=== PATIENT | female | born 1935 | race Caucasian/White ===

== ENCOUNTER 2016-09-08 14:38 | Outpatient (RCR) | payer MEDICARE ==
--- OUTSIDE RECORDS SUMMARY | 2016-08-19 13:49 | XMS REPORT | Continuity of Care Document ---
Author Author [facility] Organization [facility] Address Unknown Phone Unavailable Care Team Providers Care Exhibition Carver Name Role Phone Brittnee Marie PCP [phone] Source Comments Some departments are not documenting in the electronic medical record. If you do not see the information that you expected, contact Release of Information in the Health Information Management department at [phone] for further assistance in locating additional records.[facility] Active Allergies and Adverse Reactions Allergen Noted Date Severity Reactions Comments Pcn 06/23/2011 UNKNOWN Sulfa (Sulfonamide 06/23/2011 UNKNOWN Antibiotics) Current Medications Prescription Sig. Disp. Refills Start End Date Status Date ATORVASTATIN CALCIUM Take 20 mg by mouth. Active (LIPITOR PO) FUROSEMIDE (LASIX PO) Take 80 mg by mouth. Active ERGOCALCIFEROL (VITAMIN Take 2,000 mg by mouth Active D2) (VITAMIN D PO) daily. CALCIUM CARBONATE Take 500 mg by mouth Active (CALCIUM 500 PO) daily. MULTIVITAMIN PO Take by mouth. Active potassium chloride SR Take 10 mEq by mouth Active (K-DUR) 10 mEq tablet twice daily. diazepam (VALIUM) 5 mg Take 0.5 Tabs by mouth 30 Tab 07/10/20 Active tablet every 6 hours as needed. 11 diltiazem(#) (CARDIZEM) Take 9 mL by mouth every 07/10/20 Active 10 mg/mL 6 hours. 11 lisinopril(#) (PRINIVIL; 20 mL by Per NG tube 07/10/20 Active ZESTRIL) 2 mg/mL route daily. 11 metoprolol(#) (LOPRESSOR) 2.5 mL by PEG Tube route 07/10/20 Active 10 mg/mL twice daily. 11 oxyCODONE/acetaminophen 1-2 Tabs every 4 hours as 30 Tab 07/10/20 Active (PERCOCET; ENDOCET; needed for Pain. Max 12 11 ROXICET) 5/325 mg tablet tabs/day senna/docusate 10 mL by Per NG tube 07/10/20 Active (SENOKOT-S) 8.8/50 mg /10 route twice daily. 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 CAD (coronary artery disease) 06/24/2011 Scoliosis 06/24/2011 Spinal stenosis 06/24/2011 PVD (peripheral vascular disease) ([facility]) 06/24/2011 Social History Tobacco Use Types Packs/Day Years Used Date Former Smoker Cigarettes 1 15 Quit: 06/23/1995 Tobacco Cessation: Counseling Given: No Comments: Alcohol Use Drinks/Week oz/Week Comments No Last Filed Vital Signs Vital Sign Reading Time Taken Blood Pressure 137/78 07/11/2011 12:02 PM MANAGER SPECIALTY Pulse 83 07/11/2011 12:02 PM MANAGER [facility] Temperature 36.8 C (98.2 F) 07/11/2011 12:02 PM MANAGER SPECIALTY Respiratory Rate - - Height 1.702 m (5' 7.01") 07/11/2011 1:00 PM MANAGER [facility]TY Weight 75.297 kg (166 lb) 07/11/2011 6:31 AM MANAGER SPECIALTY Body Mass Index 25.99 07/11/2011 6:31 AM MANAGER SPECIALTY Oxygen Saturation 95% 07/11/2011 12:02 PM MANAGER SPECIALTY Plan of Care Health Maintenance Due Date Last Done Comments Physical (Comprehensive) 1942 Exam Pertussis Vaccine 1944 Tetanus Vaccine 1950 Shingles Vaccine 1993 Osteoporosis Screening 1998 Prevnar/Pneumovax (#1) 1998 Influenza Vaccine 03/24/2016 Results from Last 3 Months Not on file
[~2016-09-08 14:38] MED LIST: ACET-2307 PO; ACET650T15 PO; ALPR.25T PO; AMLO10TA82; AMLO10TA82 PO; ASP325T PO; ASP81TEC PO; ATR20T PO; ATRV10T PO; BNZ40T PO; CALC-758 PO; CALC-78 PO; CALC1TAB PO; CHOL2000 PO; CITA10TA PO; CLD600T PO; CLOP75TA PO; DILT240C PO; DILT240C53 PO; DOCU-238 PO; ESTR0.9T PO; FERR-57 PO; FISH1CAP15 PO; FURO20TA4 PO; FURO40TA4; FURO40TA4 PO; FURO80TA PO; FURO80TA3 PO; KCL10CCR; KCL10CCR PO; LISI-597 PO; LISI20TA PO; LOPE2CAP PO; LORA10TA7 PO; MENT71OI TP; METO-333 PO; METO100T5 PO; METO2.5T7 PO; METO50TA2 PO; MTL2.5T PO; MTP50T PO; MULT-608 PO; NAPR-243 PO; NAPR220T76 PO; NEBI20TA2 PO; NFNEB10T PO; NST15O TOP; OMG1KC PO; OXYB5TAB9 PO; PANT40TA PO; POTA10CA43 PO; POTA20TA15 PO; PREN-115 PO; SENN1TAB76 PO; TELM80TA3 PO; VITAMINE C PO; VITAMINE E PO; WARF4TAB PO; WRF2T PO
== END 2016-10-19 09:25 | disposition home or self-care (01) ==
PROVIDERS: ATTEND Family Medicine
DX: R42 Dizziness and giddiness (principal); R53.1 Weakness; R26.9 Unspecified abnormalities of gait and mobility; Z86.73 Personal history of transient ischemic attack (TIA), and cerebral infarction without residual deficits

== ENCOUNTER 2017-05-11 10:33 | Outpatient (CLI) | payer MEDICARE ==
[~2017-05-11] VITALS: Ht 172.7 cm; Wt 67.6 kg
[2017-05-11 09:11] LABS: ALBUMIN 4.5 GM/DL (3.2-4.5); CALCIUM 9.9 MG/DL (8.5-10.1); CREATININE SERUM 1.06 MG/DL (0.60-1.30); POTASSIUM 3.5 MMOL/L (3.6-5.0); TOTAL PROTEIN 7.7 GM/DL (6.4-8.2)
[~2017-05-11 10:33] MED LIST changes: -ACET-2267 PO; -ASPI-999 PO; -ATOR10TA66 PO; -CATHETER FLUSH 10 ML SYR IV PRN; -CLON0.1T PO; -IOHEXOL 350 MG/ML 100 ML (OMNIPAQUE 350) VIAL IV ONE; -LISI40TA PO; -METO-274 PO; -MULT-35 PO; -NS 100 ML (IVPB) BAG IV ONE
[2017-05-11] MEDS ORDERED: POTA10CA43 PO ×2 (10:52)
[2017-05-11] MEDS ORDERED: FURO40TA4 PO (10:52)
[2017-05-11] MEDS ORDERED: LISI40TA PO (10:52)
[2017-05-11] MEDS ORDERED: ACET-2267 PO (10:52)
[2017-05-11] MEDS ORDERED: METO-274 PO (10:52)
[2017-05-11] MEDS ORDERED: LORA10TA7 PO (10:52)
[2017-05-11] MEDS ORDERED: ATOR10TA66 PO (10:52)
[2017-05-11] MEDS ORDERED: FISH1CAP15 PO (10:52)
[2017-05-11] MEDS ORDERED: CLON0.1T PO (10:52)
[2017-05-11] MEDS ORDERED: MULT-35 PO (10:52)
[2017-05-11] MEDS ORDERED: OXYB5TAB9 PO (10:52)
[2017-05-11] MEDS ORDERED: ASPI-999 PO (10:52)
[2017-05-11 11:02] VITALS: BP 128/77
== END 2017-05-11 14:15 | disposition home or self-care (01) ==
LOC: PREOP 10:33
PROVIDERS: ATTEND Orthopaedic Surgery
DX: Z01.811 Encounter for preprocedural respiratory examination (principal); S83.281A Other tear of lateral meniscus, current injury, right knee, initial encounter; X58.XXXA Exposure to other specified factors, initial encounter; Y99.8 Other external cause status
CPT/HCPCS: 36415; 80053; 80061; 87081

== ENCOUNTER → 2017-05-11 | Outpatient (CLI) | payer MEDICARE ==
--- NOTE | 2017-05-09 13:23 | HISTORY AND PHYSICAL ---
DATE OF SERVICE: LAST-FOUR SOCIAL SECURITY: 3070. REASON FOR ADMISSION: This will be for outpatient surgery on 05/17/2017 for right knee arthroscopy. HISTORY OF PRESENT ILLNESS: The patient is an 81-year-old active female with complaints of progressive worsening right knee pain. She reports this has been present for several months. She denies any specific injuries. She reports catching and locking. She reports that she has undergone injections with temporary relief of her symptoms. She reports that she has had several falls because of the knee. Due to functional impairment, the patient has elected to proceed with surgical intervention. This can be last excision . REVIEW OF SYSTEMS: No chest pain. No shortness of breath. No dysuria. PAST MEDICAL HISTORY: Hypertension, atrial fibrillation and hyperlipidemia. PAST SURGICAL HISTORY: Abdominal hysterectomy. FAMILY HISTORY: Noncontributory. PRIMARY CARE PROVIDER: Dr. Richter. MEDICATIONS: Clonidine, cetirizine, Cardizem, metoprolol, lisinopril, Lasix, aspirin, Lipitor, oxybutynin, potassium, Gary-3 acids, NSAIDs, sulfa, penicillin, cyclobenzaprine and tramadol. SOCIAL HISTORY: The patient denies alcohol or tobacco use. RADIOGRAPHS: Reveal mild patellofemoral joint space narrowing. PHYSICAL EXAMINATION: GENERAL: The patient is well developed, well nourished and in no acute distress. HEENT: Normocephalic, atraumatic. Pupils are equal, round and reactive to light. Oropharynx is clear. NECK: Supple. No lymphadenopathy. LUNGS: Clear to auscultation bilaterally. HEART: Regular rate and rhythm. ABDOMEN: Soft, nontender and nondistended. EXTREMITIES: The right knee demonstrates marked tenderness along the lateral joint line and pain laterally with Linnea's. She has a slight effusion. Range of motion is 0/0/125. There is no varus or valgus laxity. Negative anterior and posterior drawer. Negative straight leg raise. She ambulates with antalgic gait. 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 PLAN: Right knee arthroscopy with partial lateral meniscectomy and chondroplasty. The risks, benefits, options, ramifications, and recovery were discussed at length with the patient. She understands and wishes to proceed. Job ID: [id number] DocumentID: [id number] Dictated Date: 05/09/2017 11:31:13 Computer System Technician Date: 05/09/2017 13:23:06 Dictated By: TEVIN AGUIRRE MD
[~2017-05-11] MED LIST changes: +ACET-2267 PO; +ASPI-999 PO; +ATOR10TA66 PO; +CATHETER FLUSH 10 ML SYR IV PRN; +CLON0.1T PO; +IOHEXOL 350 MG/ML 100 ML (OMNIPAQUE 350) VIAL IV ONE; +LISI40TA PO; +METO-274 PO; +MULT-35 PO; +NS 100 ML (IVPB) BAG IV ONE
--- NOTE | 2017-05-11 13:36 | Diagnostic Imaging Report ---
CT angiogram of the neck performed with intravenous contrast. INDICATION: CAROTID ARTERY STENOSIS I65.23. MIP coronal and sagittal reconstructions are performed. 8 mL of Omnipaque 350 is administered intravenously. FINDINGS: The aortic arch is patent. There is atherosclerotic calcification at the origin of the left subclavian artery without significant stenosis. The brachiocephalic and the right subclavian artery are patent. The right common carotid artery is patent. The right internal carotid artery has a tortuous course and in the mid to upper aspect of the neck it has a retropharyngeal course at the level of the oropharynx. The external carotid artery is patent. The left internal carotid artery demonstrates proximal plaque with 80-90% stenosis. The external carotid and the left common carotid arteries are patent. The vertebral arteries demonstrate mild disease with generally patent lumen. The soft tissues demonstrate no mass or significantly enlarged lymph nodes. There is symmetric appearance of the parotid glands and the submandibular glands. Advanced degenerative changes in the cervical spine are seen. There is mild emphysema noted in the upper lungs. IMPRESSION: There is 80-90% stenosis seen within the proximal aspect of the left ICA from predominantly soft plaque. Dictated by: Dictated on workstation # [id number]
== END ==
LOC: RAD 08:03
PROVIDERS: ATTEND Internal Medicine Cardiovascular Disease
DX: I65.22 Occlusion and stenosis of left carotid artery (principal); I10 Essential (primary) hypertension; E78.2 Mixed hyperlipidemia; I25.10 Atherosclerotic heart disease of native coronary artery without angina pectoris
CPT/HCPCS: 70498

== ENCOUNTER → 2017-05-17 | Outpatient (CLI) | payer MEDICARE ==
[~2017-05-17] MED LIST changes: +ACET-2267 PO; +ASPI-999 PO; +ATOR10TA66 PO; +CLON0.1T PO; +LISI40TA PO; +METO-274 PO; +MULT-35 PO
[2017-05-17 09:04] LABS: MEAN PLATELET VOLUME 9.9 FL (7.4-10.4); RED BLOOD COUNT 3.89 10^6/uL (4.35-5.85); RED CELL DISTRIBUTION WIDTH 12.8 % (10.0-14.5); WHITE BLOOD COUNT 5.9 10^3/uL (4.3-11.0)
[2017-05-17 09:10] LABS: BILIRUBIN,URINE NEGATIVE (NEGATIVE); KETONES,URINE NEGATIVE (NEGATIVE); LEUKOCYTE ESTERASE ,URINE NEGATIVE (NEGATIVE); NITRITE,URINE NEGATIVE (NEGATIVE); PH,URINE 6 (5-9); PROTEIN,URINE NEGATIVE (NEGATIVE); UROBILINOGEN,URINE NORMAL (NORMAL)
[2017-05-17 09:17] LABS: SQUAMOUS EPITHELIAL CELL,UR RARE /HPF
[2017-05-17 09:25] LABS: ALBUMIN 4.3 GM/DL (3.2-4.5); BILIRUBIN,TOTAL 0.7 MG/DL (0.1-1.0); CALCIUM 9.2 MG/DL (8.5-10.1); CREATININE SERUM 1.16 MG/DL (0.60-1.30); POTASSIUM 3.6 MMOL/L (3.6-5.0); TOTAL PROTEIN 7.3 GM/DL (6.4-8.2)
--- NOTE | 2017-05-17 09:47 | Diagnostic Imaging Report ---
INDICATION: Preop for carotid surgery. TECHNIQUE: PA and lateral views of the chest were obtained at 0931 hours. COMPARISON: 03/07/2016. FINDINGS: The heart is borderline in size. The aorta is tortuous. There are calcified nodes in the AP window, compatible with old granulomatous disease. There is no acute infiltrate, pneumothorax, or pleural fluid. IMPRESSION: No acute process in the chest. Old granulomatous changes. Borderline heart size with a tortuous aorta. Dictated by: Dictated on workstation # [id number]
== END ==
LOC: CARD 08:41
PROVIDERS: ATTEND Thoracic Surgery (Cardiothoracic Vascular Surgery)
DX: Z01.810 Encounter for preprocedural cardiovascular examination (principal); Z01.811 Encounter for preprocedural respiratory examination; Z01.812 Encounter for preprocedural laboratory examination; I65.23 Occlusion and stenosis of bilateral carotid arteries
CPT/HCPCS: 36415; 71020; 80053; 81000; 85027; 93005

== ENCOUNTER → 2017-06-08 | Outpatient (CLI) | payer MEDICARE ==
[~2017-06-08] MED LIST changes: -METO-274 PO; +METO-395 PO
== END ==
LOC: CARD 13:57
PROVIDERS: ATTEND Internal Medicine Cardiovascular Disease
DX: I25.10 Atherosclerotic heart disease of native coronary artery without angina pectoris (principal); I10 Essential (primary) hypertension; E78.5 Hyperlipidemia, unspecified; I65.23 Occlusion and stenosis of bilateral carotid arteries
CPT/HCPCS: 93306

== ENCOUNTER 2017-06-28 09:58 | Outpatient (CLI) | payer MEDICARE ==
[~2017-06-28] VITALS: Ht 172.7 cm; Wt 66.4 kg
[~2017-06-28 09:58] MED LIST changes: +METO50TA15 PO; -METO50TA2 PO
[2017-06-28 10:14] VITALS: BP 139/86
[2017-06-28 10:51] LABS: BASOPHILS # (AUTO) 0.1 10^3/uL (0.0-0.1); BASOPHILS % (AUTO) 1 % (0-10); EOSINOPHILS # (AUTO) 0.1 10^3/uL (0.0-0.3); EOSINOPHILS % (AUTO) 2 % (0-10); LYMPHOCYTES # (AUTO) 1.3 X 10^3 (1.0-4.0); LYMPHOCYTES % (AUTO) 21 % (12-44); MEAN CORPUSCULAR HEMOGLOBIN 32 PG (25-34); MEAN CORPUSCULAR HGB CONC 32 G/DL (32-36); MEAN CORPUSCULAR VOLUME 100 FL (80-99); MEAN PLATELET VOLUME 10.3 FL (7.4-10.4); MONOCYTES # (AUTO) 0.6 X 10^3 (0.0-1.0); MONOCYTES % (AUTO) 9 % (0-12); NEUTROPHILS % (AUTO) 67 % (42-75); PLATELET COUNT 204 10^3/uL (130-400); RED BLOOD COUNT 3.76 10^6/uL (4.35-5.85); RED CELL DISTRIBUTION WIDTH 12.7 % (10.0-14.5)
[2017-06-28 11:10] LABS: CALCIUM 9.3 MG/DL (8.5-10.1); CREATININE SERUM 1.06 MG/DL (0.60-1.30); POTASSIUM 4.1 MMOL/L (3.6-5.0)
== END 2017-06-28 13:13 | disposition home or self-care (01) ==
LOC: PREOP 09:58
PROVIDERS: ATTEND Orthopaedic Surgery
DX: Z01.812 Encounter for preprocedural laboratory examination (principal); Z11.2 Encounter for screening for other bacterial diseases; M23.200 Derangement of unspecified lateral meniscus due to old tear or injury, right knee
CPT/HCPCS: 36415; 80048; 85025; 87081

== ENCOUNTER 2017-07-05 06:00 | Day surgery (SDC) | payer MEDICARE ==
--- NOTE | 2017-06-27 09:37 | HISTORY AND PHYSICAL ---
DATE OF SERVICE: 07/05/2017 For right knee arthroscopy. HISTORY OF PRESENT ILLNESS: The patient is an 81-year-old female with complaints of progressive worsening right knee pain. She reports pain on the lateral aspect of the right knee. She has undergone injections with only temporary relief of her symptoms. She reports pain with twisting and pivoting. She has had several falls due to the knee. Radiographs reveal mild patellofemoral joint space narrowing with no other degenerative changes noted. Due to functional impairment and failure to improve with conservative measures, the patient elected to proceed with surgical intervention. REVIEW OF SYSTEMS: No chest pain, no shortness of breath. No dysuria. PAST MEDICAL HISTORY: Atrial fibrillation, hypertension, hyperlipidemia. PAST SURGICAL HISTORY: Hysterectomy. FAMILY HISTORY: Noncontributory. PRIMARY CARE PROVIDER: Dr. Richter. MEDICATIONS: 1. Clonidine. 2. Cetirizine. 3. Cardizem. 4. Metoprolol. 5. Lisinopril. 6. Lasix. 7. Aspirin. 8. Lipitor. 9. Oxybutynin. 10. Potassium 11. [place] 3. ALLERGIES: To NSAIDS, SULFA, PENICILLIN, CYCLOBENZAPRINE and TRAMADOL. SOCIAL HISTORY: The patient denies alcohol and tobacco use. PHYSICAL EXAMINATION: GENERAL: The patient is well developed, well-nourished in no acute distress. HEENT: Normocephalic, atraumatic. Pupils are equal, round react to light. Oropharynx is clear. NECK: Supple, no lymphadenopathy. LUNGS: Clear to auscultation bilaterally. HEART: Regular rate and rhythm. ABDOMEN: Soft, nontender, nondistended. EXTREMITIES: The right knee demonstrates marked tenderness over lateral joint line. She has pain laterally with Linnea's. She has a slight effusion. Range of motion 0/0/125. There is no varus valgus laxity. Negative anterior, posterior drawer. Negative straight leg raise. ASSESSMENT: Right knee lateral meniscal tear with associated chondromalacia. PLAN: Right knee arthroscopy with partial meniscectomy and chondroplasty. The risks, benefits, options, ramifications and recovery were discussed at length with the patient, she understands and wishes to proceed. Job ID: [id number] DocumentID: [id number] Dictated Date: 06/27/2017 08:14:58 Building Coordinator Date: 06/27/2017 09:36:51 Dictated By: TEVIN AGUIRRE MD
[~2017-07-05] VITALS: Ht 172.7 cm; Wt 66.4 kg
--- OUTSIDE RECORDS SUMMARY | 2017-07-05 06:21 | XMS REPORT | Clinical Summary ---
Author Author [facility] Organization [facility] Address Unknown Phone Unavailable Care Team Providers Care Senior Technical Analyst Name Role Phone PCP Unavailable Source Comments Some departments are not documenting in the electronic medical record. If you do not see the information that you expected, contact Release of Information in the Health Information Management department at [phone] for further assistance in locating additional records.[facility] Allergies Active Allergy Reactions Severity Noted Date Comments Penicillins UNKNOWN 06/23/2011 Sulfa (Sulfonamide UNKNOWN 06/23/2011 Antibiotics) Current Medications Prescription Sig. Disp. Refills [...] Spinal stenosis 06/24/2011 PVD (peripheral vascular disease) ([facility]) 06/24/2011 Social History Tobacco Use Types Packs/Day Years Used Date Former Smoker Cigarettes 1 15 Quit: 06/23/1995 Tobacco Cessation: Counseling Given: No Alcohol Use Drinks/Week oz/Week Comments No Sex Assigned at Date Recorded Not on file Last Filed Vital Signs Vital Sign Reading Time Taken Blood Pressure 137/78 07/11/2011 12:02 PM STAFFING MGR Pulse 83 07/11/2011 12:02 PM STAFFING MGR Temperature 36.8 C (98.2 F) 07/11/2011 12:02 PM STAFFING MGR Respiratory Rate - - Oxygen Saturation 95% 07/11/2011 12:02 PM STAFFING MGR Inhaled Oxygen - - Concentration Weight 75.3 kg (166 lb) 07/11/2011 6:31 AM STAFFING MGR Height 170.2 cm (5' 7.01") 07/11/2011 1:00 PM STAFFING MGR Body Mass Index 25.99 07/11/2011 6:31 AM STAFFING MGR Plan of Treatment Health Maintenance Due Date Last Done Comments PHYSICAL (COMPREHENSIVE) 1942 EXAM PERTUSSIS VACCINE 1944 TETANUS VACCINE 1950 SHINGLES VACCINE 1993 OSTEOPOROSIS SCREENING 1998 PREVNAR/PNEUMOVAX (#1) 1998 INFLUENZA VACCINE 02/21/2017 Results Not on filefrom Last 3 Months
[2017-07-05] MEDS ORDERED: CLINDAMYCIN 600 MG/NS 50 ML IVPB IV ONE ×2 (07:00)
[2017-07-05] MEDS ORDERED: LABETALOL HCL 20 MG/4 ML VIAL ONE (07:02)
[2017-07-05] MEDS ORDERED: morphine PF (DURAMORPH) 10 MG/10 ML AMP ONE (07:04)
[2017-07-05] MEDS ORDERED: BUPIVACAINE 0.25% 30 ML (SENSORCAINE) VIAL ONE (07:04)
--- NOTE | 2017-07-05 07:22 | Progress Note-Pre Operative ---
Pre-Operative Progress Note H&P Reviewed The H&P was reviewed, patient examined and no changes noted. Date Seen by Provider: Jul 05, 2017 Time Seen by Provider: 07:18 Date H&P Reviewed: Jul 05, 2017 Time H&P Reviewed: 07:11 Pre-Operative Diagnosis: right knee lateral meniscus tear and chondromalacia TEVIN AGUIRRE MD Jul 05, 2017 07:22
--- NOTE | 2017-07-05 07:23 | Progress Note-Post Operative ---
Post-Operative Progess Note Surgeon (s)/Internet Designer (s) Surgeon TEVIN AGUIRRE MD Internet Designer: none Pre-Operative Diagnosis right knee lateral meniscus tear and chondromalacia Post-Operative Diagnosis right knee lateral meniscus tear and chondromalacia of the medial femoral condyle and patella Procedure & Operative Findings Date of Procedure 07/05/17 Procedure Performed/Findings right knee arthroscopic partial lateral meniscectomy and chondroplasty Anesthesia Type GETA Estimated Blood Loss Estimated blood loss (mL): minimal Specimens/Packing Specimens Removed none Packing: none TEVIN AGUIRRE MD Jul 05, 2017 07:23
[2017-07-05] MEDS ORDERED: HYDR-757 PO (07:25)
[2017-07-05] MEDS ORDERED: HYDROcodone/APAP 5 MG/325 MG (LORTAB) TAB PO PRN (07:30)
[2017-07-05] MEDS ORDERED: MIDAZOLAM 2 MG/2 ML (VERSED) VIAL ONE (07:32)
[2017-07-05] MEDS ORDERED: SEVOFLURANE (ULTANE) 15 ML INHAL SOLN ONE ×3 (07:33→08:17)
[2017-07-05] MEDS ORDERED: proPOfol 200 MG/20 ML (DIPRIVAN) VIAL IV ONE (07:33)
[2017-07-05] MEDS ORDERED: fentaNYL INJECTION 100 MCG/2 ML AMP ONE (07:33)
[2017-07-05] MEDS ORDERED: ONDANSETRON 4 MG/2 ML (SDV) Z0FRAN ONE (07:34)
[2017-07-05] MEDS ORDERED: DEXAMETHASONE 10 MG/ML (DECADRON) 1 ML VIAL ONE (07:34)
[2017-07-05] MEDS ORDERED: LACTATED RINGERS 1,000 ML IV PRN (07:41)
[2017-07-05] MEDS ORDERED: CLINDAMYCIN INJECTION 600 MG in NS (IVPB) 50 ML IV ONE (07:45)
[2017-07-05 07:52] VITALS: BP 193/94
[2017-07-05] MEDS ORDERED: morphine INJ 10 MG/ML 1ML (SYR OR VIAL) IVP PRN (08:30)
--- NOTE | 2017-07-05 09:09 | OPERATIVE REPORT ---
DATE OF SERVICE: 07/05/2017 PREOPERATIVE DIAGNOSES: 1. Right knee lateral meniscal tear. 2. Right knee chondromalacia of the patella. POSTOPERATIVE DIAGNOSES: 1. Right knee lateral meniscal tear. 2. Right knee chondromalacia of the patella. 3. Right knee chondromalacia of the medial femoral condyle. PROCEDURES: 1. Right knee arthroscopic partial lateral meniscectomy. 2. Right knee arthroscopic chondroplasty of the medial femoral condyle. 3. Right knee arthroscopic chondroplasty of the patella. SURGEON: Tevin Aguirre MD ANESTHESIA: General endotracheal by Dr. Bertin Jon. TOURNIQUET TIME: Not applicable. ESTIMATED BLOOD LOSS: Minimal. DRAINS: None. COMPLICATIONS: None. POSTOPERATIVE PLAN: Routine arthroscopy protocol. The patient was transported to the recovery room awake and in stable condition. STATEMENT OF MEDICAL NECESSITY: The patient is an 82-year-old female with complaints of right knee pain laterally with catching and locking. She reported falls due to the knee. The patient was counseled that she did have some arthrosis and that the arthroscopy would not alleviate her arthritic type symptoms that could help with her mechanical symptoms. Due to functional impairment and failure to improve with conservative measures, the patient elected to proceed with surgical intervention. Examination under anesthesia revealed range of motion of 0/3/130 with a negative Jason, negative anterior and posterior drawer. No varus valgus laxity, negative pivot shift. ARTHROSCOPIC FINDINGS: The patella demonstrated grade II chondral flaps centrally in a 15 x 10 area. The trochlea demonstrated no gross chondral abnormalities. Medial and lateral gutters were clear. The medial compartment demonstrated diffuse grade II chondral loss over the tibial plateau with no meniscal pathology noted. There were grade III chondral flaps of the central portion of the femoral condyle in an 8 x 8 area. The ACL and PCL were intact. The lateral compartment demonstrated grade IV chondral loss in adjacent areas over the femoral condyle and tibial plateau in 15 x 15 areas. In addition, there was a horizontal cleavage tear of the posterior horn and body of the meniscus involving approximately 1/3 of the posterior horn and body. PROCEDURE: After risks and benefits of the procedure were discussed and questions were answered, an informed consent was signed and placed on chart. The operative site was confirmed in the preoperative holding area and initialed by the surgeon. The patient transferred to the operating room and after adequate levels of general endotracheal anesthetic was obtained, a timeout was called confirming the operative site. Examination under anesthesia was performed. The above findings noted. The right lower extremity was then prepped and draped in the usual sterile fashion. The right knee was injected with 60 mL of fluid. A standard inferolateral portal was placed for the arthroscope under direct visualization and inferior medial portal was created. The menisci and cruciates were carefully probed with the above findings noted. The unstable chondral flaps on the patella were debrided with the shaver back to a stable edge. The scope was then redirected into the medial compartment then several chondral flaps of the medial femoral condyle were debrided shaved back to a stable edge. Scope was then redirected into the lateral compartment where the posterior horn and body of the lateral meniscus were debrided with the biter and shaver removing approximately 1/3rd of the posterior horn and body. This was carefully probed with no further tearing or instability noted. The knee was copiously irrigated. Portal sites closed with 4-0 nylon in simple interrupted fashion. Knee was injected with Duramorph. Portal sites were draped and infiltrated with plain Marcaine. A soft dressing was applied. The patient was transferred to the recovery room awake and in stable condition. Job ID: [id number] DocumentID: [id number] Dictated Date: 07/05/2017 08:36:40 Hiv Counselor Date: 07/05/2017 09:09:09 Dictated By: TEVIN AGUIRRE MD
[2017-07-05 09:30] VITALS: BP 166/86
[2017-07-05 10:00] VITALS: BP 174/114
[2017-07-05 10:30] VITALS: BP 146/82
--- NOTE | 2017-07-05 11:33 | Physical Therapy Ortho Eval ---
PT Orthopedic Evaluation Type of Surgery Knee Scope (right) meniscus tear and chondromalacia Prior Level of Function Current Living Status: Alone Locomotion (Upon Admit): Straight Cane (prn) Established Durable Medical Eq: Shower Chair Subjective Subjective Pt agreeable. Has a walker her used. No complaints. Report her daughter will stay with her tonight and more if needed. Entry Into Home: Stairs With Railing (3) Steps Accessories: Railing Present Motor Control Motor Control: Motor Control WNL ROM ROM: WFL Strength Strength: WFL Transfer Transfers (B, C, W/C) (FIM): 5 (6 after treatment) Gait Gait Assistive Device: FWW Right Lower Extremity: Right Weight Bearing Status RLE: Weight Bearing/Tolerated Left Lower Extremity: Left Weight Bearing Status LLE: Full Weight Bearing Instruced on safe use of FWW; instructed in stair sequencing, use of handrail. Gait (FIM): 5 (6 post treatment) Distance (FIM): 3=150 ft Summary/Comments Safe gait with reciprocal gait pattern. Correct transfer technique and use of FWW. Treatment Rendered Treatment: Therapeutic Exercises, Gait Train, Step Train Exercise Instruction: Quad Sets, Straight Leg Raise, Heel Slides demonstrated correct performance of exercises; provided pictures of HEP Assessment/Goals Goal Time Frame: 1 Visit Plan Treatment Plan: Discharge, Education Treatment Duration: 1 visit PT/Family Agrees to Plan: Yes Time Time In: 1030 Time Out: 1100 Total Billed Treatment Time: 30 Billed Treatment Time visit EVM HX: lives alone, EXAM: assist with transfers and gait initially, Strength is functional but decreased on the right, use of AD for gait Presentation evolving due to surgery this date. Yes PT/OT Therapy GCodes Therapy Functional Limitation: Physical Therapy Test(s)/Tool used to determine: Level of Assistance Scale Functional Limitation-Current Charge Code: MOBCUR Modifier: CJ Functional Limitation-Goal Charge Code: MOBGOAL Modifier: CI Functional Limitation-D/C Charge Codes: MOBDC Modifier: CI SIL BETANCOURT PT Jul 05, 2017 11:33
[2017-07-05 12:00] VITALS: BP 146/82
== END 2017-07-05 12:00 | disposition home or self-care (01) ==
LOC: SDC 06:00
PROVIDERS: ATTEND Orthopaedic Surgery
DX: M23.8X1 Other internal derangements of right knee (principal); M22.41 Chondromalacia patellae, right knee; I48.91 Unspecified atrial fibrillation; I10 Essential (primary) hypertension; E78.5 Hyperlipidemia, unspecified; F32.9 Major depressive disorder, single episode, unspecified; Z86.718 Personal history of other venous thrombosis and embolism; Z79.899 Other long term (current) drug therapy; Z79.82 Long term (current) use of aspirin; Z88.2 Allergy status to sulfonamides; Z88.0 Allergy status to penicillin; Z88.5 Allergy status to narcotic agent; Z88.8 Allergy status to other drugs, medicaments and biological substances

== ENCOUNTER → 2017-08-16 | Outpatient (CLI) | payer MEDICARE ==
[~2017-08-16] MED LIST changes: +HYDR-757 PO
--- NOTE | 2017-08-16 10:04 | Diagnostic Imaging Report ---
INDICATION: Hypertension. Grayscale, color-flow and duplex Doppler evaluation bilateral kidneys was performed. FINDINGS: Right kidney measures 9.4 x 4.3 x 4.7 cm and the left kidney measures 9.0 x 4.5 x 4.5 cm. The cortical thickness and echogenicity is normal. No calculi or hydronephrosis is seen. Renal artery velocities are normal. The proximal left renal artery was obscured by bowel gas. Renal artery to aorta ratios are normal. No high-grade stenosis is seen. IMPRESSION: Unremarkable renal ultrasound with renal Doppler. Dictated by: Dictated on workstation # [id number]
== END ==
LOC: RAD 08:19
PROVIDERS: ATTEND Internal Medicine Cardiovascular Disease
DX: I25.10 Atherosclerotic heart disease of native coronary artery without angina pectoris (principal); I65.23 Occlusion and stenosis of bilateral carotid arteries; I82.409 Acute embolism and thrombosis of unspecified deep veins of unspecified lower extremity; I10 Essential (primary) hypertension; E78.2 Mixed hyperlipidemia
CPT/HCPCS: 93975

== ENCOUNTER 2018-05-10 12:48 | Outpatient (CLI) | payer MEDICARE ==
[~2018-05-10] VITALS: Ht 172.7 cm; Wt 62.1 kg
[~2018-05-10 12:48] MED LIST changes: +HYDR-4226 PO; -HYDR-757 PO
[2018-05-10 13:00] VITALS: BP 180/83
[2018-05-10] MEDS ORDERED: METO100T12 PO (13:14)
[2018-05-10] MEDS ORDERED: CLON0.2T PO (13:14)
[2018-05-10] MEDS ORDERED: ACET-2650 PO (13:14)
[2018-05-10 14:01] LABS: BASOPHILS % (AUTO) 1 % (0-10); EOSINOPHILS # (AUTO) 0.1 10^3/uL (0.0-0.3); EOSINOPHILS % (AUTO) 2 % (0-10); HEMATOCRIT 39 % (35-52); HEMOGLOBIN 12.6 G/DL (11.5-16.0); LYMPHOCYTES # (AUTO) 1.2 X 10^3 (1.0-4.0); LYMPHOCYTES % (AUTO) 20 % (12-44); MEAN CORPUSCULAR HEMOGLOBIN 32 PG (25-34); MEAN CORPUSCULAR HGB CONC 32 G/DL (32-36); MEAN CORPUSCULAR VOLUME 99 FL (80-99); MEAN PLATELET VOLUME 10.1 FL (7.4-10.4); MONOCYTES # (AUTO) 0.4 X 10^3 (0.0-1.0); MONOCYTES % (AUTO) 7 % (0-12); NEUTROPHILS # (AUTO) 4.3 X 10^3 (1.8-7.8); NEUTROPHILS % (AUTO) 71 % (42-75); PLATELET COUNT 211 10^3/uL (130-400); RED BLOOD COUNT 3.95 10^6/uL (4.35-5.85); RED CELL DISTRIBUTION WIDTH 13.7 % (10.0-14.5)
[2018-05-10 14:17] LABS: PROTHROMBIN TIME PATIENT 13.5 SEC (12.2-14.7)
[2018-05-10 14:22] LABS: BILIRUBIN,URINE NEGATIVE (NEGATIVE); CLARITY,URINE CLEAR; COLOR,URINE YELLOW; GLUCOSE, URINE (UA) NEGATIVE (NEGATIVE); KETONES,URINE NEGATIVE (NEGATIVE); LEUKOCYTE ESTERASE ,URINE NEGATIVE (NEGATIVE); NITRITE,URINE NEGATIVE (NEGATIVE); PH,URINE 5 (5-9); PROTEIN,URINE NEGATIVE (NEGATIVE); UROBILINOGEN,URINE NORMAL (NORMAL)
[2018-05-10 14:24] LABS: ALBUMIN 4.4 GM/DL (3.2-4.5); BILIRUBIN,TOTAL 0.8 MG/DL (0.1-1.0); CALCIUM 9.7 MG/DL (8.5-10.1); CREATININE SERUM 1.06 MG/DL (0.60-1.30); POTASSIUM 3.7 MMOL/L (3.6-5.0); TOTAL PROTEIN 7.5 GM/DL (6.4-8.2)
[2018-05-10 14:54] LABS: BACTERIA,URINE NEGATIVE /HPF; RBC,URINE 0-2 /HPF; SQUAMOUS EPITHELIAL CELL,UR 0-2 /HPF; WBC,URINE 0-2 /HPF
[2018-05-10 14:59] LABS: ERYTHROCYTE SEDIMENTATION RATE 12 MM/HR (0-30)
--- NOTE | 2018-05-10 17:16 | Diagnostic Imaging Report ---
EXAMINATION: CHEST (PA AND LATERAL) CLINICAL INDICATION: 82-year-old female, preoperative exam. COMPARISON: May 17, 2017. FINDINGS: Stable overall appearance of the cardiomediastinal silhouette. There is no identified pneumothorax. There is no pleural effusion. There is no focal airspace consolidation. There are calcified AP window lymph nodes most likely relating to sequela of prior granulomatous disease. IMPRESSION: No identified acute cardiopulmonary abnormality. Dictated by: Dictated on workstation # [id number]
== END 2018-05-10 14:10 | disposition home or self-care (01) ==
LOC: PREOP 12:48
PROVIDERS: ATTEND Orthopaedic Surgery
DX: Z01.810 Encounter for preprocedural cardiovascular examination (principal); Z01.811 Encounter for preprocedural respiratory examination; Z01.812 Encounter for preprocedural laboratory examination; Z11.2 Encounter for screening for other bacterial diseases; M17.11 Unilateral primary osteoarthritis, right knee; R53.83 Other fatigue
CPT/HCPCS: 36415; 71046; 80053; 81000; 85025; 85610; 85652; 86850; 86900; 86901; 87081; 93005

== ENCOUNTER 2018-05-23 07:16 | Inpatient (IN) | payer MEDICARE ==
--- NOTE | 2018-05-14 12:07 | HISTORY AND PHYSICAL ---
DATE OF SERVICE: DATE OF SURGERY AND DATE OF ADMISSION: 05/23/2018. This will be for inpatient admission on 05/23/2018 for right total knee arthroplasty. HISTORY OF PRESENT ILLNESS: The patient is an 82-year-old female with progressively worsening right knee pain. She has undergone treatment with injections, arthroscopy and anti-inflammatories without relief. The pain has progressed to the point where she has to ambulate with a cane. She reports functional impairment. Due to failure to improve with conservative measures, the patient has elected to proceed with total knee arthroplasty. Radiographs revealed severe lateral compartment arthrosis with moderate medial and patellofemoral arthrosis. REVIEW OF SYSTEMS: No chest pain. No shortness of breath. No dysuria. PRIMARY CARE PROVIDER: Dr. Richter. REAL ESTATE OPERATIONS MANAGER: Brittnee Marie MD. MEDICATIONS: 1. Cetirizine. 2. Cardizem. 3. Metoprolol. 4. Lisinopril. 5. Lasix. 6. Aspirin. 7. Lipitor. 8. Oxybutynin. 9. Fish oil. 10. Catapres. 11. Calcium. 12. Diltiazem. 13. Potassium. ALLERGIES: NSAIDS, SULFA, PENICILLIN, CYCLOBENZAPRINE AND TRAMADOL. SOCIAL HISTORY: The patient is a former smoker and she denies alcohol use. PHYSICAL EXAMINATION: GENERAL: The patient is well developed, well nourished, in no acute distress. HEENT: Normocephalic, atraumatic. Pupils are equal, round, reactive to light. Oropharynx is clear. NECK: Supple, no lymphadenopathy. LUNGS: Clear to auscultation bilaterally. HEART: Regular rate and rhythm. ABDOMEN: Soft, nontender, nondistended. EXTREMITIES: The right knee demonstrates a mild valgus alignment. There is no varus or valgus laxity. Negative anterior and posterior drawer. Range of motion is 0/5/120. Patella tracks well. There are no skin lesions. Slight effusions noted. Sensation is intact distally. IMPRESSION: Severe right knee osteoarthritis. PLAN: Right total knee arthroplasty. The risks, benefits, options, ramifications and recovery were discussed at length with the patient. She understands and wishes to proceed. In addition, the patient will require inpatient admission for comorbidities as well as pain management, weakness and gait abnormalities. Job ID: [id number] DocumentID: [id number] Dictated Date: 05/14/2018 11:31:55 Title Inspector Date: 05/14/2018 12:07:06 Dictated By: TEVIN AGUIRRE MD
[~2018-05-23] VITALS: Ht 172.7 cm; Wt 62.1 kg
[~2018-05-23 07:16] MED LIST changes: +ACET-2650 PO; +CLON0.2T PO; +METO100T12 PO
--- OUTSIDE RECORDS SUMMARY | 2018-05-23 07:28 | XMS REPORT | Clinical Summary ---
Author Author [facility] Organization [facility] Address Unknown Phone Unavailable Care Team Providers Care Computer Systems Security Administrator Name Role Phone Josiah Collado MD Unavailable Brittnee Marie MD PCP Source Comments Some departments are not documenting in the electronic medical record. If you do not see the information that you expected, contact Release of Information in the Health Information Management department at [phone] for further assistance in locating additional records.[facility] Allergies Active Allergy Reactions Severity Noted Date [...] Spinal stenosis 06/24/2011 PVD (peripheral vascular disease) (HCC) 06/24/2011 Social History Tobacco Use Types Packs/Day Years Used Date Former Smoker Cigarettes 1 15 Quit: 06/23/1995 Tobacco Cessation: Counseling Given: No Alcohol Use Drinks/Week oz/Week Comments No Sex Assigned at Date Recorded Not on file Last Filed Vital Signs Vital Sign Reading Time Taken Blood Pressure 137/78 07/11/2011 12:02 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 Pulse 83 07/11/2011 12:02 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 Temperature 36.8 C (98.2 F) 07/11/2011 12:02 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 Respiratory Rate - - Oxygen Saturation 95% 07/11/2011 12:02 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 Inhaled Oxygen - - Concentration Weight 75.3 kg (166 lb) 07/11/2011 6:31 AM WATER 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 Height 170.2 cm (5' 7.01") 07/11/2011 1:00 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 Body Mass Index 25.99 07/11/2011 6:31 AM WATER 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 Plan of Treatment Health Maintenance Due Date Last Done Comments PHYSICAL (COMPREHENSIVE) 1940 EXAM PERTUSSIS VACCINE 1944 TETANUS VACCINE 1950 SHINGLES RECOMBINANT 1983 VACCINE (1 of 2) OSTEOPOROSIS SCREENING 1998 PNEUMONIA (PCV13/PPSV23) 1998 VACCINES (1 of 2 - PCV13) INFLUENZA VACCINE 02/21/2018 Results Not on filefrom Last 3 Months
--- OUTSIDE RECORDS SUMMARY | 2018-05-23 07:30 | XMS REPORT | Continuity of Care Document ---
Author Author [facility] Organization [facility] Address Unknown Phone Unavailable Allergies Active Description Code Type Severity Reaction Onset Reported/Identified Relationship to Patient Clinical Status Yes penicillin G [id number] Drug Allergy Unknown N/A 11/20/2008 Yes Sulfa (Sulfonamide Antibiotics) [id number] Drug Allergy Unknown N/A 2008 Yes Sulfa (Sulfonamide Antibiotics) [id number] Drug Allergy Moderate RASH 06/28 Yes Penicillins [id number] Drug Allergy Mild ITCHING 06/28/2017 Medications There is no data. Problems Date Dx Coded Attending Type Code Diagnosis Diagnosed By SARAH CARPENTER MD Ot R26.9 UNSPECIFIED ABNORMALITIES OF GAIT AND MO SARAH CARPENTER MD Ot R42 DIZZINESS AND GIDDINESS SARAH CARPENTER MD Ot R53.1 WEAKNESS SARAH CARPENTER MD Ot Z86.73 PRSNL HX OF TIA (TIA), AND CEREB INFRC W 02/16/2010 Ot 272.4 02/16/2010 Ot 401.9 02/16/2010 Ot 427.31 02/16/2010 Ot 433.10 02/16/2010 Ot 440.20 02/16/2010 Ot 440.4 02/16/2010 Ot V12.51 06/23/2010 Ot 272.4 06/23/2010 Ot 397.0 06/23/2010 Ot 401.9 06/23/2010 Ot 424.0 06/23/2010 Ot 427.31 06/23/2010 Ot 433.10 06/23/2010 Ot 443.9 06/23/2010 Ot 745.5 06/23/2010 Ot V07.4 06/23/2010 Ot V58.66 06/23/2010 Ot V58.69 06/23/2011 Ot 272.4 HYPERLIPIDEMIA NEC/NOS 06/23/2011 Ot 276.51 DEHYDRATION 06/23/2011 Ot 401.9 HYPERTENSION NOS 06/23/2011 Ot 427.31 ATRIAL FIBRILLATION 06/23/2011 Ot 431 INTRACEREBRAL HEMORRHAGE 06/23/2011 Ot 536.2 PERSISTENT VOMITING 06/23/2011 Ot 584.9 ACUTE RENAL FAILURE, UNSPECIFIED 06/23/2011 Ot 787.91 DIARRHEA 06/23/2011 Ot V58.61 ANTICOAGULANTS,LT,CURRENT USE 07/27/2011 Ot 111.9 DERMATOMYCOSIS NOS 07/27/2011 Ot 272.4 HYPERLIPIDEMIA NEC/NOS 07/27/2011 Ot 276.0 HYPEROSMOLALITY 07/27/2011 Ot 280.9 IRON DEFIC ANEMIA NOS 07/27/2011 Ot 285.9 ANEMIA NOS 07/27/2011 Ot 403.90 HYPTNSV CHR KID DIS, UNSPEC, W CHR KD ST 07/27/2011 Ot 414.01 CORONARY ATHEROSCLEROSIS OF [place] CORON 07/27/2011 Ot 427.31 ATRIAL FIBRILLATION 07/27/2011 Ot 433.10 CAROTID ARTERY OCCLUSION W O CEREBRAL IN 07/27/2011 Ot 438.82 OTH LATE EFF -CEREB DIS, DYSPHAGIA 07/27/2011 Ot 438.84 ATAXIA 07/27/2011 Ot 443.9 PERIPH VASCULAR DIS NOS 07/27/2011 Ot 530.11 REFLUX ESOPHAGITIS 07/27/2011 Ot 585.9 CHRONIC KIDNEY DISEASE, UNSPECIFIED 07/27/2011 Ot 599.0 URIN TRACT INFECTION NOS 07/27/2011 Ot 724.00 SPINAL STENOSIS NOS 07/27/2011 Ot 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 07/27/2011 Ot 787.91 DIARRHEA 07/27/2011 Ot 788.20 RETENTION OF URINE NOS 07/27/2011 Ot 792.1 ABN FIND- STOOL CONTENTS 07/27/2011 Ot V44.1 GASTROSTOMY STATUS 07/27/2011 Ot V57.1 PHYSICAL THERAPY NEC 07/27/2011 Ot V57.21 ENCOUNTER FOR OCCUPATIONAL THERAPY 07/27/2011 Ot V57.3 CARE INVOLVING SPEECH-LANGUAGE THERAPY 06/07/2012 Ot 272.4 HYPERLIPIDEMIA NEC/NOS 06/07/2012 Ot 401.9 HYPERTENSION NOS 06/07/2012 Ot 414.01 CORONARY ATHEROSCLEROSIS OF [place] CORON 06/07/2012 Ot 427.31 ATRIAL FIBRILLATION 06/07/2012 Ot 440.20 ATHEROSCLEROSIS [place] ARTERIES EXTREMIT 06/07/2012 Ot 786.59 CHEST PAIN NEC 06/07/2012 Ot 794.30 ABN CARDIOVASC STUDY NOS 06/07/2012 Ot V12.54 PERSONAL HX OF TIA, CEREBRAL INFARCTION 06/07/2012 Ot V58.61 ANTICOAGULANTS,LT,CURRENT USE 06/07/2012 Ot V58.66 LONG-TERM ( CURRENT) USE OF ASPIRIN 06/07/2012 Ot V58.69 OTH MED,LT, CURRENT USE 06/27/2014 Ot 401.9 06/27/2014 Ot 427.31 06/27/2014 Ot 786.09 06/27/2014 Ot V76.12 06/27/2014 Ot 401.9 06/27/2014 Ot 427.31 06/27/2014 Ot 427.31 06/27/2014 Ot V72.63 06/27/2014 Ot V72.81 06/27/2014 Ot V76.12 06/27/2014 Ot 715.95 06/27/2014 Ot 722.52 06/27/2014 Ot 724.02 06/27/2014 Ot 737.30 06/27/2014 Ot 397.0 06/27/2014 Ot 401.9 06/27/2014 Ot 416.8 06/27/2014 Ot 424.0 06/27/2014 Ot 427.31 06/27/2014 Ot 745.5 06/27/2014 Ot 401.9 06/27/2014 Ot 414.8 06/27/2014 Ot 427.31 06/27/2014 Ot 793.82 06/27/2014 Ot V76.12 06/27/2014 ADAM LAUGHLIN MD Ot 272.4 06/27/2014 ADAM LAUGHLIN MD Ot 397.0 06/27/2014 ADAM LAUGHLIN MD Ot 401.9 06/27/2014 ADAM LAUGHLIN MD Ot 414.00 06/27/2014 ADAM LAUGHLIN MD Ot 424.0 06/27/2014 ADAM LAUGHLIN MD Ot 427.31 06/27/2014 ADAM LAUGHLIN MD Ot 745.5 06/27/2014 CROW LUNDBERG Ot 300.00 06/27/2014 CROW LUNDBERG Ot 401.9 06/27/2014 CROW LUNDBERG Ot 414.00 06/27/2014 CROW LUNDBERG Ot 427.31 06/27/2014 CROW LUNDBERG Ot 745.5 07/29/2014 PAULINE MERCADO, SARAH Griffith Ot 719.06 07/29/2014 SARAH CARPENTER MD Ot 719.46 02/22/2016 Ot 715.95 OSTEOARTHROS NOS-PELVIS 02/22/2016 Ot 722.52 LUMB/ LUMBOSAC DISC DEGEN 02/22/2016 Ot 724.02 SPINAL STENOSIS, LUMBAR REG, W/OUT NEURO 02/22/2016 Ot 737.30 IDIOPATHIC SCOLIOSIS 02/22/2016 Ot 397.0 TRICUSPID VALVE DISEASE 02/22/2016 Ot 401.9 HYPERTENSION NOS 02/22/2016 Ot 416.8 CHR PULMON HEART DIS NEC 02/22/2016 Ot 424.0 MITRAL VALVE DISORDER 02/22/2016 Ot 427.31 ATRIAL FIBRILLATION 02/22/2016 Ot 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 02/22/2016 Ot 401.9 HYPERTENSION NOS 02/22/2016 Ot 414.8 CHR ISCHEMIC HRT DIS NEC 02/22/2016 Ot 427.31 ATRIAL FIBRILLATION 02/22/2016 Ot 793.82 INCONCLUSIVE MAMMOGRAM 02/22/2016 Ot V76.12 OTH SCREEN MAMMO-MALIGN NEOPLASM OF [place] 02/22/2016 TRUMAN MERCADO, ADAM Talbot Ot 272.4 HYPERLIPIDEMIA NEC/NOS 02/22/2016 ADAM LAUGHLIN MD Ot 397.0 TRICUSPID VALVE DISEASE 02/22/2016 ADAM LAUGHLIN MD Ot 401.9 HYPERTENSION NOS 02/22/2016 ADAM LAUGHLIN MD Ot 414.00 CORON ATHEROSCLER NOS TYPE VESSEL, NATIV 02/22/2016 ADAM LAUGHLIN MD Ot 424.0 MITRAL VALVE DISORDER 02/22/2016 ADAM LAUGHLIN MD Ot 427.31 ATRIAL FIBRILLATION 02/22/2016 ADAM LAUGHLIN MD Ot 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 02/22/2016 CROW LUNDBERG Ot 300.00 ANXIETY STATE NOS 02/22/2016 CROW LUNDBERG Ot 401.9 HYPERTENSION NOS 02/22/2016 CROW LUNDBERG Ot 414.00 CORON ATHEROSCLER NOS TYPE VESSEL, NATIV 02/22/2016 CROW LUNDBERG Ot 427.31 ATRIAL FIBRILLATION 02/22/2016 KAMILLA RUSSELL, CROW K Ot 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 02/22/2016 PAULINE MERCADO, SARAH Griffith Ot 719.06 JOINT EFFUSION-L/LEG 02/22/2016 PAULINE MERCADO, SARAH L Ot 719.46 JOINT PAIN-L/LEG 02/22/2016 CROW LUNDBERG Ot I73.9 PERIPHERAL VASCULAR DISEASE, UNSPECIFIED 02/23/2016 KAMILLA RUSSELL CROW K Ot E78.2 MIXED HYPERLIPIDEMIA 02/23/2016 KAMILLA RUSSELL, CROW Mary Ot I25.10 ATHSCL HEART DISEASE OF [place] CORONARY 02/23/2016 KAMILLA RUSSELL CROW K Ot I48.1 PERSISTENT ATRIAL FIBRILLATION 02/23/2016 KAMILLA RUSSELL CROW K Ot 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 02/23/2016 KAMILLA RUSSELL CROW K Ot I73.9 PERIPHERAL VASCULAR DISEASE, UNSPECIFIED 02/24/2016 KAMILLA RUSSELL CROW K Ot I48.1 PERSISTENT ATRIAL FIBRILLATION 02/24/2016 KAMILLA RUSSELL, CROW K Ot I48.1 PERSISTENT ATRIAL FIBRILLATION 02/24/2016 KAMILLA RUSSELL CROW K Ot I48.1 PERSISTENT ATRIAL FIBRILLATION 02/24/2016 KAMILLA RUSSELL, CROW K Ot 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 02/25/2016 KAMILLA RUSSELL CROW K Ot E78.2 MIXED HYPERLIPIDEMIA 02/25/2016 KAMILLA RUSSELL CROW K Ot I25.10 ATHSCL HEART DISEASE OF [place] CORONARY 02/25/2016 KAMILLA RUSSELL CROW K Ot I48.1 PERSISTENT ATRIAL FIBRILLATION 02/25/2016 KAMILLA RUSSELL CROW K Ot 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 02/25/2016 KAMILLA RUSSELL CROW K Ot I73.9 PERIPHERAL VASCULAR DISEASE, UNSPECIFIED 02/25/2016 KAMILLA RUSSELL, CROW K Ot E78.2 MIXED HYPERLIPIDEMIA 02/25/2016 KAMILLA RUSSELL CROW K Ot I25.10 ATHSCL HEART DISEASE OF [place] CORONARY 02/25/2016 CROW LUNDBERG Ot I48.1 PERSISTENT ATRIAL FIBRILLATION 02/25/2016 KAMILLA RUSSELL CROW K Ot 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 02/25/2016 KAMILLA RUSSELL CROW K Ot I73.9 PERIPHERAL VASCULAR DISEASE, UNSPECIFIED 02/25/2016 KAMILLA RUSSELL CROW K Ot 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 02/25/2016 CROW LUNDBERG Ot 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 03/07/2016 ADAM LAUGHLIN MD Ot E78.5 HYPERLIPIDEMIA, UNSPECIFIED 03/07/2016 ADAM LAUGHLIN MD, Ot I10 ESSENTIAL (PRIMARY) HYPERTENSION 03/07/2016 ADAM LAUGHLIN MD Ot I25.10 ATHSCL HEART DISEASE OF [place] CORONARY 03/07/2016 ADAM LAUGHLIN MD Ot I25.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 [place] 03/07/2016 ADAM LAUGHLIN MD Ot I48.91 UNSPECIFIED ATRIAL FIBRILLATION 03/07/2016 ADAM LAUGHLIN MD Ot I70.0 ATHEROSCLEROSIS OF [place] 03/07/2016 ADAM LAUGHLIN MD Ot I70.203 UNSP ATHSCL [place] ARTERIES OF [facility] 03/07/2016 ADAM LAUGHLIN MD Ot R94.39 ABNORMAL RESULT OF OTHER CARDIOVASCULAR 03/07/2016 ADAM LAUGHLIN MD Ot Z79.899 OTHER SNF (CURRENT) DRUG THERAPY 03/07/2016 ADAM LAUGHLIN MD Ot Z86.73 PRSNL HX OF TIA (TIA), AND CEREB INFRC W 03/07/2016 ADAM LAUGHLIN MD Ot Z95.5 PRESENCE OF CORONARY ANGIOPLASTY IMPLANT 03/15/2016 ADAM LAUGHLIN MD Ot E78.5 HYPERLIPIDEMIA, UNSPECIFIED 03/15/2016 ADAM LAUGHLIN MD Ot I10 ESSENTIAL (PRIMARY) HYPERTENSION 03/15/2016 ADAM LAUGHLIN MD Ot I25.10 ATHSCL HEART DISEASE OF [place] CORONARY 03/15/2016 ADAM LAUGHLIN MD Ot I25.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 [place] 03/15/2016 ADAM LAUGHLIN MD Ot I48.91 UNSPECIFIED ATRIAL FIBRILLATION 03/15/2016 ADAM LAUGHLIN MD Ot I70.0 ATHEROSCLEROSIS OF [place] 03/15/2016 ADAM LAUGHLIN MD Ot I70.203 UNSP ATHSCL [place] ARTERIES OF EXTREMITI 03/15/2016 ADAM LAUGHLIN MD Ot R94.39 ABNORMAL RESULT OF OTHER CARDIOVASCULAR 03/15/2016 ADAM LAUGHLIN MD Ot Z79.899 OTHER ELECTRONICS TECHNICIAN APPRENTICE (CURRENT) DRUG THERAPY 03/15/2016 ADAM LAUGHLIN MD, Ot Z86.73 PRSNL HX OF TIA (TIA), AND CEREB INFRC W 03/15/2016 ADAM LAUGHLIN MD, Ot Z95.5 PRESENCE OF CORONARY ANGIOPLASTY IMPLANT 03/15/2016 CROW LUNDBERG Ot E78.2 MIXED HYPERLIPIDEMIA 03/15/2016 CROW LUNDBERG Ot I25.10 ATHSCL HEART DISEASE OF [place] CORONARY 03/15/2016 CROW LUNDBERG Ot I48.1 PERSISTENT ATRIAL FIBRILLATION 03/15/2016 CROW LUNDBERG Ot 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 03/15/2016 CROW LUNDBERG Ot I73.9 PERIPHERAL VASCULAR DISEASE, UNSPECIFIED 03/15/2016 CROW LUNDBERG Ot 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 03/18/2016 CROW LUNDBERG Ot E78.2 MIXED HYPERLIPIDEMIA 03/18/2016 CROW LUNDBERG Ot I25.10 ATHSCL HEART DISEASE OF [place] CORONARY 03/18/2016 CROW LUNDBERG Ot I48.1 PERSISTENT ATRIAL FIBRILLATION 03/18/2016 CROW LUNDBERG Ot 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 03/18/2016 CROW LUNDBERG Ot I73.9 PERIPHERAL VASCULAR DISEASE, UNSPECIFIED 03/24/2016 CROW LUNDBERG Ot E78.2 MIXED HYPERLIPIDEMIA 03/24/2016 CROW LUNDBERG Ot I25.10 ATHSCL HEART DISEASE OF [place] CORONARY 03/24/2016 CROW LUNDBERG Ot I48.1 PERSISTENT ATRIAL FIBRILLATION 03/24/2016 KAMILLA RUSSELL CROW Mary Ot 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 03/24/2016 KAMILLA RUSSELL CROW Hernandez Ot I73.9 PERIPHERAL VASCULAR DISEASE, UNSPECIFIED 03/24/2016 KAMILLA RUSSELL CROW Mary Ot E78.2 MIXED HYPERLIPIDEMIA 03/24/2016 KAMILLA RUSSELL CROW Hernandez Ot I25.10 ATHSCL HEART DISEASE OF [place] CORONARY 03/24/2016 KAMILLA RUSSELL CROW Mary Ot I48.1 PERSISTENT ATRIAL FIBRILLATION 03/24/2016 KAMILLA RUSSELL CROW Hernandez Ot 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 03/24/2016 ZAMUDIORADHA RUSSELL CROW Hernandez Ot I73.9 PERIPHERAL VASCULAR DISEASE, UNSPECIFIED 03/24/2016 KAMILLA RUSSELL CROW Hernandez Ot 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 08/09/2016 Ot 715.95 OSTEOARTHROS NOS-PELVIS 08/09/2016 Ot 722.52 LUMB/ LUMBOSAC DISC DEGEN 08/09/2016 Ot 724.02 SPINAL STENOSIS, LUMBAR REG, W/OUT NEURO 08/09/2016 Ot 737.30 IDIOPATHIC SCOLIOSIS 08/09/2016 Ot 397.0 TRICUSPID VALVE DISEASE 08/09/2016 Ot 401.9 HYPERTENSION NOS 08/09/2016 Ot 416.8 CHR PULMON HEART DIS NEC 08/09/2016 Ot 424.0 MITRAL VALVE DISORDER 08/09/2016 Ot 427.31 ATRIAL FIBRILLATION 08/09/2016 Ot 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 08/09/2016 Ot 401.9 HYPERTENSION NOS 08/09/2016 Ot 414.8 CHR ISCHEMIC HRT DIS NEC 08/09/2016 Ot 427.31 ATRIAL FIBRILLATION 08/09/2016 Ot 793.82 INCONCLUSIVE MAMMOGRAM 08/09/2016 Ot V76.12 OT SCREEN MAMMO-MALIGN NEOPLASM OF [place] 08/09/2016 ADAM LAUGHLIN MD Ot 272.4 HYPERLIPIDEMIA NEC/NOS 08/09/2016 ADAM LAUGHLIN MD Ot 397.0 TRICUSPID VALVE DISEASE 08/09/2016 ADAM LAUGHLIN MD Ot 401.9 HYPERTENSION NOS 08/09/2016 ADAM LAUGHLIN MD Ot 414.00 CORON ATHEROSCLER NOS TYPE VESSEL, NATIV 08/09/2016 ADAM LAUGHLIN MD Ot 424.0 MITRAL VALVE DISORDER 08/09/2016 TRUMAN MERCADO, ADAM Talbot Ot 427.31 ATRIAL FIBRILLATION 08/09/2016 TRUMAN MERCADO, ADAM Talbot Ot 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 08/09/2016 KAMILLA RUSSELL CROW K Ot 300.00 ANXIETY STATE NOS 08/09/2016 KAMILLA RUSSELL CROW K Ot 401.9 HYPERTENSION NOS 08/09/2016 KAMILLA RUSSELL CROW K Ot 414.00 CORON ATHEROSCLER NOS TYPE VESSEL, NATIV 08/09/2016 KAMILLA RUSSELL CROW K Ot 427.31 ATRIAL FIBRILLATION 08/09/2016 KAMILLA RUSSELL CROW K Ot 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 08/09/2016 PAULINE MERCADO, SARAH Griffith Ot 719.06 JOINT EFFUSION-L/LEG 08/09/2016 PAULINE MERCADO, SARAH Griffith Ot 719.46 JOINT PAIN-L/LEG 08/09/2016 KAMILLA RUSSELL CROW K Ot E78.2 MIXED HYPERLIPIDEMIA 08/09/2016 KAMILLA RUSSELL CROW Mary Ot I25.10 ATHSCL HEART DISEASE OF [place] CORONARY 08/09/2016 KAMILLA RUSSELL CROW K Ot I48.1 PERSISTENT ATRIAL FIBRILLATION 08/09/2016 KAMILLA RUSSELL CROW K Ot 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 08/09/2016 KAMILLA RUSSELL CROW K Ot I73.9 PERIPHERAL VASCULAR DISEASE, UNSPECIFIED 08/09/2016 KAMILLA RUSSELL CROW K Ot E78.2 MIXED HYPERLIPIDEMIA 08/09/2016 KAMILLA RUSSELL CROW K Ot I25.10 ATHSCL HEART DISEASE OF [place] CORONARY 08/09/2016 KAMILLA RUSSELL CROW K Ot I48.1 PERSISTENT ATRIAL FIBRILLATION 08/09/2016 KAMILLA RUSSELL CROW K Ot 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 08/09/2016 KAMILLA RUSSELL CROW K Ot I73.9 PERIPHERAL VASCULAR DISEASE, UNSPECIFIED 08/09/2016 KAMILLA RUSSELL CROW K Ot 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 09/13/2016 CARPENTERSARAH SULLIVAN MD Ot R26.9 UNSPECIFIED ABNORMALITIES OF GAIT AND MO 09/13/2016 SARAH CARPENTER MD Ot R42 DIZZINESS AND GIDDINESS 09/13/2016 SARAH CARPENTER MD Ot R53.1 WEAKNESS 09/13/2016 SARAH CARPENTER MD Ot Z86.73 PRSNL HX OF TIA (TIA), AND CEREB INFRC W 09/15/2016 SARAH CARPENTER MD Ot R26.9 UNSPECIFIED ABNORMALITIES OF GAIT AND MO 09/15/2016 SARAH CARPENTER MD Ot R42 DIZZINESS AND GIDDINESS 09/15/2016 SARAH CARPENTER MD Ot R53.1 WEAKNESS 09/15/2016 SARAH CARPENTER MD Ot Z86.73 PRSNL HX OF TIA (TIA), AND CEREB INFRC W 10/19/2016 SARAH CARPENTER MD Ot R26.9 UNSPECIFIED ABNORMALITIES OF GAIT AND MO 10/19/2016 SARAH CARPENTER MD Ot R42 DIZZINESS AND GIDDINESS 10/19/2016 SARAH CARPENTER MD Ot R53.1 WEAKNESS 10/19/2016 SARAH CARPENTER MD Ot Z86.73 PRSNL HX OF TIA (TIA), AND CEREB INFRC W 05/11/2017 TEVIN AGUIRRE MD, Ot I25.10 ATHSCL HEART DISEASE OF [place] CORONARY 05/11/2017 TEVIN AGUIRRE MD, Ot I25.10 ATHSCL HEART DISEASE OF [place] CORONARY 05/11/2017 TEVIN AGUIRRE MD Ot S83.281A OTH TEAR OF LAT MENSC, CURRENT INJURY, R 05/11/2017 TEVIN AGUIRRE MD Ot X58.XXXA EXPOSURE TO OTHER SPECIFIED FACTORS, INI 05/11/2017 TEVIN AGUIRRE MD Ot Y99.8 OTHER EXTERNAL CAUSE STATUS 05/11/2017 TEVIN AGUIRRE MD, Ot Z01.811 ENCOUNTER FOR PREPROCEDURAL RESPIRATORY 05/12/2017 ADAM LAUGHLIN MD Ot E78.2 MIXED HYPERLIPIDEMIA 05/12/2017 ADAM LAUGHLIN MD Ot I10 ESSENTIAL (PRIMARY) HYPERTENSION 05/12/2017 ADAM LAUGHLIN MD, Ot I25.10 ATHSCL HEART DISEASE OF [place] CORONARY 05/12/2017 ADAM LAUGHLIN MD Ot 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 05/17/2017 TEVIN AGUIRRE MD, Ot S83.281A OTH TEAR OF LAT MENSC, CURRENT INJURY, R 05/17/2017 TEVIN AGUIRRE MD, Ot X58.XXXA EXPOSURE TO OTHER SPECIFIED FACTORS, INI 05/17/2017 TEVIN AGUIRRE MD Ot Y99.8 OTHER EXTERNAL CAUSE STATUS 05/17/2017 TEVIN AGUIRRE MD Ot Z01.811 ENCOUNTER FOR PREPROCEDURAL RESPIRATORY 05/18/2017 FLORA EVERETT MD, Ot 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 05/18/2017 FLORA EVERETT MD Ot Z01.810 ENCOUNTER FOR PREPROCEDURAL CARDIOVASCUL 05/18/2017 FLORA EVERETT MD Ot Z01.811 ENCOUNTER FOR PREPROCEDURAL RESPIRATORY 05/18/2017 FLORA EVERETT MD Ot Z01.812 ENCOUNTER FOR PREPROCEDURAL LABORATORY E 06/05/2017 ADAM LAUGHLIN MD Ot E78.2 MIXED HYPERLIPIDEMIA 06/05/2017 ADAM LAUGHLIN MD Ot I10 ESSENTIAL (PRIMARY) HYPERTENSION 06/05/2017 ADAM LAUGHLIN MD Ot I25.10 ATHSCL HEART DISEASE OF [place] CORONARY 06/05/2017 ADAM LAUGHLIN MD Ot 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 06/07/2017 FLORA EVERETT MD Ot 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 06/07/2017 FLORA EVERETT MD Ot Z01.810 ENCOUNTER FOR PREPROCEDURAL CARDIOVASCUL 06/07/2017 FLORA EVERETT MD Ot Z01.811 ENCOUNTER FOR PREPROCEDURAL RESPIRATORY 06/07/2017 FLORA EVERETT MD Ot Z01.812 ENCOUNTER FOR PREPROCEDURAL LABORATORY E 06/14/2017 ADAM LAUGHLIN MD Ot E78.2 MIXED HYPERLIPIDEMIA 06/14/2017 ADAM LAUGHLIN MD Ot I10 ESSENTIAL (PRIMARY) HYPERTENSION 06/14/2017 ADAM LAUGHLIN MD Ot I25.10 ATHSCL HEART DISEASE OF [place] CORONARY 06/14/2017 ADAM LAUGHLIN MD Ot 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 06/19/2017 FLORA EVERETT MD, Ot 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 06/19/2017 FLORA EVERETT MD Ot Z01.810 ENCOUNTER FOR PREPROCEDURAL CARDIOVASCUL 06/19/2017 FLORA EVERETT MD Ot Z01.811 ENCOUNTER FOR PREPROCEDURAL RESPIRATORY 06/19/2017 FLORA EVERETT MD, Ot Z01.812 ENCOUNTER FOR PREPROCEDURAL LABORATORY E 06/28/2017 TEVIN AGUIRRE MD Ot M23.200 DERANG OF UNSP LAT MENSC DUE TO OLD TEAR 06/28/2017 TEVIN AGUIRRE MD Ot Z01.812 ENCOUNTER FOR PREPROCEDURAL LABORATORY E 06/28/2017 TEVIN AGUIRRE MD, Ot Z11.2 ENCOUNTER FOR SCREENING FOR OTHER BACTER 06/30/2017 TEVIN AGUIRRE MD, Ot M23.200 DERANG OF UNSP LAT MENSC DUE TO OLD TEAR 06/30/2017 TEVIN AGUIRRE MD Ot Z01.812 ENCOUNTER FOR PREPROCEDURAL LABORATORY E 06/30/2017 TEVIN AGUIRER MD, Ot Z11.2 ENCOUNTER FOR SCREENING FOR OTHER BACTER 07/03/2017 ADAM LAUGHLIN MD Ot E78.5 HYPERLIPIDEMIA, UNSPECIFIED 07/03/2017 ADAM LAUGHLIN MD Ot I10 ESSENTIAL (PRIMARY) HYPERTENSION 07/03/2017 ADAM LAUGHLIN MD Ot I25.10 ATHSCL HEART DISEASE OF [place] CORONARY 07/03/2017 ADAM LAUGHLIN MD Ot 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 07/05/2017 TEVIN AGUIRRE MD Ot E78.5 HYPERLIPIDEMIA, UNSPECIFIED 07/05/2017 TEVIN AGUIRRE MD Ot F32.9 MAJOR DEPRESSIVE DISORDER, SINGLE EPISOD 07/05/2017 TEVIN AGURIRE MD Ot I10 ESSENTIAL (PRIMARY) HYPERTENSION 07/05/2017 TEVIN AGUIRRE MD, Ot I48.91 UNSPECIFIED ATRIAL FIBRILLATION 07/05/2017 TEVIN AGUIRRE MD, Ot M22.41 CHONDROMALACIA PATELLAE, RIGHT KNEE 07/05/2017 TEVIN AGUIRRE MD Ot M23.8X1 OTHER INTERNAL DERANGEMENTS OF RIGHT KNE 07/05/2017 TEVIN AGUIRRE MD Ot Z79.82 SNF (CURRENT) USE OF ASPIRIN 07/05/2017 TEVIN AGUIRRE MD, Ot Z79.899 OTHER ELECTRONICS TECHNICIAN APPRENTICE (CURRENT) DRUG THERAPY 07/05/2017 TEVIN AGUIRRE MD, Ot Z86.718 PERSONAL HISTORY OF OTHER VENOUS THROMBO 07/05/2017 TEVIN AGUIRRE MD, Ot Z88.0 ALLERGY STATUS TO PENICILLIN 07/05/2017 TEVIN AGUIRRE MD, Ot Z88.2 ALLERGY STATUS TO SULFONAMIDES STATUS 07/05/2017 TEVIN AGUIRRE MD, Ot Z88.5 ALLERGY STATUS TO NARCOTIC AGENT STATUS 07/05/2017 TEVIN AGUIRRE MD, Ot Z88.8 ALLERGY STATUS TO OTH DRUG/MEDS/BIOL SUB 07/07/2017 ADAM LAUGHLIN MD, Ot E78.5 HYPERLIPIDEMIA, UNSPECIFIED 07/07/2017 ADAM LAUGHLIN MD Ot I10 ESSENTIAL (PRIMARY) HYPERTENSION 07/07/2017 ADAM LAUGHLIN MD Ot I25.10 ATHSCL HEART DISEASE OF [place] CORONARY 07/07/2017 ADAM LAUGHLIN MD Ot 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 07/31/2017 TEVIN AGUIRRE MD, Ot E78.5 HYPERLIPIDEMIA, UNSPECIFIED 07/31/2017 TEVIN AGUIRRE MD, Ot F32.9 MAJOR DEPRESSIVE DISORDER, SINGLE EPISOD 07/31/2017 TEVIN AGUIRRE MD, Ot I10 ESSENTIAL (PRIMARY) HYPERTENSION 07/31/2017 TEVIN AGUIRRE MD, Ot I48.91 UNSPECIFIED ATRIAL FIBRILLATION 07/31/2017 TEVIN AGUIRRE MD, Ot M22.41 CHONDROMALACIA PATELLAE, RIGHT KNEE 07/31/2017 TEVIN AGUIRRE MD, Ot M23.8X1 OTHER INTERNAL DERANGEMENTS OF RIGHT KNE 07/31/2017 TEVIN AGUIRRE MD, Ot 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 07/31/2017 TEVIN AGUIRRE MD, Ot Z79.899 OTHER SNF (CURRENT) DRUG THERAPY 07/31/2017 TEVIN AGUIRRE MD, Ot Z86.718 PERSONAL HISTORY OF OTHER VENOUS THROMBO 07/31/2017 TEVIN AGUIRRE MD, Ot Z88.0 ALLERGY STATUS TO PENICILLIN 07/31/2017 TEVIN AGUIRRE MD, Ot Z88.2 ALLERGY STATUS TO SULFONAMIDES STATUS 07/31/2017 TEVIN AGUIRRE MD, Ot Z88.5 ALLERGY STATUS TO NARCOTIC AGENT STATUS 07/31/2017 TEVIN AGUIRRE MD Ot Z88.8 ALLERGY STATUS TO OTH DRUG/MEDS/BIOL SUB 08/10/2017 ADAM LAUGHLIN MD, Ot I10 ESSENTIAL (PRIMARY) HYPERTENSION 08/16/2017 ADAM LAUGHLIN MD, Ot I10 ESSENTIAL (PRIMARY) HYPERTENSION 08/16/2017 ADAM LAUGHLIN MD, Ot I10 ESSENTIAL (PRIMARY) HYPERTENSION 08/17/2017 ADAM LAUGHLIN MD Ot E78.2 MIXED HYPERLIPIDEMIA 08/17/2017 ADAM LAUGHLIN MD, Ot I10 ESSENTIAL (PRIMARY) HYPERTENSION 08/17/2017 ADAM LAUGHLIN MD Ot I25.10 ATHSCL HEART DISEASE OF [place] CORONARY 08/17/2017 ADAM LAUGHLIN MD Ot 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 08/17/2017 ADAM LAUGHLIN MD Ot I82.409 ACUTE EMBOLISM AND THOMBOS UNSP DEEP VN 09/06/2017 ADAM LAUGHLIN MD Ot E78.2 MIXED HYPERLIPIDEMIA 09/06/2017 ADAM LAUGHLIN MD Ot I10 ESSENTIAL (PRIMARY) HYPERTENSION 09/06/2017 ADAM LAUGHLIN MD Ot I25.10 ATHSCL HEART DISEASE OF [place] CORONARY 09/06/2017 ADAM LAUGHLIN MD Ot 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 09/06/2017 ADAM LAUGHLIN MD Ot I82.409 ACUTE EMBOLISM AND THOMBOS UNSP DEEP VN 09/13/2017 ADAM LAUGHLIN MD Ot E78.2 MIXED HYPERLIPIDEMIA 09/13/2017 ADAM LAUGHLIN MD Ot I10 ESSENTIAL (PRIMARY) HYPERTENSION 09/13/2017 ADAM LAUGHLIN MD Ot I25.10 ATHSCL HEART DISEASE OF [place] CORONARY 09/13/2017 ADAM LAUGHLIN MD Ot 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 09/13/2017 ADAM LAUGHLIN MD Ot I82.409 ACUTE EMBOLISM AND THOMBOS UNSP DEEP VN 05/10/2018 ADAM LAUGHLIN MD Ot 272.4 HYPERLIPIDEMIA NEC/NOS 05/10/2018 ADAM LAUGHLIN MD Ot 397.0 TRICUSPID VALVE DISEASE 05/10/2018 ADAM LAUGHLIN MD Ot 401.9 HYPERTENSION NOS 05/10/2018 TRUMAN MERCADO, ADAM Talbot Ot 414.00 CORON ATHEROSCLER NOS TYPE VESSEL, NATIV 05/10/2018 TRUMAN MERCADO, ADAM Talbot Ot 424.0 MITRAL VALVE DISORDER 05/10/2018 TRUMAN MERCADO, ADAM Talbot Ot 427.31 ATRIAL FIBRILLATION 05/10/2018 TRUMAN MERCADO, ADAM Talbot Ot 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 05/10/2018 KAMILLA RUSSELL CROW K Ot 300.00 ANXIETY STATE NOS 05/10/2018 KAMILLA RUSSELL CROW K Ot 401.9 HYPERTENSION NOS 05/10/2018 KAMILLA RUSSELL CROW K Ot 414.00 CORON ATHEROSCLER NOS TYPE VESSEL, NATIV 05/10/2018 KAMILLA RUSSELL CROW K Ot 427.31 ATRIAL FIBRILLATION 05/10/2018 KAMILLA RUSSELL CROW K Ot 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 05/10/2018 PAULINE MERCADO, SARAH L Ot 719.06 JOINT EFFUSION-L/LEG 05/10/2018 PAULINE MERCADO, SARAH L Ot 719.46 JOINT PAIN-L/LEG 05/10/2018 KAMILLA RUSSELL CROW K Ot E78.2 MIXED HYPERLIPIDEMIA 05/10/2018 KAMILLA RUSSELL CROW K Ot I25.10 ATHSCL HEART DISEASE OF [place] CORONARY 05/10/2018 KAMILLA RUSSELL CROW K Ot I48.1 PERSISTENT ATRIAL FIBRILLATION 05/10/2018 KAMILLA RUSSELL CROW K Ot 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 05/10/2018 KAMILLA RUSSELL CROW K Ot I73.9 PERIPHERAL VASCULAR DISEASE, UNSPECIFIED 05/10/2018 KAMILLA RUSSELL CROW K Ot E78.2 MIXED HYPERLIPIDEMIA 05/10/2018 KAMILLA RUSSELL CROW K Ot I25.10 ATHSCL HEART DISEASE OF [place] CORONARY 05/10/2018 CROW LUNDBERG K Ot I48.1 PERSISTENT ATRIAL FIBRILLATION 05/10/2018 CROW LUNDBERG K Ot 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 05/10/2018 KAMILLA RUSSELL CROW K Ot I73.9 PERIPHERAL VASCULAR DISEASE, UNSPECIFIED 05/10/2018 CROW LUNDBERG Ot 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 05/10/2018 ADAM LAUGHLIN MD Ot E78.2 MIXED HYPERLIPIDEMIA 05/10/2018 ADAM LAUGHLIN MD Ot I10 ESSENTIAL (PRIMARY) HYPERTENSION 05/10/2018 ADAM LAUGHLIN MD Ot I25.10 ATHSCL HEART DISEASE OF [place] CORONARY 05/10/2018 ADAM LAUGHLIN MD Ot 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 05/10/2018 ADAM LAUGHLIN MD Ot E78.5 HYPERLIPIDEMIA, UNSPECIFIED 05/10/2018 ADAM LAUGHLIN MD, Ot I10 ESSENTIAL (PRIMARY) HYPERTENSION 05/10/2018 ADAM LAUGHLIN MD Ot I25.10 ATHSCL HEART DISEASE OF [place] CORONARY 05/10/2018 ADAM LAUGHLIN MD Ot 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 05/10/2018 FLORA EVERETT MD Ot 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 05/10/2018 FLORA EVERETT MD Ot Z01.810 ENCOUNTER FOR PREPROCEDURAL CARDIOVASCUL 05/10/2018 FLORA EVERETT MD Ot Z01.811 ENCOUNTER FOR PREPROCEDURAL RESPIRATORY 05/10/2018 FLORA EVERETT MD Ot Z01.812 ENCOUNTER FOR PREPROCEDURAL LABORATORY E 05/10/2018 ADAM LAUGHLIN MD Ot E78.2 MIXED HYPERLIPIDEMIA 05/10/2018 ADAM LAUGHLIN MD Ot I10 ESSENTIAL (PRIMARY) HYPERTENSION 05/10/2018 ADAM LAUGHLIN MD Ot I25.10 ATHSCL HEART DISEASE OF [place] CORONARY 05/10/2018 ADAM LAUGHLIN MD Ot 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 05/10/2018 ADAM LAUGHLIN MD Ot I82.409 ACUTE EMBOLISM AND THOMBOS UNSP DEEP VN 05/14/2018 TEVIN AGUIRRE MD Ot M17.11 UNILATERAL PRIMARY OSTEOARTHRITIS, RIGHT 05/14/2018 TEVIN AGUIRRE MD Ot R53.83 OTHER FATIGUE 05/14/2018 TEVIN AGUIRRE MD Ot Z01.810 ENCOUNTER FOR PREPROCEDURAL CARDIOVASCUL 05/14/2018 TEVIN AGUIRRE MD Ot Z01.811 ENCOUNTER FOR PREPROCEDURAL RESPIRATORY 05/14/2018 TEVIN AGUIRRE MD, Ot Z01.812 ENCOUNTER FOR PREPROCEDURAL LABORATORY E 05/14/2018 TEVIN AGUIRRE MD, Ot Z11.2 ENCOUNTER FOR SCREENING FOR OTHER BACTER Procedures Code Description Performed By Performed On 45.16 ESOPHAGOGASTRODUODENOSCOPY [ EGD] W/CLOSE 07/21/2011 45.23 COLONOSCOPY 07/22/2011 Results Test Result Range Automated blood complete blood count (hemogram) panel - 03/07/16 07:05 Blood leukocytes automated count (number/volume) 7.7 10*3/uL 4.3-11.0 Blood erythrocytes automated count (number/volume) 4.28 10*6/uL 4.35-5.85 Venous blood hemoglobin measurement (mass/volume) 13.5 g/dL 11.5-16.0 Blood hematocrit (volume fraction) 42 % 35-52 Automated erythrocyte mean corpuscular volume 97 [foz_us] 80-99 Automated erythrocyte mean corpuscular hemoglobin (mass per erythrocyte) 32 pg 25-34 Automated erythrocyte mean corpuscular hemoglobin concentration measurement ( mass/volume) 33 g/dL 32-36 Automated erythrocyte distribution width ratio 13.2 % 10.0-14.5 Automated blood platelet count (count/volume) 257 10*3/uL 130-400 Automated blood platelet mean volume measurement 10.2 [foz_us] 7.4-10.4 Complete urinalysis with reflex to culture - 03/07/16 07:05 Urine color determination YELLOW NRG Urine clarity determination CLEAR NRG Urine pH measurement by test strip 6 5-9 Specific gravity of urine by test strip 1.025 1.016- 1.022 Urine protein assay by test strip, semi-quantitative 2+ NEGATIVE Urine glucose detection by automated test strip NEGATIVE NEGATIVE Erythrocytes detection in urine sediment by light microscopy 2+ NEGATIVE Urine ketones detection by automated test strip NEGATIVE NEGATIVE Urine nitrite detection by test strip NEGATIVE NEGATIVE Urine total bilirubin detection by test strip NEGATIVE NEGATIVE Urine urobilinogen measurement by automated test strip (mass/volume) NORMAL NORMAL Urine leukocyte esterase detection by dipstick 3+ NEGATIVE Automated urine sediment erythrocyte count by microscopy (number/high power field) [HPF] NRG Automated urine sediment leukocyte count by microscopy (number/high power field ) [HPF] NRG Bacteria detection in urine sediment by light microscopy TRACE NRG Squamous epithelial cells detection in urine sediment by light microscopy 0-2 NRG Crystals detection in urine sediment by light microscopy NONE NRG Casts detection in urine sediment by light microscopy NONE NRG Mucus detection in urine sediment by light microscopy NEGATIVE NRG Complete urinalysis with reflex to culture YES NRG PT panel in platelet poor plasma by coagulation assay - 03/07/16 07:05 Prothrombin time (PT) in platelet poor plasma by coagulation assay 11.8 s 12.2-14.7 INR in platelet poor plasma or blood by coagulation assay 0.9 0.8-1.4 Activated partial thromboplastin time (aPTT) in platelet poor plasma bycoagulation assay - 03/07/16 07:05 Activated partial thromboplastin time (aPTT) in platelet poor plasma bycoagulation assay 24 s 24-35 Comprehensive metabolic panel - 03/07/16 07:05 Serum or plasma sodium measurement (moles/volume) 143 mmol/L 135-145 Serum or plasma potassium measurement (moles/volume) 3.6 mmol/L 3.6-5.0 Serum or plasma chloride measurement (moles/volume) 107 mmol/L 98-107 Carbon dioxide 23 mmol/L 21-32 Serum or plasma anion gap determination (moles/volume) 13 mmol/L 5-14 Serum or plasma urea nitrogen measurement (mass/volume) 18 mg/dL 7-18 Serum or plasma creatinine measurement (mass/volume) 1.22 mg/dL 0.60-1.30 Serum or plasma urea nitrogen/creatinine mass ratio 15 NRG Serum or plasma creatinine measurement with calculation of estimated glomerular filtration rate 42 NRG Serum or plasma glucose measurement (mass/volume) 100 mg/dL 70-105 Serum or plasma calcium measurement (mass/volume) 9.9 mg/dL 8.5-10.1 Serum or plasma total bilirubin measurement (mass/volume) 0.5 mg/dL 0.1-1.0 Serum or plasma alkaline phosphatase measurement (enzymatic activity/volume) 61 U/L 40-136 Serum or plasma aspartate aminotransferase measurement (enzymatic activity/ volume) 23 U/L 5-34 Serum or plasma alanine aminotransferase measurement (enzymatic activity/volume ) 17 U/L 0-55 Serum or plasma protein measurement (mass/volume) 7.2 g/dL 6.4-8.2 Serum or plasma albumin measurement (mass/volume) 4.7 g/dL 3.2-4.5 Lipid 1996 panel - 03/07/16 07:05 Serum or plasma triglyceride measurement (mass/volume) 89 mg/dL <150 Serum or plasma cholesterol measurement (mass/volume) 183 mg/dL < 200 Serum or plasma cholesterol in HDL measurement (mass/volume) 72 mg/ dL 40-60 Cholesterol in LDL [mass/volume] in serum or plasma by direct assay 86 mg/dL 1-129 Serum or plasma cholesterol in VLDL measurement (mass/volume) 18 mg/ dL 5-40 Bacterial urine culture - 03/07/16 07:05 URINE CULTURE RESULTS <10,000/ML NRG Methicillin resistant Staphylococcus aureus (MRSA) screening culture - 07:05 Methicillin resistant Staphylococcus aureus (MRSA) screening culture NEG NRG Other Culture - 12/23/16 10:30 PRELIM CULTURE RESULTS Abundant coag neg [id number] further [id number] gram neg [id number] testing pending MEDIA PLATED Setup at 15:23 on 12/23/2016 [facility] - 12/23/16 10:30 Ampicillin/Sulbactam <=8/4 Ampicillin <=8 Amoxicillin/K Clavulanate <=8/4 Ceftriaxone <=8 Ciprofloxacin <=1 Nitrofurantoin <=32 Gentamicin <=4 Levofloxacin <=2 Trimethoprim/ Sulfamethoxazole <=2/38 Tetracycline <=4 Amikacin <=16 Aztreonam <=8 Ceftazidime <=1 Ceftazidime/K Clavulanate <=0.25 Cephalothin <=8 Cefotaxime <=2 Cefotaxime/K Clavulanate <=0.5 Cefoxitin <=8 Cefazolin <=8 Cefepime <=8 Cefuroxime <=4 Ertapenem <=1 Imipenem <=4 Meropenem <=4 Piperacillin/Tazobactam <=16 Piperacillin <=16 Tigecycline <=2 Tobramycin <=4 FINAL CULTURE RESULTS Escherichia coli (Isolate 2) [facility] - 12/23/16 10:30 FINAL CULTURE RESULTS Pseudomonas aeruginosa (Isolate 1) Ampicillin/Sulbactam >16/8 Ampicillin >16 Amoxicillin/K Clavulanate >16/8 Ceftriaxone 32 Ciprofloxacin <=1 Nitrofurantoin >64 Gentamicin <=4 Levofloxacin <=2 Trimethoprim/ Sulfamethoxazole >2/38 Tetracycline 8 Amikacin <=16 Aztreonam <=8 Ceftazidime 4 Ceftazidime/K Clavulanate >2 Cephalothin >16 Cefotaxime 8 Cefotaxime/K Clavulanate >4 Cefoxitin >16 Cefazolin >16 Cefepime <=8 Cefuroxime >16 Ertapenem <=1 Imipenem <=4 Meropenem <=4 Piperacillin/Tazobactam <=16 Piperacillin <=16 Tigecycline N/R Tobramycin <=4 Lipid Panel - 12/26/16 10:45 C/HDL 2.4 3.7-6.7 Cholesterol 154 mg/dL 100-240 HDL 63 mg/dL 30-85 LDL-Calculated 75 mg/dL 0-100 Trig 81 mg/dL 35-160 VLDL 16 mg/dL 0-42 Methicillin resistant Staphylococcus aureus (MRSA) screening culture - 11:20 Methicillin resistant Staphylococcus aureus (MRSA) screening culture NEG NRG Automated blood complete blood count (hemogram) panel - 05/17/17 09:00 Blood leukocytes automated count (number/volume) 5.9 10*3/uL 4.3-11.0 Blood erythrocytes automated count (number/volume) 3.89 10*6/uL 4.35-5.85 Venous blood hemoglobin measurement (mass/volume) 12.7 g/dL 11.5-16.0 Blood hematocrit (volume fraction) 39 % 35-52 Automated erythrocyte mean corpuscular volume 100 [foz_us] 80-99 Automated erythrocyte mean corpuscular hemoglobin (mass per erythrocyte) 33 pg 25-34 Automated erythrocyte mean corpuscular hemoglobin concentration measurement ( mass/volume) 33 g/dL 32-36 Automated erythrocyte distribution width ratio 12.8 % 10.0-14.5 Automated blood platelet count (count/volume) 205 10*3/uL 130-400 Automated blood platelet mean volume measurement 9.9 [foz_us] 7.4-10.4 Comprehensive metabolic panel - 05/17/17 09:00 Serum or plasma sodium measurement (moles/volume) 143 mmol/L 135-145 Serum or plasma potassium measurement (moles/volume) 3.6 mmol/L 3.6-5.0 Serum or plasma chloride measurement (moles/volume) 104 mmol/L 98-107 Carbon dioxide 29 mmol/L 21-32 Serum or plasma anion gap determination (moles/volume) 10 mmol/L 5-14 Serum or plasma urea nitrogen measurement (mass/volume) 20 mg/dL 7-18 Serum or plasma creatinine measurement (mass/volume) 1.16 mg/dL 0.60-1.30 Serum or plasma urea nitrogen/creatinine mass ratio 17 NRG Serum or plasma creatinine measurement with calculation of estimated glomerular filtration rate 45 NRG Serum or plasma glucose measurement (mass/volume) 92 mg/dL 70-105 Serum or plasma calcium measurement (mass/volume) 9.2 mg/dL 8.5-10.1 Serum or plasma total bilirubin measurement (mass/volume) 0.7 mg/dL 0.1-1.0 Serum or plasma alkaline phosphatase measurement (enzymatic activity/volume) 53 U/L 40-136 Serum or plasma aspartate aminotransferase measurement (enzymatic activity/ volume) 22 U/L 5-34 Serum or plasma alanine aminotransferase measurement (enzymatic activity/volume ) 17 U/L 0-55 Serum or plasma protein measurement (mass/volume) 7.3 g/dL 6.4-8.2 Serum or plasma albumin measurement (mass/volume) 4.3 g/dL 3.2-4.5 Complete urinalysis with reflex to culture - 05/17/17 09:07 Urine color determination YELLOW NRG Urine clarity determination CLEAR NRG Urine pH measurement by test strip 6 5-9 Specific gravity of urine by test strip 1.010 1.016- 1.022 Urine protein assay by test strip, semi-quantitative NEGATIVE NEGATIVE Urine glucose detection by automated test strip NEGATIVE NEGATIVE Erythrocytes detection in urine sediment by light microscopy NEGATIVE NEGATIVE Urine ketones detection by automated test strip NEGATIVE NEGATIVE Urine nitrite detection by test strip NEGATIVE NEGATIVE Urine total bilirubin detection by test strip NEGATIVE NEGATIVE Urine urobilinogen measurement by automated test strip (mass/volume) NORMAL NORMAL Urine leukocyte esterase detection by dipstick NEGATIVE NEGATIVE Automated urine sediment erythrocyte count by microscopy (number/high power field) NONE NRG Automated urine sediment leukocyte count by microscopy (number/high power field ) NONE NRG Bacteria detection in urine sediment by light microscopy NEGATIVE NRG Squamous epithelial cells detection in urine sediment by light microscopy RARE NRG Crystals detection in urine sediment by light microscopy NONE NRG Casts detection in urine sediment by light microscopy NONE NRG Mucus detection in urine sediment by light microscopy NEGATIVE NRG Complete urinalysis with reflex to culture NO NRG Complete blood count (CBC) with automated white blood cell (WBC) differential - 06/28/17 10:25 Blood leukocytes automated count (number/volume) 6.0 10*3/uL 4.3-11.0 Blood erythrocytes automated count (number/volume) 3.76 10*6/uL 4.35-5.85 Venous blood hemoglobin measurement (mass/volume) 12.2 g/dL 11.5-16.0 Blood hematocrit (volume fraction) 38 % 35-52 Automated erythrocyte mean corpuscular volume 100 [foz_us] 80-99 Automated erythrocyte mean corpuscular hemoglobin (mass per erythrocyte) 32 pg 25-34 Automated erythrocyte mean corpuscular hemoglobin concentration measurement ( mass/volume) 32 g/dL 32-36 Automated erythrocyte distribution width ratio 12.7 % 10.0-14.5 Automated blood platelet count (count/volume) 204 10*3/uL 130-400 Automated blood platelet mean volume measurement 10.3 [foz_us] 7.4-10.4 Automated blood neutrophils/100 leukocytes 67 % 42-75 Automated blood lymphocytes/100 leukocytes 21 % 12-44 Blood monocytes/100 leukocytes 9 % 0-12 Automated blood eosinophils/100 leukocytes 2 % 0-10 Automated blood basophils/100 leukocytes 1 % 0-10 Blood neutrophils automated count (number/volume) 4.0 10*3 1.8-7.8 Blood lymphocytes automated count (number/volume) 1.3 10*3 1.0-4.0 Blood monocytes automated count (number/volume) 0.6 10*3 0.0-1.0 Automated eosinophil count 0.1 10*3/uL 0.0-0.3 Automated blood basophil count (count/volume) 0.1 10*3/uL 0.0-0.1 Whole blood basic metabolic panel - 06/28/17 10:25 Serum or plasma sodium measurement (moles/volume) 140 mmol/L 135-145 Serum or plasma potassium measurement (moles/volume) 4.1 mmol/L 3.6-5.0 Serum or plasma chloride measurement (moles/volume) 103 mmol/L 98-107 Carbon dioxide 29 mmol/L 21-32 Serum or plasma anion gap determination (moles/volume) 8 mmol/L 5-14 Serum or plasma urea nitrogen measurement (mass/volume) 22 mg/dL 7-18 Serum or plasma creatinine measurement (mass/volume) 1.06 mg/dL 0.60-1.30 Serum or plasma urea nitrogen/creatinine mass ratio 21 NRG Serum or plasma creatinine measurement with calculation of estimated glomerular filtration rate 50 NRG Serum or plasma glucose measurement (mass/volume) 93 mg/dL 70-105 Serum or plasma calcium measurement (mass/volume) 9.3 mg/dL 8.5-10.1 Methicillin resistant Staphylococcus aureus (MRSA) screening culture - 10:25 Methicillin resistant Staphylococcus aureus (MRSA) screening culture NEG NRG Complete blood count (CBC) with automated white blood cell (WBC) differential - 05/10/18 13:40 Blood leukocytes automated count (number/volume) 6.0 10*3/uL 4.3-11.0 Blood erythrocytes automated count (number/volume) 3.95 10*6/uL 4.35-5.85 Venous blood hemoglobin measurement (mass/volume) 12.6 g/dL 11.5-16.0 Blood hematocrit (volume fraction) 39 % 35-52 Automated erythrocyte mean corpuscular volume 99 [foz_us] 80-99 Automated erythrocyte mean corpuscular hemoglobin (mass per erythrocyte) 32 pg 25-34 Automated erythrocyte mean corpuscular hemoglobin concentration measurement ( mass/volume) 32 g/dL 32-36 Automated erythrocyte distribution width ratio 13.7 % 10.0-14.5 Automated blood platelet count (count/volume) 211 10*3/uL 130-400 Automated blood platelet mean volume measurement 10.1 [foz_us] 7.4-10.4 Automated blood neutrophils/100 leukocytes 71 % 42-75 Automated blood lymphocytes/100 leukocytes 20 % 12-44 Blood monocytes/100 leukocytes 7 % 0-12 Automated blood eosinophils/100 leukocytes 2 % 0-10 Automated blood basophils/100 leukocytes 1 % 0-10 Blood neutrophils automated count (number/volume) 4.3 10*3 1.8-7.8 Blood lymphocytes automated count (number/volume) 1.2 10*3 1.0-4.0 Blood monocytes automated count (number/volume) 0.4 10*3 0.0-1.0 Automated eosinophil count 0.1 10*3/uL 0.0-0.3 Automated blood basophil count (count/volume) 0.0 10*3/uL 0.0-0.1 Comprehensive metabolic panel - 05/10/18 13:40 Serum or plasma sodium measurement (moles/volume) 142 mmol/L 135-145 Serum or plasma potassium measurement (moles/volume) 3.7 mmol/L 3.6-5.0 Serum or plasma chloride measurement (moles/volume) 105 mmol/L 98-107 Carbon dioxide 27 mmol/L 21-32 Serum or plasma anion gap determination (moles/volume) 10 mmol/L 5-14 Serum or plasma urea nitrogen measurement (mass/volume) 17 mg/dL 7-18 Serum or plasma creatinine measurement (mass/volume) 1.06 mg/dL 0.60-1.30 Serum or plasma urea nitrogen/creatinine mass ratio 16 NRG Serum or plasma creatinine measurement with calculation of estimated glomerular filtration rate 49 NRG Serum or plasma glucose measurement (mass/volume) 123 mg/dL 70-105 Serum or plasma calcium measurement (mass/volume) 9.7 mg/dL 8.5-10.1 Serum or plasma total bilirubin measurement (mass/volume) 0.8 mg/dL 0.1-1.0 Serum or plasma alkaline phosphatase measurement (enzymatic activity/volume) 57 U/L 40-136 Serum or plasma aspartate aminotransferase measurement (enzymatic activity/ volume) 19 U/L 5-34 Serum or plasma alanine aminotransferase measurement (enzymatic activity/volume ) 17 U/L 0-55 Serum or plasma protein measurement (mass/volume) 7.5 g/dL 6.4-8.2 Serum or plasma albumin measurement (mass/volume) 4.4 g/dL 3.2-4.5 CALCIUM CORRECTED 9.4 mg/dL 8.5-10.1 PT panel in platelet poor plasma by coagulation assay - 05/10/18 13:40 Prothrombin time (PT) in platelet poor plasma by coagulation assay 13.5 s 12.2-14.7 INR in platelet poor plasma or blood by coagulation assay 1.0 0.8-1.4 Erythrocyte sedimentation rate by westergren method - 05/10/18 13:40 Erythrocyte sedimentation rate by westergren method 12 mm 0-30 Blood type T Indirect antibody screen panel - 05/10/18 13:40 ABO+Rh group AP NRG Blood group antibody screen NEGATIVE NRG Methicillin resistant Staphylococcus aureus (MRSA) screening culture - 13:40 Methicillin resistant Staphylococcus aureus (MRSA) screening culture NEG NRG Complete urinalysis with reflex to culture - 05/10/18 13:45 Urine color determination YELLOW NRG Urine clarity determination CLEAR NRG Urine pH measurement by test strip 5 5-9 Specific gravity of urine by test strip 1.010 1.016- 1.022 Urine protein assay by test strip, semi-quantitative NEGATIVE NEGATIVE Urine glucose detection by automated test strip NEGATIVE NEGATIVE Erythrocytes detection in urine sediment by light microscopy 1+ NEGATIVE Urine ketones detection by automated test strip NEGATIVE NEGATIVE Urine nitrite detection by test strip NEGATIVE NEGATIVE Urine total bilirubin detection by test strip NEGATIVE NEGATIVE Urine urobilinogen measurement by automated test strip (mass/volume) NORMAL NORMAL Urine leukocyte esterase detection by dipstick NEGATIVE NEGATIVE Automated urine sediment erythrocyte count by microscopy (number/high power field) [HPF] NRG Automated urine sediment leukocyte count by microscopy (number/high power field ) [HPF] NRG Bacteria detection in urine sediment by light microscopy NEGATIVE NRG Squamous epithelial cells detection in urine sediment by light microscopy 0-2 NRG Crystals detection in urine sediment by light microscopy NONE NRG Casts detection in urine sediment by light microscopy PRESENT NRG Mucus detection in urine sediment by light microscopy NEGATIVE NRG Complete urinalysis with reflex to culture NO NRG Hyaline casts detection in urine sediment by light microscopy 5-10 NRG Encounters ACCT No. Visit Date/Time Discharge Status Pt. Type Provider Facility Loc./Unit Complaint [id number] 05/10/2018 12:48:00 05/10/2018 14:10:00 DIS Outpatient TEVIN AGUIRRE MD [facility] PREOP RIGHT KNEE OSTEOARTHRITIS [id number] 08/16/2017 08:19:00 08/16/2017 23:59:59 CLS Outpatient ADAM LAUGHLIN MD [facility] RAD I25.10 CAD [id number] 07/05/2017 06:00:00 07/05/2017 12:00:00 [facility] LAT[facility] MENISC[facility] [id number] 06/28/2017 09:58:00 06/28/2017 13:13:00 DIS Outpatient TEVIN AGUIRRE MD [facility] PREOP RIGHT KNEE TORN LATERAL MENISCUS [id number] 06/08/2017 13:57:00 06/08/2017 23:59:59 CLS Outpatient ADAM LAUGHLIN MD [facility] CARD CAROTID ARTERY STENOSIS I65.23 [id number] 05/17/2017 11:00:00 05/17/2017 23:59:59 CLS Preadmit TEVIN AGUIRRE MD [facility] SDC RIGHT KNEE TORN LATERAL MENISCUS [id number] 05/17/2017 08:41:00 05/17/2017 23:59:59 CLS Outpatient FLORA EVERETT MD [facility] CARD Z01.810 [id number] 05/11/2017 08:03:00 05/11/2017 23:59:59 CLS Outpatient ADAM LAUGHLIN MD [facility] RAD CAROTID ARTERY STENOSIS I65.23 [id number] 05/11/2017 10:33:00 05/11/2017 14:15:00 DIS Outpatient TEVIN AGUIRRE MD [facility] PREOP RIGHT KNEE TORN LATERAL MENISCUS [id number] 09/08/2016 14:38:00 10/19/2016 09:25:00 DIS Outpatient SARAH CARPENTER MD [facility] REHAB GAIT DISTURBANCE; CHRONIC VERTIGO [id number] 03/07/2016 06:40:00 03/07/2016 13:50:00 DIS Outpatient ADAM LAUGHLIN MD [facility] CATH ABNORMAL STRESS TEST,CAD ,HTN,HLP [id number] 02/24/2016 11:38:00 02/24/2016 23:59:59 CLS Outpatient CROW LUNDBERG [facility] CARD AF,CAD, CAROTID ARTERY STENOSIS,HLP,PVD [id number] 02/23/2016 11:58:00 02/23/2016 23:59:59 CLS Outpatient CROW LUNDBERG [facility] RAD CAROTID ARTERY STENOSIS [id number] 02/22/2016 12:59:00 02/22/2016 23:59:59 CLS Outpatient CROW LUNDBERG [facility] CARD AF,CAD, CAROTID ARTERY STENOSIS,HLP,PVD [id number] 06/27/2014 11:52:00 06/27/2014 23:59:59 CLS Outpatient PAULINE MERCADO, SARAH Griffith [facility] RAD BI KNEE PAIN AND SWELLING [id number] 11/27/2013 07:48:00 11/27/2013 23:59:59 CLS Outpatient CROW LUNDBERG [facility] CARD AFIB, ANXIETY [id number] 11/22/2013 12:38:00 11/22/2013 23:59:59 CLS Outpatient TRUMAN MERCADO, ADAM Talbot [facility] CARD AFIB,ANXIETY,CAD [id number] 05/23/2018 09:45:00 PEN Preadmit CARLA MERCADO, TEVIN Liu RIGHT KNEE OSTEOARTHRITIS [id number] 06/27/2014 11:52:00 Document Registration [id number] 06/27/2014 11:51:00 Document Registration [id number] 07/26/2012 14:32:00 Document Registration [id number] 06/06/2012 08:40:00 Document Registration [id number] 06/05/2012 11:20:00 Document Registration [id number] 05/30/2012 10:58:00 Document Registration [id number] 07/11/2011 17:15:00 Document Registration [id number] 06/20/2011 18:55:00 Document Registration [id number] 05/30/2011 10:24:00 Document Registration [id number] 05/23/2011 10:37:00 Document Registration [id number] 07/26/2010 09:31:00 Document Registration [id number] 06/23/2010 05:37:00 Document Registration [id number] 06/22/2010 07:56:00 Document Registration [id number] 06/03/2010 09:40:00 Document Registration [id number] 02/15/2010 08:57:00 Document Registration [id number] 07/23/2009 10:51:00 Document Registration [id number] 01/27/2009 10:56:00 Document Registration [id number] 12/26/2016 10:51:00 12/26/2016 23:59:00 DIS Outpatient SARAH CARPENTER [id number] 12/23/2016 13:24:00 12/23/2016 23:59:00 DIS Outpatient SARAH CARPENTER
[2018-05-23 07:40] VITALS: BP 197/102
[2018-05-23] MEDS ORDERED: MIDAZOLAM 2 MG/2 ML (VERSED) VIAL INJ ONE (07:43)
[2018-05-23] MEDS ORDERED: LIDOCAINE PF 2% 5 ML (XYLOCAINE) VIAL INJ ONE (07:43)
[2018-05-23] MEDS ORDERED: ROPIVACAINE 5MG/ML 30ML VIAL INJ ONE (07:43)
[2018-05-23] MEDS ORDERED: ACETAMINOPHEN 325 MG TABLET PO PRN (07:45)
[2018-05-23] MEDS: LACTATED RINGERS 1,000 ML IV PRN ×2 (07:45→09:50)
[2018-05-23] MEDS ORDERED: INTRA-ARTICULAR IU ONE ×5 (07:45)
[2018-05-23] MEDS ORDERED: CEFUROXIME 1.5 GM (ZINACEF) VIAL ONE (07:48)
[2018-05-23] MEDS ORDERED: NS (IVPB) 50 ML ONE (07:48)
[2018-05-23] MEDS ORDERED: LACTATED RINGERS 1,000 ML IV SCH (08:00)
[2018-05-23] MEDS ORDERED: CEFUROXIME 1.5 GM/NS 50 ML IVPB IV ONE ×2 (08:00)
[2018-05-23] MEDS ORDERED: LACTATED RINGERS 1,000 ML IV ONE ×2 (08:11→09:20)
[2018-05-23] MEDS ORDERED: proPOfol 200 MG/20 ML (DIPRIVAN) VIAL IV ONE (08:28)
[2018-05-23] MEDS ORDERED: fentaNYL INJECTION 100 MCG/2 ML AMP INJ ONE (08:29)
[2018-05-23] MEDS ORDERED: OXYC1TAB87 PO (09:19)
[2018-05-23] MEDS ORDERED: ROCURONIUM 10 MG/ML 5 ML SYRINGE IV ONE (09:20)
[2018-05-23] MEDS ORDERED: SEVOFLURANE (ULTANE) 15 ML INHAL SOLN INH ONE ×4 (09:20→10:54)
[2018-05-23] MEDS ORDERED: diphenhydrAMINE 50 MG/ML INJ (BENADRYL) IVP PRN (09:30)
[2018-05-23] MEDS ORDERED: morphine PCA 100 MG/100 ML BAG IV PRN (09:30)
[2018-05-23] MEDS ORDERED: ONDANSETRON 4 MG/2 ML (SDV) Z0FRAN IVP PRN ×2 (09:30→11:15)
[2018-05-23] MEDS ORDERED: LABETALOL HCL 20 MG/4 ML VIAL IV ONE (10:14)
[2018-05-23] MEDS ORDERED: TRANEXAMIC ACID 100 MG/ML 10 ML INJECTION IV ONE (10:14)
[2018-05-23] MEDS ORDERED: ONDANSETRON 4 MG/2 ML (SDV) Z0FRAN IV ONE (10:33)
[2018-05-23] MEDS ORDERED: DEXAMETHASONE 10 MG/ML (DECADRON) 1 ML VIAL IV ONE (10:33)
[2018-05-23] MEDS ORDERED: morphine INJ 10 MG/ML 1ML (SYR OR VIAL) IVP ONE (11:15)
[2018-05-23] MEDS ORDERED: MEPERIDINE (DEMEROL) INJ 50 MG/ML IVP ONE (11:15)
[2018-05-23] MEDS ORDERED: morphine INJ 10 MG/ML 1ML (SYR OR VIAL) IV ONE (11:16)
[2018-05-23] MEDS ORDERED: MEPERIDINE (DEMEROL) INJ 50 MG/ML IV ONE (11:25)
[2018-05-23] MEDS: NS IV 1000 ML 1,000 ML IV SCH ×2 (13:34→22:00)
--- NOTE | 2018-05-23 13:36 | Consultation-Hospitalist ---
HPI History of Present Illness: HPI/Chief Complaint CC: Status post uncomplicated right total knee replacement by Dr Lucas POD # 0 HPI: This is an 82-year-old white female clinic patient of Dr. Carter and Dr. Marie cardiology who has a past medical history of hemorrhagic stroke unable to tolerate anticoagulation for stroke prophylaxis from atrial fibrillation who presents to room 429 after an uncomplicated right total knee replacement. She reported that the pain was tolerable after given pain medication. Her daughter is at the bedside. I reviewed all of her home medication and I consulted Dr. Marie in case atrial fibrillation with rapid ventricular response occurs in a postop status. Source: patient Exam Limitations: no limitations Date Seen 05/23/18 Attending Physician Tad Lucas MD PCP Phillip Carter MD Referring Physician Date of Admission May 23, 2018 at 07:16 Home Medications & Allergies Home Medications Reviewed patient Home Medication Reconciliation performed by pharmacy medication reconciliations dialysis equipment technician and/or nursing. Patients Allergies have been reviewed. Allergies Allergies Coded Allergies Sulfa (Sulfonamide Antibiotics) (Verified Allergy, Intermediate, RASH, 06/28/17 ) Penicillins (Verified Allergy, Mild, ITCHING, 06/28/17) Past [id number]-[id number] Hx Past Med/Social Hx: Reviewed Nursing Past Med/Soc Hx, Reviewed and Corrections made Patient Social History Marrital Status: single Employed/Student: retired Alcohol Use: Denies Use Recreational Drug Use: No Smoking Status: Former Smoker Former Smoker, Quit: Mar 07, 1979 Type Used: Cigarettes Physical Abuse Screen: No Sexual Abuse: No Recent Foreign Travel: No Contact w/other who traveled: No Recent Hopitalizations: No Recent Infectious Disease Expo: No Immunizations Up To Date Tetanus Booster (TDap): Unknown Date of Pneumonia Vaccine: May 06, 2012 Seasonal Allergies Seasonal Allergies: Yes Past Medical History Surgeries: Hysterectomy, Vascular Surgery Cardiac: Atrial Fibrillation, Deep Vein Thrombosis, High Cholesterol, Hypertension, Peripheral Vascular Neurological: Stroke Reproductive: No Sexually Transmitted Disease: No HIV/AIDS: No Hysterectomy Gastrointestinal: Chronic Constipation Musculoskeletal: Arthritis Loss of Vision: Bilateral Hearing Impairment: Denies Cancer: Skin Psychosocial: Depression History of Blood Disorders: No Adverse Reaction to Blood Damon: No (N/A) Family History Alzheimer's disease 19 MOTHER Cardiovascular disease G8 SISTER FH: breast cancer 19 MOTHER Respiratory disorder 19 FATHER (tb) Review of Systems Constitutional: see HPI EENTM: no symptoms reported Respiratory: no symptoms reported Cardiovascular: no symptoms reported Gastrointestinal: no symptoms reported Genitourinary: no symptoms reported Musculoskeletal: joint pain (right knee) Skin: no symptoms reported Psychiatric/Neurological: No Symptoms Reported Physical Exam Physical Exam Vital Signs Vital Signs - First Documented 05/23/18 07:40 Temp 98.1 Pulse 83 Resp 18 B/P (MAP) 197/102 (133) Pulse Ox 96 O2 Delivery Room Air Capillary Refill : Height, Weight, BMI Height: 5'8.00" Weight: 137lbs. 0.0oz. 62.396430ld; 20.8 BMI Method:Stated General Appearance: No Apparent Distress, WD/WN, Chronically ill Eyes: Bilateral Eye Normal Inspection, Bilateral Eye PERRL HEENT: PERRL/EOMI, TMs Normal, Normal ENT Inspection, Pharynx Normal Neck: Full Range of Motion, Normal Inspection, Non Tender, Supple, Carotid Bruit Respiratory: Chest Non Tender, Lungs Clear, Normal Breath Sounds, No Accessory Muscle Use, No Respiratory Distress Cardiovascular: No Edema, No Gallop, No JVD, No Murmur, Normal Peripheral Pulses, Irregularly Irregular Gastrointestinal: Normal Bowel Sounds, No Organomegaly, No Pulsatile Mass, Non Tender, Soft Back: Normal Inspection, No CVA Tenderness, No Vertebral Tenderness Extremity: Normal Capillary Refill, Normal Inspection, Normal Range of Motion ( except right leg), Non Tender, No Calf Tenderness, No Pedal Edema Neurologic/Psychiatric: Alert, Oriented x3, No Motor/Sensory Deficits, Normal Mood/Affect Skin: Normal Color, Warm/Dry Lymphatic: No Adenopathy Results Results/Procedures Labs Laboratory Tests 05/24/18 05:50 Patient resulted labs reviewed. Assessment/Plan Assessment and Plan Assess & Plan/Chief Complaint Assessment: Status post uncomplicated right total knee replacement POD # 0 Chronic atrial fibrillation History of hemorrhagic stroke intolerant to anticoagulation for stroke prophylaxis from atrial fibrillation Hypertension Plan: Restart all home meds like consult Dr. Marie in case atrial fibrillation becomes with rapid ventricular response Diagnosis/Problems Diagnosis/Problems (1) Osteoarthritis of right knee Status: Chronic Qualifiers: Osteoarthritis type: primary Qualified Codes: M17.11 - Unilateral primary osteoarthritis, right knee (2) Atrial fibrillation Status: Chronic (3) Hypertension Status: Chronic Qualifiers: Hypertension type: essential hypertension Qualified Codes: I10 - Essential (primary) hypertension (4) Hyperlipemia Status: Chronic Qualifiers: Hyperlipidemia type: mixed hyperlipidemia Qualified Codes: E78.2 - Mixed hyperlipidemia (5) Acute blood loss anemia Status: Acute MARY LORA DO May 23, 2018 13:36
[2018-05-23] MEDS ORDERED: LISI40TA PO (13:49)
[2018-05-23] MEDS ORDERED: POTA10TA10 PO ×2 (13:49)
[2018-05-23] MEDS ORDERED: ASPI-983 PO (13:49)
--- NOTE | 2018-05-23 13:52 | Consultation-Cardiology ---
HPI-Cardiology Cardiology Consultation Date of Consultation 05/23/18 Date of Admission Time Seen by Provider: 13:47 Indication: HTN, Afib HPI Patient is a very pleasant 82 y/o female well known to our services with history of HTN, permanent atrial fibrillation, history of hemorrhagic CVA with intolerance to OAC. Underwent right TKA with Dr. Shayy valdes today. Currently complaining of some right knee pain. Denies and chest pain, dyspnea, dizziness or lightheadedness. Blood pressure is elevated. No other complaints at this time. Home Medications & Allergies Allergies: Coded Allergies: Sulfa (Sulfonamide Antibiotics) (Verified Allergy, Intermediate, RASH, 06/28/17) Penicillins (Verified Allergy, Mild, ITCHING, 06/28/17) Home Medication List Reviewed: Yes IYB-[id number]-Themzl Hx Patient Social History Employed/Student: retired Alcohol Use: Denies Use Recreational Drug Use: No Smoking Status: Former Smoker Type Used: Cigarettes Recent Foreign Travel: No Recent Infectious Disease Expo: No Recent Hopitalizations: No Physical Abuse Screen: No Sexual Abuse: No Immunizations Up To Date Tetanus Booster (TDap): Unknown Date of Pneumonia Vaccine: May 06, 2012 Past Medical History CAD, HTN, afib Family Medical History Significant Family History: No Pertinent Family Hx Family History: Alzheimer's disease 19 MOTHER Cardiovascular disease G8 SISTER FH: breast cancer 19 MOTHER Respiratory disorder 19 FATHER (tb) Review of Systems Constitutional: No dizziness, No fever, No malaise, No weakness EENTM: No hearing loss, No ear pain, No blurred vision, No double vision, No vision loss, No epistaxis, No nose pain, No throat pain Respiratory: No cough, No dyspnea on exertion, No hemoptysis Cardiovascular: No chest pain, No edema, No Hx of Intervention, No palpitations Gastrointestinal: No abdominal pain, No constipation Genitourinary: No dysuria, No frequency Musculoskeletal: No back pain, No neck pain Skin: No lesions, No rash Psychiatric/Neurological: Denies Anxiety, Denies Depressed ECG Impression ECG Initial ECG Rhythm: A Fib/Flutter Initial ECG Impression: Atrial Fibrillation Physical Exam Vital Signs Vital Signs - First Documented 05/23/18 07:40 Temp 98.1 Pulse 83 Resp 18 B/P (MAP) 197/102 (133) Pulse Ox 96 O2 Delivery Room Air Capillary Refill : Height, Weight, BMI Height: 5'8.00" Weight: 137lbs. 0.0oz. 62.187759hx; 20.8 BMI Method:Stated General Appearance: No Apparent Distress, WD/WN HEENT: PERRL/EOMI, TMs Normal, Normal ENT Inspection, Pharynx Normal Neck: Non Tender, Supple Respiratory: Chest Non Tender, Lungs Clear Cardiovascular: No JVD, No Murmur, Normal Peripheral Pulses Gastrointestinal: Non Tender, Soft Rectal: Deferred Back: No CVA Tenderness Extremity: Non Tender, No Calf Tenderness, No Pedal Edema Neurologic/Psychiatric: Alert, Oriented x3, log buncher II-XII Norm as Tested Skin: Normal Color, Warm/Dry Lymphatic: No Adenopathy A/P-Cardiology Admission Diagnosis CAD Atrial fibrillation HTN HLP Assessment/Plan s/p right total knee replacement with Dr. Lucas, done earlier today. Recovering well. Complaining of mild to moderate knee pain at this time. Coronary artery disease-cardiac catheterization done March 07, 2016 revealed heavily calcified coronary system with mild to moderate disease involving the mid LAD and mid diagonal artery, up to 50 percent stenosis. Circumflex artery had 50 percent stenosis at the midportion. First obtuse marginal branch had 50 percent stenosis. RCA is large dominant artery of 40 percent stenosis proximal and midportion. 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 I will continue monitoring. No changes are recommended Abnormal 2-D echocardiogram on June 08, 2017 showing ejection fraction 40- 45 percent, dilated left atrium, patent foramen ovale, moderate to severe MR, PA pressure 40-45 mmHg. Continue on current medications and continue to monitor. Permanent Atrial fibrillation-intolerance to oral anticoagulation secondary to history of hemorrhagic stroke. Patient maintained on diltiazem. Rate controlled, continue to monitor. Hypertension, on multiple blood pressure medications as outpatient. Renal arterial duplex done July 2017 revealed no evidence of renal artery stenosis. Blood pressure is poorly controlled at this time. I will restart home blood pressure medications and continue to monitor BP/HR. Hyperlipidemia, controlled. Continue to monitor as outpatient. PAD with history of total occlusion of the right SFA. Patient underwent peripheral angiogram done March 07, 2016 demonstrating diffuse atherosclerotic disease in the abdominal aorta. The right lower extremity showed mild to moderate disease, nonobstructive disease. Left lower extremity showed 70 percent stenosis at the mid SFA, calcified artery, with good flow down to the trifurcation. She continues to deny claudication pain, rest pain, ulceration, or gangrene at this time. ANABELLE was done in April 2017 and it was mildly abnormal. Planning to reevaluate ANABELLE at next 6 month follow-up Carotid stenosis, status post left carotid endarterectomy done in April 2017. Monitored by Dr. Phillips History of CVA, intracranial bleed Allergy to IV contrast Thank you for allowing us to participate in the management of Ms. Hensley. This is Bibiana Elizondo PA-C , as a scribe for Dr. Marie. I have seen and evaluated the patient with Bibiana, examined and interviewed the patient and discussed the note with Bibiana, agree with current scribe, this is an 82 years old lady with history of CAD, Resistant HTN, had a TKA, on exam her Heart is irregular, lungs are clear to auscultations, I restarted her BP meds and will continue to monitor BIBIANA KOHLI May 23, 2018 13:52 ADAM MARIE MD May 23, 2018 18:11
[2018-05-23] MEDS: SENNA W/DOCUSATE (SENOKOT S) TABLET PO SCH ×2 (13:53→22:00)
--- NOTE | 2018-05-23 14:25 | Physical Therapy Evaluation ---
PT Evaluation-General Medical Diagnosis Admission Date May 23, 2018 at 07:16 Medical Diagnosis: right TKA Onset Date: May 23, 2018 Therapy Diagnosis Therapy Diagnosis: impaired mobility, strength, endurance, ROM Height/Weight Height (Feet): 5 Height (Inches): 8.00 Weight (Pounds): 137 Weight (Ounces): 0.0 Precautions Precautions/Isolations: Fall Prevention, Standard Precautions Weight Bear Status Right Lower Extremity: Right Weight Bearing/Tolerated Referral Physician: Tad Lucas MD Reason for Referral: Evaluation/Treatment Medical History Additional Medical History Past Medical History Surgeries: Hysterectomy, Vascular Surgery Cardiac: Atrial Fibrillation, Deep Vein Thrombosis, High Cholesterol, Hypertension, Peripheral Vascular Neurological: Stroke Reproductive: No Sexually Transmitted Disease: No HIV/AIDS: No Hysterectomy Gastrointestinal: Chronic Constipation Musculoskeletal: Arthritis Loss of Vision: Bilateral Hearing Impairment: Denies Cancer: Skin Psychosocial: Depression Reviewed History: Yes Social History Home: Single Level Current Living Status: Alone Entry Into Home: Stairs With Railing PT Steps Into Home: 4 Prior/Core FIM Prior Level of Function Functional [place] Measure 0=Not Assessed/NA 4=Minimal Assistance 1=Total Assistance 5=Supervision or Setup 2=Maximal Assistance 6=Modified [place] 3=Moderate Assistance 7=Complete IndependenceIRFPAI Quality Coding Scale 6 Independent with activity with or without an assistive device 5 Patient requires set up or clean up by helper. Patient completes activity by themselves 4 Supervision or touching assist (CGA). [place] provide cues , steadying assist 3 The helper provides less than half the effort to complete the activity 2 The helper provides more than half the effort to complete the activity 1 Dependent. The helper does all the effort to complete an activity 7 Patient refused to complete or attempt activity 9 The patient did not perform the activity before the current illness or injury 88 Not attempted due to Medical conditions or safety concerns Bed Mobility: 7 Transfers (B,C,W/C) (FIM): 7 Gait: 6 Patient states she was ambulating with a single point cane previously PT Evaluation-Current Subjective Patient in bed pre tx, agrees to PT, has pain of 1-2/10 in right knee. Pt/Family Goals to be independent at home Objective Patient Orientation: Person, Place, Situation Attachments: Oxygen, Polar Pack, IV ROM/Strength ROM Lower Extremities right knee extension +7 degrees, flexion 80 degrees Strength Lower Extremities NT Neuromuscular (Tone, Coordination, Reflexes) NT Sensory Vision: Wears Glasses Hearing: Functional Sensation Right Lower Extremit: Impaired Sensation Left Lower Extremity: Intact Sensation Lower Extremities Patient has some numbness on the medial aspect of her right knee below the joint line Transfers Functional [place] Measure 0=Not Assessed/NA 4=Minimal Assistance 1=Total Assistance 5=Supervision or Setup 2=Maximal Assistance 6=Modified [place] 3=Moderate Assistance 7=Complete [place] Transfers (B, C, W/C) (FIM): 2 Scootin Rollin Supine to/from Sit: 2 Sit to/from Stand: 4 Patient was able to sit at the edge of the bed with min assist but needed max assist when laying down due to fatigue. Gait Gait (FIM): 1 Distance: 1' Gait Level of Assist: 4 Gait Assistive Device: FWW Comments/Gait Description Patient took a few steps forward (just inches at a time) and had trouble bringing her right leg back and basically had to sit on the edge of the bed, too close to the edge and had to scoot back. Balance Sitting Static: Fair Sitting Dynamic: Fair Standing Static: Fair Standing Dynamic: Fair Treatment Supine exercises for TKA x10 (AP, QS, HS, SAQ, SLR), CPM donned and set to -2/ 60 degrees and fit to patient's leg, polar care on. Patient did not have a nurse call, nurse aide said that she would get her one. Patient has phone, tray , pain button, family member in the room. Assessment/Needs Patient has impaired mobility, strength, endurance, ROM post right TKA. Rehab Potential: Fair PT Short Term Goals Short Term Goals Time Frame: May 30, 2018 Transfers (B,C,W/C) (FIM): 5 Gait (FIM): 2 Gait Distance Comment: 50' Gait Level of Assist: 4 Gait Assistive Device: FWW PT Plan Problem List Problem List: Activity Tolerance, Functional Strength, Safety, Balance, Gait, Transfer, Bed Mobility, ROM Treatment/Plan Treatment Plan: Continue Plan of Care Treatment Plan: Bed Mobility, Education, Functional Activity Jaren, Functional Strength, Gait, Safety, Therapeutic Exercise, Transfers Treatment Duration: May 30, 2018 Frequency: 11 times per week Estimated Hrs Per Day: .25 hour per day (15-30') Patient and/or Family Agrees t: Yes Safety Risks/Education Patient Education: Gait Training, Transfer Techniques, Reviewed Use of Ice, Correct Positioning, Safety Issues Teaching Recipient: Patient Teaching Methods: Demonstration, Discussion Response to Teaching: Reinforcement Needed Discharge Recommendations Plan Patient will perform bed mobility and transfer training, balance and endurance training, functional strengthening, stair training, gait training, and education , to improve functional mobility and independence at home. Therapy D/C Recommendations: Acute Rehab, Home w/ Family Support Time/GCodes Time In: 1345 Time Out: 1410 Total Billed Treatment Time: 25 Total Billed Treatment 1 visit CORTEZ 15' GT 10' NICCI MALONE PT May 23, 2018 14:25
[2018-05-23] MEDS: cloNIDine 0.2 MG (CATAPRES) TAB PO SCH ×2 (14:53→21:59)
--- NOTE | 2018-05-23 15:41 | OPERATIVE REPORT ---
DATE OF SERVICE: 05/23/2018 PREOPERATIVE DIAGNOSIS: Right knee primary osteoarthritis. POSTOPERATIVE DIAGNOSIS: Right knee primary osteoarthritis. PROCEDURE: Right total knee arthroplasty. SURGEON: Tad Aguirre MD. WOOD CRAFTSMAN: LINDA Snyder, who assisted throughout the procedure and closed the incision. ANESTHESIA: General endotracheal plus a femoral nerve block by Ant Navarrete CRNA. TOURNIQUET TIME: Approximately 63 minutes at 300 mmHg. ESTIMATED BLOOD LOSS: Minimal. DRAINS: None. COMPLICATIONS: None. POSTOPERATIVE PLAN: Routine protocol. MATERIALS: MicroPort cemented size 3 femur, cemented size 3 tibia with 10 mm insert and a cemented size 29 patella. The patient was transported to recovery room awake and in stable condition. STATEMENT OF MEDICAL NECESSITY: The patient is an 82-year-old female with longstanding progressive right knee pain. She has undergone treatment with injections, anti-inflammatories and arthroscopy without relief. She reported continued functional impairment. Radiographs revealed severe lateral and patellofemoral osteoarthritis and due to functional impairment and failure to improve with conservative measures, the patient has elected to proceed with surgical intervention. DESCRIPTION OF PROCEDURE: After risks and benefits of the procedure were discussed and questions were answered, an informed consent was signed and placed on the chart. The operative site was confirmed in the preoperative holding area initialed by the surgeon. The patient was then transported to the operating room and after adequate levels of regional and general endotracheal anesthetic were obtained, a timeout was called confirming the operative site. The right lower extremity was prepped and draped in the usual sterile fashion with the leg elevated and the knee flexed. Tourniquet was inflated to 300 mmHg. Standard anterior approach was utilized. Hemostasis was obtained with cautery. A medial parapatellar arthrotomy was performed leaving 1 cm cuff on the patella for later reattachment. A portion of the fat pad was resected. A subperiosteal release was performed on the proximal medial tibia. The ACL was resected. Intramedullary guide was passed into the femur. The distal cutting block was placed and distal cut was made. The femur sized to a size 3. Three cutting block was placed parallel to the epicondylar axis and cuts were made from posterior to anterior. A subperiosteal release was then carefully performed on the posterior distal femur, being careful to stay on the bony surface. Intramedullary guide was then passed into the tibia. The drop kellee transected the intramedullary axis the cutting block and the cut was made. The 3 trial baseplate was placed and again the drop kellee transected the intramedullary axis. This was then prepared with a drill and keel punch. The patella was then prepared using the free hand technique by resecting 10 mm off the undersurface. The peg guide was placed and the peg holes were drilled. The trials were inserted. Full extension was easily obtained; 120 degrees of flexion was easily obtained with gravity. The PCL was released as there was some anterior elevation of the tibial component. This resolved and the joint tracked very well. The patella tracked well. There was no anterior/posterior or medial/lateral laxity in flexion or extension. The trials were removed. The joint was irrigated with pulse lavage. The periarticular block was placed in the posterior capsule, medial and lateral retinaculum and extensor mechanism as well as subcutaneous tissue. The joint was further irrigated with pulse lavage. Bone ends were irrigated and dried. The tibial baseplate was cemented into position. Excessive cement was removed. The superior surface was irrigated and dried and the polyethylene insert was placed. The distal femur was irrigated and dried and excessive cement was removed. The knee was brought out into full extension and held until the cement had cured. The undersurface of the patella was irrigated and dried and the patellar button was cemented into position. Excess cement was removed. Once the cement had dried, the knee was taken through a range of motion. Full extension was easily obtained; greater than 120 degrees of flexion with gravity was easily obtained. The patella tracked well. There was no anterior/posterior or medial/lateral laxity in flexion or extension. The joint was further irrigated with pulse lavage. The arthrotomy was closed with #2 Tevdek in adoldt-de-wdafg interrupted fashion. The patella tracked well with no undue tension at the repair site through a range of motion. The subcutaneous tissues were irrigated using a total of 6 liters throughout the procedure. A 0 Vicryl was used for deep subcutaneous tissue, 2-0 Vicryl for the superficial subcutaneous tissue, socorro were used on the skin. A soft dressing was applied. The tourniquet was deflated and the patient was transported to the recovery room awake and in stable condition. Job ID: [id number] DocumentID: [id number] Dictated Date: 05/23/2018 11:01:04 Rf Microwave Engineer Date: 05/23/2018 15:41:17 Dictated By: TAD AGUIRRE MD
[2018-05-23] MEDS ORDERED: FLU QUADRIvalent (5+ YOA) 2018-2019 (AFLURIA) 0.5 ML IM ONE (15:45)
[2018-05-23] MEDS ORDERED: CEFUROXIME INJECTION 750 MG in NS (IVPB) 50 ML IV SCH (15:45)
--- NOTE | 2018-05-23 15:57 | Diagnostic Imaging Report ---
INDICATION: Right knee surgery. TIME OF EXAM: 2:40 PM FINDINGS: Two views of right knee demonstrate postop changes of total knee arthroplasty. Prosthetic elements are in good position. No fracture or loosening is seen. Overlying skin socorro are noted. IMPRESSION: Satisfactory postop appearance to the right knee. Dictated by: Dictated on workstation # [id number]
[2018-05-23 16:00] VITALS: BP 196/92
[2018-05-23] MEDS: CEFUROXIME INJECTION 750 MG in NS (IVPB) 50 ML IV SCH (16:44)
[2018-05-23] MEDS ORDERED: lisINopril 40 MG (PRINIVIL) TABLET ONE (18:04)
[2018-05-23] MEDS: oxyCODONE/APAP 5/325MG (PERCOCET 5) TABLET PO PRN ×2 (18:07→23:42)
[2018-05-23] MEDS ORDERED: lisINopril 40 MG (PRINIVIL) TABLET PO NR (18:15)
[2018-05-23 19:15] VITALS: BP 176/89
[2018-05-23] MEDS: ATORVASTATIN 10 MG (LIPITOR) TABLET PO SCH (21:59)
[2018-05-23] MEDS: meTOprolol TARTRATE 50 MG (LOPRESSOR) TAB PO SCH (22:00)
[2018-05-24 00:07] VITALS: BP 119/58
[2018-05-24] MEDS: CEFUROXIME INJECTION 750 MG in NS (IVPB) 50 ML IV SCH (00:28)
[2018-05-24] MEDS: NS IV 1000 ML 1,000 ML IV SCH ×3 (00:28→23:30)
[2018-05-24 04:00] VITALS: BP 124/72
[2018-05-24 06:05] LABS: BASOPHILS % (AUTO) 0 % (0-10); EOSINOPHILS % (AUTO) 0 % (0-10); HEMATOCRIT 29 % (35-52); HEMOGLOBIN 9.4 G/DL (11.5-16.0); LYMPHOCYTES # (AUTO) 0.6 X 10^3 (1.0-4.0); LYMPHOCYTES % (AUTO) 5 % (12-44); MEAN CORPUSCULAR HEMOGLOBIN 32 PG (25-34); MEAN CORPUSCULAR HGB CONC 32 G/DL (32-36); MEAN CORPUSCULAR VOLUME 100 FL (80-99); MEAN PLATELET VOLUME 10.1 FL (7.4-10.4); MONOCYTES # (AUTO) 0.8 X 10^3 (0.0-1.0); MONOCYTES % (AUTO) 6 % (0-12); NEUTROPHILS # (AUTO) 11.2 X 10^3 (1.8-7.8); NEUTROPHILS % (AUTO) 89 % (42-75); PLATELET COUNT 195 10^3/uL (130-400); RED BLOOD COUNT 2.93 10^6/uL (4.35-5.85); WHITE BLOOD COUNT 12.6 10^3/uL (4.3-11.0)
[2018-05-24] MEDS: oxyCODONE/APAP 5/325MG (PERCOCET 5) TABLET PO PRN ×4 (06:19→23:30)
[2018-05-24] MEDS: MULTIVIT W/MINERALS TAB (THERAGRAN M) PO SCH (06:19)
[2018-05-24 06:25] LABS: ALBUMIN 3.6 GM/DL (3.2-4.5); BILIRUBIN,TOTAL 0.7 MG/DL (0.1-1.0); CREATININE SERUM 0.98 MG/DL (0.60-1.30); POTASSIUM 4.1 MMOL/L (3.6-5.0); TOTAL PROTEIN 5.8 GM/DL (6.4-8.2)
--- NOTE | 2018-05-24 07:51 | Cardiology Progress Note ---
Subjective Date Seen by Provider: May 24, 2018 Time Seen by Provider: 07:48 Subjective/Events-last exam Patient is in bed, complaining of right knee pain. Denied any chest pain Review of Systems General: No Chills, No Night Sweats, No Fatigue, No Malaise, No Appetite, No Other HEENT: No Head Aches, No Visual Changes, No Eye Pain, No Ear Pain, No Dysphasia , No Sinus Congestion, No Post Nasal Drip, No Sore Throat, No Other Pulmonary: No Dyspnea, No Cough, No Pleuritic Chest Pain, No Other Cardiovascular: No: Chest Pain, Palpitations, Orthopnea, Paroxysmal Noc. Dyspnea, Edema, Lt Headedness, Other Objective-Cardiology Exam Last Set of Vital Signs Vital Signs 05/24/18 04:00 Temp 98.5 Pulse 84 Resp 17 B/P (MAP) 124/72 (89) Pulse Ox 94 O2 Delivery Room Air Capillary Refill : I&O Intake and Output 05/24/18 00:00 Intake Total 2140 ml Output Total 1200 ml Balance 940 ml Intake Oral 890 ml IV Total 1250 ml Output Urine Total 1200 ml # Voids 2 Daily Weight Change No No General: Alert, Oriented X3, Cooperative HEENT: Atraumatic, PERRLA Neck: Supple, No JVD, No Thyromegaly Lungs: Clear to Auscultation, Normal Air Movement Heart: Normal S1, Normal S2, No Murmurs, Other (Irregular) Abdomen: Normal Bowel Sounds, Soft, No Tenderness, No Hepatosplenomegaly, No Masses Extremities: No Clubbing, No Cyanosis, No Edema, Normal Pulses, No Tenderness/ Swelling Skin: No Rashes, No Breakdown, No Significant Lesion Neuro: Normal Speech, Normal Tone, Sensation Intact Psych/Mental Status: Mental Status NL, Mood NL Results Lab Laboratory Tests 05/24/18 05:50 A/P-Cardiology Admission Diagnosis CAD Atrial fibrillation HTN HLP Assessment/Plan S/p right total knee replacement with Dr. Lucas, Recovering well. Complaining of mild to moderate knee pain at this time. Hypertension, restarted home medication, blood pressure is better controlled. Continue to monitor. Chronic permanent atrial fibrillation, unable to tolerate oral anticoagulation due to history of hemorrhagic stroke, rate is controlled on current medication, continue to monitor. Coronary artery disease-cardiac catheterization done March 07, 2016 revealed heavily calcified coronary system with mild to moderate disease involving the mid LAD and mid diagonal artery, up to 50 percent stenosis. Circumflex artery had 50 percent stenosis at the midportion. First obtuse marginal branch had 50 percent stenosis. RCA is large dominant artery of 40 percent stenosis proximal and midportion. 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 I will continue monitoring. No changes are recommended Congestive heart failure, chronic compensated left ventricular systolic dysfunction, ejection fraction 40-45 percent, PFO, moderate to severe MR, PA pressure 40-45 mmHg. Currently compensated. Continue on current medications and monitor Hyperlipidemia, controlled. Continue to monitor as outpatient. PAD with history of total occlusion of the right SFA. Patient underwent peripheral angiogram done March 07, 2016 demonstrating diffuse atherosclerotic disease in the abdominal aorta. The right lower extremity showed mild to moderate disease, nonobstructive disease. Left lower extremity showed 70 percent stenosis at the mid SFA, calcified artery, with good flow down to the trifurcation. She continues to deny claudication pain, rest pain, ulceration, or gangrene at this time. ANABELLE was done in April 2017 and it was mildly abnormal. Planning to reevaluate ANABELLE at next 6 month follow-up Carotid stenosis, status post left carotid endarterectomy done in April 2017. Monitored by Dr. Phillips History of CVA, intracranial bleed Allergy to IV contrast Clinical Quality Measures DVT/VTE Risk/Contraindication: Risk Factor Score Per Nursin RFS Level Per Nursing on Admit: 4+=Very High ADAM LAUGHLIN MD May 24, 2018 07:51
--- NOTE | 2018-05-24 07:59 | Progress Note-Standard ---
Standard Progress Note Progress Notes/Assess & Plan Date Seen by a Provider: May 24, 2018 Time Seen by a Provider: 07:57 Progress/Assessment & Plan no complaints. denies paresthesias Vital Signs Date Time Temp Pulse Resp B/P (MAP) Pulse Ox O2 Delivery O2 Flow Rate FiO2 05/24/18 04:00 98.5 84 17 124/72 (89) 94 Room Air 05/24/18 00:07 98.4 88 16 119/58 (78) 99 Room Air 05/23/18 20:20 95 Room Air 05/23/18 19:15 98.0 109 16 176/89 (118) 95 Room Air 05/23/18 16:00 96.7 115 24 196/92 (126) 94 Room Air 05/23/18 15:06 96 Room Air I & O 05/24/18 07:00 Intake Total 3590 ml Output Total 1700 ml Balance 1890 ml Laboratory Tests Test 05/24/18 05:50 Range/Units White Blood Count 12.6 H 4.3-11.0 10^3/uL Red Blood Count 2.93 L 4.35-5.85 10^6/uL Hemoglobin 9.4 L 11.5-16.0 G/DL Hematocrit 29 L 35-52 % Mean Corpuscular Volume 100 H 80-99 FL Mean Corpuscular Hemoglobin 32 25-34 PG Mean Corpuscular Hemoglobin Concent 32 32-36 G/DL Red Cell Distribution Width 13.0 10.0-14.5 % Platelet Count 195 130-400 10^3/uL Mean Platelet Volume 10.1 7.4-10.4 FL Neutrophils (%) (Auto) 89 H 42-75 % Lymphocytes (%) (Auto) 5 L 12-44 % Monocytes (%) (Auto) 6 0-12 % Eosinophils (%) (Auto) 0 0-10 % Basophils (%) (Auto) 0 0-10 % Neutrophils # (Auto) 11.2 H 1.8-7.8 X 10^3 Lymphocytes # (Auto) 0.6 L 1.0-4.0 X 10^3 Monocytes # (Auto) 0.8 0.0-1.0 X 10^3 Eosinophils # (Auto) 0.0 0.0-0.3 10^3/uL Basophils # (Auto) 0.0 0.0-0.1 10^3/uL Sodium Level 138 135-145 MMOL/L Potassium Level 4.1 3.6-5.0 MMOL/L Chloride Level 105 98-107 MMOL/L Carbon Dioxide Level 24 21-32 MMOL/L Anion Gap 9 5-14 MMOL/L Blood Urea Nitrogen 16 7-18 MG/DL Creatinine 0.98 0.60-1.30 MG/DL Estimat Glomerular Filtration Rate 54 BUN/Creatinine Ratio 16 Glucose Level 151 H 70-105 MG/DL Calcium Level 9.0 8.5-10.1 MG/DL Corrected Calcium 9.3 8.5-10.1 MG/DL Total Bilirubin 0.7 0.1-1.0 MG/DL Aspartate Amino Transf (AST/SGOT) 19 5-34 U/L Alanine Aminotransferase (ALT/SGPT) 18 0-55 U/L Alkaline Phosphatase 45 40-136 U/L Total Protein 5.8 L 6.4-8.2 GM/DL Albumin 3.6 3.2-4.5 GM/DL RLE--intact DF and PF of toes with sym pulses.sensation intact throughout radiographs--HW well positioned without fx s/p RTKA mobilize requests IRF--await TEVIN Awad MD May 24, 2018 07:59
[2018-05-24 08:00] VITALS: BP 177/81
[2018-05-24] MEDS ORDERED: diphenhydrAMINE 25 MG TAB (BENADRYL) PO PRN (08:30)
[2018-05-24] MEDS: ENOXAPARIN 30 MG/0.3 ML (LOVENOX) SYR SC SCH ×2 (09:06→20:45)
[2018-05-24] MEDS: SENNA W/DOCUSATE (SENOKOT S) TABLET PO SCH ×2 (09:06→20:46)
[2018-05-24] MEDS: meTOprolol TARTRATE 50 MG (LOPRESSOR) TAB PO SCH ×2 (09:07→20:45)
[2018-05-24] MEDS: ASPIRIN E.C. 81 MG (ECOTRIN) TAB PO SCH (09:07)
[2018-05-24] MEDS: lisINopril 40 MG (PRINIVIL) TABLET PO SCH (09:07)
[2018-05-24] MEDS: DILTIAZEM 240 MG (CARDIZEM CD) CAP PO SCH (09:07)
[2018-05-24] MEDS: cloNIDine 0.2 MG (CATAPRES) TAB PO SCH ×3 (09:07→20:45)
--- NOTE | 2018-05-24 10:15 | Physical Therapy Daily Note ---
PT Daily Note-Current Subjective Patient was awake in bed finishing breakfast when PT arrived. Pt agreed to PT for morning. Pain Numeric Pain Scale: 4 Location: Right Location Body Site: Knee Mental Status Patient Orientation: Confused Attachments: Polar Pack, IV Transfers Functional [place] Measure 0=Not Assessed/NA 4=Minimal Assistance 1=Total Assistance 5=Supervision or Setup 2=Maximal Assistance 6=Modified [place] 3=Moderate Assistance 7=Complete IndependenceIRFPAI Quality Coding Scale 6 Independent with activity with or without an assistive device 5 Patient requires set up or clean up by helper. Patient completes activity by themselves 4 Supervision or touching assist (CGA). [place] provide cues , steadying assist 3 The helper provides less than half the effort to complete the activity 2 The helper provides more than half the effort to complete the activity 1 Dependent. The helper does all the effort to complete an activity 7 Patient refused to complete or attempt activity 9 The patient did not perform the activity before the current illness or injury 88 Not attempted due to Medical conditions or safety concerns Transfers (B, C, W/C) (FIM): 3 Scootin Rollin Supine to/from Sit: 4 Sit to/from Stand: 3 Weight Bearing Right Lower Extremity: Right Weight Bearing/Tolerated Left Lower Extremity: Left Weight Bearing/Tolerated Gait Training Gait (FIM): 1 Distance (FIM): 1=up to 49 ft Distance: 20' Gait Level of Assist: 4 Gait Persons Needed: 1 Gait Assistive Device: FWW Exercises Supine Ex: Quad Set, Heel Slides, Short Arc Quads, Straight leg raise Supine Reps: 10 Assessment Current Status: Fair Progress Pt was able to ambulate 20ft but required CGA with FWW. Patient was cued to take bigger steps and to stand up straight when walking. Patient was able to perform exercises but needed cueing to stay focused on task at hand. PT Short Term Goals Short Term Goals Time Frame: May 30, 2018 Transfers (B,C,W/C) (FIM): 5 Gait (FIM): 2 Gait Distance Comment: 50' Gait Level of Assist: 4 Gait Assistive Device: FWW PT Plan Problem List Problem List: Activity Tolerance, Functional Strength, Balance, Gait, Transfer , Bed Mobility Treatment/Plan Treatment Plan: Continue Plan of Care Treatment Plan: Bed Mobility, Education, Functional Activity Jaren, Functional Strength, Gait, Safety, Therapeutic Exercise, Transfers Treatment Duration: May 30, 2018 Frequency: 11 times per week Estimated Hrs Per Day: .25 hour per day (15-30') Patient and/or Family Agrees t: Yes Time/GCodes Time In: 921 Time Out: 945 Total Billed Treatment Time: 24 Total Billed Treatment 1 visit EX 14' GT 10' PIPER MIMS PT May 24, 2018 10:15
--- NOTE | 2018-05-24 11:36 | Progress Note-Hospitalist ---
Subjective HPI/CC On Admission Date Seen by Provider: May 24, 2018 Time Seen by Provider: 10:00 CC: Status post uncomplicated right total knee replacement by Dr Lucas POD # 0 HPI: This is an 82-year-old white female clinic patient of Dr. Carter and Dr. Marie cardiology who has a past medical history of hemorrhagic stroke unable to tolerate anticoagulation for stroke prophylaxis from atrial fibrillation who presents to room 429 after an uncomplicated right total knee replacement. She reported that the pain was tolerable after given pain medication. Her daughter is at the bedside. I reviewed all of her home medication and I consulted Dr. Marie in case atrial fibrillation with rapid ventricular response occurs in a postop status. Subjective/Events-last exam Patient feels much better Pain is under control Reviewed labs No vital sign abnormality noted Using incentive spirometer Review of Systems Musculoskeletal: leg pain Objective Exam Vital Signs Vital Signs Date Time Temp Pulse Resp B/P (MAP) Pulse Ox O2 Delivery O2 Flow Rate FiO2 05/24/18 08:00 96.0 92 20 177/81 (113) 88 Room Air Capillary Refill : General Appearance: No Apparent Distress, WD/WN, Chronically ill Respiratory: Chest Non Tender, Lungs Clear, Normal Breath Sounds, No Accessory Muscle Use, No Respiratory Distress Cardiovascular: No Edema, No Gallop, No JVD, No Murmur, Normal Peripheral Pulses, Irregularly Irregular Extremity: Normal Capillary Refill, Normal Inspection, Normal Range of Motion ( Except right leg), Non Tender, No Calf Tenderness, No Pedal Edema Neurologic/Psychiatric: Alert, Oriented x3, No Motor/Sensory Deficits, Normal Mood/Affect Results/Procedures Lab Laboratory Tests 05/24/18 05:50 Patient resulted labs reviewed. Assessment/Plan Assessment and Plan Assess & Plan/Chief Complaint Assessment: Status post uncomplicated right total knee replacement POD # 1 Chronic atrial fibrillation History of hemorrhagic stroke intolerant to anticoagulation for stroke prophylaxis from atrial fibrillation Hypertension Plan: Restart all home meds like consult Dr. Marie in case atrial fibrillation becomes with rapid ventricular response Diagnosis/Problems Diagnosis/Problems (1) Osteoarthritis of right knee Status: Chronic Qualifiers: Osteoarthritis type: primary Qualified Codes: M17.11 - Unilateral primary osteoarthritis, right knee (2) Atrial fibrillation Status: Chronic (3) Hypertension Status: Chronic Qualifiers: Hypertension type: essential hypertension Qualified Codes: I10 - Essential (primary) hypertension (4) Hyperlipemia Status: Chronic Qualifiers: Hyperlipidemia type: mixed hyperlipidemia Qualified Codes: E78.2 - Mixed hyperlipidemia (5) Acute blood loss anemia Status: Acute Clinical Quality Measures DVT/VTE Risk/Contraindication: Risk Factor Score Per Nursin RFS Level Per Nursing on Admit: 4+=Very High MARY LORA DO May 24, 2018 11:36
[2018-05-24 12:00] VITALS: BP 172/72
[2018-05-24] MEDS: OXYBUTYNIN (DITROPAN) 5 MG TAB PO SCH ×2 (12:36→20:46)
--- NOTE | 2018-05-24 14:14 | Occupational Therapy Eval ---
OT Evaluation-General/PLF Medical Diagnosis Admission Date May 23, 2018 at 07:16 Medical Diagnosis: right TKA Onset Date: May 23, 2018 Therapy Diagnosis Therapy Diagnosis: Decreased ADL skills Height/Weight Height (Feet): 5 Height (Inches): 8.00 Weight (Pounds): 137 Weight (Ounces): 0.0 Precautions Precautions/Isolations: Standard Precautions Safety Interventions: None Weight Bear Status Weight Bearing Restriction: Weight Bearing/Tolerated Referral Physician: Tad Lucsa MD Referral Reason: Activity Tolerance, Self Care, Evaluation/Treatment, Strengthening/ROM Medical History Pertinent Medical History: HTN Additional Medical History Hemorrhagic stroke, A-fib Current History Pt. had elective knee replacement. Reviewed History: Yes Social History Home: Single Level Current Living Status: Alone Entry Into Home: Stairs With Railing Steps Into Home: 4 ADL-Prior Level of Function Functional [place] Measure 0=Not Assessed/NA 4=Minimal Assistance 1=Total Assistance 5=Supervision or Setup 2=Maximal Assistance 6=Modified [place] 3=Moderate Assistance 7=Complete [place] ADL PLOF Comments Pt. states that she was independent with all ADL tasks previous to this hospitalization. However, does not step into tub at home because she states it is too high. States that she was taking spongebathes at home. Reports that she is able to don shoes and socks with no difficulty at home. Pt. is independent with cooking and cleaning. Does not drive anymore but her daughter takes her to where she needs to go. Daughter lives next door. Pt. has a walker but does not use. Uses a cane at home. Self Care Self Care: (Code the patient's need for assistance with bathing, dressing, using the toilet, or eating prior to the current illness, exacerbation, or injury.) Functional Cognition Functional Cognition: (Code the patient's need for assistance with planning regular tasks, such as shopping or remembering to take medicaiton prior to the current illness, exacerbation, or injury.) DME/Equipment: Tub/Shower DME/Equipment Comments Pt. has a walker that she does not use. Pt. also has a cane that she does use. Pt. sleeps in a recliner. Drive Self: No OT Current Status Subjective Pt. reports 5/10 pain in right knee. Pt. has pain pump. Appearance Pt. in bed. Pt. has just returned to bed from being up with physical therapy. Mental Status/Objective Patient Orientation: Person, Place Current Upper Extremity ROM WFL ADL-Treatment Functional [place] Measure 0=Not Assessed/NA 4=Minimal Assistance 1=Total Assistance 5=Supervision or Setup 2=Maximal Assistance 6=Modified [place] 3=Moderate Assistance 7=Complete IndependenceIRFPAI Quality Coding Scale 6 Independent with activity with or without an assistive device 5 Patient requires set up or clean up by helper. Patient completes activity by themselves 4 Supervision or touching assist (CGA). [place] provide cues , steadying assist 3 The helper provides less than half the effort to complete the activity 2 The helper provides more than half the effort to complete the activity 1 Dependent. The helper does all the effort to complete an activity 7 Patient refused to complete or attempt activity 9 The patient did not perform the activity before the current illness or injury 88 Not attempted due to Medical conditions or safety concerns Lower Body Dressing (FIM): 2 Pt. has just returned to bed. Pt. has been up with physical therapy. Pt. transfers with Mod A with PT per PT note. Pt. states that she does not feel like sitting back on side of bed, but does attempt to doff socks from bed level. Pt. unable to do so. Discussed in length pt's home set up and previous level of independence. Pt. states that she would like to be more independent before discharging home. All needs are met in bed. Pt. is educated on possible use of adaptive equipment and OT goals. Verbalizes understanding. Education OT Patient Education: Correct positioning, Energy conservation, Modified ADL techniques, Progress toward Goal/Update tx plan, Purpose of tx/functional activities, Reviewed precautions, Rehab process, Use of adapted equipment Teaching Recipient: Patient Teaching Methods: Demonstration, Discussion Response to Teaching: Verbalize Understanding OT Short Term Goals Short Term Goals Time Frame: May 31, 2018 Eating(FIM): 5 Grooming(FIM): 5 Bathing(FIM): 4 Upper Body Dressing(FIM): 5 Lower Body Dressing(FIM): 4 Toileting(FIM): 4 Transfers (B,C,W/C) (FIM): 5 Toilet/Commode Transfer(FIM): 4 Shower Transfer(FIM): 4 1=Demonstrate adherence to instructed precautions during ADL tasks. 2=Patient will verbalize/demonstrate understanding of assistive devices/ modifications for ADL. 3=Patient will improve strength/tolerance for activity to enable patient to perform ADL's. OT Nursing Home Goals Bundle Tier And Labeler Goals Time Frame: Jun 07, 2018 Eating (FIM): 6 Grooming(FIM): 6 Bathing(FIM): 5 Upper Body Dressing(FIM): 6 Lower Body Dressing(FIM): 5 Toileting(FIM): 6 Transfers (B,C,W/C) (FIM): 6 Toilet/Commode Transfer(FIM): 6 Shower Transfer(FIM): 5 Additional Goals: 1-Demonstrate ADL Tasks, 2-Verbalize Understanding, 3- ImproveStrength/Jaren 1=Demonstrate adherence to instructed precautions during ADL tasks. 2=Patient will verbalize/demonstrate understanding of assistive devices/ modifications for ADL. 3=Patient will improve strength/tolerance for activity to enable patient to perform ADL's. OT Education/Plan Problem List/Assessment Assessment: Decreased Activ Tolerance, Decreased UE Strength, Dependent Transfers, Impaired I ADL's, Impaired Self-Care Skills Discharge Recommendations Plan/Recommendations: Continue POC Equpiment Recommendations-D/C: Extended Bath Bench, Hip Kit Treatment Plan/Plan of Care Treatment,Training & Education: Yes Patient would benefit from OT for education, treatment and training to promote independence in ADL's, mobility, safety and/or upper extremity function for ADL' s. Plan of Care: ADL Retraining, Functional Mobility, UE Funct Exercise/Act Treatment Duration: Jun 07, 2018 Frequency: 5 times per week Estimated Hrs Per Day: .5 hour per day Agreement: Yes Rehab Potential: Fair Time/GCodes Start Time: 13:30 Stop Time: 13:45 Total Time Billed (hr/min): 15 Billed Treatment Time 1, MINA GRIFFITHS OT May 24, 2018 14:14
--- NOTE | 2018-05-24 14:21 | Physical Therapy Daily Note ---
PT Daily Note-Current Subjective Pt awake in chair when PT arrived. Pt agreed to get up walk for PT but stated she had more pain this afternoon. Pain Numeric Pain Scale: 8 Location: Right Location Body Site: Knee Mental Status Patient Orientation: Confused Attachments: IV Transfers Functional [place] Measure 0=Not Assessed/NA 4=Minimal Assistance 1=Total Assistance 5=Supervision or Setup 2=Maximal Assistance 6=Modified [place] 3=Moderate Assistance 7=Complete IndependenceIRFPAI Quality Coding Scale 6 Independent with activity with or without an assistive device 5 Patient requires set up or clean up by helper. Patient completes activity by themselves 4 Supervision or touching assist (CGA). [place] provide cues , steadying assist 3 The helper provides less than half the effort to complete the activity 2 The helper provides more than half the effort to complete the activity 1 Dependent. The helper does all the effort to complete an activity 7 Patient refused to complete or attempt activity 9 The patient did not perform the activity before the current illness or injury 88 Not attempted due to Medical conditions or safety concerns Transfers (B, C, W/C) (FIM): 4 Scootin Rollin Supine to/from Sit: 4 Sit to/from Stand: 4 Weight Bearing Right Lower Extremity: Right Weight Bearing/Tolerated Left Lower Extremity: Left Weight Bearing/Tolerated Gait Training Gait (FIM): 2 Distance (FIM): 8=886-44 ft Distance: 100' Gait Level of Assist: 4 Gait Persons Needed: 1 Gait Assistive Device: FWW Exercises Seated Therapy Exercises: Ankle pumps, Long arc quads, Hip flexion, Hamstring Curls Seated Reps: 10 Assessment [place] was able to perform LE exercises prior to getting up for a walk. Pt was able to ambulate for 100' with a FWW requiring CGA. She stated that she had pain when standing but felt fine once she was up on her feet. PT Short Term Goals Short Term Goals Time Frame: May 30, 2018 Transfers (B,C,W/C) (FIM): 5 Gait (FIM): 2 Gait Distance Comment: 50' Gait Level of Assist: 4 Gait Assistive Device: FWW PT Plan Problem List Problem List: Activity Tolerance, Functional Strength, Safety, Balance, Gait, Transfer, Bed Mobility Treatment/Plan Treatment Plan: Continue Plan of Care Treatment Plan: Bed Mobility, Education, Functional Activity Jaren, Functional Strength, Gait, Safety, Therapeutic Exercise, Transfers Treatment Duration: May 30, 2018 Frequency: 11 times per week Estimated Hrs Per Day: .25 hour per day (15-30') Patient and/or Family Agrees t: Yes Time/GCodes Time In: 1310 Time Out: 1329 Total Billed Treatment Time: 19 Total Billed Treatment 1 visit FA - 19' PIPER MIMS PT May 24, 2018 14:21
[2018-05-24 15:50] VITALS: BP 127/60
[2018-05-24 20:45] VITALS: BP 192/85
[2018-05-24] MEDS: ATORVASTATIN 10 MG (LIPITOR) TABLET PO SCH (20:45)
[2018-05-24] MEDS: TYLENOL PO SCH (20:46)
[2018-05-24] MEDS ORDERED: NON-FORMULARY MEDICATION 1 EA EA (Acetaminophen (Tylenol Arthritis) 650 MG) PO SCH (21:00)
[2018-05-25 00:17] VITALS: BP 130/63
[2018-05-25] MEDS: oxyCODONE/APAP 5/325MG (PERCOCET 5) TABLET PO PRN ×2 (04:10→08:33)
[2018-05-25 04:15] VITALS: BP 134/63
[2018-05-25 06:48] LABS: BASOPHILS % (AUTO) 0 % (0-10); EOSINOPHILS % (AUTO) 0 % (0-10); HEMATOCRIT 28 % (35-52); HEMOGLOBIN 8.8 G/DL (11.5-16.0); LYMPHOCYTES # (AUTO) 1.1 X 10^3 (1.0-4.0); LYMPHOCYTES % (AUTO) 10 % (12-44); MEAN CORPUSCULAR HEMOGLOBIN 32 PG (25-34); MEAN CORPUSCULAR HGB CONC 31 G/DL (32-36); MEAN CORPUSCULAR VOLUME 102 FL (80-99); MEAN PLATELET VOLUME 10.4 FL (7.4-10.4); MONOCYTES % (AUTO) 10 % (0-12); NEUTROPHILS # (AUTO) 8.5 X 10^3 (1.8-7.8); NEUTROPHILS % (AUTO) 80 % (42-75); PLATELET COUNT 163 10^3/uL (130-400); RED BLOOD COUNT 2.77 10^6/uL (4.35-5.85); RED CELL DISTRIBUTION WIDTH 13.4 % (10.0-14.5); WHITE BLOOD COUNT 10.7 10^3/uL (4.3-11.0)
[2018-05-25] MEDS: MULTIVIT W/MINERALS TAB (THERAGRAN M) PO SCH (06:51)
[2018-05-25] MEDS ORDERED: KCL 10 MEQ TAB (MICRO K) PO SCH (07:00)
[2018-05-25 07:09] LABS: ALBUMIN 3.5 GM/DL (3.2-4.5); BILIRUBIN,TOTAL 0.5 MG/DL (0.1-1.0); CALCIUM 8.8 MG/DL (8.5-10.1); CREATININE SERUM 0.97 MG/DL (0.60-1.30); POTASSIUM 3.8 MMOL/L (3.6-5.0); TOTAL PROTEIN 5.6 GM/DL (6.4-8.2)
--- NOTE | 2018-05-25 07:10 | Progress Note-Standard ---
Standard Progress Note Progress Notes/Assess & Plan Date Seen by a Provider: May 25, 2018 Time Seen by a Provider: 07:09 Progress/Assessment & Plan no complaints. denies paresthesias Vital Signs Date Time Temp Pulse Resp B/P (MAP) Pulse Ox O2 Delivery O2 Flow Rate FiO2 05/24/18 04:00 98.5 84 17 124/72 (89) 94 Room Air 05/24/18 00:07 98.4 88 16 119/58 (78) 99 Room Air 05/23/18 20:20 95 Room Air 05/23/18 19:15 98.0 109 16 176/89 (118) 95 Room Air 05/23/18 16:00 96.7 115 24 196/92 (126) 94 Room Air 05/23/18 15:06 96 Room Air I & O 05/24/18 07:00 Intake Total 3590 ml Output Total 1700 ml Balance 1890 ml Laboratory Tests Test 05/24/18 05:50 Range/Units White Blood Count 12.6 H 4.3-11.0 10^3/uL Red Blood Count 2.93 L 4.35-5.85 10^6/uL Hemoglobin 9.4 L 11.5-16.0 G/DL Hematocrit 29 L 35-52 % Mean Corpuscular Volume 100 H 80-99 FL Mean Corpuscular Hemoglobin 32 25-34 PG Mean Corpuscular Hemoglobin Concent 32 32-36 G/DL Red Cell Distribution Width 13.0 10.0-14.5 % Platelet Count 195 130-400 10^3/uL Mean Platelet Volume 10.1 7.4-10.4 FL Neutrophils (%) (Auto) 89 H 42-75 % Lymphocytes (%) (Auto) 5 L 12-44 % Monocytes (%) (Auto) 6 0-12 % Eosinophils (%) (Auto) 0 0-10 % Basophils (%) (Auto) 0 0-10 % Neutrophils # (Auto) 11.2 H 1.8-7.8 X 10^3 Lymphocytes # (Auto) 0.6 L 1.0-4.0 X 10^3 Monocytes # (Auto) 0.8 0.0-1.0 X 10^3 Eosinophils # (Auto) 0.0 0.0-0.3 10^3/uL Basophils # (Auto) 0.0 0.0-0.1 10^3/uL Sodium Level 138 135-145 MMOL/L Potassium Level 4.1 3.6-5.0 MMOL/L Chloride Level 105 98-107 MMOL/L Carbon Dioxide Level 24 21-32 MMOL/L Anion Gap 9 5-14 MMOL/L Blood Urea Nitrogen 16 7-18 MG/DL Creatinine 0.98 0.60-1.30 MG/DL Estimat Glomerular Filtration Rate 54 BUN/Creatinine Ratio 16 Glucose Level 151 H 70-105 MG/DL Calcium Level 9.0 8.5-10.1 MG/DL Corrected Calcium 9.3 8.5-10.1 MG/DL Total Bilirubin 0.7 0.1-1.0 MG/DL Aspartate Amino Transf (AST/SGOT) 19 5-34 U/L Alanine Aminotransferase (ALT/SGPT) 18 0-55 U/L Alkaline Phosphatase 45 40-136 U/L Total Protein 5.8 L 6.4-8.2 GM/DL Albumin 3.6 3.2-4.5 GM/DL RLE--intact DF and PF of toes with sym pulses.sensation intact throughout radiographs--HW well positioned without fx s/p RTKA mobilize requests IRF--await eval Final Diagnosis no complaints Vital Signs Date Time Temp Pulse Resp B/P (MAP) Pulse Ox O2 Delivery O2 Flow Rate FiO2 05/25/18 05:24 18 05/25/18 04:15 99.0 75 18 134/63 (86) 94 Room Air 05/25/18 00:17 97.8 68 17 130/63 (85) 94 Room Air 05/24/18 20:45 98.9 98 18 192/85 (120) 94 Room Air 05/24/18 20:35 95 Room Air 05/24/18 15:50 97.6 73 14 127/60 (82) 93 Room Air 05/24/18 12:00 98.5 81 16 172/72 (105) 96 Room Air 05/24/18 08:00 96.0 92 20 177/81 (113) 88 Room Air 05/24/18 08:00 92 Room Air I & O 05/25/18 07:00 Intake Total 3315 ml Output Total 300 ml Balance 3015 ml Laboratory Tests Test 05/25/18 06:17 Range/Units White Blood Count 10.7 4.3-11.0 10^3/uL Red Blood Count 2.77 L 4.35-5.85 10^6/uL Hemoglobin 8.8 L 11.5-16.0 G/DL Hematocrit 28 L 35-52 % Mean Corpuscular Volume 102 H 80-99 FL Mean Corpuscular Hemoglobin 32 25-34 PG Mean Corpuscular Hemoglobin Concent 31 L 32-36 G/DL Red Cell Distribution Width 13.4 10.0-14.5 % Platelet Count 163 130-400 10^3/uL Mean Platelet Volume 10.4 7.4-10.4 FL Neutrophils (%) (Auto) 80 H 42-75 % Lymphocytes (%) (Auto) 10 L 12-44 % Monocytes (%) (Auto) 10 0-12 % Eosinophils (%) (Auto) 0 0-10 % Basophils (%) (Auto) 0 0-10 % Neutrophils # (Auto) 8.5 H 1.8-7.8 X 10^3 Lymphocytes # (Auto) 1.1 1.0-4.0 X 10^3 Monocytes # (Auto) 1.0 0.0-1.0 X 10^3 Eosinophils # (Auto) 0.0 0.0-0.3 10^3/uL Basophils # (Auto) 0.0 0.0-0.1 10^3/uL RLE--incision clean and dry with surrounding echymosis no calf tenderness. Dain Beth's s/p KLAUDIAA DC to [facility] TEVIN AGUIRRE MD May 25, 2018 07:10
[2018-05-25] MEDS ORDERED: morphine INJ 4 MG/ML 1 ML (VIAL/SYRINGE) IVP PRN (07:15)
[2018-05-25 08:00] VITALS: BP 199/78
--- NOTE | 2018-05-25 08:06 | Cardiology Progress Note ---
Subjective Date Seen by Provider: May 25, 2018 Time Seen by Provider: 07:55 Subjective/Events-last exam Patient is in bed, feeling better, no new complaint, had elevated blood pressure earlier, better now Review of Systems General: No Chills, No Night Sweats, No Fatigue, No Malaise, No Appetite, No Other HEENT: No Head Aches, No Visual Changes, No Eye Pain, No Ear Pain, No Dysphasia , No Sinus Congestion, No Post Nasal Drip, No Sore Throat, No Other Pulmonary: Dyspnea; No Cough, No Pleuritic Chest Pain, No Other Cardiovascular: Chest Pain; No: Palpitations, Orthopnea, Paroxysmal Noc. Dyspnea, Edema, Lt Headedness, Other Objective-Cardiology Exam Last Set of Vital Signs Vital Signs 05/25/18 05/25/18 04:15 05:24 Temp 99.0 Pulse 75 Resp 18 B/P (MAP) 134/63 (86) Pulse Ox 94 O2 Delivery Room Air Capillary Refill : Less Than 3 Seconds I&O Intake and Output 05/24/18 23:59 Intake Total 4640 ml Output Total 800 ml Balance 3840 ml Intake Oral 1590 ml IV Total 3050 ml Output Urine Total 800 ml # Voids 3 # Bowel Movements 2 General: Alert, Oriented X3, Cooperative HEENT: Atraumatic, PERRLA Neck: Supple, No JVD, No Thyromegaly Lungs: Clear to Auscultation, Normal Air Movement Heart: Normal S1, Normal S2, No Murmurs, Other (Irregular) Abdomen: Normal Bowel Sounds, Soft, No Tenderness, No Hepatosplenomegaly, No Masses Extremities: No Clubbing, No Cyanosis, No Edema, Normal Pulses, No Tenderness/ Swelling Skin: No Rashes, No Breakdown, No Significant Lesion Neuro: Normal Speech, Normal Tone, Sensation Intact Psych/Mental Status: Mental Status NL, Mood NL Results Lab Laboratory Tests 05/25/18 06:17 A/P-Cardiology Admission Diagnosis CAD Atrial fibrillation HTN HLP Assessment/Plan S/p right total knee replacement with Dr. Lucas, Recovering well. managed by primary team Hypertension, back on her home meds, better today, continue to monitor Chronic permanent atrial fibrillation, unable to tolerate oral anticoagulation due to history of hemorrhagic stroke, rate is controlled on current medication, continue to monitor. Coronary artery disease-cardiac catheterization done March 07, 2016 revealed heavily calcified coronary system with mild to moderate disease involving the mid LAD and mid diagonal artery, up to 50 percent stenosis. Circumflex artery had 50 percent stenosis at the midportion. First obtuse marginal branch had 50 percent stenosis. RCA is large dominant artery of 40 percent stenosis proximal and midportion. 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 I will continue monitoring. No changes are recommended Congestive heart failure, chronic compensated left ventricular systolic dysfunction, ejection fraction 40-45 percent, PFO, moderate to severe MR, PA pressure 40-45 mmHg. Currently compensated. Continue on current medications and monitor Hyperlipidemia, controlled. Continue to monitor as outpatient. PAD with history of total occlusion of the right SFA. Patient underwent peripheral angiogram done March 07, 2016 demonstrating diffuse atherosclerotic disease in the abdominal aorta. The right lower extremity showed mild to moderate disease, nonobstructive disease. Left lower extremity showed 70 percent stenosis at the mid SFA, calcified artery, with good flow down to the trifurcation. She continues to deny claudication pain, rest pain, ulceration, or gangrene at this time. ANABELLE was done in April 2017 and it was mildly abnormal. Carotid stenosis, status post left carotid endarterectomy done in April 2017. Monitored by Dr. Phillips History of CVA, intracranial bleed Allergy to IV contrast Clinical Quality Measures DVT/VTE Risk/Contraindication: Risk Factor Score Per Nursin RFS Level Per Nursing on Admit: 4+=Very High ADAM LAUGHLIN MD May 25, 2018 08:06
[2018-05-25] MEDS: OXYBUTYNIN (DITROPAN) 5 MG TAB PO SCH (08:33)
[2018-05-25] MEDS: DILTIAZEM 240 MG (CARDIZEM CD) CAP PO SCH (08:33)
[2018-05-25] MEDS: meTOprolol TARTRATE 50 MG (LOPRESSOR) TAB PO SCH (08:33)
[2018-05-25] MEDS: ENOXAPARIN 30 MG/0.3 ML (LOVENOX) SYR SC SCH (08:33)
[2018-05-25] MEDS: lisINopril 40 MG (PRINIVIL) TABLET PO SCH (08:33)
[2018-05-25] MEDS: cloNIDine 0.2 MG (CATAPRES) TAB PO SCH (08:34)
[2018-05-25] MEDS: ASPIRIN E.C. 81 MG (ECOTRIN) TAB PO SCH (08:34)
[2018-05-25] MEDS: TYLENOL PO SCH (08:34)
[2018-05-25] MEDS: SENNA W/DOCUSATE (SENOKOT S) TABLET PO SCH (08:36)
[2018-05-25] MEDS ORDERED: FUROSEMIDE 40 MG (LASIX) TAB PO SCH (09:00)
--- NOTE | 2018-05-25 10:42 | Discharge Summary-Hospitalist ---
Diagnosis/Chief Complaint Date of Admission May 23, 2018 at 07:16 Date of Discharge Discharge Date: May 25, 2018 Discharge Diagnosis (1) Osteoarthritis of right knee Status: Chronic (2) Atrial fibrillation Status: Chronic (3) Hypertension Status: Chronic (4) Hyperlipemia Status: Chronic (5) Acute blood loss anemia Status: Acute Discharge Summary Discharge Physical Exam Allergies: Coded Allergies: Sulfa (Sulfonamide Antibiotics) (Verified Allergy, Intermediate, RASH, 06/28/17) Penicillins (Verified Allergy, Mild, ITCHING, 06/28/17) Vitals & I&Os Vital Signs Date Time Temp Pulse Resp B/P (MAP) Pulse Ox O2 Delivery O2 Flow Rate FiO2 05/25/18 10:57 78 18 199/78 95 Room Air 05/25/18 08:00 98.6 General Appearance: No Apparent Distress, WD/WN Respiratory: Chest Non Tender, Lungs Clear, Normal Breath Sounds, No Accessory Muscle Use, No Respiratory Distress Cardiovascular: No Edema, No Gallop, No JVD, No Murmur, Normal Peripheral Pulses, Irregularly Irregular Neurologic/Psychiatric: Alert, Oriented x3, No Motor/Sensory Deficits, Normal Mood/Affect Hospital Course Hospital course: patient was admitted after knee replacement by Dr Lucas. Labs remained stable and Dr Marie consulted for AF. Pt remained stable and had no issues during hospital stay and was transferred to IRF in good condition. Labs (last 24 hrs) Patient resulted labs reviewed. Pending Labs Discussion & Recommendations Discharge Planning: <30 minutes discharge planning Discharge Home Medications: Active Scripts Active Percocet 5-325 mg Tablet (Oxycodone HCl/Acetaminophen) 1 Each Tablet 1 Each PO Q4H PRN MDD 6 Reported Lisinopril 40 Mg Tablet 40 Mg PO DAILY Potassium Chloride 10 Meq Tablet.er 20 Meq PO MOTUWETHFR TAKES 2 (10MEQ) TABLETS Potassium Chloride 10 Meq Tablet.er 30 Meq PO SUSA TAKES 3 (10MEQ) TABLETS Aspirin EC (Aspirin) 81 Mg Tablet.dr 81 Mg PO HS Tylenol Arthritis (Acetaminophen) 650 Mg Tablet.er 650 Mg PO BID Metoprolol Tartrate 100 Mg Tablet 100 Mg PO BID Clonidine HCl 0.2 Mg Tablet 0.2 Mg PO 0800,1545,2100 Daily Multiple Vitamin (Multivitamin) 1 Each Tablet 1 Tab PO DAILY Atorvastatin Calcium 10 Mg Tablet 10 Mg PO HS Fish Oil 1,200 mg Fish Oil (Fish Oil/Dha/Epa) 1 Each Capsule 1,200 Mg PO DAILY Furosemide 40 Mg Tablet 40 Mg PO DAILY Oxybutynin Chloride 5 Mg Tablet 5 Mg PO BID Cartia Xt (Diltiazem HCl) 240 Mg Cap.er.24h 240 Mg PO DAILY Caltrate 600 + D Tablet (Calcium Carbonate/Vitamin D3) 1 Each Tablet 1 Tab PO DAILY Instructions to patient/family Please see electronic discharge instructions given to patient. Clinical Quality Measures DVT/VTE Risk/Contraindication: Risk Factor Score Per Nursin RFS Level Per Nursing on Admit: 4+=Very High Problem Qualifiers (1) Osteoarthritis of right knee: Osteoarthritis type: primary Qualified Codes: M17.11 - Unilateral primary osteoarthritis, right knee (2) Hypertension: Hypertension type: essential hypertension Qualified Codes: I10 - Essential ( primary) hypertension (3) Hyperlipemia: Hyperlipidemia type: mixed hyperlipidemia Qualified Codes: E78.2 - Mixed hyperlipidemia MARY LORA DO May 25, 2018 10:42
[2018-05-25 10:57] VITALS: BP 199/78
--- NOTE | 2018-05-25 11:22 | Physical Therapy Evaluation ---
PT Evaluation-General Medical Diagnosis Admission Date May 23, 2018 at 07:16 Medical Diagnosis: right TKA Onset Date: May 23, 2018 Therapy Diagnosis Therapy Diagnosis: Debility/ General Weakness Height/Weight Height (Feet): 5 Height (Inches): 8.00 Weight (Pounds): 137 Weight (Ounces): 0.0 Precautions Precautions/Isolations: Fall Prevention, Standard Precautions, Pressure Ulcer Weight Bear Status Right Lower Extremity: Right Weight Bearing/Tolerated Left Lower Extremity: Left Weight Bearing/Tolerated Referral Physician: Tad Lucas MD Reason for Referral: Evaluation/Treatment Medical History Pertinent Medical History: HTN Current History Patient admitted to rehab for R TKA Reviewed History: Yes Social History Home: Single Level Current Living Status: Alone Entry Into Home: Stairs With Railing PT Steps Into Home: 4 Prior/Core FIM Prior Level of Function Functional [place] Measure 0=Not Assessed/NA 4=Minimal Assistance 1=Total Assistance 5=Supervision or Setup 2=Maximal Assistance 6=Modified [place] 3=Moderate Assistance 7=Complete IndependenceIRFPAI Quality Coding Scale 6 Independent with activity with or without an assistive device 5 Patient requires set up or clean up by helper. Patient completes activity by themselves 4 Supervision or touching assist (CGA). [place] provide cues , steadying assist 3 The helper provides less than half the effort to complete the activity 2 The helper provides more than half the effort to complete the activity 1 Dependent. The helper does all the effort to complete an activity 7 Patient refused to complete or attempt activity 9 The patient did not perform the activity before the current illness or injury 88 Not attempted due to Medical conditions or safety concerns Bed Mobility: 6 Transfers (B,C,W/C) (FIM): 6 Gait: 6 Stairs: 6 PT Evaluation-Current Subjective Pt was awake in chair when PT arrived. Pt agreed to move down to rehab floor and be evaluated by PT. Pain Numeric Pain Scale: 5-Moderate Pain Location: Right Location Body Site: Knee Objective Patient Orientation: Confused Problem Solving: Fair Attachments: Polar Pack ROM/Strength ROM Upper Extremities WNL ROM Lower Extremities WNL Strength Upper Extremities WNL Strenght Lower Extremities Patient 3+/5 for L LE, R LE will be tested further once healing is allowed for TKA. Integumentary/Posture Bowel Incontinence: No Bladder Incontinence: No Neuromuscular (Tone, Coordination, Reflexes) NT Sensory Vision: Wears Glasses Hearing: Functional Sensation Right Upper Extremit: Intact Sensation Left Upper Extremity: Intact Sensation Right Lower Extremit: Intact Sensation Left Lower Extremity: Intact Transfers Functional [place] Measure 0=Not Assessed/NA 4=Minimal Assistance 1=Total Assistance 5=Supervision or Setup 2=Maximal Assistance 6=Modified [place] 3=Moderate Assistance 7=Complete IndependenceIRFPAI Quality Coding Scale 6 Independent with activity with or without an assistive device 5 Patient requires set up or clean up by helper. Patient completes activity by themselves 4 Supervision or touching assist (CGA). [place] provide cues , steadying assist 3 The helper provides less than half the effort to complete the activity 2 The helper provides more than half the effort to complete the activity 1 Dependent. The helper does all the effort to complete an activity 7 Patient refused to complete or attempt activity 9 The patient did not perform the activity before the current illness or injury 88 Not attempted due to Medical conditions or safety concerns Transfers (B, C, W/C) (FIM): 4 Scootin Rollin Roll Left to Right (QC): 5 Supine to/from Sit: 5 Sit to/from Stand: 4 Sit to Lying (QC): 4 Lying to Sitting/Side of Bed(Q: 5 Sit to Stand (QC): 4 Car Transfer (QC): 5 Gait Does the Patient Walk?: Yes Mode of Locomotion: Walk Anticipated Mode of Locomotion: Walk Gait (FIM): 4 Distance (FIM): 3=150 ft Walk 10 feet (QC): 4 Walk 50 ft with 2 Turns(QC): 4 Walk 150 ft (QC): 4 Walking 10ft/uneven surface-QC: 4 Distance: >200 Gait Level of Assist: 4 Gait Persons Needed: 1 Gait Assistive Device: FWW Balance Sitting Static: Normal Sitting Dynamic: Normal Standing Static: Good Standing Dynamic: Good Assessment/Needs Patient was able to ambulate from room on 4th floor to her new room on the 2nd floor with a FWW and requiring CGA. Patient was able to ambulate over an uneven surface and was able to follow cues when stepping over box step. She then performed a car transfer but still needed CGA throughout maneuver. Patient mentioned pain multiple times throughout evaluation but cooperated throughout entire treatment. Rehab Potential: Fair Post Rehab Potential-Barriers: Self-limiting PT Short Term Goals Short Term Goals Time Frame: May 30, 2018 Transfers (B,C,W/C) (FIM): 5 Gait (FIM): 2 Gait Distance Comment: 50' Gait Level of Assist: 4 Gait Assistive Device: FWW PT Senior Ui Designer Goals Senior Ui Designer Goals PT Senior Ui Designer Goals Time Frame: Jun 01, 2018 Transfers (B,C,W/C) (FIM): 6 Sit to Lying (QC): 6 Lying-Sitting on Side/Bed(QC): 6 Sit to Stand (QC): 6 Rollin Roll Left to Right (QC): 6 Chair/Uaj-sr-Ynbem Xfer(QC): 6 Car Transfer (QC): 6 Does the Patient Walk: Yes Gait (FIM): 6 Gait distance (FIM): 3=150 ft Distance: >300 Walk 10 feet (QC): 6 Walk 10ft-Uneven Surface(QC): 6 Walk 50ft with 2 Turns (QC): 6 Walk 150 ft (QC): 6 Gait Level of Assist: 6 Gait Assistive Device: FWW PT Plan Problem List Problem List: Activity Tolerance, Functional Strength, Balance, Transfer, Bed Mobility, ROM Treatment/Plan Treatment Plan: Continue Plan of Care Treatment Plan: Bed Mobility, Education, Functional Activity Jaren, Functional Strength, Gait, Safety, Therapeutic Exercise, Transfers Treatment Duration: Jun 01, 2018 Frequency: 11 times per week Estimated Hrs Per Day: .25 hour per day (15-30') Patient and/or Family Agrees t: Yes Safety Risks/Education Patient Education: Gait Training, Transfer Techniques, Correct Positioning, Safety Issues Teaching Methods: Demonstration Response to Teaching: Reinforcement Needed Time/GCodes Time In: 1045 Time Out: 1115 Total Billed Treatment Time: 30 Total Billed Treatment 1 visit EVModC x 2 - 30 mins PIPER MIMS PT May 25, 2018 11:21
--- NOTE | 2018-05-26 00:33 | DISCHARGE SUMMARY ---
DATE OF SERVICE: DIAGNOSES: 1. Right knee primary osteoarthritis. 2. Hypercholesterolemia. 3. Hypertension. 4. Coronary artery disease. PROCEDURE: Right total knee arthroplasty. SUMMARY: The patient is an 82-year-old female who underwent a right total knee arthroplasty. The day of admission postoperatively, she did very well. At time of discharge, her wound was clean and dry. She was tolerating diet well and tolerating pain with oral pain medication. She was advancing well with physical therapy. CONDITION ON DISCHARGE: Good. DISCHARGE DIET: Regular. DISPOSITION: Transferred to the inpatient rehabilitation unit for continued physical and occupational therapy. Job ID: [id number] DocumentID: [id number] Dictated Date: 05/25/2018 07:07:57 Optimization Analyst Date: 05/26/2018 00:32:42 Dictated By: TEVIN AGUIRRE MD
[2018-05-26] MEDS ORDERED: KCL 10 MEQ TAB (MICRO K) PO SCH (07:00)
== END 2018-05-25 10:45 | DRG 470 ==
LOC: 4TH 07:16 → SURG 07:17 → 4TH 11:53
PROVIDERS: ADMIT Orthopaedic Surgery; ATTEND Orthopaedic Surgery
PROC: 0SRC0J9 Replacement of Right Knee Joint with Synthetic Substitute, Cemented, Open Approach (ICD-10-PCS; principal; 2018-05-23 09:29)
DX: M17.11 Unilateral primary osteoarthritis, right knee (principal); D62 Acute posthemorrhagic anemia; Q21.1 Atrial septal defect; I48.2 Chronic atrial fibrillation; I11.0 Hypertensive heart disease with heart failure; I50.22 Chronic systolic (congestive) heart failure; F32.9 Major depressive disorder, single episode, unspecified; I25.10 Atherosclerotic heart disease of native coronary artery without angina pectoris; Z23 Encounter for immunization; I34.0 Nonrheumatic mitral (valve) insufficiency; I70.0 Atherosclerosis of aorta; I70.292 Other atherosclerosis of native arteries of extremities, left leg; E78.2 Mixed hyperlipidemia; K59.09 Other constipation; Z87.891 Personal history of nicotine dependence; Z86.73 Personal history of transient ischemic attack (TIA), and cerebral infarction without residual deficits; Z91.041 Radiographic dye allergy status; Z86.718 Personal history of other venous thrombosis and embolism
CPT/HCPCS: 36415; 73560; 80053; 85025; 86850; 86900; 86901; 90471; 90686; 94664

== ENCOUNTER → 2018-08-03 | Outpatient (CLI) | payer MEDICARE ==
[~2018-08-03] MED LIST changes: +ASPI-983 PO; +CEPH-507 PO; +LOSA100T8 PO; +OXYC1TAB87 PO; +POTA10TA10 PO
== END ==
LOC: CARD 13:59
PROVIDERS: ATTEND Internal Medicine Cardiovascular Disease
DX: I25.10 Atherosclerotic heart disease of native coronary artery without angina pectoris (principal); I65.29 Occlusion and stenosis of unspecified carotid artery; R06.00 Dyspnea, unspecified; I10 Essential (primary) hypertension; E78.5 Hyperlipidemia, unspecified; I48.91 Unspecified atrial fibrillation; I08.1 Rheumatic disorders of both mitral and tricuspid valves

== ENCOUNTER 2018-08-21 03:40 | Observation (INO) | payer MEDICARE ==
[2018-08-21] VITALS (11 sets, daily range): BP systolic 127–178; BP diastolic 68–107
[~2018-08-21] VITALS: Ht 172.7 cm; Wt 61.2 kg
[~2018-08-21 03:40] MED LIST changes: +LOSA100T57 PO; -LOSA100T8 PO
--- OUTSIDE RECORDS SUMMARY | 2018-08-21 03:45 | XMS REPORT | Clinical Summary ---
Author Author [facility] Organization [facility] Address Unknown Phone Unavailable Care Team Providers Care Bricklayer Helper Name Role Phone Josiah Collado MD Unavailable Brittnee Marie MD PCP Source Comments Some departments are not documenting in the electronic medical record. If you do not see the information that you expected, contact Release of Information in the Health Information Management department at [phone] for further assistance in locating additional records.[facility] Allergies Comments Active Allergy Reactions Severity Noted Date Penicillins UNKNOWN 06/23/2011 Sulfa (Sulfonamide UNKNOWN 06/23/2011 Antibiotics) Medications End Date Status Medication Sig Dispensed Refills Start Date Active ATORVASTATIN CALCIUM Take 20 mg by 0 (LIPITOR PO) mouth. Active FUROSEMIDE (LASIX PO) Take 80 mg by 0 mouth. Active ERGOCALCIFEROL (VITAMIN Take 2,000 mg 0 D2) (VITAMIN D PO) by mouth daily. Active CALCIUM CARBONATE Take 500 mg 0 (CALCIUM 500 PO) by mouth daily. Active MULTIVITAMIN PO Take by 0 mouth. Active potassium chloride SR Take 10 mEq 0 (K-DUR) 10 mEq tablet by mouth twice daily. Active diazepam (VALIUM) 5 mg Take 0.5 Tabs 30 Tab 0 tablet by mouth 1 every 6 hours as needed. Active diltiazem(#) (CARDIZEM) Take 9 mL by 0 10 mg/mL mouth every 6 1 hours. Active lisinopril(#) (PRINIVIL; 20 mL by Per 0 ZESTRIL) 2 mg/mL NG tube route 1 daily. Active metoprolol(#) (LOPRESSOR) 2.5 mL by PEG 0 10 mg/mL Tube route 1 twice daily. Active oxyCODONE/acetaminophen 1-2 Tabs 30 Tab 0 (PERCOCET; ENDOCET; every 4 hours 1 ROXICET) 5/325 mg tablet as needed for Pain. Max 12 tabs/day Active senna/docusate 10 mL by Per 0 (SENOKOT-S) 8.8/50 mg /10 NG tube route 1 mL solution twice daily. 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 Last Filed Vital Signs Time Taken Vital Sign Reading 07/11/2011 12:02 PM PLASTIC EYE TECHNICIAN Blood Pressure 137/78 07/11/2011 12:02 PM PLASTIC EYE TECHNICIAN Pulse 83 07/11/2011 12:02 PM PLASTIC EYE TECHNICIAN Temperature 36.8 C (98.2 F) - Respiratory Rate - 07/11/2011 12:02 PM PLASTIC EYE TECHNICIAN Oxygen Saturation 95% - Inhaled Oxygen - Concentration 07/11/2011 6:31 AM PLASTIC EYE TECHNICIAN Weight 75.3 kg (166 lb) 07/11/2011 1:00 PM PLASTIC EYE TECHNICIAN Height 170.2 cm (5' 7.01") 07/11/2011 6:31 AM PLASTIC EYE TECHNICIAN Body Mass Index 25.99 Plan of Treatment Health Maintenance Due Date Last Done Comments PHYSICAL (COMPREHENSIVE) 1940 EXAM DTAP/TDAP VACCINES (1 - 1951 Tdap) SHINGLES RECOMBINANT 1983 VACCINE (1 of 2) OSTEOPOROSIS 1998 SCREENING/MONITORING PNEUMONIA (PCV13/PPSV23) 1998 VACCINES (1 of 2 - PCV13) INFLUENZA VACCINE 02/21/2018 Results Not on filefrom Last 3 Months Advance Directives For more information, please contact: [facility] [address] [place] [address] Date Inactivated Comments Code Status Date Activated 07/11/2011 4:41 PM Full Code 06/23/2011 4:32 PM Provider has discussed Code Status No, more discussion w/Patient or Family? needed
--- OUTSIDE RECORDS SUMMARY | 2018-08-21 03:48 | XMS REPORT | Continuity of Care Document ---
Author Author [facility] Organization [facility] Address Unknown Phone Unavailable Allergies Active Description Code Type Severity Reaction Onset Reported/Identified Relationship to Patient Clinical Status Yes penicillin G [id number] Drug Allergy Unknown N/A 11/20/2008 Yes Sulfa (Sulfonamide Antibiotics) [id number] Drug Allergy Unknown N/A 2008 Yes Sulfa (Sulfonamide Antibiotics) [id number] Drug Allergy Moderate RASH 06/28 Yes Penicillins [id number] Drug Allergy Mild ITCHING 06/28/2017 Medications There [...] ST 07/27/2011 Ot 414.01 CORONARY ATHEROSCLEROSIS OF [place] CORON 07/27/2011 Ot 427.31 ATRIAL FIBRILLATION 07/27/2011 [...] NOS 06/07/2012 Ot 414.01 CORONARY ATHEROSCLEROSIS OF [place] CORON 06/07/2012 Ot 427.31 ATRIAL FIBRILLATION 06/07/2012 Ot 440.20 ATHEROSCLEROSIS [place] ARTERIES EXTREMIT 06/07/2012 Ot 786.59 CHEST PAIN [...] 06/27/2014 ADAM LAUGHLIN MD Ot 414.00 06/27/2014 TRUMAN MERCADO, ADAM Talbot Ot 424.0 06/27/2014 ADAM LAUGHLIN MD Ot [...] Ot 793.82 INCONCLUSIVE MAMMOGRAM 02/22/2016 Ot V76.12 OT SCREEN MAMMO-MALIGN NEOPLASM OF [place] 02/22/2016 ADAM LAUGHLIN MD Ot 272.4 HYPERLIPIDEMIA NEC/NOS 02/22/2016 ADAM LAUGHLIN [...] CROW LUNDBERG Ot 427.31 ATRIAL FIBRILLATION 02/22/2016 RODNEYLACEY RUSSELL, CROW K Ot 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 02/22/2016 PAULINE MERCADO, SARAH Griffith Ot 719.06 JOINT EFFUSION-L/LEG 02/22/2016 PAULINE MERCADO, SARAH Griffith Ot 719.46 JOINT PAIN-L/LEG 02/22/2016 ZAMUDIO-LACEY RUSSELL, CROW K Ot I73.9 PERIPHERAL VASCULAR DISEASE, UNSPECIFIED 02/23/2016 ZAMUDIO-LACEY RUSSELL, CROW K Ot E78.2 MIXED HYPERLIPIDEMIA 02/23/2016 ZAMUDIO-LACEY RUSSELL, CROW K Ot I25.10 ATHSCL HEART DISEASE OF [place] CORONARY 02/23/2016 KAMILLA RUSSELL CROW K Ot I48.1 PERSISTENT ATRIAL FIBRILLATION 02/23/2016 KAMILLA RUSSELL, CROW K Ot 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 02/23/2016 KAMILLA RUSSELL CROW K Ot I73.9 PERIPHERAL VASCULAR DISEASE, UNSPECIFIED 02/24/2016 ZAMUDIO-LACEY RUSSELL, CROW K Ot I48.1 PERSISTENT ATRIAL FIBRILLATION 02/24/2016 ZAMUDIO-LACEY RUSSELL, CROW K Ot I48.1 PERSISTENT ATRIAL FIBRILLATION 02/24/2016 ZAMUDIORADHA RUSSELL, CROW K Ot I48.1 PERSISTENT ATRIAL FIBRILLATION 02/24/2016 KAMILLA RUSSELL, CROW K Ot 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 02/25/2016 ZAMUDIORADHA RUSSELL, CROW K Ot E78.2 MIXED HYPERLIPIDEMIA 02/25/2016 KAMILLA RUSSELL, CROW K Ot I25.10 ATHSCL HEART DISEASE OF [place] CORONARY 02/25/2016 ZAMUDIO-LACEY RUSSELL, CROW K Ot I48.1 PERSISTENT ATRIAL FIBRILLATION 02/25/2016 ZAMUDIO-LACEY RUSSELL, CROW K Ot 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 02/25/2016 LIZZPriyaLACEY RUSSELL, CROW K Ot I73.9 PERIPHERAL VASCULAR DISEASE, UNSPECIFIED 02/25/2016 KAMILLA RUSSELL, CROW K Ot E78.2 MIXED HYPERLIPIDEMIA 02/25/2016 KAMILLA RUSSELL, CROW K Ot I25.10 ATHSCL HEART DISEASE OF [place] CORONARY 02/25/2016 CROW LUNDBERG Ot I48.1 PERSISTENT [...] MD Ot I25.10 ATHSCL HEART DISEASE OF [place] CORONARY 03/07/2016 ADAM LAUGHLIN MD Ot I25.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 [place] 03/07/2016 ADAM LAUGHLIN MD Ot I48.91 UNSPECIFIED ATRIAL FIBRILLATION 03/07/2016 ADAM LAUGHLIN MD Ot I70.0 ATHEROSCLEROSIS OF [place] 03/07/2016 ADAM LAUGHLIN MD Ot I70.203 UNSP ATHSCL [place] ARTERIES OF [facility] 03/07/2016 ADAM LAUGHLIN MD Ot R94.39 ABNORMAL RESULT OF OTHER CARDIOVASCULAR 03/07/2016 ADAM LAUGHLIN MD Ot Z79.899 OTHER LEVELER (CURRENT) DRUG THERAPY 03/07/2016 ADAM LAUGHLIN MD Ot Z86.73 PRSNL HX OF TIA (TIA), AND CEREB INFRC W 03/07/2016 ADAM LAUGHLIN MD Ot Z95.5 PRESENCE OF CORONARY ANGIOPLASTY IMPLANT 03/15/2016 ADAM LAUGHLIN MD Ot E78.5 HYPERLIPIDEMIA, UNSPECIFIED 03/15/2016 ADAM LAUGHLIN MD Ot I10 ESSENTIAL (PRIMARY) HYPERTENSION 03/15/2016 ADAM LAUGHLIN MD Ot I25.10 ATHSCL HEART DISEASE OF [place] CORONARY 03/15/2016 ADAM LAUGHLIN MD Ot I25.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 [place]IF[place] 03/15/2016 ADAM LAUGHLIN MD Ot I48.91 UNSPECIFIED ATRIAL FIBRILLATION 03/15/2016 ADAM LAUGHLIN MD Ot I70.0 ATHEROSCLEROSIS OF [place] 03/15/2016 ADAM LAUGHLIN MD Ot I70.203 UNSP ATHSCL [place] ARTERIES OF EXTREMITI 03/15/2016 ADAM LAUGHLIN MD Ot R94.39 ABNORMAL RESULT OF OTHER CARDIOVASCULAR 03/15/2016 ADAM LAUGHLIN MD Ot Z79.899 OTHER LEVELER (CURRENT) DRUG THERAPY 03/15/2016 ADAM LAUGHLIN MD, Ot Z86.73 PRSNL HX OF TIA (TIA), AND CEREB INFRC W 03/15/2016 ADAM LAUGHLIN MD, Ot Z95.5 PRESENCE OF CORONARY ANGIOPLASTY IMPLANT 03/15/2016 CROW LUNDBERG Ot E78.2 MIXED HYPERLIPIDEMIA 03/15/2016 CROW LUNDBERG Ot I25.10 ATHSCL HEART DISEASE OF [place] CORONARY 03/15/2016 CROW LUNDBERG Ot I48.1 PERSISTENT ATRIAL FIBRILLATION 03/15/2016 CROW LUNDBERG Ot 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 03/15/2016 CROW LUNDBERG Ot I73.9 PERIPHERAL VASCULAR DISEASE, UNSPECIFIED 03/15/2016 CROW LUNDBERG Ot 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 03/18/2016 CROW LUNDBERG Ot E78.2 MIXED HYPERLIPIDEMIA 03/18/2016 CROW LUNDBERG Ot I25.10 ATHSCL HEART DISEASE OF [place] CORONARY 03/18/2016 CROW LUNDBERG Ot I48.1 PERSISTENT ATRIAL FIBRILLATION 03/18/2016 CROW LUNDBERG Ot 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 03/18/2016 CROW LUNDBERG Ot I73.9 PERIPHERAL VASCULAR DISEASE, UNSPECIFIED 03/24/2016 CROW LUNDBERG Ot E78.2 MIXED HYPERLIPIDEMIA 03/24/2016 CROW LUNDBERG Ot I25.10 ATHSCL HEART DISEASE OF [place] CORONARY 03/24/2016 CROW LUNDBERG Ot I48.1 PERSISTENT ATRIAL FIBRILLATION 03/24/2016 KAMILLA RUSSELL CROW Mary Ot 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 03/24/2016 KAMILLA RUSSELL CROW Mary Ot I73.9 PERIPHERAL VASCULAR DISEASE, UNSPECIFIED 03/24/2016 KAMILLA RUSSELL CROW Mary Ot E78.2 MIXED HYPERLIPIDEMIA 03/24/2016 KAMILLA RUSSELL CROW Hernandez Ot I25.10 ATHSCL HEART DISEASE OF [place] CORONARY 03/24/2016 KAMILLA RUSSELL CROW Mary Ot [...] Ot 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 08/09/2016 ZAMUDIORADHA RUSSELL CROW Hernandez Ot 300.00 ANXIETY STATE NOS 08/09/2016 ZAMUDIO-LACEY RUSSELL CROW Hernandez Ot 401.9 HYPERTENSION NOS 08/09/2016 KAMILLA RUSSELL CROW Mary Ot 414.00 CORON ATHEROSCLER NOS TYPE VESSEL, NATIV 08/09/2016 KAMILLA RUSSELL CROW K Ot 427.31 ATRIAL FIBRILLATION 08/09/2016 ZAMUDIOPriyaLACEY RUSSELL CROW K Ot 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 08/09/2016 PAULINE MERCADO, SARAH Griffith Ot 719.06 JOINT EFFUSION-L/LEG 08/09/2016 PAULINE MERCADO, SARAH Griffith Ot 719.46 JOINT PAIN-L/LEG 08/09/2016 KAMILLA RUSSELL CROW Hernandez Ot E78.2 MIXED HYPERLIPIDEMIA 08/09/2016 KAIMLLA RUSSELL CROW Hernandez Ot I25.10 ATHSCL HEART DISEASE OF [place] CORONARY 08/09/2016 KAMILLA RUSSELL CROW Hernandez Ot I48.1 PERSISTENT ATRIAL FIBRILLATION 08/09/2016 KAMILLA RUSSELL CROW K Ot 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 08/09/2016 KAMILLA RUSSELL CROW Hernandez Ot I73.9 PERIPHERAL VASCULAR DISEASE, UNSPECIFIED 08/09/2016 KAMILLA RUSSELL CROW Hernandez Ot E78.2 MIXED HYPERLIPIDEMIA 08/09/2016 KAMILLA RUSSELL CROW Hernandez Ot I25.10 ATHSCL HEART DISEASE OF [place] CORONARY 08/09/2016 KAMILLA RUSSELL CROW Hernandez Ot I48.1 PERSISTENT ATRIAL FIBRILLATION 08/09/2016 KAMILLA RUSSELL CROW K Ot 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 08/09/2016 KAMILLA RUSSELL CROW K Ot I73.9 PERIPHERAL VASCULAR DISEASE, UNSPECIFIED 08/09/2016 KAMILLA RUSSELL CROW Mary Ot 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 09/13/2016 SARAH CARPENTER MD Ot R26.9 UNSPECIFIED ABNORMALITIES [...] MD, Ot I25.10 ATHSCL HEART DISEASE OF [place] CORONARY 05/11/2017 TEVIN AGUIRRE MD, Ot I25.10 ATHSCL HEART DISEASE OF [place] CORONARY 05/11/2017 TEVIN AGUIRRE MD Ot S83.281A OTH TEAR OF LAT MENSC, CURRENT INJURY, R 05/11/2017 TEVIN AGUIRRE MD, Ot X58.XXXA EXPOSURE TO OTHER SPECIFIED FACTORS, INI 05/11/2017 TEVIN AGUIRRE MD Ot Y99.8 OTHER EXTERNAL CAUSE STATUS 05/11/2017 TEVIN AGUIRRE MD, Ot Z01.811 ENCOUNTER FOR PREPROCEDURAL RESPIRATORY 05/12/2017 ADAM LAUGHLIN MD Ot E78.2 MIXED HYPERLIPIDEMIA 05/12/2017 ADAM LAUGHLIN MD Ot I10 ESSENTIAL (PRIMARY) HYPERTENSION 05/12/2017 ADAM LAUGHLIN MD, Ot I25.10 ATHSCL HEART DISEASE OF [place] CORONARY 05/12/2017 ADAM LAUGHLIN MD Ot I65.22 [...] PREPROCEDURAL RESPIRATORY 05/18/2017 FLORA EVERETT MD, Ot Z01.812 ENCOUNTER FOR PREPROCEDURAL LABORATORY E 06/05/2017 ADAM LAUGHLIN MD Ot E78.2 MIXED HYPERLIPIDEMIA 06/05/2017 ADAM LAUGHLIN MD Ot I10 ESSENTIAL (PRIMARY) HYPERTENSION 06/05/2017 ADAM LAUGHLIN MD Ot I25.10 ATHSCL HEART DISEASE OF [place] CORONARY 06/05/2017 ADAM LAUGHLIN MD Ot 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 06/07/2017 FLORA EVERETT MD, Ot 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 06/07/2017 FLORA EVERETT MD Ot Z01.810 ENCOUNTER FOR PREPROCEDURAL CARDIOVASCUL 06/07/2017 FLORA EVERETT MD Ot Z01.811 ENCOUNTER FOR PREPROCEDURAL RESPIRATORY 06/07/2017 FLORA EVERETT MD, Ot Z01.812 ENCOUNTER FOR PREPROCEDURAL LABORATORY E 06/14/2017 ADAM LAUGHLIN MD Ot E78.2 MIXED HYPERLIPIDEMIA 06/14/2017 ADAM LAUGHLIN MD Ot I10 ESSENTIAL (PRIMARY) HYPERTENSION 06/14/2017 ADAM LAUGHLIN MD Ot I25.10 ATHSCL HEART DISEASE OF [place] CORONARY 06/14/2017 ADAM LAUGHLIN MD Ot I65.22 [...] ENCOUNTER FOR PREPROCEDURAL LABORATORY E 06/30/2017 TEVIN AGUIRRE MD Ot Z11.2 ENCOUNTER FOR SCREENING FOR OTHER BACTER 07/03/2017 ADAM LAUGHLIN MD Ot E78.5 HYPERLIPIDEMIA, UNSPECIFIED 07/03/2017 ADAM LAUGHLIN MD Ot I10 ESSENTIAL (PRIMARY) HYPERTENSION 07/03/2017 ADAM LAUGHLIN MD Ot I25.10 ATHSCL HEART DISEASE OF [place] CORONARY 07/03/2017 ADAM LAUGHLIN MD Ot 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 07/05/2017 TEVIN AGUIRRE MD Ot E78.5 HYPERLIPIDEMIA, UNSPECIFIED 07/05/2017 TEVIN AGUIRRE MD Ot F32.9 MAJOR DEPRESSIVE DISORDER, SINGLE EPISOD 07/05/2017 TEVIN AGUIRRE MD Ot I10 ESSENTIAL (PRIMARY) HYPERTENSION 07/05/2017 TEVIN AGUIRRE MD, Ot I48.91 UNSPECIFIED ATRIAL FIBRILLATION 07/05/2017 TEVIN AGUIRRE MD Ot M22.41 CHONDROMALACIA PATELLAE, RIGHT KNEE 07/05/2017 TEVIN AGUIRRE MD Ot M23.8X1 OTHER INTERNAL DERANGEMENTS OF RIGHT KNE 07/05/2017 TEVIN AGUIRRE MD Ot Z79.82 SNF (CURRENT) USE OF ASPIRIN 07/05/2017 TEVIN AGUIRRE MD, Ot Z79.899 OTHER LEVELER (CURRENT) DRUG THERAPY 07/05/2017 TEVIN AGUIRRE MD, [...] MD Ot I25.10 ATHSCL HEART DISEASE OF [place] CORONARY 07/07/2017 ADAM LAUGHLIN MD, Ot 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 07/31/2017 TEVIN AGUIRRE MD, Ot E78.5 HYPERLIPIDEMIA, UNSPECIFIED 07/31/2017 TEIVN AGUIRRE MD, Ot F32.9 MAJOR DEPRESSIVE DISORDER, SINGLE EPISOD 07/31/2017 TEVIN AGUIRRE MD, Ot I10 ESSENTIAL (PRIMARY) HYPERTENSION 07/31/2017 TEVIN AGUIRRE MD, Ot I48.91 UNSPECIFIED ATRIAL FIBRILLATION 07/31/2017 TEVIN AGUIRRE MD, Ot M22.41 CHONDROMALACIA PATELLAE, RIGHT KNEE 07/31/2017 TEVIN AGUIRRE MD, Ot M23.8X1 OTHER INTERNAL DERANGEMENTS OF RIGHT KNE 07/31/2017 TEVIN AGUIRRE MD, Ot Z79.82 SNF (CURRENT) USE OF ASPIRIN 07/31/2017 TEVIN AGUIRRE MD, Ot Z79.899 OTHER LEVELER (CURRENT) DRUG THERAPY 07/31/2017 TEVIN AGUIRRE MD, [...] MD Ot I25.10 ATHSCL HEART DISEASE OF [place] CORONARY 08/17/2017 ADAM LAUGHLIN MD Ot 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 08/17/2017 ADAM LAUGHLIN MD Ot I82.409 ACUTE EMBOLISM AND THOMBOS UNSP DEEP VN 09/06/2017 ADAM LAUGHLIN MD Ot E78.2 MIXED HYPERLIPIDEMIA 09/06/2017 ADAM LAUGHLIN MD Ot I10 ESSENTIAL (PRIMARY) HYPERTENSION 09/06/2017 ADAM LAUGHLIN MD Ot I25.10 ATHSCL HEART DISEASE OF [place] CORONARY 09/06/2017 ADAM LAUGHLIN MD Ot 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 09/06/2017 ADAM LAUGHLIN MD Ot I82.409 ACUTE EMBOLISM AND THOMBOS UNSP DEEP VN 09/13/2017 ADAM LAUGHLIN MD Ot E78.2 MIXED HYPERLIPIDEMIA 09/13/2017 ADAM LAUGHLIN MD Ot I10 ESSENTIAL (PRIMARY) HYPERTENSION 09/13/2017 ADAM LAUGHLIN MD Ot I25.10 ATHSCL HEART DISEASE OF [place] CORONARY 09/13/2017 ADAM LAUGHLIN MD Ot I65.23 [...] K Ot I25.10 ATHSCL HEART DISEASE OF [place] CORONARY 05/10/2018 KAMILLA RUSSELL CROW K Ot I48.1 PERSISTENT ATRIAL FIBRILLATION 05/10/2018 KAMILLA RUSSELL CROW K Ot 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 05/10/2018 KAMILLA RUSSELL CROW K Ot I73.9 PERIPHERAL VASCULAR DISEASE, UNSPECIFIED 05/10/2018 KAMILLA RUSSELL CROW K Ot E78.2 MIXED HYPERLIPIDEMIA 05/10/2018 KAMILLA RUSSELL CROW K Ot I25.10 ATHSCL HEART DISEASE OF [place] CORONARY 05/10/2018 KAMILLA RUSSELL CROW K Ot [...] MD Ot I25.10 ATHSCL HEART DISEASE OF [place] CORONARY 05/10/2018 ADAM LAUGHLIN MD Ot 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 05/10/2018 ADAM LAUGHLIN MD Ot E78.5 HYPERLIPIDEMIA, UNSPECIFIED 05/10/2018 ADAM LAUGHLIN MD, Ot I10 ESSENTIAL (PRIMARY) HYPERTENSION 05/10/2018 ADAM LAUGHLIN MD Ot I25.10 ATHSCL HEART DISEASE OF [place] CORONARY 05/10/2018 ADAM LAUGHLIN MD Ot I65.23 [...] MD Ot I25.10 ATHSCL HEART DISEASE OF [place] CORONARY 05/10/2018 ADAM LAUGHLIN MD Ot 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 05/10/2018 ADAM LAUGHLIN MD Ot I82.409 ACUTE EMBOLISM AND THOMBOS UNSP DEEP VN 05/10/2018 TEVIN AGUIRRE MD Ot M17.11 UNILATERAL PRIMARY OSTEOARTHRITIS, RIGHT 05/10/2018 TEVIN AGUIRRE MD Ot R53.83 OTHER FATIGUE 05/10/2018 TEVIN AGUIRRE MD Ot Z01.810 ENCOUNTER FOR PREPROCEDURAL CARDIOVASCUL 05/10/2018 TEVIN AGUIRRE MD Ot Z01.811 ENCOUNTER FOR PREPROCEDURAL RESPIRATORY 05/10/2018 TEVIN AGUIRRE MD Ot Z01.812 ENCOUNTER FOR PREPROCEDURAL LABORATORY E 05/10/2018 TEVIN AGUIRRE MD Ot Z11.2 ENCOUNTER FOR SCREENING FOR OTHER BACTER 05/14/2018 TEVIN AGUIRRE MD Ot M17.11 UNILATERAL PRIMARY OSTEOARTHRITIS, RIGHT 05/14/2018 TEVIN AGUIRRE MD Ot R53.83 OTHER FATIGUE 05/14/2018 TEVIN AGUIRRE MD Ot Z01.810 ENCOUNTER FOR PREPROCEDURAL CARDIOVASCUL 05/14/2018 TEVIN AGUIRRE MD Ot Z01.811 ENCOUNTER FOR PREPROCEDURAL RESPIRATORY 05/14/2018 TEVIN AGUIRRE MD Ot Z01.812 ENCOUNTER FOR PREPROCEDURAL LABORATORY E 05/14/2018 TEVIN AGUIRRE MD Ot Z11.2 ENCOUNTER FOR SCREENING FOR OTHER BACTER 05/25/2018 TEVIN AGUIRRE MD Ot D62 ACUTE POSTHEMORRHAGIC ANEMIA 05/25/2018 TEVIN AGUIRRE MD Ot E78.2 MIXED HYPERLIPIDEMIA 05/25/2018 TEVIN AGUIRRE MD Ot F32.9 MAJOR DEPRESSIVE DISORDER, SINGLE EPISOD 05/25/2018 TEVIN AGUIRRE MD Ot I10 ESSENTIAL (PRIMARY) HYPERTENSION 05/25/2018 TEVIN AGUIRRE MD Ot I11.0 HYPERTENSIVE HEART DISEASE WITH HEART FA 05/25/2018 TEVIN AGUIRRE MD Ot I25.10 ATHSCL HEART DISEASE OF [place] CORONARY 05/25/2018 TEVIN AGUIRRE MD Ot I34.0 NONRHEUMATIC MITRAL (VALVE) INSUFFICIENC 05/25/2018 TEVIN AGUIRRE MD Ot I48.2 CHRONIC ATRIAL FIBRILLATION 05/25/2018 TEVIN AGUIRRE MD Ot I50.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891 PERSONAL HISTORY OF NICOTINE DEPENDENCE 05/25/2018 TEVIN AGUIRRE MD, Ot Z91.041 RADIOGRAPHIC DYE ALLERGY STATUS 06/07/2018 ADI FRIAS MD, Ot D62 ACUTE POSTHEMORRHAGIC ANEMIA 06/07/2018 ADI FRIAS MD, Ot D64.9 ANEMIA, UNSPECIFIED 06/07/2018 ADI FRIAS MD, Ot E78.5 HYPERLIPIDEMIA, UNSPECIFIED 06/07/2018 ADI FRIAS MD, Ot E87.6 HYPOKALEMIA 06/07/2018 ADI FRIAS MD, Ot I11.0 HYPERTENSIVE HEART DISEASE WITH HEART FA 06/07/2018 ADI FRIAS MD, Ot I25.10 ATHSCL HEART DISEASE OF [place] CORONARY 06/07/2018 ADI FRIAS MD, Ot I34.0 NONRHEUMATIC MITRAL (VALVE) INSUFFICIENC 06/07/2018 ADI FRIAS MD, Ot I48.2 CHRONIC ATRIAL FIBRILLATION 06/07/2018 ADI FRIAS MD Ot I50.22 CHRONIC SYSTOLIC (CONGESTIVE) HEART FAIL 06/07/2018 ADI FRIAS MD, Ot I69.219 UNSP SYMP AND SIGNS W COGN FNCTNS FOL OT 06/07/2018 ADI FRIAS MD, Ot I70.0 ATHEROSCLEROSIS OF [place] 06/07/2018 ADI FRIAS MD Ot I70.203 UNSP ATHSCL [place] ARTERIES OF EXTREMITI 06/07/2018 ADI FRIAS MD Ot M79.661 PAIN IN RIGHT LOWER LEG 06/07/2018 ADI FRIAS MD, Ot S93.401A SPRAIN OF UNSPECIFIED LIGAMENT OF RIGHT 06/07/2018 ADI FRIAS MD, Ot X58.XXXA EXPOSURE TO OTHER SPECIFIED FACTORS, INI 06/07/2018 ADI FRIAS MD, Ot Z47.1 AFTERCARE FOLLOWING JOINT REPLACEMENT ORELLANA 06/07/2018 ADI FRIAS MD Ot Z86.73 PRSNL HX OF TIA (TIA), AND CEREB INFRC W 06/07/2018 ADI FRIAS MD, Ot Z96.651 PRESENCE OF RIGHT ARTIFICIAL KNEE JOINT 08/07/2018 ADAM LAUGHLIN MD Ot E78.5 HYPERLIPIDEMIA, UNSPECIFIED 08/07/2018 ADAM LAUGHLIN MD 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 08/07/2018 ADAM LAUGHLIN MD Ot I10 ESSENTIAL (PRIMARY) HYPERTENSION 08/07/2018 ADAM LAUGHLIN MD Ot I25.10 ATHSCL HEART DISEASE OF [place] CORONARY 08/07/2018 ADAM LAUGHLIN MD Ot I48.91 UNSPECIFIED ATRIAL FIBRILLATION 08/07/2018 ADAM LAUGHLIN MD Ot I65.29 OCCLUSION AND STENOSIS OF UNSPECIFIED CA 08/07/2018 ADAM LAUGHLIN MD Ot R06.00 DYSPNEA, UNSPECIFIED 08/21/2018 ADAM LAUGHLIN MD Ot 272.4 HYPERLIPIDEMIA NEC/NOS 08/21/2018 ADAM LAUGHLIN MD Ot 397.0 TRICUSPID VALVE DISEASE 08/21/2018 ADAM LAUGHLIN MD Ot 401.9 HYPERTENSION NOS 08/21/2018 ADAM LAUGHLIN MD Ot 414.00 CORON ATHEROSCLER NOS TYPE VESSEL, NATIV 08/21/2018 ADAM LAUGHLIN MD Ot 424.0 MITRAL VALVE DISORDER 08/21/2018 ADAM LAUGHLIN MD Ot 427.31 ATRIAL FIBRILLATION 08/21/2018 ADAM LAUGHLIN MD Ot 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 08/21/2018 CROW LUNDBERG Ot 300.00 ANXIETY STATE NOS 08/21/2018 CROW LUNDBERG Ot 401.9 HYPERTENSION NOS 08/21/2018 CROW LUNDBERG Ot 414.00 CORON ATHEROSCLER NOS TYPE VESSEL, NATIV 08/21/2018 CROW LUNDBERG Ot 427.31 ATRIAL FIBRILLATION 08/21/2018 CROW LUNDBERG Ot 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 08/21/2018 SARAH CARPENTER MD Ot 719.06 JOINT EFFUSION-L/LEG 08/21/2018 CARPENTER MD, SARAH L Ot 719.46 JOINT PAIN-L/LEG 08/21/2018 KAMILLA RUSSELL, CROW Hernandez Ot E78.2 MIXED HYPERLIPIDEMIA 08/21/2018 KAMILLA RUSSELL, CROW K Ot I25.10 ATHSCL HEART DISEASE OF [place] CORONARY 08/21/2018 KAMILLA RUSSELL CROW Hernandez Ot I48.1 PERSISTENT ATRIAL FIBRILLATION 08/21/2018 KAMILLA DREW CROW K Ot 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 08/21/2018 KAMILLA DREW, CROW Mary Ot I73.9 PERIPHERAL VASCULAR DISEASE, UNSPECIFIED 08/21/2018 KAMILLA DREW, CROW Mary Ot E78.2 MIXED HYPERLIPIDEMIA 08/21/2018 KAMILLA DREW, CROW Mary Ot I25.10 ATHSCL HEART DISEASE OF [place] CORONARY 08/21/2018 KAMILLA DREW CROW Hernandez Ot I48.1 PERSISTENT ATRIAL FIBRILLATION 08/21/2018 KAMILLA DREW CROW Hernandez Ot 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 08/21/2018 KAMILLA DREW, CROW Mary Ot I73.9 PERIPHERAL VASCULAR DISEASE, UNSPECIFIED 08/21/2018 KAMILLA DREW, CROW K Ot I65.23 OCCLUSION AND STENOSIS OF BILATERAL [place] 08/21/2018 ADAM LAUGHLIN MD Ot E78.2 MIXED HYPERLIPIDEMIA 08/21/2018 ADAM LAUGHLIN MD Ot I10 ESSENTIAL (PRIMARY) HYPERTENSION 08/21/2018 ADAM LAUGHLIN MD Ot I25.10 ATHSCL HEART DISEASE OF [place] CORONARY 08/21/2018 ADAM LAUGHLIN MD Ot 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 08/21/2018 ADAM LAUGHLIN MD Ot E78.5 HYPERLIPIDEMIA, UNSPECIFIED 08/21/2018 ADAM LAUGHLIN MD Ot I10 ESSENTIAL (PRIMARY) HYPERTENSION 08/21/2018 ADAM LAUGHLIN MD Ot I25.10 ATHSCL HEART DISEASE OF [place] CORONARY 08/21/2018 ADAM ALUGHLIN MD Ot 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 08/21/2018 FLORA EVERETT MD Ot 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 08/21/2018 FLORA EVERETT MD Ot Z01.810 ENCOUNTER FOR PREPROCEDURAL CARDIOVASCUL 08/21/2018 FLORA EVERETT MD Ot Z01.811 ENCOUNTER FOR PREPROCEDURAL RESPIRATORY 08/21/2018 FLORA EVERETT MD Ot Z01.812 ENCOUNTER FOR PREPROCEDURAL LABORATORY E 08/21/2018 ADAM LAUGHLIN MD, Ot E78.2 MIXED HYPERLIPIDEMIA 08/21/2018 ADAM LAUGHLIN MD Ot I10 ESSENTIAL (PRIMARY) HYPERTENSION 08/21/2018 ADAM LAUGHLIN MD, Ot I25.10 ATHSCL HEART DISEASE OF [place] CORONARY 08/21/2018 ADAM LAUGHLIN MD Ot 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 08/21/2018 ADAM LAUGHLIN MD Ot I82.409 ACUTE EMBOLISM AND THOMBOS UNSP DEEP VN 08/21/2018 ADAM LAUGHLIN MD, Ot E78.5 HYPERLIPIDEMIA, UNSPECIFIED 08/21/2018 ADAM LAUGHLIN MD 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 08/21/2018 ADAM LAUGHLIN MD Ot I10 ESSENTIAL (PRIMARY) HYPERTENSION 08/21/2018 ADAM LAUGHLIN MD, Ot I25.10 ATHSCL HEART DISEASE OF [place] CORONARY 08/21/2018 ADAM LAUGHLIN MD Ot I48.91 UNSPECIFIED ATRIAL FIBRILLATION 08/21/2018 ADAM LAUGHLIN MD, Ot I65.29 OCCLUSION AND STENOSIS OF UNSPECIFIED CA 08/21/2018 ADAM LAUGHLIN MD Ot R06.00 DYSPNEA, UNSPECIFIED Procedures Code Description Performed By Performed On 45.16 ESOPHAGOGASTRODUODENOSCOPY [ EGD] W/CLOSE 07/21/2011 45.23 COLONOSCOPY 07/22/2011 [id number] REPLACE OF R KNEE JT WITH SYNTH SUB, TAHIR 05/23/2018 Results Test Result Range Automated blood complete [...] 10:30 PRELIM CULTURE RESULTS Abundant coag neg [id number] further [id number] gram neg [id number] testing pending MEDIA PLATED Setup at 15:23 on 12/23/2016 [facility] - 12/23/16 10:30 Ampicillin/Sulbactam <=8/4 Ampicillin <=8 [...] FINAL CULTURE RESULTS Escherichia coli (Isolate 2) [facility] - 12/23/16 10:30 FINAL CULTURE RESULTS Pseudomonas [...] urine sediment by light microscopy 5-10 NRG Blood type T Indirect antibody screen panel - 05/23/18 07:35 ABO+Rh group AP NRG Transfusion band number [id number] NRG Blood group antibody screen NEGATIVE NRG Blood type T Indirect antibody screen panel - 05/23/18 07:35 ABO+Rh group AP NRG Transfusion band number [id number] NRG Blood group antibody screen NEGATIVE NRG Complete blood count (CBC) with automated white blood cell (WBC) differential - 05/24/18 05:50 Blood leukocytes automated count (number/volume) 12.6 10*3/uL 4.3-11.0 Blood erythrocytes automated count (number/volume) 2.93 10*6/uL 4.35-5.85 Venous blood hemoglobin measurement (mass/volume) 9.4 g/dL 11.5-16.0 Blood hematocrit (volume fraction) 29 % 35-52 Automated erythrocyte mean corpuscular volume 100 [foz_us] 80-99 Automated erythrocyte mean corpuscular hemoglobin (mass per erythrocyte) 32 pg 25-34 Automated erythrocyte mean corpuscular hemoglobin concentration measurement ( mass/volume) 32 g/dL 32-36 Automated erythrocyte distribution width ratio 13.0 % 10.0-14.5 Automated blood platelet count (count/volume) 195 10*3/uL 130-400 Automated blood platelet mean volume measurement 10.1 [foz_us] 7.4-10.4 Automated blood neutrophils/100 leukocytes 89 % 42-75 Automated blood lymphocytes/100 leukocytes 5 % 12-44 Blood monocytes/100 leukocytes 6 % 0-12 Automated blood eosinophils/100 leukocytes 0 % 0-10 Automated blood basophils/100 leukocytes 0 % 0-10 Blood neutrophils automated count (number/volume) 11.2 10*3 1.8-7.8 Blood lymphocytes automated count (number/volume) 0.6 10*3 1.0-4.0 Blood monocytes automated count (number/volume) 0.8 10*3 0.0-1.0 Automated eosinophil count 0.0 10*3/uL 0.0-0.3 Automated blood basophil count (count/volume) 0.0 10*3/uL 0.0-0.1 Comprehensive metabolic panel - 05/24/18 05:50 Serum or plasma sodium measurement (moles/volume) 138 mmol/L 135-145 Serum or plasma potassium measurement (moles/volume) 4.1 mmol/L 3.6-5.0 Serum or plasma chloride measurement (moles/volume) 105 mmol/L 98-107 Carbon dioxide 24 mmol/L 21-32 Serum or plasma anion gap determination (moles/volume) 9 mmol/L 5-14 Serum or plasma urea nitrogen measurement (mass/volume) 16 mg/dL 7-18 Serum or plasma creatinine measurement (mass/volume) 0.98 mg/dL 0.60-1.30 Serum or plasma urea nitrogen/creatinine mass ratio 16 NRG Serum or plasma creatinine measurement with calculation of estimated glomerular filtration rate 54 NRG Serum or plasma glucose measurement (mass/volume) 151 mg/dL 70-105 Serum or plasma calcium measurement (mass/volume) 9.0 mg/dL 8.5-10.1 Serum or plasma total bilirubin measurement (mass/volume) 0.7 mg/dL 0.1-1.0 Serum or plasma alkaline phosphatase measurement (enzymatic activity/volume) 45 U/L 40-136 Serum or plasma aspartate aminotransferase measurement (enzymatic activity/ volume) 19 U/L 5-34 Serum or plasma alanine aminotransferase measurement (enzymatic activity/volume ) 18 U/L 0-55 Serum or plasma protein measurement (mass/volume) 5.8 g/dL 6.4-8.2 Serum or plasma albumin measurement (mass/volume) 3.6 g/dL 3.2-4.5 CALCIUM CORRECTED 9.3 mg/dL 8.5-10.1 Complete blood count (CBC) with automated white blood cell (WBC) differential - 05/25/18 06:17 Blood leukocytes automated count (number/volume) 10.7 10*3/uL 4.3-11.0 Blood erythrocytes automated count (number/volume) 2.77 10*6/uL 4.35-5.85 Venous blood hemoglobin measurement (mass/volume) 8.8 g/dL 11.5-16.0 Blood hematocrit (volume fraction) 28 % 35-52 Automated erythrocyte mean corpuscular volume 102 [foz_us] 80-99 Automated erythrocyte mean corpuscular hemoglobin (mass per erythrocyte) 32 pg 25-34 Automated erythrocyte mean corpuscular hemoglobin concentration measurement ( mass/volume) 31 g/dL 32-36 Automated erythrocyte distribution width ratio 13.4 % 10.0-14.5 Automated blood platelet count (count/volume) 163 10*3/uL 130-400 Automated blood platelet mean volume measurement 10.4 [foz_us] 7.4-10.4 Automated blood neutrophils/100 leukocytes 80 % 42-75 Automated blood lymphocytes/100 leukocytes 10 % 12-44 Blood monocytes/100 leukocytes 10 % 0-12 Automated blood eosinophils/100 leukocytes 0 % 0-10 Automated blood basophils/100 leukocytes 0 % 0-10 Blood neutrophils automated count (number/volume) 8.5 10*3 1.8-7.8 Blood lymphocytes automated count (number/volume) 1.1 10*3 1.0-4.0 Blood monocytes automated count (number/volume) 1.0 10*3 0.0-1.0 Automated eosinophil count 0.0 10*3/uL 0.0-0.3 Automated blood basophil count (count/volume) 0.0 10*3/uL 0.0-0.1 Comprehensive metabolic panel - 05/25/18 06:17 Serum or plasma sodium measurement (moles/volume) 142 mmol/L 135-145 Serum or plasma potassium measurement (moles/volume) 3.8 mmol/L 3.6-5.0 Serum or plasma chloride measurement (moles/volume) 110 mmol/L 98-107 Carbon dioxide 21 mmol/L 21-32 Serum or plasma anion gap determination (moles/volume) 11 mmol/L 5-14 Serum or plasma urea nitrogen measurement (mass/volume) 16 mg/dL 7-18 Serum or plasma creatinine measurement (mass/volume) 0.97 mg/dL 0.60-1.30 Serum or plasma urea nitrogen/creatinine mass ratio 16 NRG Serum or plasma creatinine measurement with calculation of estimated glomerular filtration rate 55 NRG Serum or plasma glucose measurement (mass/volume) 98 mg/dL 70-105 Serum or plasma calcium measurement (mass/volume) 8.8 mg/dL 8.5-10.1 Serum or plasma total bilirubin measurement (mass/volume) 0.5 mg/dL 0.1-1.0 Serum or plasma alkaline phosphatase measurement (enzymatic activity/volume) 47 U/L 40-136 Serum or plasma aspartate aminotransferase measurement (enzymatic activity/ volume) 23 U/L 5-34 Serum or plasma alanine aminotransferase measurement (enzymatic activity/volume ) 18 U/L 0-55 Serum or plasma protein measurement (mass/volume) 5.6 g/dL 6.4-8.2 Serum or plasma albumin measurement (mass/volume) 3.5 g/dL 3.2-4.5 CALCIUM CORRECTED 9.2 mg/dL 8.5-10.1 Automated blood complete blood count (hemogram) panel - 05/30/18 05:00 Blood leukocytes automated count (number/volume) 7.6 10*3/uL 4.3-11.0 Blood erythrocytes automated count (number/volume) 2.74 10*6/uL 4.35-5.85 Venous blood hemoglobin measurement (mass/volume) 8.8 g/dL 11.5-16.0 Blood hematocrit (volume fraction) 27 % 35-52 Automated erythrocyte mean corpuscular volume 99 [foz_us] 80-99 Automated erythrocyte mean corpuscular hemoglobin (mass per erythrocyte) 32 pg 25-34 Automated erythrocyte mean corpuscular hemoglobin concentration measurement ( mass/volume) 33 g/dL 32-36 Automated erythrocyte distribution width ratio 13.7 % 10.0-14.5 Automated blood platelet count (count/volume) 279 10*3/uL 130-400 Automated blood platelet mean volume measurement 9.3 [foz_us] 7.4-10.4 Comprehensive metabolic panel - 05/30/18 05:00 Serum or plasma sodium measurement (moles/volume) 142 mmol/L 135-145 Serum or plasma potassium measurement (moles/volume) 3.1 mmol/L 3.6-5.0 Serum or plasma chloride measurement (moles/volume) 106 mmol/L 98-107 Carbon dioxide 25 mmol/L 21-32 Serum or plasma anion gap determination (moles/volume) 11 mmol/L 5-14 Serum or plasma urea nitrogen measurement (mass/volume) 13 mg/dL 7-18 Serum or plasma creatinine measurement (mass/volume) 0.84 mg/dL 0.60-1.30 Serum or plasma urea nitrogen/creatinine mass ratio 15 NRG Serum or plasma creatinine measurement with calculation of estimated glomerular filtration rate > NRG Serum or plasma glucose measurement (mass/volume) 101 mg/dL 70-105 Serum or plasma calcium measurement (mass/volume) 9.1 mg/dL 8.5-10.1 Serum or plasma total bilirubin measurement (mass/volume) 1.0 mg/dL 0.1-1.0 Serum or plasma alkaline phosphatase measurement (enzymatic activity/volume) 72 U/L 40-136 Serum or plasma aspartate aminotransferase measurement (enzymatic activity/ volume) 35 U/L 5-34 Serum or plasma alanine aminotransferase measurement (enzymatic activity/volume ) 31 U/L 0-55 Serum or plasma protein measurement (mass/volume) 6.2 g/dL 6.4-8.2 Serum or plasma albumin measurement (mass/volume) 3.5 g/dL 3.2-4.5 CALCIUM CORRECTED 9.5 mg/dL 8.5-10.1 Whole blood basic metabolic panel - 05/31/18 08:10 Serum or plasma sodium measurement (moles/volume) 141 mmol/L 135-145 Serum or plasma potassium measurement (moles/volume) 3.4 mmol/L 3.6-5.0 Serum or plasma chloride measurement (moles/volume) 106 mmol/L 98-107 Carbon dioxide 23 mmol/L 21-32 Serum or plasma anion gap determination (moles/volume) 12 mmol/L 5-14 Serum or plasma urea nitrogen measurement (mass/volume) 12 mg/dL 7-18 Serum or plasma creatinine measurement (mass/volume) 0.91 mg/dL 0.60-1.30 Serum or plasma urea nitrogen/creatinine mass ratio 13 NRG Serum or plasma creatinine measurement with calculation of estimated glomerular filtration rate 59 NRG Serum or plasma glucose measurement (mass/volume) 186 mg/dL 70-105 Serum or plasma calcium measurement (mass/volume) 8.8 mg/dL 8.5-10.1 Automated blood complete blood count (hemogram) panel - 06/04/18 04:35 Blood leukocytes automated count (number/volume) 7.7 10*3/uL 4.3-11.0 Blood erythrocytes automated count (number/volume) 2.75 10*6/uL 4.35-5.85 Venous blood hemoglobin measurement (mass/volume) 8.6 g/dL 11.5-16.0 Blood hematocrit (volume fraction) 28 % 35-52 Automated erythrocyte mean corpuscular volume 101 [foz_us] 80-99 Automated erythrocyte mean corpuscular hemoglobin (mass per erythrocyte) 31 pg 25-34 Automated erythrocyte mean corpuscular hemoglobin concentration measurement ( mass/volume) 31 g/dL 32-36 Automated erythrocyte distribution width ratio 14.5 % 10.0-14.5 Automated blood platelet count (count/volume) 423 10*3/uL 130-400 Automated blood platelet mean volume measurement 9.1 [foz_us] 7.4-10.4 Whole blood basic metabolic panel - 06/04/18 04:35 Serum or plasma sodium measurement (moles/volume) 140 mmol/L 135-145 Serum or plasma potassium measurement (moles/volume) 3.8 mmol/L 3.6-5.0 Serum or plasma chloride measurement (moles/volume) 104 mmol/L 98-107 Carbon dioxide 24 mmol/L 21-32 Serum or plasma anion gap determination (moles/volume) 12 mmol/L 5-14 Serum or plasma urea nitrogen measurement (mass/volume) 9 mg/dL 7-18 Serum or plasma creatinine measurement (mass/volume) 0.88 mg/dL 0.60-1.30 Serum or plasma urea nitrogen/creatinine mass ratio 10 NRG Serum or plasma creatinine measurement with calculation of estimated glomerular filtration rate > NRG Serum or plasma glucose measurement (mass/volume) 92 mg/dL 70-105 Serum or plasma calcium measurement (mass/volume) 9.0 mg/dL 8.5-10.1 Serum or plasma lithium measurement (moles/volume) - 06/04/18 04:35 BNP level 312.6 pg/mL <100.0 Serum or plasma uric acid measurement (mass/volume) - 06/05/18 04:45 Serum or plasma uric acid measurement (mass/volume) 5.5 mg/dL 2.6-7.2 Encounters ACCT No. Visit Date/Time Discharge Status Pt. Type Provider Facility Loc./Unit Complaint [id number] 08/03/2018 13:59:00 08/03/2018 23:59:59 CLS Outpatient TRUMAN MERCADO, ADAM [facility] CARD CAD,CAROTID,ARTERY STENOSIS,DYSPNEA [id number] 05/25/2018 10:45:00 06/07/2018 13:00:00 DIS Inpatient ADI FRIAS MD [facility] IRF RIGHT TKR [id number] 05/23/2018 07:16:00 05/25/2018 10:45:00 DIS Inpatient TEVIN AGUIRRE MD [facility] 4TH RIGHT KNEE OSTEOARTHRITIS [id number] 05/10/2018 12:48:00 05/10/2018 14:10:00 DIS Outpatient TEVIN AGUIRRE MD [facility] PREOP RIGHT KNEE OSTEOARTHRITIS [id number] 08/16/2017 08:19:00 08/16/2017 23:59:59 CLS Outpatient ADAM LAUGHLIN MD [facility] RAD I25.10 CAD [id number] 07/05/2017 06:00:00 07/05/2017 12:00:00 DIS Outpatient TEVIN AGUIRRE MD [facility] RIGHT KNEE TORN LATERAL MENISCUS [id number] 06/28/2017 09:58:00 06/28/2017 13:13:00 DIS Outpatient TEVIN AGUIRRE MD [facility] PREOP RIGHT KNEE TORN LATERAL MENISCUS [id number] 06/08/2017 13:57:00 06/08/2017 23:59:59 CLS Outpatient ADAM LAUGHLIN MD [facility] CARD CAROTID ARTERY STENOSIS I65.23 [id number] 05/17/2017 08:41:00 05/17/2017 23:59:59 CLS Outpatient FLORA EVERETT MD [facility] CARD Z01.810 [id number] 05/17/2017 11:00:00 05/17/2017 11:00:00 CAN Preadmit TEVIN AGUIRRE MD [facility] RIGHT KNEE TORN LATERAL MENISCUS [id number] 05/11/2017 08:03:00 05/11/2017 23:59:59 CLS Outpatient ADAM LAUGHLIN MD [facility] RAD CAROTID ARTERY STENOSIS I65.23 [id number] 05/11/2017 10:33:00 05/11/2017 14:15:00 DIS Outpatient TEVIN AGUIRRE MD [facility] PREOP RIGHT KNEE TORN LATERAL MENISCUS [id number] 09/08/2016 14:38:00 10/19/2016 09:25:00 DIS Outpatient SARAH CARPENTER MD [facility] REHAB GAIT DISTURBANCE; CHRONIC VERTIGO [id number] 03/07/2016 06:40:00 03/07/2016 13:50:00 DIS Outpatient ADAM LAUGHLIN MD [facility] CATH ABNORMAL STRESS TEST,CAD ,HTN,HLP [id number] 02/24/2016 11:38:00 02/24/2016 23:59:59 CLS Outpatient CROW LUNDBERG [facility] CARD AF,CAD, CAROTID ARTERY STENOSIS,HLP,PVD [id number] 02/23/2016 11:58:00 02/23/2016 23:59:59 CLS Outpatient CROW LUNDBERG [facility] RAD CAROTID ARTERY STENOSIS [id number] 02/22/2016 12:59:00 02/22/2016 23:59:59 CLS Outpatient CROW LUNDBERG [facility] CARD AF,CAD, CAROTID ARTERY STENOSIS,HLP,PVD [id number] 06/27/2014 11:52:00 06/27/2014 23:59:59 CLS Outpatient SARAH CARPENTER MD [facility] RAD BI KNEE PAIN AND SWELLING [id number] 11/27/2013 07:48:00 11/27/2013 23:59:59 CLS Outpatient CROW LUNDBERG [facility] CARD AFIB, ANXIETY [id number] 11/22/2013 12:38:00 11/22/2013 23:59:59 CLS Outpatient ADAM LAUGHLIN MD [facility] CARD AFIB,ANXIETY,CAD [id number] 08/21/2018 03:41:00 ACT Emergency KEN BOWMAN DO [facility] ER CP [id number] 06/27/2014 11:52:00 Document Registration [id number] 06/27/2014 11:51:00 Document Registration [id number] 07/26/2012 14:32:00 Document Registration [id number] 06/06/2012 08:40:00 Document Registration [id number] 06/05/2012 11:20:00 Document Registration [id number] 05/30/2012 10:58:00 Document Registration [id number] 07/11/2011 17:15:00 Document Registration [id number] 06/20/2011 18:55:00 Document Registration [id number] 05/30/2011 10:24:00 Document Registration [id number] 05/23/2011 10:37:00 Document Registration [id number] 07/26/2010 09:31:00 Document Registration [id number] 06/23/2010 05:37:00 Document Registration [id number] 06/22/2010 07:56:00 Document Registration [id number] 06/03/2010 09:40:00 Document Registration [id number] 02/15/2010 08:57:00 Document Registration [id number] 07/23/2009 10:51:00 Document Registration [id number] 01/27/2009 10:56:00 Document Registration [id number] 12/26/2016 10:51:00 12/26/2016 23:59:00 DIS Outpatient SARAH CARPENTER [id number] 12/23/2016 13:24:00 12/23/2016 23:59:00 DIS Outpatient SARAH CARPENTER
[2018-08-21] MEDS ORDERED: fentaNYL INJECTION 100 MCG/2 ML AMP IVP STA ×2 (04:01→05:09)
--- NOTE | 2018-08-21 04:07 | ED Chest Pain ---
General Chief Complaint: Chest Pain Stated Complaint: CP Source: patient (LIMITED HISTORIAN ABOUT PMH AND DOES NOT KNOW ANY OF HER MEDICATIONS OR WHAT SHE TAKES THEM FOR, ON ARRIVAL ), old records (ALL PMH IS FROM OLD RECORD) History of Present Illness Date Seen by Provider: Aug 21, 2018 Time Seen by Provider: 03:43 Initial Comments PT ARRIVES VIA EMS FROM HOME--PT LIVES ALONG C/O CHEST PAIN SINCE 2199 TONIGHT STATES PAIN COMES AND GOES NOTHING WORSENS OR IMPROVES PAIN,BUT HAS NOT TAKEN ANYTHING FOR PAIN --HAS OXYCODONE AT HOME, BUT DOES NOT TAKE IT BECAUSE IT MAKES HER HALLUCINATE NO SHORTNESS OF BREATH NO SWEATS NO SWELLING IN LEGS/ FEET NO NAUSEA/VOMITING NO PALPITATIONS NO DIZZINESS NO INJURY OR UNUSUAL ACTIVITY, NO LIFTING, ETC. NO COUGH, FEVER OR RECENT ILLNESS EMS GAVE 324 MG ASPIRIN AND NTG X 2 WITHOUT RELIEF PT CLAIMS SHE HAS NEVER HAD ANY PROBLEMS WITH HER HEART, BUT PT HAS CHRONIC ATRIAL FIBRILLATION, HAS EXTENSIVE ASVD INCLUDING CORONARY ARTERY DISEASE, PERIPHERAL VASCULAR DISEASE AND CAROTID DISEASE. HAS HAD LEFT CAROTID ENDARTERECTOMY. HAS HAD CARDIAC CATH BUT NO INTERVENTIONS PCP: DR. GREER Allergies and Home Medications Allergies Coded Allergies: Sulfa (Sulfonamide Antibiotics) (Verified Allergy, Intermediate, RASH, 06/28/17) Penicillins (Verified Allergy, Mild, ITCHING, 06/28/17) Home Medications Acetaminophen 650 Mg Tablet.er, 650 MG PO BID, (Reported) Aspirin 81 Mg Tablet.dr, 81 MG PO HS, (Reported) Atorvastatin Calcium 10 Mg Tablet, 10 MG PO HS, (Reported) Calcium Carbonate/Vitamin D3 1 Each Tablet, 1 TAB PO DAILY, (Reported) Cephalexin 500 Mg Capsule, 500 MG PO TID Prescribed by: ADI FRIAS on 06/07/18 0739 Clonidine HCl 0.2 Mg Tablet, 0.2 MG PO 0800,1545,2100, (Reported) Diltiazem HCl 240 Mg Cap.er.24h, 240 MG PO DAILY, (Reported) Fish Oil/Dha/Epa 1 Each Capsule, 1,200 MG PO DAILY, (Reported) Furosemide 40 Mg Tablet, 40 MG PO DAILY, (Reported) Losartan Potassium 100 Mg Tablet, 100 MG PO DAILY Prescribed by: ADI FRIAS on 06/06/18 1503 Metoprolol Tartrate 100 Mg Tablet, 100 MG PO BID, (Reported) Multivitamin 1 Each Tablet, 1 TAB PO DAILY, (Reported) Oxybutynin Chloride 5 Mg Tablet, 5 MG PO BID, (Reported) Oxycodone HCl/Acetaminophen 1 Each Tablet, 1 TAB PO Q4HR PRN for PAIN-MODERATE Prescribed by: ADI FRIAS on 06/06/18 1503 Potassium Chloride 10 Meq Tablet.er, 30 MEQ PO SuSa, (Reported) TAKES 3 (10MEQ) TABLETS Potassium Chloride 10 Meq Tablet.er, 20 MEQ PO MoTuWeThFr, (Reported) TAKES 2 (10MEQ) TABLETS Patient Home Medication List Home Medication List Reviewed: Yes Review of Systems Review of Systems Constitutional: no symptoms reported Respiratory: No Symptoms Reported Cardiovascular: See HPI, Chest Pain; Denies Edema, Denies Lightheadedness, Denies Palpitations, Denies Syncope Gastrointestinal: No Symptoms Reported; Denies Abdominal Pain, Denies Nausea, Denies Vomiting Genitourinary: No Symptoms Reported Musculoskeletal: no symptoms reported (PT HAD RIGHT TOTAL KNEE REPLACEMENT 2017 AND HAD INPATIENT REHAB UNTIL 05/2018, AND HAS BEEN HOME ALONE SINCE DISMISSED. ) Skin: no symptoms reported Psychiatric/Neurological: No Symptoms Reported; Denies Numbness, Denies Paresthesia Endocrine: No Symptoms Reported Hematologic/Lymphatic: No Symptoms Reported Past Dauksrc-Onmmds-Gcfdvz Hx Patient Social History Alcohol Use: Denies Use Recreational Drug Use: No Smoking Status: Former Smoker Type Used: Cigarettes Former Smoker, Quit: Mar 07, 1979 Recent Foreign Travel: No Contact w/Someone Who Travel: No Recent Hopitalizations: No Immunizations Up To Date Tetanus Booster (TDap): Unknown Date of Pneumonia Vaccine: May 06, 2012 Date of Influenza Vaccine: May 23, 2018 Seasonal Allergies Seasonal Allergies: Yes Past Medical History Surgeries: Yes (BRAIN BLEED / EVACUATION OF HEMATOMA 2010; CARDIAC CATHS--NO CARDIAC INTERVENTION; RIGHT LEG VASCULAR SURGERY--CRYOPLASTY RIGHT SFA: LEFT CAROTID ENDARTERECTOMY; BREAST BIOPSY; KNEE SCOPES; RIGHT TOTAL KNEE REPLACEMENT 04/2018) Breast, Cardiac, Hysterectomy, Joint Replacement, Neurological, Orthopedic, Vascular Surgery Respiratory: Yes Asthma Cardiac: Yes (DIFFUSE CORONARY DISEASE--NO INTERVENTION; LEFT CAROTID ENDARTERECTOMY; RIGHT LEG--SFA CRYOPLASTY; MITRAL REGURGITATION; CHF; LBBB) Atrial Fibrillation, Chronic Edema/Swelling, Coronary Artery Disease, Deep Vein Thrombosis, High Cholesterol, Hypertension, Peripheral Vascular, Valvular Heart Disease Neurological: Yes (HEMORRHAGIC CVA 2011 WITH EVACUATION OF HEMATOMA; CONGNITIVE IMPAIRMENT) Stroke Reproductive Disorders: No 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, Menopausal Sexually Transmitted Disease: No HIV/AIDS: No Genitourinary: No Gastrointestinal: Yes Chronic Constipation Musculoskeletal: Yes (RIGHT TOTAL KNEE REPLACEMENT) Arthritis Endocrine: No HEENT: Yes (cataracts removed, dentures) Loss of Vision: Bilateral Hearing Impairment: Denies Cancer: Yes Skin Psychosocial: Yes Anxiety, Depression Integumentary: No Blood Disorders: No Adverse Reaction/Blood Tranf: No (N/A) Family Medical History Alzheimer's disease 19 MOTHER Cardiovascular disease G8 SISTER FH: breast cancer 19 MOTHER Respiratory disorder 19 FATHER (tb) Physical Exam Vital Signs Vital Signs - First Documented Capillary Refill : Height, Weight, BMI Height: 5'8.00" Weight: 137lbs. 0.0oz. 62.107789pu; 20.8 BMI Method:Stated General Appearance: WD/WN, Anxious, Other (MOANING, WAILING RANDOMLY AND WITH ANY MOVEMENTS OR TOUCHING OF CHEST BY STAFF, YET PT FIRMLY PUSHES ON HER CHEST AT REPORTED AREA OF PAIN WITHOUT EVIDENCE OF DISCOMFORT; THIS WAILING/MOANING STOPS WHEN PT IS DISTRACTED AND THE WILL TALK IN A NORMAL VOICE AND IS SMILING. CONSTANT MOVEMENTS) Respiratory: Normal Breath Sounds, No Accessory Muscle Use, No Respiratory Distress, Other (LEFT BREAST TENDERNESS, ALSO SOME RIGHT BREAST TENDERNESS. NO SWELLING/BRUISING/SKIN DISCOLORATION OR RASH ) Cardiovascular: No Edema, No JVD, Normal Peripheral Pulses, Systolic Murmur (1/ 6), Irregularly Irregular Gastrointestinal: Normal Bowel Sounds, No Organomegaly, No Pulsatile Mass, Non Tender, Soft Extremity: Normal Capillary Refill, Normal Range of Motion, Non Tender, No Calf Tenderness, No Pedal Edema, Other (WELL HEALED SURGICAL WOUND TO RIGHT KNEE. NO SIGNS OF INFECTION. 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 II- XII Norm as Tested Skin: Normal Color, Warm/Dry; No Rash Progress/Results/Core Measures Results/Orders Lab Results Laboratory Tests Test 08/21/18 03:47 Range/Units White Blood Count 11.4 H 4.3-11.0 10^3/uL Red Blood Count 4.18 L 4.35-5.85 10^6/uL Hemoglobin 12.5 11.5-16.0 G/DL Hematocrit 40 35-52 % Mean Corpuscular Volume 95 80-99 FL Mean Corpuscular Hemoglobin 30 25-34 PG Mean Corpuscular Hemoglobin Concent 32 32-36 G/DL Red Cell Distribution Width 14.9 H 10.0-14.5 % Platelet Count 246 130-400 10^3/uL Mean Platelet Volume 10.3 7.4-10.4 FL Neutrophils (%) (Auto) 67 42-75 % Lymphocytes (%) (Auto) 21 12-44 % Monocytes (%) (Auto) 10 0-12 % Eosinophils (%) (Auto) 2 0-10 % Basophils (%) (Auto) 1 0-10 % Neutrophils # (Auto) 7.7 1.8-7.8 X 10^3 Lymphocytes # (Auto) 2.4 1.0-4.0 X 10^3 Monocytes # (Auto) 1.1 H 0.0-1.0 X 10^3 Eosinophils # (Auto) 0.2 0.0-0.3 10^3/uL Basophils # (Auto) 0.1 0.0-0.1 10^3/uL Prothrombin Time 13.2 12.2-14.7 SEC INR Comment 1.0 0.8-1.4 Activated Partial Thromboplast Time 28 24-35 SEC Sodium Level 143 135-145 MMOL/L Potassium Level 3.8 3.6-5.0 MMOL/L Chloride Level 105 98-107 MMOL/L Carbon Dioxide Level 23 21-32 MMOL/L Anion Gap 15 H 5-14 MMOL/L Blood Urea Nitrogen 19 H 7-18 MG/DL Creatinine 1.04 0.60-1.30 MG/DL Estimat Glomerular Filtration Rate 50 BUN/Creatinine Ratio 18 Glucose Level 116 H 70-105 MG/DL Calcium Level 10.1 8.5-10.1 MG/DL Corrected Calcium 9.8 8.5-10.1 MG/DL Magnesium Level 2.2 1.8-2.4 MG/DL Total Bilirubin 0.8 0.1-1.0 MG/DL Aspartate Amino Transf (AST/SGOT) 25 5-34 U/L Alanine Aminotransferase (ALT/SGPT) 16 0-55 U/L Alkaline Phosphatase 79 40-136 U/L Total Creatine Kinase 46 29-168 U/L Creatine Kinase MB 0.7 <6.6 NG/ML Myoglobin 40.9 10.0-92.0 NG/ML Troponin I < 0.028 <0.028 NG/ML B-Type Natriuretic Peptide 289.0 H <100.0 PG/ML Total Protein 7.7 6.4-8.2 GM/DL Albumin 4.4 3.2-4.5 GM/DL Amylase Level 69 25-125 U/L Lipase 31 8-78 U/L My Orders Orders - KEN BOWMAN DO Cbc With Automated Diff (08/21/18 03:44) Magnesium (08/21/18 03:44) Chest 1 View, Ap/Pa Only (08/21/18 03:44) Ekg Tracing (08/21/18 03:44) Cardiac Profile 1 (08/21/18 03:44) Comprehensive Metabolic Panel (08/21/18 03:44) Myoglobin Serum (08/21/18 03:44) Protime With Inr (08/21/18 03:44) Partial Thromboplastin Time (08/21/18 03:44) O2 (08/21/18 03:44) Monitor-Rhythm Ecg Trace Only (08/21/18 03:44) Lipid Panel (08/22/18 06:00) Saline Lock/Iv-Start (08/21/18 03:44) Creatine Kinase (08/21/18 03:44) Creatine Kinase Mb (08/21/18 03:44) Lipase (08/21/18 03:44) Amylase (08/21/18 03:44) BNP (08/21/18 03:44) Fentanyl Injection (Sublimaze Injection (08/21/18 04:01) Ekg Tracing (08/21/18 05:09) Fentanyl Injection (Sublimaze Injection (08/21/18 05:09) Vital Signs/I&O 08/21/18 08/21/18 08/21/18 03:45 03:45 03:46 Temp 97.9 Pulse 86 Resp 22 B/P (MAP) 180/94 (122) Pulse Ox 95 96 O2 Delivery Room Air Room Air Room Air Progress Progress Note : Progress Note RANDOM MOANING/WAILING IS ONLY WHEN STAFF ARE IN ROOM AND PT RESTING QUIETLY WHEN STAFF NOT IN ROOM. CLAIMS NO RELIEF WITH FIRST DOSE OF FENTANYL. GIVEN ADDITIONAL DOSE OF FENTANYL ,AND ALSO TORADOL. PT CLAIMS SHE IS STILL HURTING, BUT NOT QUITE BAD. NO DETERIORATION IN PT'S CONDITION DURING ER STAY Initial ECG Impression Date: Aug 21, 2018 Initial ECG Impression Time: 03:50 Initial ECG Rate: 88 Initial ECG Rhythm: A Fib/Flutter (MUCH ARTIFACT FROM PT MOVEMENT; IVCD/LBBB) EKG : EKG Time: 05:19 Rate: 82 Rhythm: A Fib/Flutter (LBBB) ECG Comparisson: Unchanged Diagnostic Imaging Comments CXR--NO ACUTE PROCESS, LEFT BASILAR ATELECTASIS, PENDING RADIOLOGIST REVIEW Reviewed: Reviewed by Me Departure Communication (Admissions) 0525--SPOKE WITH DR. CRAWFORD, HOSPITALIST. ACCEPTS PT FOR ADMIT. Impression Primary Impression: Chest pain Additional Impression: Chronic atrial fibrillation Disposition: 09 ADMITTED INPATIENT Condition: Stable Admissions Decision to Admit Reason: Admit from ER (General) Decision to Admit/Date: Aug 21, 2018 Time/Decision to Admit Time: 05:25 Departure-Patient Inst. Referrals: HANNAH GREER MD (PCP/Family) Primary Care Physician KEN BOWMAN DO Aug 21, 2018 04:07
[2018-08-21 04:17] LABS: BASOPHILS # (AUTO) 0.1 10^3/uL (0.0-0.1); BASOPHILS % (AUTO) 1 % (0-10); EOSINOPHILS # (AUTO) 0.2 10^3/uL (0.0-0.3); EOSINOPHILS % (AUTO) 2 % (0-10); HEMATOCRIT 40 % (35-52); HEMOGLOBIN 12.5 G/DL (11.5-16.0); LYMPHOCYTES # (AUTO) 2.4 X 10^3 (1.0-4.0); LYMPHOCYTES % (AUTO) 21 % (12-44); MEAN CORPUSCULAR HEMOGLOBIN 30 PG (25-34); MEAN CORPUSCULAR HGB CONC 32 G/DL (32-36); MEAN CORPUSCULAR VOLUME 95 FL (80-99); MEAN PLATELET VOLUME 10.3 FL (7.4-10.4); MONOCYTES # (AUTO) 1.1 X 10^3 (0.0-1.0); MONOCYTES % (AUTO) 10 % (0-12); NEUTROPHILS # (AUTO) 7.7 X 10^3 (1.8-7.8); NEUTROPHILS % (AUTO) 67 % (42-75); PLATELET COUNT 246 10^3/uL (130-400); RED CELL DISTRIBUTION WIDTH 14.9 % (10.0-14.5); WHITE BLOOD COUNT 11.4 10^3/uL (4.3-11.0)
[2018-08-21 04:27] LABS: PROTHROMBIN TIME PATIENT 13.2 SEC (12.2-14.7)
[2018-08-21 04:37] LABS: ALANINE AMINOTRANSFERASE 16 U/L (0-55); ALBUMIN 4.4 GM/DL (3.2-4.5); ALKALINE PHOSPHATASE 79 U/L (40-136); AMYLASE 69 U/L (25-125); BILIRUBIN,TOTAL 0.8 MG/DL (0.1-1.0); BUN/CREATININE RATIO 18; CALCIUM 10.1 MG/DL (8.5-10.1); CARBON DIOXIDE 23 MMOL/L (21-32); CHLORIDE 105 MMOL/L (98-107); CREATINE KINASE 46 U/L (29-168); CREATININE SERUM 1.04 MG/DL (0.60-1.30); GFR ESTIMATED 50; GLUCOSE 116 MG/DL (70-105); LIPASE 31 U/L (8-78); MAGNESIUM 2.2 MG/DL (1.8-2.4); POTASSIUM 3.8 MMOL/L (3.6-5.0); SODIUM 143 MMOL/L (135-145); TOTAL PROTEIN 7.7 GM/DL (6.4-8.2)
[2018-08-21 04:44] LABS: CREATINE KINASE MB 0.7 NG/ML (<6.6); MYOGLOBIN SERUM 40.9 NG/ML (10.0-92.0)
[2018-08-21] MEDS ORDERED: KETOROLAC 30 MG/ML VIAL IVP ONE (05:45)
--- NOTE | 2018-08-21 06:10 | Diagnostic Imaging Report ---
INDICATION: Chest pain. COMPARISON: None available. FINDINGS: Heart is enlarged. Left basilar opacities favor atelectasis and summation shadow of the patient's breast tissue. No pleural effusion or pneumothorax. Calcified hilar lymph nodes are unchanged. IMPRESSION: 1. Left basilar opacities favor subsegmental atelectasis and summation shadow. Aspiration or pneumonia could be present in the appropriate setting. 2. Cardiomegaly. Dictated by: Dictated on workstation # [id number]
--- OUTSIDE RECORDS SUMMARY | 2018-08-21 06:20 | XMS REPORT | Clinical Summary ---
Author Author [facility] Organization [facility] Address Unknown Phone Unavailable Care Team Providers Care Sulfonator Operator Name Role Phone Josiah Collado MD Unavailable Brittnee Marie MD PCP Source Comments Some departments are not documenting in the electronic medical record. If you do not see the information that you expected, contact Release of Information in the Health Information Management department at [phone] for further assistance in locating additional records.[facility] Allergies Comments Active Allergy Reactions Severity [...] Taken Vital Sign Reading 07/11/2011 12:02 PM MAJOR CASE DETECTIVE Blood Pressure 137/78 07/11/2011 12:02 PM MAJOR CASE DETECTIVE Pulse 83 07/11/2011 12:02 PM MAJOR CASE DETECTIVE Temperature 36.8 C (98.2 F) - Respiratory Rate - 07/11/2011 12:02 PM MAJOR CASE DETECTIVE Oxygen Saturation 95% - Inhaled Oxygen - Concentration 07/11/2011 6:31 AM MAJOR CASE DETECTIVE Weight 75.3 kg (166 lb) 07/11/2011 1:00 PM MAJOR CASE DETECTIVE Height 170.2 cm (5' 7.01") 07/11/2011 6:31 AM MAJOR CASE DETECTIVE Body Mass Index 25.99 Plan of Treatment Health Maintenance Due Date Last Done Comments PHYSICAL (COMPREHENSIVE) 1940 EXAM DTAP/TDAP VACCINES (1 - 1951 Tdap) SHINGLES RECOMBINANT 1983 VACCINE (1 of 2) OSTEOPOROSIS 1998 SCREENING/MONITORING PNEUMONIA (PCV13/PPSV23) 1998 VACCINES (1 of 2 - PCV13) INFLUENZA VACCINE 02/21/2018 Results Not on filefrom Last 3 Months Advance Directives For more information, please contact: [facility] [address] [place] [address] Date Inactivated Comments Code Status Date Activated 07/11/2011 4:41 PM Full Code 06/23/2011 4:32 PM Provider has discussed Code Status No, more discussion w/Patient or Family? needed
--- OUTSIDE RECORDS SUMMARY | 2018-08-21 06:22 | XMS REPORT | Continuity of Care Document ---
Author Author [facility] Organization [facility] Address Unknown Phone Unavailable Allergies Active Description Code Type Severity Reaction Onset Reported/Identified Relationship to Patient Clinical Status Yes penicillin G [id number] Drug Allergy Unknown N/A 11/20/2008 Yes Sulfa (Sulfonamide Antibiotics) [id number] Drug Allergy Unknown N/A 2008 Yes Sulfa (Sulfonamide Antibiotics) [id number] Drug Allergy Moderate RASH 06/28 Yes Penicillins [id number] Drug Allergy Mild ITCHING 06/28/2017 Medications There [...] ST 07/27/2011 Ot 414.01 CORONARY ATHEROSCLEROSIS OF [place] CORON 07/27/2011 Ot 427.31 ATRIAL FIBRILLATION 07/27/2011 [...] NOS 06/07/2012 Ot 414.01 CORONARY ATHEROSCLEROSIS OF [place] CORON 06/07/2012 Ot 427.31 ATRIAL FIBRILLATION 06/07/2012 Ot 440.20 ATHEROSCLEROSIS [place] ARTERIES EXTREMIT 06/07/2012 Ot 786.59 CHEST PAIN [...] Griffith Ot 719.06 JOINT EFFUSION-L/LEG 02/22/2016 PAULINE MRECADO, SARAH Griffith Ot 719.46 JOINT PAIN-L/LEG 02/22/2016 ZAMUDIO-LACEY RUSSELL, CROW K Ot I73.9 PERIPHERAL VASCULAR DISEASE, UNSPECIFIED 02/23/2016 ZAMUDIO-LACEY RUSSELL, CROW K Ot E78.2 MIXED HYPERLIPIDEMIA 02/23/2016 ZAMUDIO-LACEY RUSSELL, CROW K Ot I25.10 ATHSCL HEART DISEASE OF [place] CORONARY 02/23/2016 KAMILLA RUSSELL CROW K Ot [...] K Ot I25.10 ATHSCL HEART DISEASE OF [place] CORONARY 02/25/2016 ZAMUDIO-LACEY RUSSELL, CROW K Ot I48.1 PERSISTENT ATRIAL FIBRILLATION 02/25/2016 ZAMUDIO-LACEY RUSSELL, CROW K Ot 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 02/25/2016 LIZZPriyaLACEY RUSSELL, CORW K Ot I73.9 PERIPHERAL VASCULAR DISEASE, UNSPECIFIED 02/25/2016 KAMILLA RUSSELL, CROW K Ot E78.2 MIXED HYPERLIPIDEMIA 02/25/2016 KAMILLA RUSSELL, CROW K Ot I25.10 ATHSCL HEART DISEASE OF [place] CORONARY 02/25/2016 CROW LUNDBERG Ot I48.1 PERSISTENT [...] MD Ot I25.10 ATHSCL HEART DISEASE OF [place] CORONARY 03/07/2016 ADAM LAUGHLIN MD Ot I25.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 [place] 03/07/2016 ADAM LAUGHLIN MD Ot I48.91 UNSPECIFIED ATRIAL FIBRILLATION 03/07/2016 ADAM LAUGHLIN MD Ot I70.0 ATHEROSCLEROSIS OF [place] 03/07/2016 ADAM LAUGHLIN MD Ot I70.203 UNSP ATHSCL [place] ARTERIES OF [facility] 03/07/2016 ADAM LAUGHLIN MD Ot R94.39 ABNORMAL RESULT OF OTHER CARDIOVASCULAR 03/07/2016 ADAM LAUGHLIN MD Ot 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 03/07/2016 ADAM LAUGHLIN MD Ot Z86.73 PRSNL HX OF TIA (TIA), AND CEREB INFRC W 03/07/2016 ADAM LAUGHLIN MD Ot Z95.5 PRESENCE OF CORONARY ANGIOPLASTY IMPLANT 03/15/2016 ADAM LAUGHLIN MD Ot E78.5 HYPERLIPIDEMIA, UNSPECIFIED 03/15/2016 ADAM LAUGHLIN MD Ot I10 ESSENTIAL (PRIMARY) HYPERTENSION 03/15/2016 ADAM LAUGHLIN MD Ot I25.10 ATHSCL HEART DISEASE OF [place] CORONARY 03/15/2016 ADAM LAUGHLIN MD Ot I25.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 [place] 03/15/2016 ADAM LAUGHLIN MD Ot I48.91 UNSPECIFIED ATRIAL FIBRILLATION 03/15/2016 ADAM LAUGHLIN MD Ot I70.0 ATHEROSCLEROSIS OF [place] 03/15/2016 ADAM LAUGHLIN MD Ot I70.203 UNSP ATHSCL [place] ARTERIES OF EXTREMITI 03/15/2016 ADAM LAUGHLIN MD Ot R94.39 ABNORMAL RESULT OF OTHER CARDIOVASCULAR 03/15/2016 ADAM LAUGHLIN MD Ot 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 03/15/2016 ADAM LAUGHLIN MD, Ot Z86.73 PRSNL HX OF TIA (TIA), AND CEREB INFRC W 03/15/2016 ADAM LAUGHLIN MD, Ot Z95.5 PRESENCE OF CORONARY ANGIOPLASTY IMPLANT 03/15/2016 CROW LUNDBERG Ot E78.2 MIXED HYPERLIPIDEMIA 03/15/2016 CROW LUNDBERG Ot I25.10 ATHSCL HEART DISEASE OF [place] CORONARY 03/15/2016 CROW LUNDBERG Ot I48.1 PERSISTENT ATRIAL FIBRILLATION 03/15/2016 CROW LUNDBERG Ot 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 03/15/2016 CROW LUNDBERG Ot I73.9 PERIPHERAL VASCULAR DISEASE, UNSPECIFIED 03/15/2016 CROW LUNDBERG Ot 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 03/18/2016 CROW LUNDBERG Ot E78.2 MIXED HYPERLIPIDEMIA 03/18/2016 CROW LUNDBERG Ot I25.10 ATHSCL HEART DISEASE OF [place] CORONARY 03/18/2016 CROW LUNDBERG Ot I48.1 PERSISTENT ATRIAL FIBRILLATION 03/18/2016 CROW LUNDBERG Ot 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 03/18/2016 CROW LUNDBERG Ot I73.9 PERIPHERAL VASCULAR DISEASE, UNSPECIFIED 03/24/2016 CROW LUNDBERG Ot E78.2 MIXED HYPERLIPIDEMIA 03/24/2016 CROW LUNDBERG Ot I25.10 ATHSCL HEART DISEASE OF [place] CORONARY 03/24/2016 CROW LUNDBERG Ot I48.1 PERSISTENT ATRIAL FIBRILLATION 03/24/2016 KAMILLA RUSSELL CROW Mary Ot 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 03/24/2016 KAMILLA RUSSELL CROW Mary Ot I73.9 PERIPHERAL VASCULAR DISEASE, UNSPECIFIED 03/24/2016 KAMILLA RUSSELL CROW Mary Ot E78.2 MIXED HYPERLIPIDEMIA 03/24/2016 KAMILLA RUSSELL CROW Hernandez Ot I25.10 ATHSCL HEART DISEASE OF [place] CORONARY 03/24/2016 KAMILLA RUSSELL CROW Mary Ot I48.1 PERSISTENT ATRIAL FIBRILLATION 03/24/2016 KAMILLA RUSSELL CROW Hernandez Ot 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 03/24/2016 ZAMUDIORADHA RUSSELL CROW Hernandez Ot I73.9 PERIPHERAL VASCULAR DISEASE, UNSPECIFIED 03/24/2016 KAMILLA RUSSELL CROW Hernadnez Ot I65.23 OCCLUSION AND STENOSIS OF BILATERAL [...] Hernandez Ot I25.10 ATHSCL HEART DISEASE OF [place] CORONARY 08/09/2016 KAMILLA RUSSELL CROW Hernandez Ot I48.1 PERSISTENT ATRIAL FIBRILLATION 08/09/2016 KAMILLA RUSSELL CROW K Ot 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 08/09/2016 KAMILLA RUSSELL CROW Hernandez Ot I73.9 PERIPHERAL VASCULAR DISEASE, UNSPECIFIED 08/09/2016 KAMILLA RUSSELL CROW Hernandez Ot E78.2 MIXED HYPERLIPIDEMIA 08/09/2016 KAMILLA RUSSELL CROW Hernandez Ot I25.10 ATHSCL HEART DISEASE OF [place] CORONARY 08/09/2016 KAMILLA RUSSELL CROW Hernandez Ot [...] MD, Ot I25.10 ATHSCL HEART DISEASE OF [place] CORONARY 05/11/2017 TEVIN AGUIRRE MD, Ot I25.10 ATHSCL HEART DISEASE OF [place] CORONARY 05/11/2017 TEVIN AGUIRRE MD Ot S83.281A [...] MD, Ot I25.10 ATHSCL HEART DISEASE OF [place] CORONARY 05/12/2017 ADAM LAUGHLIN MD Ot I65.22 [...] MD Ot I25.10 ATHSCL HEART DISEASE OF [place] CORONARY 06/05/2017 ADAM LAUGHLIN MD Ot I65.22 [...] MD Ot I25.10 ATHSCL HEART DISEASE OF [place] CORONARY 06/14/2017 ADAM LAUGHLIN MD Ot I65.22 [...] MD Ot I25.10 ATHSCL HEART DISEASE OF [place] CORONARY 07/03/2017 ADAM LAUGHLIN MD Ot I65.23 [...] KNE 07/05/2017 TEVIN AGUIRRE MD Ot Z79.82 [facility] (CURRENT) USE OF ASPIRIN 07/05/2017 TEVIN AGUIRRE MD, Ot 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 07/05/2017 TEVIN AGUIRRE MD, [...] MD Ot I25.10 ATHSCL HEART DISEASE OF [place] CORONARY 07/07/2017 ADAM LAUGHLIN MD, Ot I65.23 [...] KNE 07/31/2017 TEVIN AGUIRRE MD, Ot Z79.82 [facility] (CURRENT) USE OF ASPIRIN 07/31/2017 TEVIN AGUIRRE MD, Ot 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 07/31/2017 TEVIN AGUIRRE MD, [...] MD Ot I25.10 ATHSCL HEART DISEASE OF [place] CORONARY 08/17/2017 ADAM LAUGHLIN MD Ot 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 08/17/2017 ADAM LAUGHLIN MD Ot I82.409 ACUTE EMBOLISM AND THOMBOS UNSP DEEP VN 09/06/2017 ADAM LAUGHLIN MD Ot E78.2 MIXED HYPERLIPIDEMIA 09/06/2017 ADAM LAUGHLIN MD Ot I10 ESSENTIAL (PRIMARY) HYPERTENSION 09/06/2017 ADAM LAUGHLIN MD Ot I25.10 ATHSCL HEART DISEASE OF [place] CORONARY 09/06/2017 ADAM LAUGHLIN MD Ot 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 09/06/2017 ADAM LAUGHLIN MD Ot I82.409 ACUTE EMBOLISM AND THOMBOS UNSP DEEP VN 09/13/2017 ADAM LAUGHLIN MD Ot E78.2 MIXED HYPERLIPIDEMIA 09/13/2017 ADAM LAUGHLIN MD Ot I10 ESSENTIAL (PRIMARY) HYPERTENSION 09/13/2017 ADAM LAUGHLIN MD Ot I25.10 ATHSCL HEART DISEASE OF [place] CORONARY 09/13/2017 ADAM LAUGHLIN MD Ot 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 09/13/2017 ADAM LAUGHLIN MD Ot I82.409 ACUTE EMBOLISM AND THOMBOS UNSP DEEP VN 05/10/2018 ADAM LAUGHLNI MD Ot 272.4 HYPERLIPIDEMIA NEC/NOS 05/10/2018 ADAM [...] K Ot I25.10 ATHSCL HEART DISEASE OF [place] CORONARY 05/10/2018 KAMILLA RUSSELL CROW K Ot I48.1 PERSISTENT ATRIAL FIBRILLATION 05/10/2018 KAMILLA RUSSELL CROW K Ot 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 05/10/2018 KAMILLA RUSSELL CROW K Ot I73.9 PERIPHERAL VASCULAR DISEASE, UNSPECIFIED 05/10/2018 KAMILLA RUSSELL CROW K Ot E78.2 MIXED HYPERLIPIDEMIA 05/10/2018 KAMILLA RUSSELL CROW K Ot I25.10 ATHSCL HEART DISEASE OF [place] CORONARY 05/10/2018 KAMILLA RUSSELL CROW K Ot [...] MD Ot I25.10 ATHSCL HEART DISEASE OF [place] CORONARY 05/10/2018 ADAM LAUGHLIN MD Ot 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 05/10/2018 ADAM LAUGHLIN MD Ot E78.5 HYPERLIPIDEMIA, UNSPECIFIED 05/10/2018 ADAM LAUGHLIN MD, Ot I10 ESSENTIAL (PRIMARY) HYPERTENSION 05/10/2018 ADAM LAUGHLIN MD Ot I25.10 ATHSCL HEART DISEASE OF [place] CORONARY 05/10/2018 ADAM LAUGHLIN MD Ot I65.23 [...] MD Ot I25.10 ATHSCL HEART DISEASE OF [place] CORONARY 05/10/2018 ADAM LAUGHLIN MD Ot I65.23 [...] MD Ot I25.10 ATHSCL HEART DISEASE OF [place] CORONARY 05/25/2018 TEVIN AGUIRRE MD Ot I34.0 NONRHEUMATIC MITRAL (VALVE) INSUFFICIENC 05/25/2018 TEVIN AGUIRRE MD Ot I48.2 CHRONIC ATRIAL FIBRILLATION 05/25/2018 TEVIN AGUIRRE MD Ot I50.22 CHRONIC SYSTOLIC (CONGESTIVE) HEART FAIL 05/25/2018 TEVIN AGUIRRE MD Ot I70.0 ATHEROSCLEROSIS OF [place] 05/25/2018 TEVIN AGUIRRE MD Ot I70.292 OTH ATHSCL [place] ARTERIES OF EXTREMITIE 05/25/2018 TEVIN AGUIRRE MD [...] MD, Ot I25.10 ATHSCL HEART DISEASE OF [place] CORONARY 06/07/2018 ADI FRIAS MD, Ot I34.0 NONRHEUMATIC MITRAL (VALVE) INSUFFICIENC 06/07/2018 ADI FRIAS MD, Ot I48.2 CHRONIC ATRIAL FIBRILLATION 06/07/2018 ADI FRIAS MD Ot I50.22 CHRONIC SYSTOLIC (CONGESTIVE) HEART FAIL 06/07/2018 ADI FRIAS MD, Ot I69.219 UNSP SYMP AND SIGNS W COGN FNCTNS FOL OT 06/07/2018 ADI FRIAS MD, Ot I70.0 ATHEROSCLEROSIS OF [place] 06/07/2018 ADI FRIAS MD Ot I70.203 UNSP ATHSCL [place] ARTERIES OF EXTREMITI 06/07/2018 ADI FRIAS MD [...] MD Ot I25.10 ATHSCL HEART DISEASE OF [place] CORONARY 08/07/2018 ADAM LAUGHLIN MD Ot I48.91 UNSPECIFIED ATRIAL FIBRILLATION 08/07/2018 ADAM LAUGHLIN MD Ot I65.29 OCCLUSION AND STENOSIS OF UNSPECIFIED CA 08/07/2018 ADAM LAUGHLIN MD Ot R06.00 DYSPNEA, UNSPECIFIED 08/21/2018 ADAM LAUGHLIN MD Ot 272.4 HYPERLIPIDEMIA NEC/NOS 08/21/2018 DAAM LAUGHLIN MD Ot 397.0 TRICUSPID VALVE DISEASE [...] K Ot I25.10 ATHSCL HEART DISEASE OF [place] CORONARY 08/21/2018 KAMILLA RUSSELL CROW Hernandez Ot I48.1 PERSISTENT ATRIAL FIBRILLATION 08/21/2018 KAMILLA DREW CROW K Ot 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 08/21/2018 KAMILLA DREW, CROW Mary Ot I73.9 PERIPHERAL VASCULAR DISEASE, UNSPECIFIED 08/21/2018 KAMILLA DREW, CROW Mary Ot E78.2 MIXED HYPERLIPIDEMIA 08/21/2018 KAMILLA DREW, CROW Mary Ot I25.10 ATHSCL HEART DISEASE OF [place] CORONARY 08/21/2018 KAMILLA DREW CROW Hernandez Ot I48.1 PERSISTENT ATRIAL FIBRILLATION 08/21/2018 KAMILLA DREW CROW Hernandez Ot 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 08/21/2018 KAMILLA DREW, CROW Mary Ot I73.9 PERIPHERAL VASCULAR DISEASE, UNSPECIFIED 08/21/2018 KAMILLA DREW, CROW K Ot 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 08/21/2018 ADAM LAUGHLIN MD Ot E78.2 MIXED HYPERLIPIDEMIA 08/21/2018 ADAM LAUGHLIN MD Ot I10 ESSENTIAL (PRIMARY) HYPERTENSION 08/21/2018 ADAM LAUGHLIN MD Ot I25.10 ATHSCL HEART DISEASE OF [place] CORONARY 08/21/2018 ADAM LAUGHLIN MD Ot 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 08/21/2018 ADAM LAUGHLIN MD Ot E78.5 HYPERLIPIDEMIA, UNSPECIFIED 08/21/2018 ADAM LAUGHLIN MD Ot I10 ESSENTIAL (PRIMARY) HYPERTENSION 08/21/2018 ADAM LAUGHLIN MD Ot I25.10 ATHSCL HEART DISEASE OF [place] CORONARY 08/21/2018 ADAM LAUGHLIN MD Ot I65.23 [...] MD, Ot I25.10 ATHSCL HEART DISEASE OF [place] CORONARY 08/21/2018 ADAM LAUGHLIN MD Ot I65.23 [...] MD, Ot I25.10 ATHSCL HEART DISEASE OF [place] CORONARY 08/21/2018 ADAM LAUGHLIN MD Ot I48.91 UNSPECIFIED ATRIAL FIBRILLATION 08/21/2018 ADAM LAUGHLIN MD, Ot I65.29 OCCLUSION AND STENOSIS OF UNSPECIFIED CA 08/21/2018 ADAM LAUGHLIN MD Ot R06.00 DYSPNEA, UNSPECIFIED Procedures Code Description Performed By Performed On 45.16 ESOPHAGOGASTRODUODENOSCOPY [ EGD] W/CLOSE 07/21/2011 45.23 COLONOSCOPY 07/22/2011 [id number] REPLACE OF R KNEE JT WITH SYNTH [...] 10:30 PRELIM CULTURE RESULTS Abundant coag neg [id number] further [id number] gram neg [id number] testing pending MEDIA PLATED Setup at 15:23 on 12/23/2016 [facility] - 12/23/16 10:30 Ampicillin/Sulbactam <=8/4 Ampicillin <=8 [...] FINAL CULTURE RESULTS [facility] 10:30 FINAL CULTURE RESULTS Pseudomonas [...] ABO+Rh group AP NRG Transfusion band number [id number] NRG Blood group antibody screen NEGATIVE NRG Blood type T Indirect antibody screen panel - 05/23/18 07:35 ABO+Rh group AP NRG Transfusion band number [id number] NRG Blood group antibody screen NEGATIVE NRG [...] uric acid measurement (mass/volume) 5.5 mg/dL 2.6-7.2 Complete blood count (CBC) with automated white blood cell (WBC) differential - 08/21/18 03:47 Blood leukocytes automated count (number/volume) 11.4 10*3/uL 4.3-11.0 Blood erythrocytes automated count (number/volume) 4.18 10*6/uL 4.35-5.85 Venous blood hemoglobin measurement (mass/volume) 12.5 g/dL 11.5-16.0 Blood hematocrit (volume fraction) 40 % 35-52 Automated erythrocyte mean corpuscular volume 95 [foz_us] 80-99 Automated erythrocyte mean corpuscular hemoglobin (mass per erythrocyte) 30 pg 25-34 Automated erythrocyte mean corpuscular hemoglobin concentration measurement ( mass/volume) 32 g/dL 32-36 Automated erythrocyte distribution width ratio 14.9 % 10.0-14.5 Automated blood platelet count (count/volume) 246 10*3/uL 130-400 Automated blood platelet mean volume measurement 10.3 [foz_us] 7.4-10.4 Automated blood neutrophils/100 leukocytes 67 % 42-75 Automated blood lymphocytes/100 leukocytes 21 % 12-44 Blood monocytes/100 leukocytes 10 % 0-12 Automated blood eosinophils/100 leukocytes 2 % 0-10 Automated blood basophils/100 leukocytes 1 % 0-10 Blood neutrophils automated count (number/volume) 7.7 10*3 1.8-7.8 Blood lymphocytes automated count (number/volume) 2.4 10*3 1.0-4.0 Blood monocytes automated count (number/volume) 1.1 10*3 0.0-1.0 Automated eosinophil count 0.2 10*3/uL 0.0-0.3 Automated blood basophil count (count/volume) 0.1 10*3/uL 0.0-0.1 PT panel in platelet poor plasma by coagulation assay - 08/21/18 03:47 Prothrombin time (PT) in platelet poor plasma by coagulation assay 13.2 s 12.2-14.7 INR in platelet poor plasma or blood by coagulation assay 1.0 0.8-1.4 Activated partial thromboplastin time (aPTT) in platelet poor plasma bycoagulation assay - 08/21/18 03:47 Activated partial thromboplastin time (aPTT) in platelet poor plasma bycoagulation assay 28 s 24-35 Comprehensive metabolic panel - 08/21/18 03:47 Serum or plasma sodium measurement (moles/volume) 143 mmol/L 135-145 Serum or plasma potassium measurement (moles/volume) 3.8 mmol/L 3.6-5.0 Serum or plasma chloride measurement (moles/volume) 105 mmol/L 98-107 Carbon dioxide 23 mmol/L 21-32 Serum or plasma anion gap determination (moles/volume) 15 mmol/L 5-14 Serum or plasma urea nitrogen measurement (mass/volume) 19 mg/dL 7-18 Serum or plasma creatinine measurement (mass/volume) 1.04 mg/dL 0.60-1.30 Serum or plasma urea nitrogen/creatinine mass ratio 18 NRG Serum or plasma creatinine measurement with calculation of estimated glomerular filtration rate 50 NRG Serum or plasma glucose measurement (mass/volume) 116 mg/dL 70-105 Serum or plasma calcium measurement (mass/volume) 10.1 mg/dL 8.5-10.1 Serum or plasma total bilirubin measurement (mass/volume) 0.8 mg/dL 0.1-1.0 Serum or plasma alkaline phosphatase measurement (enzymatic activity/volume) 79 U/L 40-136 Serum or plasma aspartate aminotransferase measurement (enzymatic activity/ volume) 25 U/L 5-34 Serum or plasma alanine aminotransferase measurement (enzymatic activity/volume ) 16 U/L 0-55 Serum or plasma protein measurement (mass/volume) 7.7 g/dL 6.4-8.2 Serum or plasma albumin measurement (mass/volume) 4.4 g/dL 3.2-4.5 CALCIUM CORRECTED 9.8 mg/dL 8.5-10.1 Magnesium - 08/21/18 03:47 Magnesium 2.2 mg/dL 1.8-2.4 Serum or plasma creatine kinase measurement (enzymatic activity/volume) - 08/21 03:47 Serum or plasma creatine kinase measurement (enzymatic activity/volume) 46 U/L 29-168 Serum or plasma creatine kinase MB measurement (enzymatic activity/volume) - 03:47 Serum or plasma creatine kinase MB measurement (enzymatic activity/volume) 0.7 ng/mL <6.6 Serum or plasma troponin i.cardiac measurement (mass/volume) - 08/21/18 03:47 Serum or plasma troponin i.cardiac measurement (mass/volume) < ng/ mL <0.028 Myoglobin, serum - 08/21/18 03:47 Myoglobin, serum 40.9 ng/mL 10.0-92.0 Serum or plasma amylase measurement (enzymatic activity/volume) - 08/21/18 03: 47 Serum or plasma amylase measurement (enzymatic activity/volume) 69 U /L 25-125 Lipase - 08/21/18 03:47 Lipase 31 U/L 8-78 Serum or plasma lithium measurement (moles/volume) - 08/21/18 03:47 BNP level 289.0 pg/mL <100.0 Encounters ACCT No. Visit Date/Time Discharge Status Pt. Type Provider Facility Loc./Unit Complaint [id number] 08/03/2018 13:59:00 08/03/2018 23:59:59 CLS Outpatient ADAM LAUGHLIN MD [facility] CARD CAD,CAROTID,ARTERY STENOSIS,DYSPNEA [id number] 05/25/2018 10:45:00 06/07/2018 13:00:00 DIS Inpatient ADI FRIAS MD [facility] IRF RIGHT TKR [id number] 05/23/2018 07:16:00 05/25/2018 10:45:00 DIS Inpatient TEVIN AGUIRRE MD [facility] 4TH RIGHT KNEE OSTEOARTHRITIS [id number] 05/10/2018 12:48:00 05/10/2018 14:10:00 DIS Outpatient TEVIN AGUIRRE MD [facility] PREOP RIGHT KNEE OSTEOARTHRITIS [id number] 08/16/2017 08:19:00 08/16/2017 23:59:59 CLS Outpatient ADAM LAUGHLIN MD [facility] RAD I25.10 CAD [id number] 07/05/2017 06:00:00 07/05/2017 12:00:00 DIS Outpatient [facility] TORN LATERAL MENISCUS [id number] 06/28/2017 09:58:00 06/28/2017 13:13:00 DIS Outpatient TEVIN AGUIRRE MD [facility] PREOP RIGHT KNEE TORN LATERAL MENISCUS [id number] 06/08/2017 13:57:00 06/08/2017 23:59:59 CLS Outpatient ADAM LAUGHLIN MD [facility] CARD CAROTID ARTERY STENOSIS I65.23 [id number] 05/17/2017 08:41:00 05/17/2017 23:59:59 CLS Outpatient FLORA EVERETT MD [facility] CARD Z01.810 [id number] 05/17/2017 11:00:00 05/17/2017 11:00:00 CAN Preadmit TEVIN AGUIRRE MD [facility] SDC RIGHT KNEE TORN LATERAL MENISCUS [id number] 05/11/2017 08:03:00 05/11/2017 23:59:59 CLS Outpatient ADAM LAUGHLIN MD [facility] RAD CAROTID ARTERY STENOSIS I65.23 [id number] 05/11/2017 10:33:00 05/11/2017 14:15:00 DIS Outpatient TEVIN AGUIRRE MD [facility] PREOP RIGHT KNEE TORN LATERAL MENISCUS [id number] 09/08/2016 14:38:00 10/19/2016 09:25:00 DIS Outpatient SARAH CARPENTER MD [facility] REHAB GAIT DISTURBANCE; CHRONIC VERTIGO [id number] 03/07/2016 06:40:00 03/07/2016 13:50:00 DIS Outpatient ADAM LAUGHLIN MD [facility] CATH ABNORMAL STRESS TEST,CAD ,HTN,HLP [id number] 02/24/2016 11:38:00 02/24/2016 23:59:59 CLS Outpatient CROW LUNDBERG [facility] CARD AF,CAD, CAROTID ARTERY STENOSIS,HLP,PVD [id number] 02/23/2016 11:58:00 02/23/2016 23:59:59 CLS Outpatient CROW LUNDBERG [facility] RAD CAROTID ARTERY STENOSIS [id number] 02/22/2016 12:59:00 02/22/2016 23:59:59 CLS Outpatient CROW LUNDBERG [facility] CARD AF,CAD, CAROTID ARTERY STENOSIS,HLP,PVD [id number] 06/27/2014 11:52:00 06/27/2014 23:59:59 CLS Outpatient SARAH CARPENTER MD [facility] RAD BI KNEE PAIN AND SWELLING [id number] 11/27/2013 07:48:00 11/27/2013 23:59:59 CLS Outpatient CROW LUNDBERG [facility] CARD AFIB, ANXIETY [id number] 11/22/2013 12:38:00 11/22/2013 23:59:59 CLS Outpatient TRUMAN MERCADO, ADAM Talbot [facility] CARD AFIB,ANXIETY,CAD [id number] 08/21/2018 05:25:00 ACT Inpatient HANNAH GREER MD [facility] ICU CHEST PAIN [id number] 06/27/2014 11:52:00 Document Registration [id number] 06/27/2014 11:51:00 Document Registration [id number] 07/26/2012 14:32:00 Document Registration [id number] 06/06/2012 08:40:00 Document Registration [id number] 06/05/2012 11:20:00 Document Registration [id number] 05/30/2012 10:58:00 Document Registration [id number] 07/11/2011 17:15:00 Document Registration [id number] 06/20/2011 18:55:00 Document Registration [id number] 05/30/2011 10:24:00 Document Registration [id number] 05/23/2011 10:37:00 Document Registration [id number] 07/26/2010 09:31:00 Document Registration [id number] 06/23/2010 05:37:00 Document Registration [id number] 06/22/2010 07:56:00 Document Registration [id number] 06/03/2010 09:40:00 Document Registration [id number] 02/15/2010 08:57:00 Document Registration [id number] 07/23/2009 10:51:00 Document Registration [id number] 01/27/2009 10:56:00 Document Registration [id number] 12/26/2016 10:51:00 12/26/2016 23:59:00 DIS Outpatient SARAH CARPENTER [id number] 12/23/2016 13:24:00 12/23/2016 23:59:00 DIS Outpatient SARAH CARPENTER
[2018-08-21] MEDS ORDERED: morphine INJ 4 MG/ML 1 ML (VIAL/SYRINGE) IV PRN (07:30)
[2018-08-21] MEDS ORDERED: CATHETER FLUSH 10 ML SYR IV PRN (07:30)
[2018-08-21] MEDS ORDERED: NITROGLYCERIN 0.4 MG SL TABS BTL 25'S SL PRN (07:30)
--- NOTE | 2018-08-21 07:58 | Short Stay Summary-Hospitalist ---
History of Present Illness HPI/Chief Complaint Pt is an 83yoCF with a PMH of CAD, PAD, Carotid stenosis, CHF, and HTN who presented to the ER due to acute onset chest pain. She states her pain starting suddenly out of nowhere at 10pm last night. She describes it as "sharp" and just "grabs her." She thought it was from indigestion so tried to walk around but that did not help nor did it make it worse. She denies any SOB, cough, nausea, radiation of pain. She denies any history of previous symptoms. She follows with Dr Marie who she just saw roughly 1 month ago and had an echo done at that time. Her troponin was negative on arrival she was admitted for ACS rule out. Source: patient Exam Limitations: no limitations Date Seen 08/21/18 Time Seen by a Provider: 07:53 Attending Physician Phillip Carter MD PCP Phillip Carter MD Referring Physician Date of Admission Aug 21, 2018 at 05:25 Home Medications & Allergies Home Medications Reviewed patient Home Medication Reconciliation performed by pharmacy medication reconciliations public health technician and/or nursing. Patients Allergies have been reviewed. Allergies Allergies Coded Allergies Sulfa (Sulfonamide Antibiotics) (Verified Allergy, Intermediate, RASH, 06/28/17 ) Penicillins (Verified Allergy, Mild, ITCHING, 06/28/17) Past Eatlknj-Cqqgjr-Kukooj Hx Past Med/Social Hx: Reviewed Nursing Past Med/Soc Hx Patient Social History Employed/Student: retired Alcohol Use: Denies Use Recreational Drug Use: No Smoking Status: Former Smoker Former Smoker, Quit: Mar 07, 1979 Type Used: Cigarettes Recent Foreign Travel: No Contact w/other who traveled: No Recent Hopitalizations: No Recent Infectious Disease Expo: No Immunizations Up To Date Tetanus Booster (TDap): Unknown Date of Pneumonia Vaccine: May 06, 2012 Date of Influenza Vaccine: May 23, 2018 Seasonal Allergies Seasonal Allergies: Yes Past Medical History Surgeries: Breast, Cardiac, Hysterectomy, Joint Replacement (right knee), Neurological, Orthopedic, Vascular Surgery Cardiac: Atrial Fibrillation, Cardiomyopathy, Chronic Edema/Swelling, Coronary Artery Disease, Deep Vein Thrombosis, High Cholesterol, Hypertension, Peripheral Vascular, Valvular Heart Disease Neurological: Stroke : No Reproductive: No Sexually Transmitted Disease: No HIV/AIDS: No Hysterectomy, Menopausal Gastrointestinal: Chronic Constipation Musculoskeletal: Arthritis Loss of Vision: Bilateral Hearing Impairment: Denies Cancer: Skin Psychosocial: Anxiety, Depression History of Blood Disorders: No Adverse Reaction to Blood Damon: No (N/A) Family History Reviewed Nursing Family Hx Alzheimer's disease 19 MOTHER Cardiovascular disease G8 SISTER FH: breast cancer 19 MOTHER Respiratory disorder 19 FATHER (tb) Review of Systems Constitutional: no symptoms reported Respiratory: No cough, No dyspnea on exertion, No orthopnea, No short of breath Cardiovascular: see HPI, chest pain; No edema, No palpitations, No syncope All Other Systems Reviewed Negative Unless Noted: Yes (Negative excepted noted.) Physical Exam Physical Exam Vital Signs Vital Signs - First Documented Capillary Refill : Less Than 3 Seconds Height, Weight, BMI Height: 5'8.00" Weight: 135lbs. 0.0oz. 61.360284ys; 20.8 BMI Method:Stated General Appearance: No Apparent Distress, WD/WN HEENT: PERRL/EOMI, Moist Mucous Membranes Neck: Non Tender, Supple Respiratory: Lungs Clear, No Respiratory Distress, Other (left chest tenderness to palpation) Cardiovascular: Regular Rate, Rhythm, No Murmur Gastrointestinal: Normal Bowel Sounds, Non Tender, Soft Extremity: Normal Capillary Refill, No Calf Tenderness Neurologic/Psychiatric: Alert, Oriented x3, Normal Mood/Affect Skin: Normal Color, Warm/Dry Results Results/Procedures Labs Laboratory Tests 08/21/18 03:47 Patient resulted labs reviewed. Imaging: Reviewed Imaging Report Short Stay Diagnosis Discharge Diagnosis-Short Stay Admission Diagnosis Chest Pain Final Discharge Diagnosis Atypical Chest Pain Conclusion Plan Atypical Chest Pain Reproducible, unlikely to be cardiac in nature Cardiology consulted, appreciate recs Last Cath was 2015 with no intervention Echo 2 weeks ago revealed EF 55% Toradol given this AM- continue NSAIDs as likely muscular in nature If ok with cardiology can DC home Clinical Quality Measures AMI/AHF: ASA po Prior to arrival: Yes (324MG) EDILBERTO TABOR MD Aug 21, 2018 07:58
[2018-08-21 08:19] LABS: MYOGLOBIN SERUM 50.6 NG/ML (10.0-92.0)
--- NOTE | 2018-08-21 08:36 | Consultation-Cardiology ---
HPI-Cardiology Cardiology Consultation Date of Consultation 08/21/18 Date of Admission Home Medications & Allergies Allergies: Coded Allergies: Sulfa (Sulfonamide Antibiotics) (Verified Allergy, Intermediate, RASH, 06/28/17) Penicillins (Verified Allergy, Mild, ITCHING, 06/28/17) DNO-Nqpndl-Hrfgbv Hx Patient Social History Employed/Student: retired Alcohol Use: Denies Use Recreational Drug Use: No Smoking Status: Former Smoker Type Used: Cigarettes Recent Foreign Travel: No Recent Infectious Disease Expo: No Recent Hopitalizations: No Immunizations Up To Date Tetanus Booster (TDap): Unknown Date of Pneumonia Vaccine: May 06, 2012 Date of Influenza Vaccine: May 23, 2018 Family Medical History Family History: Alzheimer's disease 19 MOTHER Cardiovascular disease G8 SISTER FH: breast cancer 19 MOTHER Respiratory disorder 19 FATHER (tb) Physical Exam Vital Signs Vital Signs - First Documented 08/21/18 08:00 O2 Flow Rate 2.00 Capillary Refill : Less Than 3 Seconds Height, Weight, BMI Height: 5'8.00" Weight: 135lbs. 0.0oz. 61.838494wj; 20.5 BMI Method:Stated A/P-Cardiology Assessment/Plan ` Clinical Quality Measures AMI/AHF: ASA po Prior to arrival: Yes (324MG) DVT/VTE Risk/Contraindication: Risk Factor Score Per Nursin RFS Level Per Nursing on Admit: 2=Moderate ADAM LAUGHLIN MD Aug 21, 2018 08:36
[2018-08-21] MEDS ORDERED: LOSARTAN 100 MG (COZAAR) TABLET PO SCH (09:00)
[2018-08-21] MEDS ORDERED: cloNIDine 0.2 MG (CATAPRES) TAB PO SCH (09:00)
[2018-08-21] MEDS ORDERED: ASPIRIN E.C. 81 MG (ECOTRIN) TAB PO SCH ×2 (09:00→21:00)
[2018-08-21] MEDS ORDERED: PATIENT MAY USE OWN MEDS, ALL MC SCH (09:15)
[2018-08-21] MEDS: LIDOCAINE 4% (SALONPAS) PATCH TOP SCH (09:59)
[2018-08-21] MEDS: DILTIAZEM 240 MG (CARDIZEM CD) CAP PO SCH ×2 (09:59→10:57)
[2018-08-21] MEDS: LOSARTAN 100 MG (COZAAR) TABLET PO SCH (10:00)
[2018-08-21] MEDS: cloNIDine 0.2 MG (CATAPRES) TAB PO SCH ×2 (10:00→20:03)
[2018-08-21] MEDS: ASPIRIN E.C. 81 MG (ECOTRIN) TAB PO SCH (10:00)
--- NOTE | 2018-08-21 10:03 | Diagnostic Imaging Report ---
PROCEDURE: US Gallbladder. TECHNIQUE: Multiple real-time grayscale images were obtained over the right upper quadrant in various projections. INDICATION: Chest pain. There are no prior studies available for comparison. There is no evidence for cholelithiasis or acute cholecystitis and the common bile duct is not dilated. The liver is prominent measuring approximately 19-20 cm. There is no focal mass involving liver and the bili tree is not abnormally dilated. Right kidney is generally unremarkable. The pancreas and proximal aorta were obscured by bowel gas. Impression: 1. There is no evidence for cholelithiasis or acute cholecystitis. 2. If clinical concern regarding an underlying abnormality of the gallbladder persists and further imaging is desired, then a nuclear medicine hepatobiliary scan would be recommended for additional study. Dictated by: Dictated on workstation # [id number]
[2018-08-21] MEDS ORDERED: CALC-901 PO (10:14)
[2018-08-21] MEDS ORDERED: LOSA100T57 PO (10:14)
[2018-08-21] MEDS ORDERED: ACET-168 PO (10:14)
[2018-08-21] MEDS ORDERED: MULT-1029 PO (10:14)
--- NOTE | 2018-08-21 10:22 | NUR ---
PATIENT HAD HER MEDICATIONS WITH HER WITH THE EXCEPTION OF HER POTASSIUM. SHE VERIFIED HOW SHE TAKES EACH MEDICATION.
--- NOTE | 2018-08-21 11:44 | Consultation-Cardiology ---
HPI-Cardiology Cardiology Consultation Date of Consultation 08/21/18 Date of Admission Time Seen by Provider: 11:40 Indication: chest pain HPI 83 years old lady with history of coronary artery disease, hypertension hyperlipidemia, has been having recurrent episodes of chest pain described it as dull in nature on the left side of her chest, feeling more like a pressure around her left breast. No palpitation. No syncope or near syncopal episodes. No claudications. Currently feeling better after having lidocaine patch Home Medications & Allergies Allergies: Coded Allergies: Sulfa (Sulfonamide Antibiotics) (Verified Allergy, Intermediate, RASH, 06/28/17) Penicillins (Verified Allergy, Mild, ITCHING, 06/28/17) Home Medication List Reviewed: Yes XRC-Ialhio-Nqlmoy Hx Patient Social History Marital Status: Employed/Student: retired Alcohol Use: Denies Use Recreational Drug Use: No Smoking Status: Former Smoker Type Used: Cigarettes Recent Foreign Travel: No Recent Infectious Disease Expo: No Recent Hopitalizations: No Immunizations Up To Date Tetanus Booster (TDap): Unknown Date of Pneumonia Vaccine: May 06, 2012 Date of Influenza Vaccine: May 23, 2018 Past Medical History past medical history as described below Family Medical History Family History: Alzheimer's disease 19 MOTHER Cardiovascular disease G8 SISTER FH: breast cancer 19 MOTHER Respiratory disorder 19 FATHER (tb) Review of Systems Constitutional: see HPI, weakness EENTM: see HPI, no symptoms reported Respiratory: see HPI; No cough; dyspnea on exertion; No hemoptysis, No orthopnea, No phlegm, No short of breath, No stridor, No wheezing, No other Cardiovascular: see HPI, chest pain; No edema, No Hx of Intervention, No palpitations, No syncope, No vascular heart diseas, No other Gastrointestinal: RUQ, see HPI Genitourinary: no symptoms reported, see HPI Musculoskeletal: see HPI, back pain, joint pain Skin: no symptoms reported, see HPI, other (bruising) Psychiatric/Neurological: No Symptoms Reported, See HPI Reviewed Test Results Reviewed Test Results Lab Laboratory Tests Test 08/21/18 03:47 08/21/18 07:45 Range/Units White Blood Count 11.4 H 4.3-11.0 10^3/uL Red Blood Count 4.18 L 4.35-5.85 10^6/uL Hemoglobin 12.5 11.5-16.0 G/DL Hematocrit 40 35-52 % Mean Corpuscular Volume 95 80-99 FL Mean Corpuscular Hemoglobin 30 25-34 PG Mean Corpuscular Hemoglobin Concent 32 32-36 G/DL Red Cell Distribution Width 14.9 H 10.0-14.5 % Platelet Count 246 130-400 10^3/uL Mean Platelet Volume 10.3 7.4-10.4 FL Neutrophils (%) (Auto) 67 42-75 % Lymphocytes (%) (Auto) 21 12-44 % Monocytes (%) (Auto) 10 0-12 % Eosinophils (%) (Auto) 2 0-10 % Basophils (%) (Auto) 1 0-10 % Neutrophils # (Auto) 7.7 1.8-7.8 X 10^3 Lymphocytes # (Auto) 2.4 1.0-4.0 X 10^3 Monocytes # (Auto) 1.1 H 0.0-1.0 X 10^3 Eosinophils # (Auto) 0.2 0.0-0.3 10^3/uL Basophils # (Auto) 0.1 0.0-0.1 10^3/uL Prothrombin Time 13.2 12.2-14.7 SEC INR Comment 1.0 0.8-1.4 Activated Partial Thromboplast Time 28 24-35 SEC Sodium Level 143 135-145 MMOL/L Potassium Level 3.8 3.6-5.0 MMOL/L Chloride Level 105 98-107 MMOL/L Carbon Dioxide Level 23 21-32 MMOL/L Anion Gap 15 H 5-14 MMOL/L Blood Urea Nitrogen 19 H 7-18 MG/DL Creatinine 1.04 0.60-1.30 MG/DL Estimat Glomerular Filtration Rate 50 BUN/Creatinine Ratio 18 Glucose Level 116 H 70-105 MG/DL Calcium Level 10.1 8.5-10.1 MG/DL Corrected Calcium 9.8 8.5-10.1 MG/DL Magnesium Level 2.2 1.8-2.4 MG/DL Total Bilirubin 0.8 0.1-1.0 MG/DL Aspartate Amino Transf (AST/SGOT) 25 5-34 U/L Alanine Aminotransferase (ALT/SGPT) 16 0-55 U/L Alkaline Phosphatase 79 40-136 U/L Total Creatine Kinase 46 29-168 U/L Creatine Kinase MB 0.7 <6.6 NG/ML Myoglobin 40.9 50.6 10.0-92.0 NG/ML Troponin I < 0.028 < 0.028 <0.028 NG/ML B-Type Natriuretic Peptide 289.0 H <100.0 PG/ML Total Protein 7.7 6.4-8.2 GM/DL Albumin 4.4 3.2-4.5 GM/DL Amylase Level 69 25-125 U/L Lipase 31 8-78 U/L Physical Exam Vital Signs Vital Signs - First Documented Capillary Refill : Less Than 3 Seconds Height, Weight, BMI Height: 5'8.00" Weight: 135lbs. 0.0oz. 61.133701az; 20.5 BMI Method:Stated General Appearance: No Apparent Distress, WD/WN Eyes: Bilateral Eye Normal Inspection, Bilateral Eye PERRL, Bilateral Eye EOMI HEENT: PERRL/EOMI, TMs Normal, Normal ENT Inspection, Pharynx Normal Neck: Full Range of Motion, Normal Inspection, Non Tender, Supple, Carotid Bruit Respiratory: Chest Non Tender, Lungs Clear, Normal Breath Sounds, No Accessory Muscle Use, No Respiratory Distress Cardiovascular: No Edema, No Gallop, No JVD, No Murmur, Normal Peripheral Pulses, Systolic Murmur, Gallop/S3, Other (irregular) Gastrointestinal: Normal Bowel Sounds, No Organomegaly, No Pulsatile Mass, Soft , Other (right upper quadrant tenderness) Back: Normal Inspection, No CVA Tenderness, No Vertebral Tenderness Extremity: Normal Capillary Refill, Normal Inspection, Normal Range of Motion, Non Tender, No Calf Tenderness, No Pedal Edema Neurologic/Psychiatric: Alert, Oriented x3, No Motor/Sensory Deficits, Normal Mood/Affect Skin: Normal Color, Warm/Dry Lymphatic: No Adenopathy A/P-Cardiology Admission Diagnosis Chest pain Coronary artery disease Chronic atrial fibrillation Peripheral arterial disease Assessment/Plan Chest pain nonspecific etiology, atypical in presentation. Currently feeling better after having nitroglycerin and lidocaine patch. Cardiac enzymes were negative, planning to evaluate Lexiscan stress test in the morning Coronary artery disease-cardiac catheterization done March 07, 2016 revealed heavily calcified coronary system with mild to moderate disease involving the mid LAD and mid diagonal artery, up to 50 percent stenosis. Circumflex artery had 50 percent stenosis at the midportion. First obtuse marginal branch had 50 percent stenosis. RCA is large dominant artery of 40 percent stenosis proximal and midportion. Torturous artery, stress test was done in February 2016 showing mild ischemia involving the mid to apical anterior septum, inferoseptum and anteroapical segment, I am planning to repeat stress test Chronic atrial fibrillation-intolerance to oral anticoagulation secondary to history of hemorrhagic stroke. Patient maintained on diltiazem. Rate controlled, continue to monitor. Hypertension, on multiple blood pressure medications. Renal arterial duplex done July 2017 revealed no evidence of renal artery stenosis. Home recording showing good control, continue to monitor blood pressure no changes are recommended Hyperlipidemia, monitor lipids PAD with history of total occlusion of the right SFA. Patient underwent peripheral angiogram done March 07, 2016 demonstrating diffuse atherosclerotic disease in the abdominal aorta. The right lower extremity showed mild to moderate disease, nonobstructive disease. Left lower extremity showed 70 percent stenosis at the mid SFA, calcified artery, with good flow down to the trifurcation. She continues to deny claudication pain, rest pain, ulceration, or gangrene at this time. ANABELLE was done in April 2017 and it was mildly abnormal. and tinea to monitor as an outpatient Carotid stenosis, status post left carotid endarterectomy done in April 2017. Monitored by Dr. Phillips Status post knee replacement surgery, still having pain in her knee, scheduled to see Dr. Lucas History of CVA, intracranial bleed Clinical Quality Measures AMI/AHF: ASA po Prior to arrival: Yes (324MG) DVT/VTE Risk/Contraindication: Risk Factor Score Per Nursin RFS Level Per Nursing on Admit: 2=Moderate ADAM LAUGHLIN MD Aug 21, 2018 11:44
[2018-08-21] MEDS ORDERED: REGADENOSON 0.4 MG/5 ML SYR (LEXISCAN) IV ONE (11:45)
[2018-08-21] MEDS ORDERED: KCL 10 MEQ TAB (MICRO K) PO SCH (13:45)
[2018-08-21] MEDS: CATHETER FLUSH 10 ML SYR IV SCH ×2 (15:40→21:50)
[2018-08-21] MEDS: KCL 10 MEQ TAB (MICRO K) PO SCH (18:27)
[2018-08-21] MEDS: METOPROLOL TART 100 MG TAB PO SCH (20:04)
[2018-08-21] MEDS: OXYBUTYNIN (DITROPAN) 5 MG TAB PO SCH (20:07)
[2018-08-21] MEDS: ACETAMINOPHEN 500 MG TAB (TYLENOL) PO SCH (20:08)
[2018-08-21] MEDS ORDERED: NON-FORMULARY MEDICATION 1 EA EA (Oxybutynin Chloride 5 MG) PO SCH (21:00)
[2018-08-21] MEDS ORDERED: PATCH REMOVAL TP SCH (21:00)
[2018-08-21] MEDS ORDERED: NON-FORMULARY MEDICATION 1 EA EA (Acetaminophen (Acetaminophen Extra Strength) 1,000 MG) PO SCH (21:00)
[2018-08-21] MEDS ORDERED: ATORVASTATIN 10 MG (LIPITOR) TABLET PO SCH (21:00)
[2018-08-21] MEDS ORDERED: NON-FORMULARY MEDICATION 1 EA EA (Metoprolol Tartrate 100 MG) PO SCH (21:00)
[2018-08-22] VITALS: BP 122/66
[2018-08-22 04:03] LABS: BASOPHILS % (AUTO) 1 % (0-10); EOSINOPHILS # (AUTO) 0.2 10^3/uL (0.0-0.3); EOSINOPHILS % (AUTO) 2 % (0-10); HEMATOCRIT 34 % (35-52); LYMPHOCYTES # (AUTO) 1.6 X 10^3 (1.0-4.0); LYMPHOCYTES % (AUTO) 21 % (12-44); MEAN CORPUSCULAR HEMOGLOBIN 30 PG (25-34); MEAN CORPUSCULAR HGB CONC 32 G/DL (32-36); MEAN CORPUSCULAR VOLUME 94 FL (80-99); MEAN PLATELET VOLUME 10.1 FL (7.4-10.4); MONOCYTES % (AUTO) 13 % (0-12); NEUTROPHILS # (AUTO) 4.9 X 10^3 (1.8-7.8); NEUTROPHILS % (AUTO) 64 % (42-75); PLATELET COUNT 210 10^3/uL (130-400); RED CELL DISTRIBUTION WIDTH 15.3 % (10.0-14.5); WHITE BLOOD COUNT 7.7 10^3/uL (4.3-11.0)
[2018-08-22 04:09] VITALS: BP 186/88
[2018-08-22 04:30] LABS: ALBUMIN 3.5 GM/DL (3.2-4.5); BILIRUBIN,TOTAL 0.7 MG/DL (0.1-1.0); CALCIUM 9.4 MG/DL (8.5-10.1); CREATININE SERUM 1.05 MG/DL (0.60-1.30); POTASSIUM 3.9 MMOL/L (3.6-5.0); TOTAL PROTEIN 6.1 GM/DL (6.4-8.2)
[2018-08-22 04:31] LABS: CHOLESTEROL 132 MG/DL (< 200); HDL CHOLESTEROL 53 MG/DL (40-60); TRIGLYCERIDES 60 MG/DL (<150); VLDL CHOLESTEROL 12 MG/DL (5-40)
[2018-08-22] MEDS: CATHETER FLUSH 10 ML SYR IV SCH (06:19)
[2018-08-22] MEDS: KCL 10 MEQ TAB (MICRO K) PO SCH (06:19)
[2018-08-22] MEDS ORDERED: DILTIAZEM 240 MG (CARDIZEM CD) CAP PO SCH (09:00)
[2018-08-22] MEDS ORDERED: FUROSEMIDE 40 MG (LASIX) TAB PO SCH (09:00)
[2018-08-22] MEDS ORDERED: REGADENOSON 0.4 MG/5 ML SYR (LEXISCAN) IV ONE ×2 (09:01→09:15)
--- NOTE | 2018-08-22 09:55 | Cardiology Progress Note ---
Subjective Date Seen by Provider: Aug 22, 2018 Time Seen by Provider: 09:53 Subjective/Events-last exam Patient down in heart center for stress test. Complaining of back and neck pain , denies any chest pain. Objective-Cardiology Exam Last Set of Vital Signs Vital Signs 08/21/18 08/21/18 08/21/18 08/22/18 08/22/18 07:13 18:00 21:00 04:00 04:09 Temp 98.2 Pulse 77 Resp 22 B/P (MAP) 186/88 (120) Pulse Ox 95 O2 Delivery Room Air O2 Flow Rate 2.00 Capillary Refill : Less Than 3 Seconds I&O Intake and Output 08/22/18 00:00 Intake Total 700 ml Balance 700 ml Intake Oral 700 ml # Voids 5 Daily Weight Change No General: Alert, Oriented X3, Cooperative HEENT: Atraumatic, PERRLA Lungs: Clear to Auscultation Heart: Regular Rate, Normal S1, Normal S2 Abdomen: Soft, No Tenderness Extremities: No Clubbing, No Cyanosis Skin: No Rashes, No Significant Lesion Neuro: Normal Gait, Normal Speech, Cranial Nerves 3-12 NL Psych/Mental Status: Mental Status NL, Mood NL Results Lab Laboratory Tests 08/22/18 03:35 A/P-Cardiology Admission Diagnosis Chest pain Coronary artery disease Chronic atrial fibrillation Peripheral arterial disease Assessment/Plan Chest pain nonspecific etiology, atypical in presentation. Currently feeling better after having nitroglycerin and lidocaine patch. Cardiac enzymes were negative, underwent Lexiscan stress test this morning, results pending. Coronary artery disease-cardiac catheterization done March 07, 2016 revealed heavily calcified coronary system with mild to moderate disease involving the mid LAD and mid diagonal artery, up to 50 percent stenosis. Circumflex artery had 50 percent stenosis at the midportion. First obtuse marginal branch had 50 percent stenosis. RCA is large dominant artery of 40 percent stenosis proximal and midportion. Torturous artery, stress test was done in February 2016 showing mild ischemia involving the mid to apical anterior septum, inferoseptum and anteroapical segment, I am planning to repeat stress test Chronic atrial fibrillation-intolerance to oral anticoagulation secondary to history of hemorrhagic stroke. Patient maintained on diltiazem. Rate controlled, continue to monitor. Hypertension, on multiple blood pressure medications. Renal arterial duplex done July 2017 revealed no evidence of renal artery stenosis. Home recording showing good control, continue to monitor blood pressure no changes are recommended Hyperlipidemia, monitor lipids PAD with history of total occlusion of the right SFA. Patient underwent peripheral angiogram done March 07, 2016 demonstrating diffuse atherosclerotic disease in the abdominal aorta. The right lower extremity showed mild to moderate disease, nonobstructive disease. Left lower extremity showed 70 percent stenosis at the mid SFA, calcified artery, with good flow down to the trifurcation. She continues to deny claudication pain, rest pain, ulceration, or gangrene at this time. ANABELLE was done in April 2017 and it was mildly abnormal. and tinea to monitor as an outpatient Carotid stenosis, status post left carotid endarterectomy done in April 2017. Monitored by Dr. Phillips Status post knee replacement surgery, still having pain in her knee, scheduled to see Dr. Lucas History of CVA, intracranial bleed Clinical Quality Measures AMI/AHF: ASA po Prior to arrival: Yes (324MG) DVT/VTE Risk/Contraindication: Risk Factor Score Per Nursin RFS Level Per Nursing on Admit: 2=Moderate CROW KOHLI Aug 22, 2018 09:55
[2018-08-22] MEDS ORDERED: IBUPROFEN 600 MG (MOTRIN) TAB PO PRN (10:15)
[2018-08-22] MEDS: LOSARTAN 100 MG (COZAAR) TABLET PO SCH (10:16)
[2018-08-22] MEDS: cloNIDine 0.2 MG (CATAPRES) TAB PO SCH (10:16)
[2018-08-22] MEDS: METOPROLOL TART 100 MG TAB PO SCH (10:16)
[2018-08-22] MEDS: ASPIRIN E.C. 81 MG (ECOTRIN) TAB PO SCH (10:17)
[2018-08-22] MEDS: OXYBUTYNIN (DITROPAN) 5 MG TAB PO SCH (10:17)
[2018-08-22] MEDS: ACETAMINOPHEN 500 MG TAB (TYLENOL) PO SCH (10:25)
[2018-08-22] MEDS: LIDOCAINE 4% (SALONPAS) PATCH TOP SCH (10:53)
--- NOTE | 2018-08-22 11:46 | Cardiology Progress Note ---
Subjective Date Seen by Provider: Aug 22, 2018 Time Seen by Provider: 11:45 Subjective/Events-last exam patient is feeling better, still having mild discomfort. Review of Systems General: No Chills, No Night Sweats, No Fatigue, No Malaise, No Appetite, No Other HEENT: No Head Aches, No Visual Changes, No Eye Pain, No Ear Pain, No Dysphasia , No Sinus Congestion, No Post Nasal Drip, No Sore Throat, No Other Pulmonary: Dyspnea; No Cough, No Pleuritic Chest Pain, No Other Cardiovascular: Chest Pain; No: Palpitations, Orthopnea, Paroxysmal Noc. Dyspnea, Edema, Lt Headedness, Other Objective-Cardiology Exam Last Set of Vital Signs Vital Signs 08/21/18 08/21/18 08/22/18 08/22/18 08/22/18 08/22/18 07:13 18:00 04:00 04:09 07:00 10:00 Temp 98.2 Pulse 88 Resp 22 B/P (MAP) 186/88 (120) Pulse Ox 95 O2 Delivery Room Air O2 Flow Rate 2.00 Capillary Refill : Less Than 3 Seconds I&O Intake and Output 08/22/18 00:00 Intake Total 700 ml Balance 700 ml Intake Oral 700 ml # Voids 5 Daily Weight Change No General: Alert, Oriented X3, Cooperative HEENT: Atraumatic, PERRLA Neck: Supple, No JVD Lungs: Clear to Auscultation Heart: Regular Rate, Normal S1, Normal S2 Abdomen: Soft, No Tenderness Extremities: No Clubbing, No Cyanosis Skin: No Rashes, No Significant Lesion Neuro: Normal Gait, Normal Speech, Cranial Nerves 3-12 NL Psych/Mental Status: Mental Status NL, Mood NL Results Lab Laboratory Tests 08/22/18 03:35 A/P-Cardiology Admission Diagnosis Chest pain Coronary artery disease Chronic atrial fibrillation Peripheral arterial disease Assessment/Plan Chest pain nonspecific etiology, atypical in presentation. Currently feeling better, stress test showed no significant ischemia or infarction, FOR discharge from cardiology standpoint Coronary artery disease-cardiac catheterization done March 07, 2016 revealed heavily calcified coronary system with mild to moderate disease involving the mid LAD and mid diagonal artery, up to 50 percent stenosis. Circumflex artery had 50 percent stenosis at the midportion. First obtuse marginal branch had 50 percent stenosis. RCA is large dominant artery of 40 percent stenosis proximal and midportion. Torturous artery, stress test was done in February 2016 showing mild ischemia involving the mid to apical anterior septum, inferoseptum and anteroapical segment, February at the anterior septum and inferoseptum, stress test again showed the same area of mild ischemic changes. Still considered nondiagnostic changes. Okay for discharge from cardiology standpoint Chronic atrial fibrillation-intolerance to oral anticoagulation secondary to history of hemorrhagic stroke. Patient maintained on diltiazem. Rate controlled, continue to monitor. Hypertension, on multiple blood pressure medications. Renal arterial duplex done July 2017 revealed no evidence of renal artery stenosis. Home recording showing good control, continue to monitor blood pressure no changes are recommended Hyperlipidemia, monitor lipids PAD with history of total occlusion of the right SFA. Patient underwent peripheral angiogram done March 07, 2016 demonstrating diffuse atherosclerotic disease in the abdominal aorta. The right lower extremity showed mild to moderate disease, nonobstructive disease. Left lower extremity showed 70 percent stenosis at the mid SFA, calcified artery, with good flow down to the trifurcation. She continues to deny claudication pain, rest pain, ulceration, or gangrene at this time. ANABELLE was done in April 2017 and it was mildly abnormal. continue to monitor as an outpatient Carotid stenosis, status post left carotid endarterectomy done in April 2017. Monitored by Dr. Phillips Status post knee replacement surgery, still having pain in her knee, scheduled to see Dr. Lucas History of CVA, intracranial bleed Clinical Quality Measures AMI/AHF: ASA po Prior to arrival: Yes (324MG) DVT/VTE Risk/Contraindication: Risk Factor Score Per Nursin RFS Level Per Nursing on Admit: 2=Moderate ADAM LAUGHLIN MD Aug 22, 2018 11:46
[2018-08-22 12:30] VITALS: BP 117/73
[2018-08-22] MEDS ORDERED: NAPR-915 PO (12:54)
--- NOTE | 2018-08-22 12:57 | Progress Note-Hospitalist ---
Subjective HPI/CC On Admission Date Seen by Provider: Aug 22, 2018 Time Seen by Provider: 12:56 Pt is an 83yoCF with a PMH of CAD, PAD, Carotid stenosis, CHF, and HTN who presented to the ER due to acute onset chest pain. She states her pain starting suddenly out of nowhere at 10pm last night. She describes it as "sharp" and just "grabs her." She thought it was from indigestion so tried to walk around but that did not help nor did it make it worse. She denies any SOB, cough, nausea, radiation of pain. She denies any history of previous symptoms. She follows with Dr Marie who she just saw roughly 1 month ago and had an echo done at that time. Her troponin was negative on arrival she was admitted for ACS rule out. Objective Exam Vital Signs Vital Signs Date Time Temp Pulse Resp B/P (MAP) Pulse Ox O2 Delivery O2 Flow Rate FiO2 08/22/18 12:30 66 18 117/73 Room Air 08/22/18 10:00 95 08/22/18 04:00 98.2 08/21/18 18:00 2.00 Capillary Refill : Less Than 3 Seconds General Appearance: No Apparent Distress, WD/WN Respiratory: Lungs Clear, No Respiratory Distress Cardiovascular: Regular Rate, Rhythm, No Murmur Results/Procedures Lab Laboratory Tests 08/22/18 03:35 Patient resulted labs reviewed. Imaging: Reviewed Imaging Report Assessment/Plan Assessment and Plan Assess & Plan/Chief Complaint Atypical Chest Pain Reproducible, unlikely to be cardiac in nature Cardiology consulted, appreciate recs Last Cath was 2015 with no intervention Echo 2 weeks ago revealed EF 55% Stress test today negative DC home Clinical Quality Measures AMI/AHF: ASA po Prior to arrival: Yes (324MG) DVT/VTE Risk/Contraindication: Risk Factor Score Per Nursin RFS Level Per Nursing on Admit: 2=Moderate EDILBERTO TABOR MD Aug 22, 2018 12:57
--- NOTE | 2018-08-22 14:32 | STRESS TEST ---
DATE OF SERVICE: 08/22/2018 LEXISCAN MYOVIEW STRESS TEST REPORT REFERRING PHYSICIAN: Dr. Carter. Baseline heart rate is 92, baseline blood pressure 195/108, baseline EKG is atrial fibrillation with left bundle branch block. In summary, the patient was injected with 10.92 mCi of technetium-99 Myoview and the resting images were obtained. Then, the patient received 0.4 mg of Lexiscan, followed by 28.5 mCi of technetium-99 Myoview. Throughout the test, there were no EKG changes. The resting and stress images were reviewed and compared in the short axis, horizontal long axis, and vertical long axis views. Review of the images showed decreased uptake at the mid to apical anteroseptum and inferoseptum due to the underlying left bundle branch block and borderline tachycardia. SSS is 3, SDS 3, TID value 1.09. On the gated images, the left ventricle appeared to be normal size, normal contractility. Calculated ejection fraction 69%, gated images are unreliable due to underlying atrial fibrillation. CONCLUSION: 1. The patient tolerated Lexiscan well. 2. Baseline atrial fibrillation with left bundle branch block. 3. No significant ischemia or infarction on SPECT images with extracardiac attenuation due to the underlying bundle branch block. 4. Normal left ventricular size with normal contractility. Calculated ejection fraction 69%, gated images are unreliable due to underlying atrial fibrillation. Job ID: [id number] DocumentID: [id number] Dictated Date: 08/22/2018 14:22:44 Mac Artist Date: 08/22/2018 14:31:48 Dictated By: ADAM LAUGHLIN MD
[2018-08-25] MEDS ORDERED: KCL 10 MEQ TAB (MICRO K) PO SCH ×2 (07:00)
== END 2018-08-22 12:55 | disposition home or self-care (01) ==
LOC: EDUNIT# 03:40 → ER 03:41 → UNDOADMOB 05:25 → ICU 05:25 → UNDODISOB 08-22 12:30
PROVIDERS: ADMIT Internal Medicine; ATTEND Internal Medicine
DX: R07.89 Other chest pain (principal); I48.2 Chronic atrial fibrillation; I25.10 Atherosclerotic heart disease of native coronary artery without angina pectoris; I10 Essential (primary) hypertension; I70.203 Unspecified atherosclerosis of native arteries of extremities, bilateral legs; I70.0 Atherosclerosis of aorta; E78.5 Hyperlipidemia, unspecified; K59.09 Other constipation; F41.9 Anxiety disorder, unspecified; F32.9 Major depressive disorder, single episode, unspecified; Z86.73 Personal history of transient ischemic attack (TIA), and cerebral infarction without residual deficits; Z79.82 Long term (current) use of aspirin; Z79.899 Other long term (current) drug therapy; Z96.651 Presence of right artificial knee joint
CPT/HCPCS: 36415; 71045; 76705; 78452; 80053; 80061; 82150; 82550; 82553; 83690; 83735; 83874; 83880; 84484; 85025; 85610; 85730; 93005; 93017; 93041

== ENCOUNTER 2018-12-16 11:59 | Inpatient (IN) | payer MEDICARE ==
[~2018-12-16] VITALS: Ht 172.7 cm; Wt 61.4 kg
[~2018-12-16 11:59] MED LIST changes: +ACET-168 PO; +CALC-901 PO; +MULT-1029 PO; +NAPR-915 PO
--- OUTSIDE RECORDS SUMMARY | 2018-12-16 12:03 | XMS REPORT | Clinical Summary ---
Author Author [facility] Organization [facility] Address Unknown Phone Unavailable Care Team Providers Care Pulverizer Operator Name Role Phone Josiah Collado MD Unavailable Brittnee Marie MD PCP Source Comments Some departments are not documenting in the electronic medical record. If you d o not see the information that you expected, contact Release of Information in [facility] [employer] Information Management department at [phone] for further assistan ce in locating additional records.[facility] Allergies Comments Active Allergy Reactions Severity [...] Taken Vital Sign Reading 07/11/2011 12:02 PM MANAGER HI Blood Pressure 137/78 07/11/2011 12:02 PM MANAGER HI Pulse 83 07/11/2011 12:02 PM MANAGER HI Temperature 36.8 C (98.2 F) - Respiratory Rate - 07/11/2011 12:02 PM MANAGER HI Oxygen Saturation 95% - Inhaled Oxygen - Concentration 07/11/2011 6:31 AM MANAGER HI Weight 75.3 kg (166 lb) 07/11/2011 1:00 PM MANAGER HI Height 170.2 cm (5' 7.01") 07/11/2011 6:31 AM MANAGER HI Body Mass Index 25.99 Plan of Treatment Health Maintenance Due Date Last Done Comments PHYSICAL (COMPREHENSIVE) 1940 EXAM DTAP/TDAP VACCINES (1 - 1951 Tdap) SHINGLES RECOMBINANT 1983 VACCINE (1 of 2) OSTEOPOROSIS 1998 SCREENING/MONITORING PNEUMONIA (PCV13/PPSV23) 1998 VACCINES (1 of 2 - PCV13) INFLUENZA VACCINE 04/23/2019 Results Not on filefrom Last 3 Months Advance Directives For more information, please contact: [facility] [address] [place] [address] Date Inactivated Comments Code Status Date Activated 07/11/2011 4:41 PM Full Code 06/23/2011 4:32 PM Provider has discussed Code Status No, more discussion w/Patient or Family? needed
--- OUTSIDE RECORDS SUMMARY | 2018-12-16 12:06 | XMS REPORT | Continuity of Care Document ---
Author Organization Unknown Address Unknown Allergies Active Description Code Type Severity Reaction Onset Reported/Identified Relationship to Patient Clinical Status Yes penicillin G [id number] Drug Allergy Unknown N/A 11/20/2008 Yes Sulfa (Sulfonamide Antibiotics) [id number] Drug Allergy Unknown N/A 11/20/2008 Yes Sulfa (Sulfonamide Antibiotics) [id number] Drug Allergy Moderate RASH 06/28/2017 Yes Penicillins [id number] Drug Allergy Mild ITCHING 06/28/2017 Medications There [...] ST 07/27/2011 Ot 414.01 CORONARY ATHEROSCLEROSIS OF [place] CORON 07/27/2011 Ot 427.31 ATRIAL FIBRILLATION 07/27/2011 Ot 433.10 CAROTID ARTERY OCCLUSION W O CEREBRAL IN 07/27/2011 Ot 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, DYSPHAGIA 07/27/2011 Ot 438.84 ATAXIA 07/27/2011 Ot 443.9 PERIPH VASCULAR DIS NOS 07/27/2011 Ot 530.11 REFLUX ESOPHAGITIS 07/27/2011 Ot 585.9 CHRONIC KIDNEY DISEASE, UNSPECIFIED 07/27/2011 Ot 599.0 URIN TRACT INFECTION NOS 07/27/2011 Ot 724.00 SPINAL STENOSIS NOS 07/27/2011 Ot 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 07/27/2011 Ot 787.91 DIARRHEA 07/27/2011 Ot 788.20 RETENTION OF URINE NOS 07/27/2011 Ot 792.1 ABN FIND-STOOL CONTENTS 07/27/2011 Ot V44.1 GASTROSTOMY STATUS 07/27/2011 Ot V57.1 PHYSICAL THERAPY NEC 07/27/2011 Ot V57.21 ENCOUNTER FOR OCCUPATIONAL THERAPY 07/27/2011 Ot V57.3 CARE INVOLVING SPEECH-LANGUAGE THERAPY 06/07/2012 Ot 272.4 HYPERLIPIDEMIA NEC/NOS 06/07/2012 Ot 401.9 HYPERTENSION NOS 06/07/2012 Ot 414.01 CORONARY ATHEROSCLEROSIS OF [place] CORON 06/07/2012 Ot 427.31 ATRIAL FIBRILLATION 06/07/2012 Ot 440.20 ATHEROSCLEROSIS [place] ARTERIES EXTREMIT 06/07/2012 Ot 786.59 CHEST PAIN NEC 06/07/2012 Ot 794.30 ABN CARDIOVASC STUDY NOS 06/07/2012 Ot V12.54 PERSONAL HX OF TIA, CEREBRAL INFARCTION 06/07/2012 Ot V58.61 ANTICOAGULANTS,LT,CURRENT USE 06/07/2012 Ot V58.66 LONG-TERM (CURRENT) USE OF ASPIRIN 06/07/2012 Ot V58.69 OTH MED,LT,CURRENT USE 06/27/2014 Ot 401.9 06/27/2014 Ot 427.31 [...] 06/27/2014 Ot 793.82 06/27/2014 Ot V76.12 06/27/2014 TRUMAN MERCADO, ADAM Talbot Ot 272.4 06/27/2014 TRUMAN MERCADO, ADAM Talbot Ot 397.0 06/27/2014 TRUMAN MERCADO, ADAM Talbot Ot 401.9 06/27/2014 TRUMAN MERCADO, ADAM Talbot Ot 414.00 06/27/2014 TRUMAN MERCADO, ADAM Talbot Ot 424.0 06/27/2014 TRUMAN MERCADO, ADAM Talbot Ot 427.31 06/27/2014 ADAM LAUGHLIN MD Ot 745.5 06/27/2014 CROW LUNDBERG Ot 300.00 06/27/2014 CROW LUNDBERG Ot 401.9 06/27/2014 CROW LUNDBERG Ot 414.00 06/27/2014 CROW LUNDBERG Ot 427.31 06/27/2014 CROW LUNDBERG Ot 745.5 07/29/2014 PAULINE MERCADO, SARAH Griffith Ot 719.06 07/29/2014 SARAH CARPENTER MD Ot 719.46 02/22/2016 Ot 715.95 OSTEOARTHROS NOS-PELVIS 02/22/2016 Ot 722.52 LUMB/LUMBOSAC DISC DEGEN 02/22/2016 Ot 724.02 SPINAL STENOSIS, [...] INCONCLUSIVE MAMMOGRAM 02/22/2016 Ot V76.12 OTH SCREEN MAMMO- MALIGN NEOPLASM OF [place] 02/22/2016 ADAM LAUGHLIN MD [...] CROW LUNDBERG Ot 427.31 ATRIAL FIBRILLATION 02/22/2016 ZAMUDIO-LACEY PA, CROW K Ot 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 02/22/2016 PAULINE MERCADO, SARAH Griffith Ot 719.06 JOINT EFFUSION-L/LEG 02/22/2016 PAULINE MERCADO, SARAH Griffith Ot 719.46 JOINT PAIN-L/LEG 02/22/2016 ZAMUDIOPriyaLACEY RUSSELL, CROW K Ot I73.9 PERIPHERAL VASCULAR DISEASE, UNSPECIFIED 02/23/2016 KAMILLA PA, CROW K Ot E78.2 MIXED HYPERLIPIDEMIA 02/23/2016 ZAMUDIO-LACEY PA, CROW K Ot I25.10 ATHSCL HEART DISEASE OF [place] CORONARY 02/23/2016 KAMILLA RUSSELL, CROW K Ot I48.1 PERSISTENT ATRIAL FIBRILLATION 02/23/2016 KAMILLA PA, CROW K Ot 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 02/23/2016 LIZZ-LACEY RUSSELL, CROW K Ot I73.9 PERIPHERAL VASCULAR DISEASE, UNSPECIFIED 02/24/2016 KAMILLA RUSSELL, CROW K Ot I48.1 PERSISTENT ATRIAL FIBRILLATION 02/24/2016 KAMILLA PA, CROW K Ot I48.1 PERSISTENT ATRIAL FIBRILLATION 02/24/2016 ZAMUDIO-LACEY PA, CROW K Ot I48.1 PERSISTENT ATRIAL FIBRILLATION 02/24/2016 ZAMUDIO-LACEY PA, CROW K Ot 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 02/25/2016 ZAMUDIO-LACEY PA, CROW K Ot E78.2 MIXED HYPERLIPIDEMIA 02/25/2016 LIZZ-LACEY RUSSELL, CROW K Ot I25.10 ATHSCL HEART DISEASE OF [place] CORONARY 02/25/2016 ZAMUDIO-LACEY PA, CROW K Ot I48.1 PERSISTENT ATRIAL FIBRILLATION 02/25/2016 LIZZ-LACEY PA, CROW K Ot 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 02/25/2016 LIZZ-LACEY PA, CROW K Ot I73.9 PERIPHERAL VASCULAR DISEASE, UNSPECIFIED 02/25/2016 KAMILLA PA, CROW K Ot E78.2 MIXED HYPERLIPIDEMIA 02/25/2016 KAMILLA RUSSELL, CROW K Ot I25.10 ATHSCL HEART DISEASE OF [place] CORONARY 02/25/2016 CROW LUNDBERG Ot I48.1 PERSISTENT ATRIAL FIBRILLATION 02/25/2016 KAMILLA RUSSELL CROW K Ot 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 02/25/2016 CROW LUNDBERG Ot I73.9 PERIPHERAL VASCULAR DISEASE, UNSPECIFIED 02/25/2016 KAMILLA RUSSELL CROW K Ot 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 02/25/2016 KAMILLA RUSSELL CROW K Ot 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 03/07/2016 ADAM LAUGHLIN MD Ot E78.5 HYPERLIPIDEMIA, UNSPECIFIED 03/07/2016 ADAM LAUGHLIN MD Ot I10 ESSENTIAL (PRIMARY) HYPERTENSION 03/07/2016 ADAM LAUGHLIN MD Ot I25.10 ATHSCL HEART DISEASE OF [place] CORONARY 03/07/2016 ADAM LAUGHLIN MD Ot I25.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 [place] 03/07/2016 ADAM LAUGHLIN MD Ot I48.91 UNSPECIFIED ATRIAL FIBRILLATION 03/07/2016 ADAM LAUGHLIN MD Ot I70.0 ATHEROSCLEROSIS OF [place] 03/07/2016 ADAM LAUGHLIN MD Ot I70.203 UNSP ATHSCL [place] ARTERIES OF [facility] 03/07/2016 ADAM LAUGHLIN MD Ot R94.39 ABNORMAL RESULT OF OTHER CARDIOVASCULAR 03/07/2016 ADAM LAUGHLIN MD Ot Z79.899 OTHER BEAN SNIPPER (CURRENT) DRUG THERAPY 03/07/2016 ADAM LAUGHLIN MD Ot Z86.73 PRSNL HX OF TIA (TIA), AND CEREB INFRC W 03/07/2016 ADAM LAUGHLIN MD Ot Z95.5 PRESENCE OF CORONARY ANGIOPLASTY IMPLANT 03/15/2016 ADAM LAUGHLIN MD Ot E78.5 HYPERLIPIDEMIA, UNSPECIFIED 03/15/2016 ADAM LAUGHLIN MD Ot I10 ESSENTIAL (PRIMARY) HYPERTENSION 03/15/2016 ADAM LAUGHLIN MD Ot I25.10 ATHSCL HEART DISEASE OF [place] CORONARY 03/15/2016 ADAM LAUGHLIN MD Ot I25.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 [place] 03/15/2016 ADAM LAUGHLIN MD Ot I48.91 UNSPECIFIED ATRIAL FIBRILLATION 03/15/2016 ADAM LAUGHLIN MD Ot I70.0 ATHEROSCLEROSIS OF [place] 03/15/2016 ADAM LAUGHLIN MD, Ot I70.203 UNSP ATHSCL [place] ARTERIES OF EXTREMITI 03/15/2016 ADAM LAUGHLIN MD Ot R94.39 ABNORMAL RESULT OF OTHER CARDIOVASCULAR 03/15/2016 ADAM LAUGHLIN MD, Ot Z79.899 OTHER [facility] (CURRENT) DRUG THERAPY 03/15/2016 ADAM LAUGHLIN MD, Ot Z86.73 PRSNL HX OF TIA (TIA), AND CEREB INFRC W 03/15/2016 ADAM LAUGHLIN MD, Ot Z95.5 PRESENCE OF CORONARY ANGIOPLASTY IMPLANT 03/15/2016 CROW LUNDBERG Ot E78.2 MIXED HYPERLIPIDEMIA 03/15/2016 CROW LUNDBERG Ot I25.10 ATHSCL HEART DISEASE OF [place] CORONARY 03/15/2016 CROW LUNDBERG Ot I48.1 PERSISTENT ATRIAL FIBRILLATION 03/15/2016 CROW LUNDBERG Ot 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 03/15/2016 CROW LUNDBERG Ot I73.9 PERIPHERAL VASCULAR DISEASE, UNSPECIFIED 03/15/2016 CROW LUNDBERG Ot 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 03/18/2016 CROW LUNDBERG Ot E78.2 MIXED HYPERLIPIDEMIA 03/18/2016 CROW LUNDBERG Ot I25.10 ATHSCL HEART DISEASE OF [place] CORONARY 03/18/2016 CROW LUNDBERG Ot I48.1 PERSISTENT ATRIAL FIBRILLATION 03/18/2016 CROW LUNDBERG Ot 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 03/18/2016 CROW LUNDBERG Ot I73.9 PERIPHERAL VASCULAR DISEASE, UNSPECIFIED 03/24/2016 CROW LUNDBERG Ot E78.2 MIXED HYPERLIPIDEMIA 03/24/2016 CROW LUNDBERG Ot I25.10 ATHSCL HEART DISEASE OF [place] CORONARY 03/24/2016 CROW LUNDBERG Ot I48.1 PERSISTENT ATRIAL FIBRILLATION 03/24/2016 CROW LUNDBERG Ot 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 03/24/2016 CROW LUNDBERG Ot I73.9 PERIPHERAL VASCULAR DISEASE, UNSPECIFIED 03/24/2016 CROW LUNDBERG Ot E78.2 MIXED HYPERLIPIDEMIA 03/24/2016 CROW LUNDBERG Ot I25.10 ATHSCL HEART DISEASE OF [place] CORONARY 03/24/2016 CROW LUNDBERG Ot I48.1 PERSISTENT ATRIAL FIBRILLATION 03/24/2016 CROW LUNDBERG Ot 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 03/24/2016 CROW LUNDBERG Ot I73.9 PERIPHERAL VASCULAR DISEASE, UNSPECIFIED 03/24/2016 CROW LUNDBERG Ot 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 08/09/2016 Ot 715.95 OSTEOARTHROS NOS-PELVIS 08/09/2016 Ot 722.52 LUMB/LUMBOSAC DISC DEGEN 08/09/2016 Ot 724.02 SPINAL STENOSIS, [...] INCONCLUSIVE MAMMOGRAM 08/09/2016 Ot V76.12 OT SCREEN MAMMO- MALIGN NEOPLASM OF [place] 08/09/2016 ADAM LAUGHLIN MD [...] Ot 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 08/09/2016 CROW LUNDBERG Ot 300.00 ANXIETY STATE NOS 08/09/2016 CROW LUNDBERG Ot 401.9 HYPERTENSION NOS 08/09/2016 CRWO LUNDBERG Ot 414.00 CORON ATHEROSCLER NOS TYPE VESSEL, NATIV 08/09/2016 KAMILLA RUSSELL CROW K Ot 427.31 ATRIAL FIBRILLATION 08/09/2016 KAMILLA RUSSELL CROW K Ot 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 08/09/2016 PAULINE MERCADO, SARAH Griffith Ot 719.06 JOINT EFFUSION-L/LEG 08/09/2016 PAULINE MERCADO, SARAH Griffith Ot 719.46 JOINT PAIN-L/LEG 08/09/2016 CROW LUNDBERG Ot E78.2 MIXED HYPERLIPIDEMIA 08/09/2016 CROW LUNDBERG Ot I25.10 ATHSCL HEART DISEASE OF [place] CORONARY 08/09/2016 KAMILLA RUSSELL CROW K Ot I48.1 PERSISTENT ATRIAL FIBRILLATION 08/09/2016 KAMILLA RUSSELL CROW K Ot 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 08/09/2016 CROW LUNDBERG Ot I73.9 PERIPHERAL VASCULAR DISEASE, UNSPECIFIED 08/09/2016 CROW LUNDBERG Ot E78.2 MIXED HYPERLIPIDEMIA 08/09/2016 CROW LUNDBERG Ot I25.10 ATHSCL HEART DISEASE OF [place] CORONARY 08/09/2016 KAMILLA RUSSELL CROW K Ot I48.1 PERSISTENT ATRIAL FIBRILLATION 08/09/2016 CROW LUNDBERG Ot 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 08/09/2016 CROW LUNDBERG Ot I73.9 PERIPHERAL VASCULAR DISEASE, UNSPECIFIED 08/09/2016 CROW LUNDBERG Ot 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 09/13/2016 PAULINE MERCADO, SARAH L Ot R26.9 UNSPECIFIED ABNORMALITIES OF GAIT AND [...] MD, Ot I25.10 ATHSCL HEART DISEASE OF [place] CORONARY 05/11/2017 TEVIN AGUIRRE MD, Ot I25.10 ATHSCL HEART DISEASE OF [place] CORONARY 05/11/2017 TEVIN AGUIRRE MD, Ot S83.281A OTH TEAR OF LAT MENSC, CURRENT INJURY, R 05/11/2017 TEVIN AGUIRRE MD, Ot X58.XXXA EXPOSURE TO OTHER SPECIFIED FACTORS, INI 05/11/2017 TEVIN AGUIRRE MD, Ot Y99.8 OTHER EXTERNAL CAUSE STATUS 05/11/2017 TEVIN AGUIRRE MD, Ot Z01.811 ENCOUNTER FOR PREPROCEDURAL RESPIRATORY 05/12/2017 ADAM LAUGHLIN MD, Ot E78.2 MIXED HYPERLIPIDEMIA 05/12/2017 ADAM LAUGHLIN MD, Ot I10 ESSENTIAL (PRIMARY) HYPERTENSION 05/12/2017 ADAM LAUGHLIN MD, Ot I25.10 ATHSCL HEART DISEASE OF [place] CORONARY 05/12/2017 ADAM LAUGHLIN MD, Ot 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 05/17/2017 TEVIN AGUIRRE MD, Ot S83.281A OTH TEAR OF LAT MENSC, CURRENT INJURY, R 05/17/2017 TEVIN AGUIRRE MD, Ot X58.XXXA EXPOSURE TO OTHER SPECIFIED FACTORS, INI 05/17/2017 TEVIN AGUIRRE MD Ot Y99.8 OTHER EXTERNAL CAUSE STATUS 05/17/2017 TEVIN AGUIRRE MD Ot Z01.811 ENCOUNTER FOR PREPROCEDURAL RESPIRATORY 05/18/2017 FLORA EVERETT MD Ot 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 05/18/2017 FLORA EVERETT MD Ot Z01.810 ENCOUNTER FOR PREPROCEDURAL CARDIOVASCUL 05/18/2017 FLORA EVERETT MD, Ot Z01.811 ENCOUNTER FOR PREPROCEDURAL RESPIRATORY 05/18/2017 FLORA EVERETT MD Ot Z01.812 ENCOUNTER FOR PREPROCEDURAL LABORATORY E 06/05/2017 ADAM LAUGHLIN MD Ot E78.2 MIXED HYPERLIPIDEMIA 06/05/2017 ADAM LAUGHLIN MD Ot I10 ESSENTIAL (PRIMARY) HYPERTENSION 06/05/2017 ADAM LAUGHLIN MD Ot I25.10 ATHSCL HEART DISEASE OF [place] CORONARY 06/05/2017 ADAM LAUGHLIN MD Ot I65.22 [...] MD Ot I25.10 ATHSCL HEART DISEASE OF [place] CORONARY 06/14/2017 ADAM LAUGHLIN MD Ot 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 06/19/2017 FLORA EVERETT MD Ot 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 06/19/2017 KARLOS MERCADO, FLORA Ot Z01.810 ENCOUNTER FOR PREPROCEDURAL CARDIOVASCUL 06/19/2017 FLORA EVERETT MD Ot Z01.811 ENCOUNTER FOR PREPROCEDURAL RESPIRATORY 06/19/2017 FLORA EVERETT MD, Ot Z01.812 ENCOUNTER FOR PREPROCEDURAL LABORATORY E 06/28/2017 TEVIN AGUIRRE MD Ot M23.200 DERANG OF UNSP LAT MENSC DUE TO OLD TEAR 06/28/2017 TEVIN AGUIRRE MD Ot Z01.812 ENCOUNTER FOR PREPROCEDURAL LABORATORY E 06/28/2017 TEVIN AGUIRRE MD Ot Z11.2 ENCOUNTER FOR SCREENING FOR OTHER BACTER 06/30/2017 TEVIN AGUIRRE MD Ot M23.200 DERANG OF [...] MD Ot I25.10 ATHSCL HEART DISEASE OF [place] CORONARY 07/03/2017 ADAM LAUGHLIN MD Ot 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 07/05/2017 TEVIN AGUIRRE MD Ot E78.5 HYPERLIPIDEMIA, UNSPECIFIED 07/05/2017 TEVIN AGUIRRE MD Ot F32.9 MAJOR DEPRESSIVE DISORDER, SINGLE EPISOD 07/05/2017 TEVIN AGUIRRE MD Ot I10 ESSENTIAL (PRIMARY) HYPERTENSION 07/05/2017 TEVIN AGUIRRE MD Ot I48.91 UNSPECIFIED ATRIAL FIBRILLATION 07/05/2017 TEVIN AGUIRRE MD Ot M22.41 CHONDROMALACIA PATELLAE, RIGHT KNEE 07/05/2017 TEVIN AGUIRRE MD Ot M23.8X1 OTHER INTERNAL DERANGEMENTS OF RIGHT KNE 07/05/2017 TEVIN AGUIRRE MD Ot Z79.82 BEAN SNIPPER (CURRENT) USE OF ASPIRIN 07/05/2017 TEVIN AGUIRRE MD, Ot Z79.899 OTHER [facility] (CURRENT) DRUG THERAPY 07/05/2017 TEVIN AGUIRRE MD, Ot Z86.718 PERSONAL HISTORY OF OTHER VENOUS THROMBO 07/05/2017 TEVIN AGUIRRE MD, Ot Z88.0 ALLERGY STATUS TO PENICILLIN 07/05/2017 TEVIN AGUIRRE MD, Ot Z88.2 ALLERGY STATUS TO SULFONAMIDES STATUS 07/05/2017 TEVIN AGUIRRE MD, Ot Z88.5 ALLERGY STATUS TO NARCOTIC AGENT STATUS 07/05/2017 TEVIN AGUIRRE MD, Ot Z88.8 ALLERGY STATUS TO OTH DRUG/MEDS/BIOL SUB 07/07/2017 ADAM LAUGHLIN MD Ot E78.5 HYPERLIPIDEMIA, UNSPECIFIED 07/07/2017 ADAM LAUGHLIN MD Ot I10 ESSENTIAL (PRIMARY) HYPERTENSION 07/07/2017 ADAM LAUGHLIN MD, Ot I25.10 ATHSCL HEART DISEASE OF [place] CORONARY 07/07/2017 ADAM LAUGHLIN MD Ot I65.23 [...] KNE 07/31/2017 TEVIN AGUIRRE MD, Ot Z79.82 BEAN SNIPPER (CURRENT) USE OF ASPIRIN 07/31/2017 TEVIN AGUIRRE MD, Ot Z79.899 OTHER BEAN SNIPPER (CURRENT) DRUG THERAPY 07/31/2017 TEVIN AGUIRRE MD, Ot Z86.718 PERSONAL HISTORY OF OTHER VENOUS THROMBO 07/31/2017 TEVIN AGUIRRE MD, Ot Z88.0 ALLERGY STATUS TO PENICILLIN 07/31/2017 TEVIN AGUIRRE MD, Ot Z88.2 ALLERGY STATUS TO SULFONAMIDES STATUS 07/31/2017 TEVIN AGUIRRE MD, Ot Z88.5 ALLERGY STATUS TO NARCOTIC AGENT STATUS 07/31/2017 CARLA MERCADO, TEVIN Liu Ot Z88.8 ALLERGY STATUS TO OTH DRUG/MEDS/BIOL SUB 08/10/2017 ADAM LAUGHLIN MD Ot I10 ESSENTIAL (PRIMARY) HYPERTENSION 08/16/2017 ADAM LAUGHLIN MD, Ot I10 ESSENTIAL (PRIMARY) HYPERTENSION 08/16/2017 ADAM LAUGHLIN MD Ot I10 ESSENTIAL (PRIMARY) HYPERTENSION 08/17/2017 ADAM LAUGHLIN MD Ot E78.2 MIXED HYPERLIPIDEMIA 08/17/2017 ADAM LAUGHLIN MD Ot I10 ESSENTIAL (PRIMARY) HYPERTENSION 08/17/2017 ADAM LAUGHLIN MD Ot I25.10 ATHSCL HEART DISEASE OF [place] CORONARY 08/17/2017 ADAM LAUGHLIN MD Ot 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 08/17/2017 ADAM LAUGHLIN MD Ot I82.409 ACUTE EMBOLISM AND THOMBOS UNSP DEEP VN 09/06/2017 ADAM LAUGHLIN MD Ot E78.2 MIXED HYPERLIPIDEMIA 09/06/2017 ADAM LAUGHLIN MD Ot I10 ESSENTIAL (PRIMARY) HYPERTENSION 09/06/2017 ADAM LAUGHLIN MD Ot I25.10 ATHSCL HEART DISEASE OF [place] CORONARY 09/06/2017 ADAM LAUGHLIN MD Ot 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 09/06/2017 ADAM LAUGHLIN MD Ot I82.409 ACUTE EMBOLISM AND THOMBOS UNSP DEEP VN 09/13/2017 ADAM LAUGHLIN MD Ot E78.2 MIXED HYPERLIPIDEMIA 09/13/2017 ADAM LAUGHLIN MD Ot I10 ESSENTIAL (PRIMARY) HYPERTENSION 09/13/2017 ADAM LAUGHLIN MD Ot I25.10 ATHSCL HEART DISEASE OF [place] CORONARY 09/13/2017 ADAM LAUGHLIN MD Ot 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 09/13/2017 ADAM LAUGHLIN MD Ot I82.409 ACUTE EMBOLISM AND THOMBOS UNSP DEEP VN 05/10/2018 ADAM LAUGHLIN MD Ot 272.4 HYPERLIPIDEMIA NEC/NOS 05/10/2018 ADAM LAUGHLIN MD Ot 397.0 TRICUSPID VALVE DISEASE 05/10/2018 ADAM LAUGHLIN MD Ot 401.9 HYPERTENSION NOS 05/10/2018 ADAM LAUGHLIN MD Ot 414.00 CORON ATHEROSCLER NOS TYPE VESSEL, NATIV 05/10/2018 TRUMAN MERCADO, ADAM Talbot Ot 424.0 MITRAL VALVE DISORDER 05/10/2018 TRUMAN MERCADO, ADAM Talbot Ot 427.31 ATRIAL FIBRILLATION 05/10/2018 ADAM LAUGHLIN MD Ot 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 05/10/2018 [...] K Ot I25.10 ATHSCL HEART DISEASE OF [place] CORONARY 05/10/2018 KAMILLA RUSSELL CROW K Ot I48.1 PERSISTENT ATRIAL FIBRILLATION 05/10/2018 KAMILLA RUSSELL CROW K Ot 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 05/10/2018 KAMILLA RUSSELL CROW K Ot I73.9 PERIPHERAL VASCULAR DISEASE, UNSPECIFIED 05/10/2018 KAMILLA RUSSELL CROW K Ot E78.2 MIXED HYPERLIPIDEMIA 05/10/2018 KAMILLA RUSSELL CROW K Ot I25.10 ATHSCL HEART DISEASE OF [place] CORONARY 05/10/2018 KAMILLA RUSSELL CROW K Ot I48.1 PERSISTENT ATRIAL FIBRILLATION 05/10/2018 KAMILLA RUSSELL CROW K Ot 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 05/10/2018 KAMILLA RUSSELL CROW K Ot I73.9 PERIPHERAL VASCULAR DISEASE, UNSPECIFIED 05/10/2018 ZAMUDIOCROW GRIMES Ot 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 05/10/2018 ADAM LAUGHLIN MD Ot E78.2 MIXED HYPERLIPIDEMIA 05/10/2018 ADAM LAUGHLIN MD Ot I10 ESSENTIAL (PRIMARY) HYPERTENSION 05/10/2018 ADAM LAUGHLIN MD Ot I25.10 ATHSCL HEART DISEASE OF [place] CORONARY 05/10/2018 ADAM LAUGHLIN MD Ot 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 05/10/2018 ADAM LAUGHLIN MD Ot E78.5 HYPERLIPIDEMIA, UNSPECIFIED 05/10/2018 ADAM LAUGHLIN MD, Ot I10 ESSENTIAL (PRIMARY) HYPERTENSION 05/10/2018 ADAM LAUGHLIN MD Ot I25.10 ATHSCL HEART DISEASE OF [place] CORONARY 05/10/2018 ADAM LAUGHLIN MD, Ot 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 05/10/2018 FLORA EVERETT MD, Ot 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 05/10/2018 FLORA EVERETT MD Ot Z01.810 ENCOUNTER FOR PREPROCEDURAL CARDIOVASCUL 05/10/2018 FLORA EVERETT MD Ot Z01.811 ENCOUNTER FOR PREPROCEDURAL RESPIRATORY 05/10/2018 FLORA EVERETT MD Ot Z01.812 ENCOUNTER FOR PREPROCEDURAL LABORATORY E 05/10/2018 ADAM LAUGHLIN MD Ot E78.2 MIXED HYPERLIPIDEMIA 05/10/2018 ADAM LAUGHLIN MD, Ot I10 ESSENTIAL (PRIMARY) HYPERTENSION 05/10/2018 ADAM LAUGHLIN MD, Ot I25.10 ATHSCL HEART DISEASE OF [place] CORONARY 05/10/2018 ADAM LAUGHLIN MD Ot I65.23 [...] MD Ot I25.10 ATHSCL HEART DISEASE OF [place] CORONARY 05/25/2018 TEVIN AGUIRRE MD Ot I34.0 NONRHEUMATIC MITRAL (VALVE) INSUFFICIENC 05/25/2018 TEVIN AGUIRRE MD Ot I48.2 CHRONIC ATRIAL FIBRILLATION 05/25/2018 TEVIN AGUIRRE MD Ot I50.22 CHRONIC SYSTOLIC (CONGESTIVE) HEART FAIL 05/25/2018 TEVIN AGUIRRE MD Ot I70.0 ATHEROSCLEROSIS OF [place] 05/25/2018 TEVIN AGUIRRE MD Ot I70.292 OTH ATHSCL [place] ARTERIES OF EXTREMITIE 05/25/2018 TEVIN AGUIRRE MD Ot K59.09 OTHER CONSTIPATION 05/25/2018 TEVIN AGUIRRE MD Ot M17.11 UNILATERAL PRIMARY OSTEOARTHRITIS, RIGHT 05/25/2018 TEVIN AGUIRRE MD Ot Q21.1 ATRIAL SEPTAL DEFECT 05/25/2018 TEVIN [...] RADIOGRAPHIC DYE ALLERGY STATUS 06/07/2018 ADI FRIAS MD Ot D62 ACUTE POSTHEMORRHAGIC ANEMIA 06/07/2018 ADI FRIAS MD, Ot D64.9 ANEMIA, UNSPECIFIED 06/07/2018 ADI FRIAS MD Ot E78.5 HYPERLIPIDEMIA, UNSPECIFIED 06/07/2018 ADI FRIAS MD Ot E87.6 HYPOKALEMIA 06/07/2018 ADI FRIAS MD Ot I11.0 HYPERTENSIVE HEART DISEASE WITH HEART FA 06/07/2018 ADI FRIAS MD Ot I25.10 ATHSCL HEART DISEASE OF [place] CORONARY 06/07/2018 DAI FRIAS MD Ot I34.0 NONRHEUMATIC MITRAL (VALVE) INSUFFICIENC 06/07/2018 ADI FRIAS MD, Ot I48.2 CHRONIC ATRIAL FIBRILLATION 06/07/2018 ADI FRIAS MD Ot I50.22 CHRONIC SYSTOLIC (CONGESTIVE) HEART FAIL 06/07/2018 ADI FRIAS MD Ot I69.219 UNSP SYMP AND SIGNS W COGN FNCTNS FOL OT 06/07/2018 ADI FRIAS MD Ot I70.0 ATHEROSCLEROSIS OF [place] 06/07/2018 ADI FRIAS MD Ot I70.203 UNSP ATHSCL [place] ARTERIES OF EXTREMITI 06/07/2018 ADI FRIAS MD Ot M79.661 PAIN IN RIGHT LOWER LEG 06/07/2018 ADI RFIAS MD Ot S93.401A SPRAIN OF UNSPECIFIED LIGAMENT OF RIGHT 06/07/2018 ADI FRIAS MD Ot X58.XXXA EXPOSURE TO OTHER SPECIFIED FACTORS, INI 06/07/2018 ADI FRIAS MD Ot Z47.1 AFTERCARE FOLLOWING JOINT REPLACEMENT ORELLANA 06/07/2018 ADI FRIAS MD Ot Z86.73 PRSNL HX OF TIA (TIA), AND CEREB INFRC W 06/07/2018 RODRIGUEZ MERCADO, ADI E Ot Z96.651 PRESENCE OF RIGHT ARTIFICIAL KNEE JOINT 08/07/2018 ADAM LAUGHLIN MD Ot E78.5 HYPERLIPIDEMIA, UNSPECIFIED 08/07/2018 ADAM LAUGHLIN MD 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 08/07/2018 ADAM LAUGHLIN MD Ot I10 ESSENTIAL (PRIMARY) HYPERTENSION 08/07/2018 ADAM LAUGHLIN MD Ot I25.10 ATHSCL HEART DISEASE OF [place] CORONARY 08/07/2018 ADAM LAUGHLIN MD Ot I48.91 [...] Ot 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 08/21/2018 PAULINE MERCADO, SARAH Griffith Ot 719.06 JOINT EFFUSION-L/LEG 08/21/2018 PAULINE MERCADO, SARAH Griffith Ot 719.46 JOINT PAIN-L/LEG 08/21/2018 LIZZ-LACEY RUSSELL CROW Hernandez Ot E78.2 MIXED HYPERLIPIDEMIA 08/21/2018 RODNEYLACEY RUSSELL CROW Hernandez Ot I25.10 ATHSCL HEART DISEASE OF [place] CORONARY 08/21/2018 RODNEYLACEY RUSSELL CROW Hernandez Ot I48.1 PERSISTENT ATRIAL FIBRILLATION 08/21/2018 RODNEYLACEY RUSSELL, CROW K Ot 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 08/21/2018 RODNEYLACEY RUSSELL CROW Hernandez Ot I73.9 PERIPHERAL VASCULAR DISEASE, UNSPECIFIED 08/21/2018 KAMILLA DREW CROW Hernandez Ot E78.2 MIXED HYPERLIPIDEMIA 08/21/2018 KAMILLA DREW CROW Hernandez Ot I25.10 ATHSCL HEART DISEASE OF [place] CORONARY 08/21/2018 RODNEYLACEY RUSSELL CROW Hernandez Ot I48.1 PERSISTENT ATRIAL FIBRILLATION 08/21/2018 RODNEYLACEY RUSSELL CROW K Ot 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 08/21/2018 RODNEYLACEY RUSSELL CROW Hernandez Ot I73.9 PERIPHERAL VASCULAR DISEASE, UNSPECIFIED 08/21/2018 RODNEYLACEY RUSSELL CROW Mary Ot 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 08/21/2018 ADAM LAUGHLIN MD Ot E78.2 MIXED HYPERLIPIDEMIA 08/21/2018 ADAM LAUGHLIN MD Ot I10 ESSENTIAL (PRIMARY) HYPERTENSION 08/21/2018 ADAM LAUGHLIN MD Ot I25.10 ATHSCL HEART DISEASE OF [place] CORONARY 08/21/2018 ADAM LAUGHLIN MD Ot 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 08/21/2018 ADAM LAUGHLIN MD Ot E78.5 HYPERLIPIDEMIA, UNSPECIFIED 08/21/2018 ADAM LAUGHLIN MD Ot I10 ESSENTIAL (PRIMARY) HYPERTENSION 08/21/2018 ADAM LAUGHLIN MD Ot I25.10 ATHSCL HEART DISEASE OF [place] CORONARY 08/21/2018 ADAM LAUGHLIN MD Ot 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 08/21/2018 FLORA EVERETT MD Ot 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 08/21/2018 FLORA EVEERTT MD Ot Z01.810 ENCOUNTER FOR PREPROCEDURAL CARDIOVASCUL 08/21/2018 FLORA EVERETT MD Ot Z01.811 ENCOUNTER FOR PREPROCEDURAL RESPIRATORY 08/21/2018 FLORA EVERETT MD, Ot Z01.812 ENCOUNTER FOR PREPROCEDURAL LABORATORY E 08/21/2018 ADAM LAUGHLIN MD Ot E78.2 MIXED HYPERLIPIDEMIA 08/21/2018 ADAM LAUGHLIN MD Ot I10 ESSENTIAL (PRIMARY) HYPERTENSION 08/21/2018 ADAM LAUGHLIN MD Ot I25.10 ATHSCL HEART DISEASE OF [place] CORONARY 08/21/2018 ADAM LAUGHLIN MD Ot 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 08/21/2018 ADAM LAUGHLIN MD Ot I82.409 ACUTE EMBOLISM AND THOMBOS UNSP DEEP VN 08/21/2018 ADAM LAUGHLIN MD Ot E78.5 HYPERLIPIDEMIA, UNSPECIFIED 08/21/2018 ADAM LAUGHLIN MD 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 08/21/2018 ADAM LAUGHLIN MD Ot I10 ESSENTIAL (PRIMARY) HYPERTENSION 08/21/2018 ADAM LAUGHLIN MD Ot I25.10 ATHSCL HEART DISEASE OF [place] CORONARY 08/21/2018 ADAM LAUGHLIN MD Ot I48.91 UNSPECIFIED ATRIAL FIBRILLATION 08/21/2018 ADAM LAUGHLIN MD Ot I65.29 OCCLUSION AND STENOSIS OF UNSPECIFIED CA 08/21/2018 ADAM LAUGHLIN MD Ot R06.00 DYSPNEA, UNSPECIFIED 08/22/2018 HANNAH GREER MD Ot E78.5 HYPERLIPIDEMIA, UNSPECIFIED 08/22/2018 HANNAH GREER MD Ot F32.9 MAJOR DEPRESSIVE DISORDER, SINGLE EPISOD 08/22/2018 HANNAH GREER MD Ot F41.9 ANXIETY DISORDER, UNSPECIFIED 08/22/2018 HANNAH GREER MD Ot I10 ESSENTIAL (PRIMARY) HYPERTENSION 08/22/2018 HANNAH GREER MD Ot I25.10 ATHSCL HEART DISEASE OF [place] CORONARY 08/22/2018 HANNAH GREER MD Ot I48.2 CHRONIC ATRIAL FIBRILLATION 08/22/2018 HANNAH GREER MD Ot I70.0 ATHEROSCLEROSIS OF [place] 08/22/2018 HANNAH GREER MD Ot I70.203 UNSP ATHSCL [place] ARTERIES OF EXTREMITI 08/22/2018 HANNAH GREER MD Ot K59.09 OTHER CONSTIPATION 08/22/2018 HANNAH GREER MD Ot R07.89 OTHER CHEST PAIN 08/22/2018 HANNAH GREER MD Ot Z79.82 BEAN SNIPPER (CURRENT) USE OF ASPIRIN 08/22/2018 HANNAH GREER MD Ot Z79.899 OTHER BEAN SNIPPER (CURRENT) DRUG THERAPY 08/22/2018 HANNAH GREER MD Ot Z86.73 PRSNL HX OF TIA (TIA), AND CEREB INFRC W 08/22/2018 HANNAH GREER MD Ot Z96.651 PRESENCE OF RIGHT ARTIFICIAL KNEE JOINT 09/11/2018 ADAM LAUGHLIN MD Ot E78.5 HYPERLIPIDEMIA, UNSPECIFIED 09/11/2018 ADAM LAUGHLIN MD 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 09/11/2018 ADAM LAUGHLIN MD Ot I10 ESSENTIAL (PRIMARY) HYPERTENSION 09/11/2018 ADAM LAUGHLIN MD Ot I25.10 ATHSCL HEART DISEASE OF [place] CORONARY 09/11/2018 ADAM LAUGHLIN MD Ot I48.91 UNSPECIFIED ATRIAL FIBRILLATION 09/11/2018 ADAM LAUGHLIN MD Ot I65.29 OCCLUSION AND STENOSIS OF UNSPECIFIED [place] 09/11/2018 ADAM LAUGHLIN MD Ot R06.00 DYSPNEA, UNSPECIFIED 09/14/2018 ADAM LAUGHLIN MD Ot E78.5 HYPERLIPIDEMIA, UNSPECIFIED 09/14/2018 ADAM LAUGHLIN MD 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 09/14/2018 ADAM LAUGHLIN MD Ot I10 ESSENTIAL (PRIMARY) HYPERTENSION 09/14/2018 ADAM LAUGHLIN MD Ot I25.10 ATHSCL HEART DISEASE OF [place] CORONARY 09/14/2018 ADAM LAUGHLIN MD Ot I48.91 UNSPECIFIED ATRIAL FIBRILLATION 09/14/2018 ADAM LAUGHLIN MD Ot I65.29 OCCLUSION AND STENOSIS OF UNSPECIFIED CA 09/14/2018 ADAM LAUGHLIN MD Ot R06.00 DYSPNEA, UNSPECIFIED Procedures Code Description Performed By Performed On 45.16 ESOPHAGOGASTRODUODENOSCOPY [EGD] W/CLOSE 07/21/2011 45.23 COLONOSCOPY 07/22/2011 [id number] REPLACE OF R KNEE JT WITH SYNTH [...] Automated erythrocyte mean corpuscular hemoglobin concentration measurement (mass/volume) 33 g/dL 32-36 Automated erythrocyte distribution width ratio 13.2 % 10.0- 14.5 Automated blood platelet count (count/volume) 257 10*3/uL 130-400 Automated blood platelet mean volume measurement 10.2 [foz_us] 7.4-10.4 Complete urinalysis with reflex to culture - 03/07/16 07:05 Urine color determination YELLOW NRG Urine clarity determination CLEAR NRG Urine pH measurement by test strip 6 5-9 Specific gravity of urine by test strip 1.025 1.016-1.022 Urine protein assay by test strip, semi-quantitative [...] sediment leukocyte count by microscopy (number/high power field) [HPF] NRG Bacteria detection in urine sediment [...] Serum or plasma aspartate aminotransferase measurement (enzymatic activity/volume) 23 U/L 5-34 Serum or plasma alanine aminotransferase measurement (enzymatic activity/volume) 17 U/L 0-55 Serum or plasma protein measurement (mass/volume) 7.2 g/dL 6.4-8.2 Serum or plasma albumin measurement (mass/volume) 4.7 g/dL 3.2-4.5 Lipid 1996 panel - 03/07/16 07:05 Serum or plasma triglyceride measurement (mass/volume) 89 mg/dL <150 Serum or plasma cholesterol measurement (mass/volume) 183 mg/dL < 200 Serum or plasma cholesterol in HDL measurement (mass/volume) 72 mg/dL 40-60 Cholesterol in LDL [mass/volume] in serum or plasma by direct assay 86 mg/dL 1-129 Serum or plasma cholesterol in VLDL measurement (mass/volume) 18 mg/dL 5-40 Bacterial urine culture - 03/07/16 07:05 URINE CULTURE RESULTS <10,000/ML NRG Methicillin resistant Staphylococcus aureus (MRSA) screening culture - 03/07/16 07:05 Methicillin resistant Staphylococcus aureus (MRSA) screening culture NEG NRG Other Culture - 12/23/16 10:30 PRELIM CULTURE RESULTS Abundant coag neg [id number] further [id number] gram neg [id number] testing pending MEDIA PLATED Setup at 15:23 [...] resistant Staphylococcus aureus (MRSA) screening culture - 05/11/17 11:20 Methicillin resistant Staphylococcus aureus (MRSA) screening [...] Automated erythrocyte mean corpuscular hemoglobin concentration measurement (mass/volume) 33 g/dL 32-36 Automated erythrocyte distribution width ratio 12.8 % 10.0- 14.5 Automated blood platelet count (count/volume) 205 10*3/uL [...] Serum or plasma aspartate aminotransferase measurement (enzymatic activity/volume) 22 U/L 5-34 Serum or plasma alanine aminotransferase measurement (enzymatic activity/volume) 17 U/L 0-55 Serum or plasma protein measurement (mass/volume) 7.3 g/dL 6.4-8.2 Serum or plasma albumin measurement (mass/volume) 4.3 g/dL 3.2-4.5 Complete urinalysis with reflex to culture - 05/17/17 09:07 Urine color determination YELLOW NRG Urine clarity determination CLEAR NRG Urine pH measurement by test strip 6 5-9 Specific gravity of urine by test strip 1.010 1.016-1.022 Urine protein assay by test strip, semi-quantitative [...] sediment leukocyte count by microscopy (number/high power field) NONE NRG Bacteria detection in urine sediment [...] Automated erythrocyte mean corpuscular hemoglobin concentration measurement (mass/volume) 32 g/dL 32-36 Automated erythrocyte distribution width ratio 12.7 % 10.0- 14.5 Automated blood platelet count (count/volume) 204 10*3/uL [...] Blood monocytes automated count (number/volume) 0.6 10*3 0.0- 1.0 Automated eosinophil count 0.1 10*3/uL 0.0-0.3 Automated [...] resistant Staphylococcus aureus (MRSA) screening culture - 06/28/17 10:25 Methicillin resistant Staphylococcus aureus (MRSA) screening [...] Automated erythrocyte mean corpuscular hemoglobin concentration measurement (mass/volume) 32 g/dL 32-36 Automated erythrocyte distribution width ratio 13.7 % 10.0- 14.5 Automated blood platelet count (count/volume) 211 10*3/uL [...] Blood monocytes automated count (number/volume) 0.4 10*3 0.0- 1.0 Automated eosinophil count 0.1 10*3/uL 0.0-0.3 Automated [...] Serum or plasma aspartate aminotransferase measurement (enzymatic activity/volume) 19 U/L 5-34 Serum or plasma alanine aminotransferase measurement (enzymatic activity/volume) 17 U/L 0-55 Serum or plasma protein [...] resistant Staphylococcus aureus (MRSA) screening culture - 05/10/18 13:40 Methicillin resistant Staphylococcus aureus (MRSA) screening culture NEG NRG Complete urinalysis with reflex to culture - 05/10/18 13:45 Urine color determination YELLOW NRG Urine clarity determination CLEAR NRG Urine pH measurement by test strip 5 5-9 Specific gravity of urine by test strip 1.010 1.016-1.022 Urine protein assay by test strip, semi-quantitative [...] sediment leukocyte count by microscopy (number/high power field) [HPF] NRG Bacteria detection in urine sediment [...] ABO+Rh group AP NRG Transfusion band number [id number] NRG Blood group antibody screen NEGATIVE NRG Blood type T Indirect antibody screen panel - 05/23/18 07:35 ABO+Rh group AP NRG Transfusion band number [id number] NRG Blood group antibody screen NEGATIVE NRG [...] Automated erythrocyte mean corpuscular hemoglobin concentration measurement (mass/volume) 32 g/dL 32-36 Automated erythrocyte distribution width ratio 13.0 % 10.0- 14.5 Automated blood platelet count (count/volume) 195 10*3/uL [...] Blood monocytes automated count (number/volume) 0.8 10*3 0.0- 1.0 Automated eosinophil count 0.0 10*3/uL 0.0-0.3 Automated [...] Serum or plasma aspartate aminotransferase measurement (enzymatic activity/volume) 19 U/L 5-34 Serum or plasma alanine aminotransferase measurement (enzymatic activity/volume) 18 U/L 0-55 Serum or plasma protein [...] Automated erythrocyte mean corpuscular hemoglobin concentration measurement (mass/volume) 31 g/dL 32-36 Automated erythrocyte distribution width ratio 13.4 % 10.0- 14.5 Automated blood platelet count (count/volume) 163 10*3/uL [...] Blood monocytes automated count (number/volume) 1.0 10*3 0.0- 1.0 Automated eosinophil count 0.0 10*3/uL 0.0-0.3 Automated [...] Serum or plasma aspartate aminotransferase measurement (enzymatic activity/volume) 23 U/L 5-34 Serum or plasma alanine aminotransferase measurement (enzymatic activity/volume) 18 U/L 0-55 Serum or plasma protein [...] Automated erythrocyte mean corpuscular hemoglobin concentration measurement (mass/volume) 33 g/dL 32-36 Automated erythrocyte distribution width ratio 13.7 % 10.0- 14.5 Automated blood platelet count (count/volume) 279 10*3/uL [...] Serum or plasma aspartate aminotransferase measurement (enzymatic activity/volume) 35 U/L 5-34 Serum or plasma alanine aminotransferase measurement (enzymatic activity/volume) 31 U/L 0-55 Serum or plasma protein [...] Automated erythrocyte mean corpuscular hemoglobin concentration measurement (mass/volume) 31 g/dL 32-36 Automated erythrocyte distribution width ratio 14.5 % 10.0- 14.5 Automated blood platelet count (count/volume) 423 10*3/uL [...] Automated erythrocyte mean corpuscular hemoglobin concentration measurement (mass/volume) 32 g/dL 32-36 Automated erythrocyte distribution width ratio 14.9 % 10.0- 14.5 Automated blood platelet count (count/volume) 246 10*3/uL [...] Blood monocytes automated count (number/volume) 1.1 10*3 0.0- 1.0 Automated eosinophil count 0.2 10*3/uL 0.0-0.3 Automated [...] Serum or plasma aspartate aminotransferase measurement (enzymatic activity/volume) 25 U/L 5-34 Serum or plasma alanine aminotransferase measurement (enzymatic activity/volume) 16 U/L 0-55 Serum or plasma protein measurement (mass/volume) 7.7 g/dL 6.4-8.2 Serum or plasma albumin measurement (mass/volume) 4.4 g/dL 3.2-4.5 CALCIUM CORRECTED 9.8 mg/dL 8.5-10.1 Magnesium - 08/21/18 03:47 Magnesium 2.2 mg/dL 1.8-2.4 Serum or plasma creatine kinase measurement (enzymatic activity/volume) - 08/21/18 03:47 Serum or plasma creatine kinase measurement (enzymatic activity/volume) 46 U/L 29-168 Serum or plasma creatine kinase MB measurement (enzymatic activity/volume) - 08/21/18 03:47 Serum or plasma creatine kinase MB measurement (enzymatic activity/volume) 0.7 ng/mL <6.6 Serum or plasma troponin i.cardiac measurement (mass/volume) - 08/21/18 03:47 Serum or plasma troponin i.cardiac measurement (mass/volume) < ng/mL <0.028 Myoglobin, serum - 08/21/18 03:47 Myoglobin, serum 40.9 ng/mL 10.0-92.0 Serum or plasma amylase measurement (enzymatic activity/volume) - 08/21/18 03:47 Serum or plasma amylase measurement (enzymatic activity/volume) 69 U/L 25-125 Lipase - 08/21/18 03:47 Lipase 31 U/L 8-78 Serum or plasma lithium measurement (moles/volume) - 08/21/18 03:47 BNP level 289.0 pg/mL <100.0 Serum or plasma troponin i.cardiac measurement (mass/volume) - 08/21/18 07:45 Serum or plasma troponin i.cardiac measurement (mass/volume) < ng/mL <0.028 Myoglobin, serum - 08/21/18 07:45 Myoglobin, serum 50.6 ng/mL 10.0-92.0 Serum or plasma troponin i.cardiac measurement (mass/volume) - 08/21/18 14:20 Serum or plasma troponin i.cardiac measurement (mass/volume) < ng/mL <0.028 Complete blood count (CBC) with automated white blood cell (WBC) differential - 08/22/18 03:35 Blood leukocytes automated count (number/volume) 7.7 10*3/uL 4.3-11.0 Blood erythrocytes automated count (number/volume) 3.62 10*6/uL 4.35-5.85 Venous blood hemoglobin measurement (mass/volume) 11.0 g/dL 11.5-16.0 Blood hematocrit (volume fraction) 34 % 35-52 Automated erythrocyte mean corpuscular volume 94 [foz_us] 80-99 Automated erythrocyte mean corpuscular hemoglobin (mass per erythrocyte) 30 pg 25-34 Automated erythrocyte mean corpuscular hemoglobin concentration measurement (mass/volume) 32 g/dL 32-36 Automated erythrocyte distribution width ratio 15.3 % 10.0- 14.5 Automated blood platelet count (count/volume) 210 10*3/uL 130-400 Automated blood platelet mean volume measurement 10.1 [foz_us] 7.4-10.4 Automated blood neutrophils/100 leukocytes 64 % 42-75 Automated blood lymphocytes/100 leukocytes 21 % 12-44 Blood monocytes/100 leukocytes 13 % 0-12 Automated blood eosinophils/100 leukocytes 2 % 0-10 Automated blood basophils/100 leukocytes 1 % 0-10 Blood neutrophils automated count (number/volume) 4.9 10*3 1.8-7.8 Blood lymphocytes automated count (number/volume) 1.6 10*3 1.0-4.0 Blood monocytes automated count (number/volume) 1.0 10*3 0.0- 1.0 Automated eosinophil count 0.2 10*3/uL 0.0-0.3 Automated blood basophil count (count/volume) 0.0 10*3/uL 0.0-0.1 Comprehensive metabolic panel - 08/22/18 03:35 Serum or plasma sodium measurement (moles/volume) 140 mmol/L 135-145 Serum or plasma potassium measurement (moles/volume) 3.9 mmol/L 3.6-5.0 Serum or plasma chloride measurement (moles/volume) 106 mmol/L 98-107 Carbon dioxide 24 mmol/L 21-32 Serum or plasma anion gap determination (moles/volume) 10 mmol/L 5-14 Serum or plasma urea nitrogen measurement (mass/volume) 27 mg/dL 7-18 Serum or plasma creatinine measurement (mass/volume) 1.05 mg/dL 0.60-1.30 Serum or plasma urea nitrogen/creatinine mass ratio 26 NRG Serum or plasma creatinine measurement with calculation of estimated glomerular filtration rate 50 NRG Serum or plasma glucose measurement (mass/volume) 112 mg/dL 70-105 Serum or plasma calcium measurement (mass/volume) 9.4 mg/dL 8.5-10.1 Serum or plasma total bilirubin measurement (mass/volume) 0.7 mg/dL 0.1-1.0 Serum or plasma alkaline phosphatase measurement (enzymatic activity/volume) 60 U/L 40-136 Serum or plasma aspartate aminotransferase measurement (enzymatic activity/volume) 17 U/L 5-34 Serum or plasma alanine aminotransferase measurement (enzymatic activity/volume) 11 U/L 0-55 Serum or plasma protein measurement (mass/volume) 6.1 g/dL 6.4-8.2 Serum or plasma albumin measurement (mass/volume) 3.5 g/dL 3.2-4.5 CALCIUM CORRECTED 9.8 mg/dL 8.5-10.1 Lipid 1996 panel - 08/22/18 03:35 Serum or plasma triglyceride measurement (mass/volume) 60 mg/dL <150 Serum or plasma cholesterol measurement (mass/volume) 132 mg/dL < 200 Serum or plasma cholesterol in HDL measurement (mass/volume) 53 mg/dL 40-60 Cholesterol in LDL [mass/volume] in serum or plasma by direct assay 60 mg/dL 1-129 Serum or plasma cholesterol in VLDL measurement (mass/volume) 12 mg/dL 5-40 Encounters ACCT No. Visit Date/Time Discharge Status Pt. Type Provider Facility Loc./Unit Complaint [id number] 08/21/2018 07:30:00 08/22/2018 12:55:00 DIS Inpatient HANNAH GREER MD [facility] ICU CHEST PAIN [id number] 08/03/2018 13:59:00 08/03/2018 23:59:59 CLS Outpatient ADAM LAUGHLIN MD [facility] CARD CAD,CAROTID,ARTERY STENOSIS,DYSPNEA [id number] 05/25/2018 10:45:00 06/07/2018 13:00:00 DIS Inpatient ADI FRIAS MD [facility] IRF RIGHT TKR [id number] 05/23/2018 07:16:00 05/25/2018 10:45:00 DIS Inpatient TEVIN AGUIRRE MD [facility] 4TH RIGHT KNEE OSTEOARTHRITIS [id number] 05/10/2018 12:48:00 05/10/2018 14:10:00 DIS Outpatient TEVIN AGUIRRE MD [facility] PREOP RIGHT KNEE OSTEOARTHRITIS [id number] 08/16/2017 08:19:00 08/16/2017 23:59:59 CLS Outpatient ADAM LAUGHLIN MD [facility] RAD I25.10 CAD [id number] 07/05/2017 06:00:00 07/05/2017 12:00:00 DIS Outpatient TEVIN AGUIRRE MD [facility] SDC RIGHT KNEE TORN LATERAL MENISCUS [id number] 06/28/2017 09:58:00 06/28/2017 13:13:00 DIS Outpatient TEVIN AGUIRRE MD [facility] PREOP RIGHT KNEE TORN LATERAL MENISCUS [id number] 06/08/2017 13:57:00 06/08/2017 23:59:59 CLS Outpatient ADAM LAUGHLIN MD [facility] CARD CAROTID ARTERY STENOSIS I65.23 [id number] 05/17/2017 08:41:00 05/17/2017 23:59:59 CLS Outpatient FLORA EVERETT MD [facility] CARD Z01.810 [id number] 05/17/2017 11:00:00 05/17/2017 11:00:00 CAN Preadmit TEVIN AGUIRRE MD [facility] SDC RIGHT KNEE TORN LATERAL MENISCUS [id number] 05/11/2017 08:03:00 05/11/2017 23:59:59 CLS Outpatient ADAM LAUGHLIN MD [facility] RAD CAROTID ARTERY STENOSIS I65.23 [id number] 05/11/2017 10:33:00 05/11/2017 14:15:00 DIS Outpatient TEVIN AGUIRRE MD [facility] PREOP RIGHT KNEE TORN LATERAL MENISCUS [id number] 09/08/2016 14:38:00 10/19/2016 09:25:00 DIS Outpatient SARAH CARPENTER MD [facility] REHAB GAIT DISTURBANCE; CHRONIC VERTIGO [id number] 03/07/2016 06:40:00 03/07/2016 13:50:00 DIS Outpatient ADAM LAUGHLIN MD [facility] CATH ABNORMAL STRESS TEST,CAD,HTN,HLP [id number] 02/24/2016 11:38:00 02/24/2016 23:59:59 CLS Outpatient CROW LUNDBERG [facility] CARD AF,CAD,CAROTID ARTERY STENOSIS,HLP,PVD [id number] 02/23/2016 11:58:00 02/23/2016 23:59:59 CLS Outpatient CROW LUNDBERG [facility] RAD CAROTID ARTERY STENOSIS [id number] 02/22/2016 12:59:00 02/22/2016 23:59:59 CLS Outpatient CROW LUNDBERG [facility] CARD AF,CAD,CAROTID ARTERY STENOSIS,HLP,PVD [id number] 06/27/2014 11:52:00 06/27/2014 23:59:59 CLS Outpatient SARAH CARPENTER MD [facility] RAD BI KNEE PAIN AND SWELLING [id number] 11/27/2013 07:48:00 11/27/2013 23:59:59 CLS Outpatient CROW LUNDBERG [facility] CARD AFIB,ANXIETY [id number] 11/22/2013 12:38:00 11/22/2013 23:59:59 CLS Outpatient ADAM LAUGHLIN MD [facility] CARD AFIB,ANXIETY,CAD [id number] 06/27/2014 11:52:00 Document Registration [id number] 06/27/2014 11:51:00 Document Registration [id number] 07/26/2012 14:32:00 Document Registration [id number] 06/06/2012 08:40:00 Document Registration [id number] 06/05/2012 11:20:00 Document Registration [id number] 05/30/2012 10:58:00 Document Registration [id number] 07/11/2011 17:15:00 Document Registration [id number] 06/20/2011 18:55:00 Document Registration [id number] 05/30/2011 10:24:00 Document Registration [id number] 05/23/2011 10:37:00 Document Registration [id number] 07/26/2010 09:31:00 Document Registration [id number] 06/23/2010 05:37:00 Document Registration [id number] 06/22/2010 07:56:00 Document Registration [id number] 06/03/2010 09:40:00 Document Registration [id number] 02/15/2010 08:57:00 Document Registration [id number] 07/23/2009 10:51:00 Document Registration [id number] 01/27/2009 10:56:00 Document Registration [id number] 12/26/2016 10:51:00 12/26/2016 23:59:00 DIS Outpatient SARAH CARPENTER [id number] 12/23/2016 13:24:00 12/23/2016 23:59:00 DIS Outpatient SARAH CARPENTER
[2018-12-16] MEDS ORDERED: fentaNYL INJECTION 100 MCG/2 ML AMP IVP STA (12:13)
[2018-12-16 12:22] LABS: BASOPHILS % (AUTO) 0 % (0-10); EOSINOPHILS % (AUTO) 0 % (0-10); HEMATOCRIT 34 % (35-52); HEMOGLOBIN 11.2 G/DL (11.5-16.0); LYMPHOCYTES # (AUTO) 0.8 X 10^3 (1.0-4.0); LYMPHOCYTES % (AUTO) 8 % (12-44); MEAN CORPUSCULAR HEMOGLOBIN 31 PG (25-34); MEAN CORPUSCULAR HGB CONC 33 G/DL (32-36); MEAN CORPUSCULAR VOLUME 93 FL (80-99); MONOCYTES # (AUTO) 0.9 X 10^3 (0.0-1.0); MONOCYTES % (AUTO) 9 % (0-12); NEUTROPHILS # (AUTO) 8.2 X 10^3 (1.8-7.8); NEUTROPHILS % (AUTO) 82 % (42-75); PLATELET COUNT 234 10^3/uL (130-400); RED CELL DISTRIBUTION WIDTH 14.9 % (10.0-14.5)
--- NOTE | 2018-12-16 12:25 | NUR ---
SEE LIST FOR CURRENT MEDS
[2018-12-16 12:49] LABS: ALANINE AMINOTRANSFERASE 26 U/L (0-55); ALBUMIN 3.8 GM/DL (3.2-4.5); ALKALINE PHOSPHATASE 70 U/L (40-136); BILIRUBIN,TOTAL 0.6 MG/DL (0.1-1.0); BUN/CREATININE RATIO 18; CALCIUM 9.3 MG/DL (8.5-10.1); CARBON DIOXIDE 23 MMOL/L (21-32); CHLORIDE 109 MMOL/L (98-107); GFR ESTIMATED 47; GLUCOSE 113 MG/DL (70-105); POTASSIUM 3.7 MMOL/L (3.6-5.0); SODIUM 142 MMOL/L (135-145); TOTAL PROTEIN 6.9 GM/DL (6.4-8.2)
--- NOTE | 2018-12-16 13:19 | Diagnostic Imaging Report ---
INDICATION: Fall, pain. COMPARISON: 06/22/2011 TECHNIQUE: Three radiographs of the pelvis and left hip dated 12/16/2018. FINDINGS: Significant apex left curvature of the visualized lumbar spine with associated advanced degenerative changes. The sacroiliac joints appear intact. Multiple phleboliths within the lower pelvis. No acute fracture or dislocation. Mild degenerative changes within the left hip. Scattered vascular calcifications. Pubic symphysis is intact. IMPRESSION: 1. No acute osseous abnormality with scattered degenerative changes, by far greatest within the lower lumbar spine. 2. Scattered vascular calcifications. Dictated by: Dictated on workstation # [id number]
--- NOTE | 2018-12-16 13:29 | Diagnostic Imaging Report ---
PROCEDURE: CT chest without contrast. TECHNIQUE: Multiple contiguous axial images were obtained through the chest without the use of intravenous contrast. Auto Exposure Controls were utilized during the CT exam to meet ALARA standards for radiation dose reduction. INDICATION: Trauma to chest, chest pain. There are no prior CT chest examinations available for comparison. The plain film examination of the chest performed on 08/21/2018 noted cardiomegaly and left basilar atelectasis/infiltrate and fluid. Reportedly patient has suffered recent trauma to the left thorax. There is a question of a nondisplaced fracture involving the lateral aspect of the left eighth rib. There is also minimal buckling of the ventral cortex of the sternum. This finding is questionable for a nondisplaced fracture as well. No other fracture or acute bony abnormality is appreciated. There is no sign of a pneumothorax on the left. There does appear to be a very small amount of atelectasis/infiltrate and fluid in the left lung base. There is also mild atelectasis/infiltrate in the right lower lobe. The lungs are otherwise generally clear. The heart size is enlarged and there are extensive coronary artery calcifications evident. There aorta is not abnormally dilated measuring 3.4 x 3.8 cm There is no obvious mediastinal or hilar adenopathy. The thyroid gland is generally unremarkable. There is no definite breast mass visualized. The sections through the upper abdomen fail to show any sign of an acute abnormality. There do appear to be a number of radiopaque medication tablets within the stomach. The bone windows do show severe degenerative disc disease throughout the mid and lower thoracic spine. IMPRESSION: 1. The findings are suspicious for nondisplaced fractures involving the sternum and the left eighth rib. There is no acute bony abnormality noted otherwise. 2. There is mild bibasilar atelectasis/infiltrate and a small amount of fluid in the left lung base. There is no sign of a pneumothorax. 3. There is cardiomegaly and coronary artery disease. Dictated by: Dictated on workstation # [id number]
--- NOTE | 2018-12-16 13:31 | Diagnostic Imaging Report ---
PROCEDURE: CT lumbar spine without contrast. TECHNIQUE: Multiple contiguous axial images were obtained through the lumbar spine without the use of intravenous contrast. Sagittal and coronal reformations were then performed. Auto Exposure Controls were utilized during the CT exam to meet ALARA standards for radiation dose reduction. INDICATION: Fall, pain. COMPARISON: 05/30/2011 FINDINGS: Moderate apex left curvature of the lumbar spine. L4 is positioned to the left of L5. No significant anterolisthesis or retrolisthesis. Severe endplate degenerative changes are identified at L4/L5. Additional scattered endplate degenerative changes are also present. No evidence of a recent vertebral body compression deformity. Severe disc space height loss is noted at essentially every level within the lumbar spine except for at L4/L5. 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 No acute fracture or dislocation. No destructive osseous process. Sacroiliac joints are intact. Multilevel central canal stenosis, including at T10/T11, T11/T12, T12/L1, L1/L2, L2/L3, L3/L4, L4/L5, and L5/S1. This includes severe central canal stenosis at L4/L5. Multilevel neural foraminal stenosis is present, including severe bilateral neural foraminal stenosis at L4/L5. Extensive vascular calcifications. Small left pleural effusion. Calcified splenic granuloma. Visualized paraspinal soft tissues are otherwise unremarkable. IMPRESSION: 1. No acute osseous abnormality. 2. Significant apex left curvature of the lumbar spine with associated severe multilevel degenerative changes. There is central canal stenosis at essentially every level including severe central canal stenosis at L4/L5 with additional severe neural foraminal stenosis at L4/L5. 3. Small left pleural effusion. Dictated by: Dictated on workstation # [id number]
--- NOTE | 2018-12-16 13:34 | ED Fall/Injury ---
General Chief Complaint: Trauma-Non Activation Stated Complaint: FALL/LOWER BACK PAIN Nursing Triage Note: SEE TRIAGE Source: patient Exam Limitations: no limitations History of Present Illness Date Seen by Provider: December 16, 2018 Time Seen by Provider: 12:08 Initial Comments Here with report of fall and lower back pain as well as anterior chest wall pain. States she fell a couple days ago and hit her chair. She had to crawl for 3 hours to get up. She is finally able to get up. Since the fall 3 days ago she's had low back pain. She does have history of spinal fusion in that area. Pain is over the lumbar sacral area. Anterior chest wall pain is superior sternum. There is some bruising there. Also complains of left hip pain. Location Injury Occurred: HOME Occurred: other (3 days ago) Severity: moderate Injuries/Pain Location: chest, pelvis Context: lost balance Loss of Consciousness: no loss of consciousness Modifying Factors: Improves With Immobilization; Worse With Movement Associated Symptoms (Fall): No Abdominal Pain; Chest Pain; No Confusion, No Headache; Muscle Spasms; No Neck Pain Allergies and Home Medications Allergies Coded Allergies: Sulfa (Sulfonamide Antibiotics) (Verified Allergy, Intermediate, RASH, 06/28/17) Penicillins (Verified Allergy, Mild, ITCHING, 06/28/17) Home Medications Acetaminophen 500 Mg Tablet, 1,000 MG PO BID, (Reported) TAKES 2 (500MG) TABLETS Aspirin 81 Mg Tablet.dr, 81 MG PO HS, (Reported) Atorvastatin Calcium 10 Mg Tablet, 10 MG PO HS, (Reported) Calcium Carbonate/Vitamin D3 1 Each Tablet, 1 TAB PO DAILY, (Reported) Clonidine HCl 0.2 Mg Tablet, 0.2 MG PO 0800,1545,2100, (Reported) Diltiazem HCl 240 Mg Cap.er.24h, 240 MG PO DAILY, (Reported) Fish Oil/Dha/Epa 1 Each Capsule, 1,200 MG PO DAILY, (Reported) Furosemide 40 Mg Tablet, 40 MG PO DAILY, (Reported) Losartan Potassium 100 Mg Tablet, 100 MG PO DAILY, (Reported) Metoprolol Tartrate 100 Mg Tablet, 100 MG PO BID, (Reported) Multivit-Min/FA/Lycopene/Lut 1 Each Tablet, 1 TAB PO DAILY, (Reported) Naproxen 500 Mg Tablet, 500 MG PO Q12H Prescribed by: EDILBERTO TABOR on 08/22/18 1254 Oxybutynin Chloride 5 Mg Tablet, 5 MG PO BID, (Reported) Potassium Chloride 10 Meq Tablet.er, 30 MEQ PO SuSa, (Reported) TAKES 3 (10MEQ) TABLETS Potassium Chloride 10 Meq Tablet.er, 20 MEQ PO MoTuWeThFr, (Reported) TAKES 2 (10MEQ) TABLETS Patient Home Medication List Home Medication List Reviewed: Yes Review of Systems Review of Systems Constitutional: see HPI; No chills, No fever Eyes: No Symptoms Reported Ears, Nose, Mouth, Throat: no symptoms reported Respiratory: No short of breath, No wheezing Cardiovascular: chest pain (along the sternal); No palpitations Gastrointestinal: No abdominal pain, No nausea, No vomiting Genitourinary: no symptoms reported Musculoskeletal: see HPI, back pain, joint pain (left hip), muscle pain, muscle stiffness (low back) Skin: change in color (multiple contusions), lesions (left elbow seemed to) Psychiatric/Neurological: No Symptoms Reported All Other Systems Reviewed Negative Unless Noted: Yes Past Dripuyn-Mtzbkw-Snbdow Hx Past Med/Social Hx: Reviewed Nursing Past Med/Soc Hx Patient Social History Alcohol Use: Denies Use Recreational Drug Use: No Smoking Status: Never a Smoker Type Used: Cigarettes Former Smoker, Quit: Mar 07, 1979 Recent Foreign Travel: No Contact w/Someone Who Travel: No Recent Infectious Disease Expo: No Recent Hopitalizations: No Immunizations Up To Date Tetanus Booster (TDap): Unknown Date of Pneumonia Vaccine: May 06, 2012 Date of Influenza Vaccine: May 23, 2018 Seasonal Allergies Seasonal Allergies: Yes Past Medical History Surgeries: Yes Breast, Cardiac, Hysterectomy, Joint Replacement, Neurological, Orthopedic, Vascular Surgery Respiratory: Yes Asthma Cardiac: Yes Atrial Fibrillation, Cardiomyopathy, Chronic Edema/Swelling, Coronary Artery Disease, Deep Vein Thrombosis, High Cholesterol, Hypertension, Peripheral Vascular, Valvular Heart Disease Neurological: Yes (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; CONGNITIVE IMPAIRMENT) Stroke Reproductive Disorders: 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, 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 Sexually Transmitted Disease: No HIV/AIDS: No Genitourinary: No Gastrointestinal: Yes Chronic Constipation Musculoskeletal: Yes (RIGHT TOTAL KNEE REPLACEMENT) Arthritis Endocrine: No HEENT: Yes (cataracts removed, dentures) Loss of Vision: Bilateral Hearing Impairment: Denies Cancer: Yes Skin Psychosocial: Yes Anxiety, Depression Integumentary: No Blood Disorders: No Adverse Reaction/Blood Tranf: No (N/A) Family Medical History Reviewed Nursing Family Hx Alzheimer's disease 19 MOTHER Cardiovascular disease G8 SISTER FH: breast cancer 19 MOTHER Respiratory disorder 19 FATHER (tb) Physical Exam Vital Signs Vital Signs - First Documented 12/16/18 12:00 Temp 97.6 Pulse 77 Resp 16 B/P (MAP) 171/88 (115) Capillary Refill : Less Than 3 Seconds Height, Weight, BMI Height: 5'9.00" Weight: 134lbs. 0.0oz. [id number]; 20.5 BMI Method:Stated General Appearance: WD/WN, no apparent distress HEENT: PERRL/EOMI, pharynx normal Neck: non-tender, full range of motion, supple, normal inspection Cardiovascular: regular rate, rhythm, no murmur Respiratory: lungs clear, normal breath sounds Gastrointestinal: non tender, soft Back: no vertebral tenderness, muscle spasm, other (tender lateral aspect low back right greater than left) Extremities: non-tender, normal inspection Neurologic/Psychiatric: alert, oriented x 3 Skin: warm/dry, ecchymosis (multiple areas of ecchymosis on the arms and anterior chest wall superiorly) [place] Coma Score Best Eye Response: (4) Open Spontaneously Best Verbal Response: (5) Oriented Progress/Results/Core Measures Results/Orders Lab Results Laboratory Tests Test 12/16/18 12:15 Range/Units White Blood Count 10.0 4.3-11.0 10^3/uL Red Blood Count 3.66 L 4.35-5.85 10^6/uL Hemoglobin 11.2 L 11.5-16.0 G/DL Hematocrit 34 L 35-52 % Mean Corpuscular Volume 93 80-99 FL Mean Corpuscular Hemoglobin 31 25-34 PG Mean Corpuscular Hemoglobin Concent 33 32-36 G/DL Red Cell Distribution Width 14.9 H 10.0-14.5 % Platelet Count 234 130-400 10^3/uL Mean Platelet Volume 10.0 7.4-10.4 FL Neutrophils (%) (Auto) 82 H 42-75 % Lymphocytes (%) (Auto) 8 L 12-44 % Monocytes (%) (Auto) 9 0-12 % Eosinophils (%) (Auto) 0 0-10 % Basophils (%) (Auto) 0 0-10 % Neutrophils # (Auto) 8.2 H 1.8-7.8 X 10^3 Lymphocytes # (Auto) 0.8 L 1.0-4.0 X 10^3 Monocytes # (Auto) 0.9 0.0-1.0 X 10^3 Eosinophils # (Auto) 0.0 0.0-0.3 10^3/uL Basophils # (Auto) 0.0 0.0-0.1 10^3/uL Sodium Level 142 135-145 MMOL/L Potassium Level 3.7 3.6-5.0 MMOL/L Chloride Level 109 H 98-107 MMOL/L Carbon Dioxide Level 23 21-32 MMOL/L Anion Gap 10 5-14 MMOL/L Blood Urea Nitrogen 20 H 7-18 MG/DL Creatinine 1.10 0.60-1.30 MG/DL Estimat Glomerular Filtration Rate 47 BUN/Creatinine Ratio 18 Glucose Level 113 H 70-105 MG/DL Calcium Level 9.3 8.5-10.1 MG/DL Corrected Calcium 9.5 8.5-10.1 MG/DL Total Bilirubin 0.6 0.1-1.0 MG/DL Aspartate Amino Transf (AST/SGOT) 33 5-34 U/L Alanine Aminotransferase (ALT/SGPT) 26 0-55 U/L Alkaline Phosphatase 70 40-136 U/L Troponin I < 0.028 <0.028 NG/ML Total Protein 6.9 6.4-8.2 GM/DL Albumin 3.8 3.2-4.5 GM/DL My Orders Orders - GILMAR PETERSEN MD Ct Chest Wo (12/16/18 12:13) Ct Lumbar Spine Wo (12/16/18 12:13) Ed Iv/Invasive Line Start (12/16/18 12:13) Cbc With Automated Diff (12/16/18 12:13) Comprehensive Metabolic Panel (12/16/18 12:13) Troponin I (12/16/18 12:13) Fentanyl Injection (Sublimaze Injection (12/16/18 12:13) Ekg Tracing (12/16/18 12:13) Pelvis With Left Hip 2-3 Views (12/16/18 12:31) Prednisone Tablet (Deltasone Tablet) (12/16/18 14:45) Morphine Injection (Morphine Injection (12/16/18 14:50) Vital Signs/I&O 5/26/19 12:00 Temp 97.6 Pulse 77 Resp 16 B/P (MAP) 171/88 (115) Blood Pressure Mean: 115 Progress Progress Note : Progress Note Seen and evaluated. IV, labs, CT of the chest and lumbar spine and x-ray of the pelvis and left hip ordered. Fentanyl 25 g IV ordered. Monitor patient. 1400: Radiology studies noted. Patient does have old sternal fracture and left eighth rib fracture. She is and severe pain when having to sit up and lives by herself. She is unable to sit up on her own. Patient now reports that this injury occurred 36 hours ago not 3 days ago. Due to uncontrolled pain and risk of increased morbidity or mortality related to her sternal fractures, patient will be admitted. She also has significant lumbar pain. We will initiate steroid treatment and have physical therapy evaluate and treat as well. I did discuss the case with Dr. Hill and he agrees with the plan and accepts patient for admission, inpatient status. He is requesting medicine consult. I did discuss the case with Dr. Calderon at 1444 and he accepts patient in consult. Patient and family agree with plan. Diagnostic Imaging Diagonstic Imaging: Xray Plain Films/CT/US/NM/MRI: pelvis, hip Comments NAME: LACEY REYNA [facility] REC#: [id number] PT STATUS: REG ER : 1935 PHYSICIAN: GILMAR PETERSEN MD ADMIT DATE: 12/16/18/ER Signed Date of Exam: 12/16/18 PELVIS WITH LEFT HIP 2-3 VIEWS INDICATION: Fall, pain. COMPARISON: 06/22/2011 TECHNIQUE: Three radiographs of the pelvis and left hip dated 12/16/2018. FINDINGS: Significant apex left curvature of the visualized lumbar spine with associated advanced degenerative changes. The sacroiliac joints appear intact. Multiple phleboliths within the lower pelvis. No acute fracture or dislocation. Mild degenerative changes within the left hip. Scattered vascular calcifications. Pubic symphysis is intact. IMPRESSION: 1. No acute osseous abnormality with scattered degenerative changes, by far greatest within the lower lumbar spine. 2. Scattered vascular calcifications. Dictated by: Dictated on workstation # [id number] Dict: 12/16/18 1311 Trans: 12/16/18 1320 Interpreted by: ASHUTOSH MORALES MD Electronically signed by: ASHUTOSH MORALES MD 12/16/18 1320 Reviewed: Reviewed by Me Diagonstic Imaging: CT Plain Films/CT/US/NM/MRI: chest Comments [facility] [place] [place], [place] NAME: LACEY REYNA [facility] REC#: [id number] PT STATUS: REG ER : 1935 PHYSICIAN: GILMAR PETERSEN MD ADMIT DATE: 12/16/18/ER Draft Date of Exam:12/16/18 CT CHEST WO PROCEDURE: CT chest without contrast. TECHNIQUE: Multiple contiguous axial images were obtained through the chest without the use of intravenous contrast. Auto Exposure Controls were utilized during the CT exam to meet ALARA standards for radiation dose reduction. INDICATION: Trauma to chest, chest pain. There are no prior CT chest examinations available for comparison. The plain film examination of the chest performed on 08/21/2018 noted cardiomegaly and left basilar atelectasis/infiltrate and fluid. Reportedly patient has suffered recent trauma to the left thorax. There is a question of a nondisplaced fracture involving the lateral aspect of the left eighth rib. No other fracture or acute bony abnormality is appreciated. There is no sign of a pneumothorax on the left. There does appear to be a very small amount of atelectasis/infiltrate and fluid in the left lung base. There is also mild atelectasis/infiltrate in the right lower lobe. The lungs are otherwise generally clear. The heart size is enlarged and there are extensive coronary artery calcifications evident. There aorta is not abnormally dilated measuring 3.4 x 3.8 cm There is no obvious mediastinal or hilar adenopathy. The thyroid gland is generally unremarkable. There is no definite breast mass visualized. The sections through the upper abdomen fail to show any sign of an acute abnormality. There do appear to be a number of radiopaque medication tablets within the stomach. The bone windows do show severe degenerative disc disease throughout the mid and lower thoracic spine. There is no acute bony abnormality noted. There is slight buckling of the ventral cortex of the sternum. This is questionable for a nondisplaced fracture. IMPRESSION: 1. The findings are suspicious for nondisplaced fractures involving the sternum and the left eighth rib. There is no acute bony abnormality noted otherwise. 2. There is mild bibasilar atelectasis/infiltrate and a small amount of fluid in the left lung base. There is no sign of a pneumothorax. There is cardiomegaly and coronary artery disease. Dictated on workstation # [id number] Dict: 12/16/18 1310 Trans: 12/16/18 1329 [facility] [id number] Interpreted by: ROB DYER MD Electronically signed by: Reviewed: Reviewed by Me Diagonstic Imaging: CT Plain Films/CT/US/NM/MRI: other Comments NAME: LACEY REYNA [facility] REC#: [id number] PT STATUS: REG ER : 1935 PHYSICIAN: GILMAR PETERSEN MD ADMIT DATE: 12/16/18/ER Signed Date of Exam: 12/16/18 CT LUMBAR SPINE WO PROCEDURE: CT lumbar spine without contrast. TECHNIQUE: Multiple contiguous axial images were obtained through the lumbar spine without the use of intravenous contrast. Sagittal and coronal reformations were then performed. Auto Exposure Controls were utilized during the CT exam to meet ALARA standards for radiation dose reduction. INDICATION: Fall, pain. COMPARISON: 05/30/2011 FINDINGS: Moderate apex left curvature of the lumbar spine. L4 is positioned to the left of L5. No significant anterolisthesis or retrolisthesis. Severe endplate degenerative changes are identified at L4/L5. Additional scattered endplate degenerative changes are also present. No evidence of a recent vertebral body compression deformity. Severe disc space height loss is noted at essentially every level within the lumbar spine except for at L4/L5. 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 No acute fracture or dislocation. No destructive osseous process. Sacroiliac joints are intact. Multilevel central canal stenosis, including at T10/T11, T11/T12, T12/L1, L1/L2, L2/L3, L3/L4, L4/L5, and L5/S1. This includes severe central canal stenosis at L4/L5. Multilevel neural foraminal stenosis is present, including severe bilateral neural foraminal stenosis at L4/L5. Extensive vascular calcifications. Small left pleural effusion. Calcified splenic granuloma. Visualized paraspinal soft tissues are otherwise unremarkable. IMPRESSION: 1. No acute osseous abnormality. 2. Significant apex left curvature of the lumbar spine with associated severe multilevel degenerative changes. There is central canal stenosis at essentially every level including severe central canal stenosis at L4/L5 with additional severe neural foraminal stenosis at L4/L5. 3. Small left pleural effusion. Dictated by: Dictated on workstation # [id number] Dict: 12/16/18 1313 Trans: 12/16/18 1331 Interpreted by: ASHUTOSH MORALES MD Electronically signed by: ASHUTOSH MORALES MD 12/16/18 133 Reviewed: Reviewed by Me Departure Impression Primary Impression: Fracture, sternum closed Qualified Codes: S22.22XA - Fracture of body of sternum, initial encounter for closed fracture Additional Impressions: Fracture of eight ribs of left side Qualified Codes: S22.42XA - Multiple fractures of ribs, left side, initial encounter for closed fracture Intractable pain Disposition: ADMITTED INPATIENT Condition: Stable Admissions Decision to Admit Reason: Admit from ER (Trauma) Decision to Admit/Date: December 16, 2018 Time/Decision to Admit Time: 14:00 Departure-Patient Inst. Referrals: HANNAH GREER MD (PCP/Family) Primary Care Physician GILMAR PETERSEN MD December 16, 2018 13:34
[2018-12-16] MEDS ORDERED: predniSONE 20 MG TAB PO ONE (14:45)
[2018-12-16] MEDS ORDERED: morphine INJ 10 MG/ML 1ML (SYR OR VIAL) IVP STA (14:50)
--- OUTSIDE RECORDS SUMMARY | 2018-12-16 15:10 | XMS REPORT | Clinical Summary ---
Author Author [facility] Organization [facility] Address Unknown Phone Unavailable Care Team Providers Care Director Of Direct Marketing Name Role Phone Josiah Collado MD Unavailable Brittnee Marie MD PCP Source Comments Some departments are not documenting in the electronic medical record. 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 Blood Pressure 137/78 07/11/2011 12:02 PM BLOW OFF WORKER Pulse 83 07/11/2011 12:02 PM BLOW OFF WORKER Temperature 36.8 C (98.2 F) - Respiratory Rate - 07/11/2011 12:02 PM BLOW OFF WORKER Oxygen Saturation 95% - Inhaled Oxygen - Concentration 07/11/2011 6:31 AM BLOW OFF WORKER Weight 75.3 kg (166 lb) 07/11/2011 1:00 PM BLOW OFF WORKER Height 170.2 cm (5' 7.01") 07/11/2011 6:31 AM BLOW OFF WORKER Body Mass Index 25.99 Plan of Treatment Health Maintenance Due Date Last Done Comments PHYSICAL (COMPREHENSIVE) 1942 EXAM DTAP/TDAP VACCINES (1 - 1951 Tdap) SHINGLES RECOMBINANT 1983 VACCINE (1 of 2) OSTEOPOROSIS 1998 SCREENING/MONITORING PNEUMONIA (PCV13/PPSV23) 1998 VACCINES (1 of 2 - PCV13) INFLUENZA VACCINE 04/23/2019 Results Not on filefrom Last 3 Months Advance Directives For more information, please contact: [facility] [address] [place] [address] Date Inactivated Comments Code Status Date Activated 07/11/2011 4:41 PM Full Code 06/23/2011 4:32 PM Provider has discussed Code Status No, more discussion w/Patient or Family? needed
--- OUTSIDE RECORDS SUMMARY | 2018-12-16 15:12 | XMS REPORT | Continuity of Care Document ---
Author Organization Unknown Address Unknown Allergies Active Description Code Type Severity Reaction Onset Reported/Identified Relationship to Patient Clinical Status Yes penicillin G [id number] Drug Allergy Unknown N/A 11/20/2008 Yes Sulfa (Sulfonamide Antibiotics) [id number] Drug Allergy Unknown N/A 11/20/2008 Yes Sulfa (Sulfonamide Antibiotics) [id number] Drug Allergy Moderate RASH 06/28/2017 Yes Penicillins [id number] Drug Allergy Mild ITCHING 06/28/2017 Medications There [...] ST 07/27/2011 Ot 414.01 CORONARY ATHEROSCLEROSIS OF [place] CORON 07/27/2011 Ot 427.31 ATRIAL FIBRILLATION 07/27/2011 [...] NOS 06/07/2012 Ot 414.01 CORONARY ATHEROSCLEROSIS OF [place] CORON 06/07/2012 Ot 427.31 ATRIAL FIBRILLATION 06/07/2012 Ot 440.20 ATHEROSCLEROSIS [place] ARTERIES EXTREMIT 06/07/2012 Ot 786.59 CHEST PAIN [...] ADAM Talbot Ot 397.0 06/27/2014 TRUMAN MERCADO, ADMA Talbot Ot 401.9 06/27/2014 TRUMAN MERCADO, ADAM Talbot Ot 414.00 06/27/2014 TRUMAN MERCADO, ADAM Talbot Ot 424.0 06/27/2014 TRUMAN MERCADO, ADAM Talbot Ot 427.31 06/27/2014 ADAM LAUGHLIN MD Ot 745.5 06/27/2014 RCOW LUNDBERG Ot 300.00 06/27/2014 CROW LUNDBERG Ot [...] K Ot I25.10 ATHSCL HEART DISEASE OF [place] CORONARY 02/23/2016 KAMILLA RUSSELL, CROW K Ot [...] K Ot I25.10 ATHSCL HEART DISEASE OF [place] CORONARY 02/25/2016 ZAMUDIO-LACEY PA, CROW K Ot I48.1 PERSISTENT ATRIAL FIBRILLATION 02/25/2016 LIZZ-LACEY PA, CROW K Ot 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 02/25/2016 LIZZ-LACEY PA, CROW K Ot I73.9 PERIPHERAL VASCULAR DISEASE, UNSPECIFIED 02/25/2016 KAMILLA PA, CROW K Ot E78.2 MIXED HYPERLIPIDEMIA 02/25/2016 KAMILLA RUSSELL, CROW K Ot I25.10 ATHSCL HEART DISEASE OF [place] CORONARY 02/25/2016 CROW LUNDBERG Ot I48.1 PERSISTENT [...] MD Ot I25.10 ATHSCL HEART DISEASE OF [place] CORONARY 03/07/2016 ADAM LAUGHLIN MD Ot I25.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 [place] 03/07/2016 ADAM LAUGHLIN MD Ot I48.91 UNSPECIFIED ATRIAL FIBRILLATION 03/07/2016 ADAM LAUGHLIN MD Ot I70.0 ATHEROSCLEROSIS OF [place] 03/07/2016 ADAM LAUGHLIN MD Ot I70.203 UNSP ATHSCL [place] ARTERIES OF [facility] 03/07/2016 ADAM LAUGHLIN MD Ot R94.39 ABNORMAL RESULT OF OTHER CARDIOVASCULAR 03/07/2016 ADAM LAUGHLIN MD Ot Z79.899 OTHER SOUND ENGINEER AUDIO CONTROL (CURRENT) DRUG THERAPY 03/07/2016 ADAM LAUGHLIN MD Ot Z86.73 PRSNL HX OF TIA (TIA), AND CEREB INFRC W 03/07/2016 ADAM LAUGHLIN MD Ot Z95.5 PRESENCE OF CORONARY ANGIOPLASTY IMPLANT 03/15/2016 ADAM LAUGHLIN MD Ot E78.5 HYPERLIPIDEMIA, UNSPECIFIED 03/15/2016 ADAM LAUGHLIN MD Ot I10 ESSENTIAL (PRIMARY) HYPERTENSION 03/15/2016 ADAM LAUGHLIN MD Ot I25.10 ATHSCL HEART DISEASE OF [place] CORONARY 03/15/2016 ADAM LAUGHLIN MD Ot 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2 MIXED HYPERLIPIDEMIA 03/15/2016 CROW LUNDBERG Ot I25.10 ATHSCL HEART DISEASE OF [place] CORONARY 03/15/2016 CROW LUNDBERG Ot I48.1 PERSISTENT ATRIAL FIBRILLATION 03/15/2016 CROW LUNDBERG Ot 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 03/15/2016 CROW LUNDBERG Ot I73.9 PERIPHERAL VASCULAR DISEASE, UNSPECIFIED 03/15/2016 CROW LUNDBERG Ot 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 03/18/2016 CROW LUNDBERG Ot E78.2 MIXED HYPERLIPIDEMIA 03/18/2016 CROW LUNDBERG Ot I25.10 ATHSCL HEART DISEASE OF [place] CORONARY 03/18/2016 CROW LUNDBERG Ot I48.1 PERSISTENT ATRIAL FIBRILLATION 03/18/2016 CROW LUNDBERG Ot 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 03/18/2016 CROW LUNDBERG Ot I73.9 PERIPHERAL VASCULAR DISEASE, UNSPECIFIED 03/24/2016 CROW LUNDBERG Ot E78.2 MIXED HYPERLIPIDEMIA 03/24/2016 CROW LUNDBERG Ot I25.10 ATHSCL HEART DISEASE OF [place] CORONARY 03/24/2016 CROW LUNDBERG Ot I48.1 PERSISTENT ATRIAL FIBRILLATION 03/24/2016 CROW LUNDBERG Ot 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 03/24/2016 CROW LUNDBERG Ot I73.9 PERIPHERAL VASCULAR DISEASE, UNSPECIFIED 03/24/2016 CROW LUNDBERG Ot E78.2 MIXED HYPERLIPIDEMIA 03/24/2016 CROW LUNDBERG Ot I25.10 ATHSCL HEART DISEASE OF [place] CORONARY 03/24/2016 CROW LUNDBERG Ot I48.1 PERSISTENT [...] CROW LUNDBERG Ot 401.9 HYPERTENSION NOS 08/09/2016 CROW LUNDBERG Ot 414.00 CORON ATHEROSCLER NOS [...] LUNDBERG Ot I25.10 ATHSCL HEART DISEASE OF [place] CORONARY 08/09/2016 KAMILLA RUSSELL CROW K Ot I48.1 PERSISTENT ATRIAL FIBRILLATION 08/09/2016 KAMILLA RUSSELL CROW K Ot 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 08/09/2016 CROW LUNDBERG Ot I73.9 PERIPHERAL VASCULAR DISEASE, UNSPECIFIED 08/09/2016 CROW LUNDBERG Ot E78.2 MIXED HYPERLIPIDEMIA 08/09/2016 CROW LUNDBERG Ot I25.10 ATHSCL HEART DISEASE OF [place] CORONARY 08/09/2016 KAMILLA RUSSELL CROW K Ot [...] MD, Ot I25.10 ATHSCL HEART DISEASE OF [place] CORONARY 05/11/2017 TEVIN AGUIRRE MD, Ot I25.10 ATHSCL HEART DISEASE OF [place] CORONARY 05/11/2017 TEVIN AGUIRRE MD, Ot S83.281A [...] MD, Ot I25.10 ATHSCL HEART DISEASE OF [place] CORONARY 05/12/2017 ADAM LAUGHLIN MD, Ot I65.22 [...] MD Ot I25.10 ATHSCL HEART DISEASE OF [place] CORONARY 06/05/2017 ADAM LAUGHLIN MD Ot I65.22 [...] MD Ot I25.10 ATHSCL HEART DISEASE OF [place] CORONARY 06/14/2017 ADAM LAUGHLIN MD Ot I65.22 [...] MD Ot I25.10 ATHSCL HEART DISEASE OF [place] CORONARY 07/03/2017 ADAM LAUGHLIN MD Ot I65.23 [...] KNE 07/05/2017 TEVIN AGUIRRE MD Ot Z79.82 SOUND ENGINEER AUDIO CONTROL (CURRENT) USE OF ASPIRIN 07/05/2017 TEVIN AGUIRRE MD, Ot Z79.899 OTHER [facility] (CURRENT) DRUG THERAPY 07/05/2017 TEVIN AGUIRRE MD, [...] MD, Ot I25.10 ATHSCL HEART DISEASE OF [place] CORONARY 07/07/2017 ADAM LAUGHLIN MD Ot I65.23 [...] KNE 07/31/2017 TEVIN AGUIRRE MD, Ot Z79.82 SOUND ENGINEER AUDIO CONTROL (CURRENT) USE OF ASPIRIN 07/31/2017 TEVIN AGUIRRE MD, Ot Z79.899 OTHER SOUND ENGINEER AUDIO CONTROL (CURRENT) DRUG THERAPY 07/31/2017 TEVIN AGUIRRE MD, [...] MD Ot I25.10 ATHSCL HEART DISEASE OF [place] CORONARY 08/17/2017 ADAM LAUGHLIN MD Ot 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 08/17/2017 ADAM LAUGHLIN MD Ot I82.409 ACUTE EMBOLISM AND THOMBOS UNSP DEEP VN 09/06/2017 ADAM LAUGHLIN MD Ot E78.2 MIXED HYPERLIPIDEMIA 09/06/2017 ADAM LAUGHLIN MD Ot I10 ESSENTIAL (PRIMARY) HYPERTENSION 09/06/2017 ADAM LAUGHLIN MD Ot I25.10 ATHSCL HEART DISEASE OF [place] CORONARY 09/06/2017 ADAM LAUGHLIN MD Ot 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 09/06/2017 ADAM LAUGHLIN MD Ot I82.409 ACUTE EMBOLISM AND THOMBOS UNSP DEEP VN 09/13/2017 ADAM LAUGHLIN MD Ot E78.2 MIXED HYPERLIPIDEMIA 09/13/2017 ADAM LAUGHLIN MD Ot I10 ESSENTIAL (PRIMARY) HYPERTENSION 09/13/2017 ADAM LAUGHLIN MD Ot I25.10 ATHSCL HEART DISEASE OF [place] CORONARY 09/13/2017 ADAM LAUGHLIN MD Ot I65.23 [...] K Ot I25.10 ATHSCL HEART DISEASE OF [place] CORONARY 05/10/2018 KAMILLA RUSSELL CROW K Ot I48.1 PERSISTENT ATRIAL FIBRILLATION 05/10/2018 KAMILLA RUSSELL CROW K Ot 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 05/10/2018 KAMILLA RUSSELL CROW K Ot I73.9 PERIPHERAL VASCULAR DISEASE, UNSPECIFIED 05/10/2018 KAMILLA RUSSELL CROW K Ot E78.2 MIXED HYPERLIPIDEMIA 05/10/2018 KAMILLA RUSSELL CROW K Ot I25.10 ATHSCL HEART DISEASE OF [place] CORONARY 05/10/2018 KAMILLA RUSSELL CROW K Ot [...] MD Ot I25.10 ATHSCL HEART DISEASE OF [place] CORONARY 05/10/2018 ADAM LAUGHLIN MD Ot 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 05/10/2018 ADAM LAUGHLIN MD Ot E78.5 HYPERLIPIDEMIA, UNSPECIFIED 05/10/2018 ADAM LAUGHLIN MD, Ot I10 ESSENTIAL (PRIMARY) HYPERTENSION 05/10/2018 ADAM LAUGHLIN MD Ot I25.10 ATHSCL HEART DISEASE OF [place] CORONARY 05/10/2018 ADAM LAUGHLIN MD, Ot I65.23 [...] MD, Ot I25.10 ATHSCL HEART DISEASE OF [place] CORONARY 05/10/2018 ADAM LAUGHLIN MD Ot I65.23 [...] MD Ot I25.10 ATHSCL HEART DISEASE OF [place] CORONARY 05/25/2018 TEVIN AGUIRRE MD Ot I34.0 NONRHEUMATIC MITRAL (VALVE) INSUFFICIENC 05/25/2018 TEVIN AGUIRER MD Ot I48.2 CHRONIC ATRIAL FIBRILLATION 05/25/2018 TEVIN AGUIRRE MD Ot I50.22 CHRONIC SYSTOLIC (CONGESTIVE) HEART FAIL 05/25/2018 TEVIN AGUIRRE MD Ot I70.0 ATHEROSCLEROSIS OF [place] 05/25/2018 TEVIN AGUIRRE MD Ot I70.292 OTH ATHSCL [place] ARTERIES OF EXTREM[place]IE 05/25/2018 TEVIN AGUIRRE MD [...] MD Ot I25.10 ATHSCL HEART DISEASE OF [place] CORONARY 06/07/2018 ADI FRIAS MD Ot I34.0 NONRHEUMATIC MITRAL (VALVE) INSUFFICIENC 06/07/2018 ADI FRIAS MD, Ot I48.2 CHRONIC ATRIAL FIBRILLATION 06/07/2018 ADI FRIAS MD Ot I50.22 CHRONIC SYSTOLIC (CONGESTIVE) HEART FAIL 06/07/2018 ADI FRIAS MD Ot I69.219 UNSP SYMP AND SIGNS W COGN FNCTNS FOL OT 06/07/2018 ADI FRIAS MD Ot I70.0 ATHEROSCLEROSIS OF [place] 06/07/2018 ADI FRIAS MD Ot I70.203 UNSP ATHSCL [place] ARTERIES OF EXTREM[place]I 06/07/2018 ADI FRIAS MD Ot M79.661 PAIN IN RIGHT LOWER LEG 06/07/2018 ADI FRIAS MD Ot S93.401A SPRAIN OF UNSPECIFIED LIGAMENT [...] MD Ot I25.10 ATHSCL HEART DISEASE OF [place] CORONARY 08/07/2018 ADAM LAUGHLIN MD Ot I48.91 [...] Hernandez Ot I25.10 ATHSCL HEART DISEASE OF [place] CORONARY 08/21/2018 RODNEYLCAEY RUSSELL CROW Hernandez Ot I48.1 PERSISTENT ATRIAL FIBRILLATION 08/21/2018 RODNEYLACEY RUSSELL, CROW K Ot 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 08/21/2018 RODNEYLACEY RUSSELL CROW Hernandez Ot I73.9 PERIPHERAL VASCULAR DISEASE, UNSPECIFIED 08/21/2018 KAMILLA DREW CROW Hernandez Ot E78.2 MIXED HYPERLIPIDEMIA 08/21/2018 KAMILLA DREW CROW Hernandez Ot I25.10 ATHSCL HEART DISEASE OF [place] CORONARY 08/21/2018 RODNEYLACEY RUSSELL CROW Hernandez Ot [...] MD Ot I25.10 ATHSCL HEART DISEASE OF [place] CORONARY 08/21/2018 ADAM LAUGHLIN MD Ot 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 08/21/2018 ADAM LAUGHLIN MD Ot E78.5 HYPERLIPIDEMIA, UNSPECIFIED 08/21/2018 ADAM LAUGHLIN MD Ot I10 ESSENTIAL (PRIMARY) HYPERTENSION 08/21/2018 ADAM LAUGHLIN MD Ot I25.10 ATHSCL HEART DISEASE OF [place] CORONARY 08/21/2018 ADAM LAUGHLIN MD Ot I65.23 [...] MD Ot I25.10 ATHSCL HEART DISEASE OF [place] CORONARY 08/21/2018 ADAM LAUGHLIN MD Ot I65.23 [...] MD Ot I25.10 ATHSCL HEART DISEASE OF [place] CORONARY 08/21/2018 ADAM LAUGHLIN MD Ot I48.91 [...] MD Ot I25.10 ATHSCL HEART DISEASE OF [place] CORONARY 08/22/2018 HANNAH GREER MD Ot I48.2 CHRONIC ATRIAL FIBRILLATION 08/22/2018 HANNAH GREER MD Ot I70.0 ATHEROSCLEROSIS OF [place] 08/22/2018 HANNAH GREER MD Ot I70.203 UNSP ATHSCL [place] ARTERIES OF [place]TREM[place]I 08/22/2018 HANNAH GREER MD Ot K59.09 OTHER CONSTIPATION 08/22/2018 HANNAH GREER MD Ot R07.89 OTHER CHEST PAIN 08/22/2018 HANNAH GREER MD Ot Z79.82 SOUND ENGINEER AUDIO CONTROL (CURRENT) USE OF ASPIRIN 08/22/2018 HANNAH GREER MD Ot Z79.899 OTHER SOUND ENGINEER AUDIO CONTROL (CURRENT) DRUG THERAPY 08/22/2018 HANNAH GREER MD [...] MD Ot I25.10 ATHSCL HEART DISEASE OF [place] CORONARY 09/11/2018 ADAM LAUGHLIN MD Ot I48.91 [...] MD Ot I25.10 ATHSCL HEART DISEASE OF [place] CORONARY 09/14/2018 ADAM LAUGHLIN MD Ot I48.91 UNSPECIFIED ATRIAL FIBRILLATION 09/14/2018 ADAM LAUGHLIN MD Ot I65.29 OCCLUSION AND STENOSIS OF UNSPECIFIED CA 09/14/2018 ADAM LAUGHLIN MD Ot R06.00 DYSPNEA, UNSPECIFIED Procedures Code Description Performed By Performed On 45.16 ESOPHAGOGASTRODUODENOSCOPY [EGD] W/CLOSE 07/21/2011 45.23 COLONOSCOPY 07/22/2011 [id number] REPLACE OF R KNEE JT WITH SYNTH [...] 10:30 PRELIM CULTURE RESULTS Abundant coag neg [id number] further [id number] gram neg [id number] testing pending MEDIA PLATED Setup at 15:23 [...] ABO+Rh group AP NRG Transfusion band number [id number] NRG Blood group antibody screen NEGATIVE NRG Blood type T Indirect antibody screen panel - 05/23/18 07:35 ABO+Rh group AP NRG Transfusion band number [id number] NRG Blood group antibody screen NEGATIVE NRG [...] in VLDL measurement (mass/volume) 12 mg/dL 5-40 Complete blood count (CBC) with automated white blood cell (WBC) differential - 12/16/18 12:15 Blood leukocytes automated count (number/volume) 10.0 10*3/uL 4.3-11.0 Blood erythrocytes automated count (number/volume) 3.66 10*6/uL 4.35-5.85 Venous blood hemoglobin measurement (mass/volume) 11.2 g/dL 11.5-16.0 Blood hematocrit (volume fraction) 34 % 35-52 Automated erythrocyte mean corpuscular volume 93 [foz_us] 80-99 Automated erythrocyte mean corpuscular hemoglobin (mass per erythrocyte) 31 pg 25-34 Automated erythrocyte mean corpuscular hemoglobin concentration measurement (mass/volume) 33 g/dL 32-36 Automated erythrocyte distribution width ratio 14.9 % 10.0- 14.5 Automated blood platelet count (count/volume) 234 10*3/uL 130-400 Automated blood platelet mean volume measurement 10.0 [foz_us] 7.4-10.4 Automated blood neutrophils/100 leukocytes 82 % 42-75 Automated blood lymphocytes/100 leukocytes 8 % 12-44 Blood monocytes/100 leukocytes 9 % 0-12 Automated blood eosinophils/100 leukocytes 0 % 0-10 Automated blood basophils/100 leukocytes 0 % 0-10 Blood neutrophils automated count (number/volume) 8.2 10*3 1.8-7.8 Blood lymphocytes automated count (number/volume) 0.8 10*3 1.0-4.0 Blood monocytes automated count (number/volume) 0.9 10*3 0.0- 1.0 Automated eosinophil count 0.0 10*3/uL 0.0-0.3 Automated blood basophil count (count/volume) 0.0 10*3/uL 0.0-0.1 Comprehensive metabolic panel - 12/16/18 12:15 Serum or plasma sodium measurement (moles/volume) 142 mmol/L 135-145 Serum or plasma potassium measurement (moles/volume) 3.7 mmol/L 3.6-5.0 Serum or plasma chloride measurement (moles/volume) 109 mmol/L 98-107 Carbon dioxide 23 mmol/L 21-32 Serum or plasma anion gap determination (moles/volume) 10 mmol/L 5-14 Serum or plasma urea nitrogen measurement (mass/volume) 20 mg/dL 7-18 Serum or plasma creatinine measurement (mass/volume) 1.10 mg/dL 0.60-1.30 Serum or plasma urea nitrogen/creatinine mass ratio 18 NRG Serum or plasma creatinine measurement with calculation of estimated glomerular filtration rate 47 NRG Serum or plasma glucose measurement (mass/volume) 113 mg/dL 70-105 Serum or plasma calcium measurement (mass/volume) 9.3 mg/dL 8.5-10.1 Serum or plasma total bilirubin measurement (mass/volume) 0.6 mg/dL 0.1-1.0 Serum or plasma alkaline phosphatase measurement (enzymatic activity/volume) 70 U/L 40-136 Serum or plasma aspartate aminotransferase measurement (enzymatic activity/volume) 33 U/L 5-34 Serum or plasma alanine aminotransferase measurement (enzymatic activity/volume) 26 U/L 0-55 Serum or plasma protein measurement (mass/volume) 6.9 g/dL 6.4-8.2 Serum or plasma albumin measurement (mass/volume) 3.8 g/dL 3.2-4.5 CALCIUM CORRECTED 9.5 mg/dL 8.5-10.1 Serum or plasma troponin i.cardiac measurement (mass/volume) - 12/16/18 12:15 Serum or plasma troponin i.cardiac measurement (mass/volume) < ng/mL <0.028 Encounters ACCT No. Visit Date/Time Discharge Status Pt. Type Provider Facility Loc./Unit Complaint [id number] 08/21/2018 07:30:00 08/22/2018 12:55:00 DIS Inpatient HANNAH GREER MD [facility] ICU CHEST PAIN [id number] 08/03/2018 13:59:00 08/03/2018 23:59:59 CLS Outpatient TRUMAN MERCADO, ADAM Talbot [facility] CARD CAD,CAROTID,ARTERY STENOSIS,DYSPNEA [id number] 05/25/2018 10:45:00 06/07/2018 13:00:00 DIS Inpatient RODRIGUEZ MERCADO, ADI Pritchard [facility] IRF RIGHT TKR [id number] 05/23/2018 07:16:00 05/25/2018 10:45:00 DIS Inpatient TEVIN AGUIRRE MD [facility] 4TH RIGHT KNEE OSTEOARTHRITIS [id number] 05/10/2018 12:48:00 05/10/2018 14:10:00 DIS Outpatient TEVIN AGUIRRE MD [facility] PREOP RIGHT KNEE OSTEOARTHRITIS [id number] 08/16/2017 08:19:00 08/16/2017 23:59:59 CLS Outpatient ADAM LAUGHLIN MD [facility] RAD I25.10 CAD [id number] 07/05/2017 06:00:00 07/05/2017 12:00:00 DIS Outpatient TEVIN AGUIRRE MD [facility] RIGHT KNEE TORN LATERAL MENISCUS [id number] 06/28/2017 09:58:00 06/28/2017 13:13:00 DIS Outpatient TEVIN AGUIRRE MD [facility] PREOP RIGHT KNEE TORN LATERAL MENISCUS [id number] 06/08/2017 13:57:00 06/08/2017 23:59:59 CLS Outpatient ADAM LAUGHLIN MD [facility] CARD CAROTID ARTERY STENOSIS I65.23 [id number] 05/17/2017 08:41:00 05/17/2017 23:59:59 CLS Outpatient FLORA EVERETT MD [facility] CARD Z01.810 [id number] 05/17/2017 11:00:00 05/17/2017 11:00:00 CAN Preadmit TEVIN AGUIRRE MD [facility] RIGHT KNEE TORN LATERAL MENISCUS [id number] 05/11/2017 08:03:00 05/11/2017 23:59:59 CLS Outpatient ADAM LAUGHLIN MD [facility] RAD CAROTID ARTERY STENOSIS I65.23 [id number] 05/11/2017 10:33:00 05/11/2017 14:15:00 DIS Outpatient TEVIN AGUIRRE MD [facility] PREOP RIGHT KNEE TORN LATERAL MENISCUS [id number] 09/08/2016 14:38:00 10/19/2016 09:25:00 DIS Outpatient SARAH CARPENTER MD [facility] REHAB GAIT DISTURBANCE; CHRONIC VERTIGO [id number] 03/07/2016 06:40:00 03/07/2016 13:50:00 DIS Outpatient ADAM LAUGHLIN MD [facility] CATH ABNORMAL STRESS TEST,CAD,HTN,HLP [id number] 02/24/2016 11:38:00 02/24/2016 23:59:59 CLS Outpatient CROW LUNDBERG [facility] CARD AF,CAD,CAROTID ARTERY STENOSIS,HLP,PVD [id number] 02/23/2016 11:58:00 02/23/2016 23:59:59 CLS Outpatient CROW LUNDBERG [facility] RAD CAROTID ARTERY STENOSIS [id number] 02/22/2016 12:59:00 02/22/2016 23:59:59 CLS Outpatient CROW LUNDBERG [facility] CARD AF,CAD,CAROTID ARTERY STENOSIS,HLP,PVD [id number] 06/27/2014 11:52:00 06/27/2014 23:59:59 CLS Outpatient SARAH CARPENTER MD [facility] RAD BI KNEE PAIN AND SWELLING [id number] 11/27/2013 07:48:00 11/27/2013 23:59:59 CLS Outpatient CROW LUNDBERG [facility] CARD AFIB,ANXIETY [id number] 11/22/2013 12:38:00 11/22/2013 23:59:59 CLS Outpatient ADAM LAUGHLIN MD [facility] CARD AFIB,ANXIETY,CAD [id number] 12/16/2018 12:23:00 Document Registration [id number] 06/27/2014 11:52:00 Document Registration [id number] 06/27/2014 11:51:00 Document Registration [id number] 07/26/2012 14:32:00 Document Registration [id number] 06/06/2012 08:40:00 Document Registration [id number] 06/05/2012 11:20:00 Document Registration [id number] 05/30/2012 10:58:00 Document Registration [id number] 07/11/2011 17:15:00 Document Registration [id number] 06/20/2011 18:55:00 Document Registration [id number] 05/30/2011 10:24:00 Document Registration [id number] 05/23/2011 10:37:00 Document Registration [id number] 07/26/2010 09:31:00 Document Registration [id number] 06/23/2010 05:37:00 Document Registration [id number] 06/22/2010 07:56:00 Document Registration [id number] 06/03/2010 09:40:00 Document Registration [id number] 02/15/2010 08:57:00 Document Registration [id number] 07/23/2009 10:51:00 Document Registration [id number] 01/27/2009 10:56:00 Document Registration [id number] 12/26/2016 10:51:00 12/26/2016 23:59:00 DIS Outpatient SARAH CARPENTER [id number] 12/23/2016 13:24:00 12/23/2016 23:59:00 DIS Outpatient SARAH CARPENTER
[2018-12-16 15:30] VITALS: BP 171/88
[2018-12-16 16:11] VITALS: BP 164/71
[2018-12-16] MEDS ORDERED: ACETAMINOPHEN 325 MG TABLET PO PRN (16:15)
[2018-12-16 16:28] VITALS: BP 171/88
--- NOTE | 2018-12-16 16:52 | History & Physical-Surgical ---
History of Present Illness History of Present Illness Reason for visit/HPI cc: Fall patient is an 83 year old female who fell at home about 2-3 days ago. She was on the floor until could get help. When she fell she struck her chest against a chair. Had no loss of consciousness. She has low back pain from crawling on the floor she states. She states movement makes things worse. Nothing really makes things better. She had ct chest abdomen demonstrating non displaced sternal and left 8th rib fracture. Ct lumbar spine without any acute traumatic injury and left hip x ray without acute injury. Date of Admission December 16, 2018 at 14:05 Date Seen by a Provider: December 16, 2018 Time Seen by a Provider: 16:51 I consulted on this patient on 12/16/18 16:49 Attending Physician Soco Hill DO Admitting Physician Phillip Carter MD Consult Allergies and Home Medications Allergies Coded Allergies: Sulfa (Sulfonamide Antibiotics) (Verified Allergy, Intermediate, RASH, 06/28/17) Penicillins (Verified Allergy, Mild, ITCHING, 06/28/17) Home Medications Acetaminophen 500 Mg Tablet, 1,000 MG PO BID, (Reported) TAKES 2 (500MG) TABLETS Aspirin 81 Mg Tablet.dr, 81 MG PO HS, (Reported) Atorvastatin Calcium 10 Mg Tablet, 10 MG PO HS, (Reported) Calcium Carbonate/Vitamin D3 1 Each Tablet, 1 TAB PO DAILY, (Reported) Clonidine HCl 0.2 Mg Tablet, 0.2 MG PO 0800,1545,2100, (Reported) Diltiazem HCl 240 Mg Cap.er.24h, 240 MG PO DAILY, (Reported) Fish Oil/Dha/Epa 1 Each Capsule, 1,200 MG PO DAILY, (Reported) Furosemide 40 Mg Tablet, 40 MG PO DAILY, (Reported) Losartan Potassium 100 Mg Tablet, 100 MG PO DAILY, (Reported) Metoprolol Tartrate 100 Mg Tablet, 100 MG PO BID, (Reported) Multivit-Min/FA/Lycopene/Lut 1 Each Tablet, 1 TAB PO DAILY, (Reported) Naproxen 500 Mg Tablet, 500 MG PO Q12H Prescribed by: EDILBERTO TABOR on 08/22/18 1254 Oxybutynin Chloride 5 Mg Tablet, 5 MG PO BID, (Reported) Potassium Chloride 10 Meq Tablet.er, 30 MEQ PO SuSa, (Reported) TAKES 3 (10MEQ) TABLETS Potassium Chloride 10 Meq Tablet.er, 20 MEQ PO MoTuWeThFr, (Reported) TAKES 2 (10MEQ) TABLETS Patient Home Medication List Home Medication List Reviewed: Yes Past Ocpujvi-Dwmqua-Mvcwzo Hx Patient Social History Alcohol Use: Denies Use Recreational Drug Use: No Smoking Status: Never a Smoker Former Smoker, Quit: Mar 07, 1979 Type Used: Cigarettes Recent Foreign Travel: No Contact w/Someone Who Travel: No Recent Infectious Disease Expo: No Recent Hopitalizations: No Immunizations Up To Date Tetanus Booster (TDap): Unknown Date of Pneumonia Vaccine: May 06, 2012 Date of Influenza Vaccine: May 23, 2018 Seasonal Allergies Seasonal Allergies: Yes Surgeries History of Surgeries: Yes Surgeries: Breast, Cardiac, Hysterectomy, Joint Replacement, Neurological, Orthopedic, Vascular Surgery Respiratory History of Respiratory Disorde: Yes Respiratory Disorders: Asthma Cardiovascular History of Cardiac Disorders: Yes Cardiac Disorders: Atrial Fibrillation, Cardiomyopathy, Chronic Edema/Swelling, Coronary Artery Disease, Deep Vein Thrombosis, High Cholesterol, Hypertension, P eripheral Vascular, Valvular Heart Disease Neurological History of Neurological Disord: Yes (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; CONGNITIVE IMPAIRMENT) Neurological Disorders: Stroke Reproductive System Hx Reproductive Disorders: No Sexually Transmitted Disease: No HIV/AIDS: 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, 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 Genitourinary History of Genitourinary Disor: No Gastrointestinal History of Gastrointestinal Di: Yes Gastrointestinal Disorders: Chronic Constipation Musculoskeletal History of Musculoskeletal Dis: Yes (RIGHT TOTAL KNEE REPLACEMENT) Musculoskeletal Disorders: Arthritis Endocrine History of Endocrine Disorders: No HEENT History of HEENT Disorders: Yes (cataracts removed, dentures) Loss of Vision: Bilateral Hearing Impairment: Denies Cancer History of Cancer: Yes Cancer: Skin Psychosocial History of Psychiatric Problem: Yes Behavioral Health Disorders: Anxiety, Depression Integumentary History of Skin or Integumenta: No Blood Transfusions History of Blood Disorders: No Adverse Reaction to a Blood Tr: No (N/A) Family Medical History Significant Family History: No Pertinent Family Hx Family Medial History: Alzheimer's disease 19 MOTHER Cardiovascular disease G8 SISTER FH: breast cancer 19 MOTHER Respiratory disorder 19 FATHER (tb) Review of Systems Constitutional: no symptoms reported EENTM: no symptoms reported Respiratory: see HPI Cardiovascular: no symptoms reported Gastrointestinal: no symptoms reported : No Skin: change in color Psychiatric/Neurological: No Symptoms Reported Physical Exam Vital Signs Vital Signs - First Documented 12/16/18 12/16/18 12/16/18 12/16/18 12:00 15:16 15:30 16:28 Temp 97.6 Pulse 77 Resp 16 B/P (MAP) 171/88 (115) Pulse Ox 97 O2 Delivery Room Air FiO2 21 Capillary Refill : Less Than 3 Seconds Height, Weight, BMI Height: 5'8.00" Weight: 135lbs. 7.0oz. 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7L, Monocytes # (Auto) 0.7, Eosinophils # (Auto) 0.0, Basophils # (Auto) 0.0, Sodium Level 143, Potassium Level 4.1, Chloride Level 108H, Carbon Dioxide Level 23, Anion Gap 12, Blood Urea Nitrogen 22H, Creatinine 1.19, Estimat Glomerular Filtration Rate 43, BU N/Creatinine Ratio 18, Glucose Level 155H, Calcium Level 9.5 12/17/18 11:00: Glucometer 147H 12/17/18 11:20: Urine Color YELLOW, Urine Clarity CLEAR, Urine pH 6, Urine Specific [place] 1.010L, Urine Protein 3+H, Urine Glucose (UA) NEGATIVE, Urine Ketones NEGATIVE, Urine Nitrite NEGATIVE, Urine Bilirubin NEGATIVE, Urine Urobilinogen NORMAL, Urine Leukocyte Esterase NEGATIVE, Urine RBC (Auto) 2+H, Urine RBC 2-5H, Urine WBC NONE, Urine Squamous Epithelial Cells 0-2, Urine Crystals NONE, Urine Bacteria NEGATIVE, Urine Casts NONE, Urine Mucus NEGATIVE, Urine Culture Indicated NO Assessment/Plan Assessment/Plan Admission Diagonsis fall sternal fracturer nondisplaced left 8 th rib fracture nondisplaced Admission Status: Inpatient Order (span 2 midnights) Reason for Inpatient Admission: patient needs adequate pain control and close pulmonary monitoring so does not develop respiratory complications after fall. Also need evaluation for IPR due overall condition. Assessment/Plan fall sternal fracturer nondisplaced left 8 th rib fracture nondisplaced pain control admit inpatient incentive spirometry/MAT protocol consult hospitalist for medical management consider IPR SOCO HILL DO December 16, 2018 16:52
[2018-12-16] MEDS ORDERED: RT-ALBUTEROL SULF 2.5 MG/3 ML PRE-MIX VIAL INH PRN (17:00)
[2018-12-16] MEDS: RT-ALBUTEROL SULF 2.5 MG/3 ML PRE-MIX VIAL INH SCH (19:21)
[2018-12-16 19:30] VITALS: BP 176/97
[2018-12-16] MEDS: meTOprolol TARTRATE 50 MG (LOPRESSOR) TAB PO SCH (20:39)
[2018-12-16] MEDS: morphine INJ 4 MG/ML 1 ML (VIAL/SYRINGE) IV PRN (20:39)
[2018-12-16] MEDS: cloNIDine 0.1 MG (CATAPRES) TAB PO SCH (20:39)
[2018-12-17] VITALS (13 sets, daily range): BP systolic 128–225; BP diastolic 70–106
[2018-12-17 05:00] LABS: BASOPHILS % (AUTO) 0 % (0-10); EOSINOPHILS % (AUTO) 0 % (0-10); HEMATOCRIT 33 % (35-52); HEMOGLOBIN 10.8 G/DL (11.5-16.0); LYMPHOCYTES # (AUTO) 0.7 X 10^3 (1.0-4.0); LYMPHOCYTES % (AUTO) 9 % (12-44); MEAN CORPUSCULAR HEMOGLOBIN 31 PG (25-34); MEAN CORPUSCULAR HGB CONC 33 G/DL (32-36); MEAN CORPUSCULAR VOLUME 94 FL (80-99); MEAN PLATELET VOLUME 9.8 FL (7.4-10.4); MONOCYTES # (AUTO) 0.7 X 10^3 (0.0-1.0); MONOCYTES % (AUTO) 10 % (0-12); NEUTROPHILS % (AUTO) 81 % (42-75); PLATELET COUNT 255 10^3/uL (130-400); RED CELL DISTRIBUTION WIDTH 14.9 % (10.0-14.5); WHITE BLOOD COUNT 7.4 10^3/uL (4.3-11.0)
[2018-12-17 05:29] LABS: CALCIUM 9.5 MG/DL (8.5-10.1); CREATININE SERUM 1.19 MG/DL (0.60-1.30); POTASSIUM 4.1 MMOL/L (3.6-5.0)
[2018-12-17] MEDS: morphine INJ 4 MG/ML 1 ML (VIAL/SYRINGE) IV PRN (06:48)
[2018-12-17] MEDS ORDERED: predniSONE 20 MG TAB PO SCH (07:00)
[2018-12-17] MEDS: meTOprolol TARTRATE 50 MG (LOPRESSOR) TAB PO SCH ×2 (08:17→22:18)
[2018-12-17] MEDS: DILTIAZEM 120 MG (CARDIZEM CD) CAP PO SCH (08:17)
[2018-12-17] MEDS: cloNIDine 0.1 MG (CATAPRES) TAB PO SCH ×3 (08:17→22:18)
[2018-12-17] MEDS ORDERED: FUROSEMIDE 40 MG/4 ML INJ (LASIX) IVP STA (10:20)
[2018-12-17] MEDS ORDERED: ENALAPRILAT 2.5 MG/2 ML (VASOTEC) VIAL IV NR (10:28)
[2018-12-17] MEDS ORDERED: ENALAPRILAT 2.5 MG/2 ML (VASOTEC) VIAL IV ONE (10:30)
[2018-12-17] MEDS: RT-ALBUTEROL SULF 2.5 MG/3 ML PRE-MIX VIAL INH SCH ×2 (10:47→22:43)
[2018-12-17] MEDS ORDERED: LORazepam INJ 2 MG/ML (ATIVAN) VIAL IVP ONE (11:15)
[2018-12-17 11:29] LABS: BILIRUBIN,URINE NEGATIVE (NEGATIVE); CLARITY,URINE CLEAR; COLOR,URINE YELLOW; GLUCOSE, URINE (UA) NEGATIVE (NEGATIVE); KETONES,URINE NEGATIVE (NEGATIVE); LEUKOCYTE ESTERASE ,URINE NEGATIVE (NEGATIVE); NITRITE,URINE NEGATIVE (NEGATIVE); PH,URINE 6 (5-9); PROTEIN,URINE 3+ (NEGATIVE); UROBILINOGEN,URINE NORMAL (NORMAL)
--- NOTE | 2018-12-17 11:36 | Consultation-Hospitalist ---
HPI History of Present Illness: HPI/Chief Complaint Mrs. Hensley is a typically spry 83-year-old white female living independently by herself at home who while wearing slippers think she caught her toe on the rug she fell hitting an armchair in the left chest wall and left side of her sternum 2 days prior to presenting to the emergency room. She reported some right knee pain over previously replaced right knee in April of last year and had to crawl which she stated took her 3 hours to get the back door where she was able to pull herself up and finally then call for help. Her knee pain improved but she continued to have chest and rib pain significant enough that she wasn't able to care for herself she initially refused to come into the emergency room but family finally convinced her. There she was noted to have left eighth rib as well as sternal fracture nondisplaced. She has a history of acquired spinal stenosis was complaining about some low back pain but was not nearly as severe as her chest pain. CT of the lumbar spine revealed findings compatible with significant acquired spinal stenosis involving the majority of the lumbar spine with some deformities but the patient denies radicular pain or weakness. She denied syncope presyncope dizziness or vertiginous type symptoms feeling that she just essentially stubbed her toe. Because of advanced age and ability to care for herself she was admitted for pain control and further investigation. The morning of my arrival the patient was doing relatively well other than left chest pain and other than some bruising over the sternum with splinting on respiration she had no other concerning findings. She received all of her usual home blood pressure medication but an hour later I was contacted by the nurse that her blood pressure was in the 240/110 range and she was feeling a nxious. She denied chest discomfort shortness of breath or headache and did not appear to be confused. She had received her Catapres as well likely only missed 1 dose her evening dose as long she has been compliant at home. I did give her 0.625 mg of Vasotec IV and within several minutes she reported salivation and began shaking. She felt quite anxious without any other new symptoms. I return ed to evaluate the patient after being contacted by the nurse and she appeared anxious with mild tremor denied feeling like she was freezing she did not appear to be spitting or swallowing excessive saliva had no evidence for skin swelling in her chest was clear. She again denied headache she was alert and oriented heart rate was 110 and irregularly irregular. She has a history of chronic atrial fibrillation. Her blood pressure was 220/100. 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 Patients Allergies have been reviewed. Allergies Allergies Coded Allergies Sulfa (Sulfonamide Antibiotics) (Verified Allergy, Intermediate, RASH, 06/28/17) Penicillins (Verified Allergy, Mild, ITCHING, 06/28/17) Past Qactorr-Nnmizd-Fuezca Hx Past Med/Social Hx: Reviewed Nursing Past Med/Soc Hx, Reviewed and Corrections made Patient Social History Alcohol Use: Denies Use Recreational Drug Use: No Smoking Status: Never a Smoker Former Smoker, Quit: Mar 07, 1979 Type Used: Cigarettes Recent Foreign Travel: No Contact w/other who traveled: No Recent Hopitalizations: No Recent Infectious Disease Expo: No Immunizations Up To Date Tetanus Booster (TDap): Unknown Date of Pneumonia Vaccine: May 06, 2012 Date of Influenza Vaccine: May 23, 2018 Seasonal Allergies Seasonal Allergies: Yes Past Medical History Surgeries: Breast, Cardiac, Hysterectomy, Joint Replacement, Neurological, Orthopedic, Vascular Surgery Cardiac: Atrial Fibrillation, Cardiomyopathy, Chronic Edema/Swelling, Coronary Artery Disease, Deep Vein Thrombosis, High Cholesterol, Hypertension, Peripheral Vascular, Valvular Heart Disease Neurological: Stroke : No Reproductive: No Sexually Transmitted Disease: No HIV/AIDS: No Hysterectomy, Menopausal Gastrointestinal: Chronic Constipation Musculoskeletal: Arthritis Loss of Vision: Bilateral Hearing Impairment: Denies Cancer: Skin Psychosocial: Anxiety, Depression History of Blood Disorders: No Adverse Reaction to Blood Damon: No (N/A) Family History Reviewed Nursing Family Hx Alzheimer's disease 19 MOTHER Cardiovascular disease G8 SISTER FH: breast cancer 19 MOTHER Respiratory disorder 19 FATHER (tb) Review of Systems Constitutional: No no symptoms reported, No see HPI, No chills, No diaphoresis, No dizziness, No fever, No malaise, No weakness, No weight gain, No weight loss, No other Respiratory: see HPI; No cough, No dyspnea on exertion, No hemoptysis, No orthopnea, No phlegm, No short of breath, No stridor, No wheezing, No other Cardiovascular: see HPI; No chest pain, No edema, No Hx of Intervention, No palpitations, No syncope, No vascular heart diseas, No other Physical Exam Physical Exam Vital Signs Vital Signs - First Documented 12/16/18 12/16/18 12/16/18 12/16/18 12:00 15:16 15:30 16:28 Temp 97.6 Pulse 77 Resp 16 B/P (MAP) 171/88 (115) Pulse Ox 97 O2 Delivery Room Air FiO2 21 Capillary Refill : Less Than 3 Seconds Height, Weight, BMI Height: 5'8.00" Weight: 135lbs. 7.0oz. 61.891719zg; 19.8 BMI Method:Stated General Appearance: Anxious, Moderate Distress HEENT: PERRL/EOMI, Pharynx Normal Neck: Full Range of Motion, Normal Inspection, Non Tender, Supple, Carotid Bru it Respiratory: Chest Non Tender, Lungs Clear, Normal Breath Sounds, No Accessory Muscle Use, No Respiratory Distress Cardiovascular: No Edema, No Gallop, No JVD, No Murmur, Normal Peripheral Pulses, Irregularly Irregular Gastrointestinal: Normal Bowel Sounds, No Organomegaly, No Pulsatile Mass, Non Tender, Soft Extremity: Normal Capillary Refill, Normal Inspection, Normal Range of Motion, Non Tender, No Calf Tenderness, No Pedal Edema Results Results/Procedures Labs Laboratory Tests 12/16/18 12:15 12/17/18 04:42 Patient resulted labs reviewed. Assessment/Plan Assessment and Plan Assess & Plan/Chief Complaint 1. Sternal and left eighth rib nondisplaced fracture with secondary chest pain and debility will put a consult in for physical therapy and acute rehabilitation evaluation discussed the only other option would be short-term [facility] therapy which unfortunately would not likely be covered. 2. Severe blood pressure elevation without evidence for end organ damage continue to monitor will switch to when necessary IV labetalol. 3. Possible reaction to IV Vasotec will discontinue. The patient is reassured that there is no evidence for anaphylaxis or significant issues. I believe the patient is having tremors she is not typically cold so I doubt that this is Reiger's from an underlying infection but for the sake of completeness while her chest x-ray was normal she did not have a UA we'll perform UA and continue to monitor temperatures was discussed with nursing staff. 4. Chronic atrial fibrillation heart rate up due to number 3 but asymptomatic. 5. History of refractory hypertension Clinical Quality Measures DVT/VTE Risk/Contraindication: Risk Factor Score Per Nursin RFS Level Per Nursing on Admit: 4+=Very High POLINA SANTIAGO MD December 17, 2018 11:36
[2018-12-17 11:39] LABS: BACTERIA,URINE NEGATIVE /HPF; SQUAMOUS EPITHELIAL CELL,UR 0-2 /HPF
[2018-12-17] MEDS ORDERED: ONDANSETRON 4 MG/2 ML (SDV) Z0FRAN IVP PRN (11:45)
[2018-12-17] MEDS: PROCHLORPERAZINE 10 MG/2ML INJ (COMPAZINE) IV PRN (13:07)
--- NOTE | 2018-12-17 13:38 | Physical Therapy Progress Note ---
Therapy Progress Note Physical therapy orders were acknowledged at 1330. Pt refuses therapy at this time secondary to nausea and vomiting. Her BP is high today and medications to lower it have made her very nauseated. Plan to re-assess later in the day for therapy evaluation. RISA VICTORIA PT December 17, 2018 13:38
--- NOTE | 2018-12-17 13:42 | Progress Note ---
Subjective Date Seen by a Provider: December 17, 2018 Time Seen by a Provider: 13:38 Subjective/Events-last exam patient pain doing a little better today. using IS. patient low back pain improved. Sitting in chair. Tolerating diet. Pain worse with activity. Concerned about being in pain/weak and being home alone. Denies n/v fever sweats chills or chest pain. Objective Exam Vital Signs Date Time Temp Pulse Resp B/P (MAP) Pulse Ox O2 Delivery O2 Flow Rate FiO2 12/17/18 08:00 99.4 80 18 189/98 (128) 96 Room Air 12/17/18 07:45 Room Air 12/17/18 04:19 96.9 71 18 130/70 (90) 96 Room Air 12/17/18 00:00 97.7 67 18 128/72 (90) 96 Room Air 12/16/18 21:10 98.2 12/16/18 20:00 96 Room Air 12/16/18 19:30 98.2 75 18 176/97 (123) 96 Room Air 12/16/18 19:30 98.2 75 18 176/97 (123) 96 Room Air 12/16/18 19:23 95 Room Air 12/16/18 16:28 77 94 21 12/16/18 16:11 97.6 69 20 164/71 94 Room Air 12/16/18 15:30 97.6 76 16 171/88 97 Room Air 12/16/18 15:16 76 16 171/88 (115) 97 I & O 12/17/18 07:00 Intake Total 540 ml Output Total 100 ml Balance 440 ml Capillary Refill : Less Than 3 Seconds General Appearance: No Apparent Distress HEENT: PERRL/EOMI, Normal ENT Inspection Neck: Normal Inspection, Non Tender, Supple Respiratory: No Accessory Muscle Use, No Respiratory Distress, Other (tender at sternum where echymosis is present and left lateral chest wall) Cardiovascular: No Edema, No Gallop, No JVD, No Murmur, Normal Peripheral Pulse s, Irregularly Irregular Gastrointestinal: non tender, soft Extremity: Normal Inspection, Normal Range of Motion, Non Tender, No Calf Tenderness Neurologic/Psychiatric: Alert, Oriented x3, No Motor/Sensory Deficits, Normal Mood/Affect, 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 Norm as Tested Skin: Warm/Dry (echymosis sternal region) Lymphatic: No Adenopathy Results Lab Laboratory Tests 12/17/18 04:42: White Blood Count 7.4, Red Blood Count 3.50L, Hemoglobin 10.8L, Hematocrit 33L, Mean Corpuscular Volume 94, Mean Corpuscular Hemoglobin 31, Mean Corpuscular Hemoglobin Concent 33, Red Cell Distribution Width 14.9H, Platelet Count 255, Mean Platelet Volume 9.8, Neutrophils (%) (Auto) 81H, Lymphocytes (%) (Auto) 9L, Monocytes (%) (Auto) 10, Eosinophils (%) (Auto) 0, Basophils (%) (Auto) 0, Neutrophils # (Auto) 6.0, Lymphocytes # (Auto) 0.7L, Monocytes # (Auto) 0.7, Eosinophils # (Auto) 0.0, Basophils # (Auto) 0.0, Sodium Level 143, Potassium Level 4.1, Chloride Level 108H, Carbon Dioxide Level 23, Anion Gap 12, Blood Urea Nitrogen 22H, Creatinine 1.19, Estimat Glomerular Filtration Rate 43, BUN/ Creatinine Ratio 18, Glucose Level 155H, Calcium Level 9.5 12/17/18 11:00: Glucometer 147H 12/17/18 11:20: Urine Color YELLOW, Urine Clarity CLEAR, Urine pH 6, Urine Specific [place] 1.010L, Urine Protein 3+H, Urine Glucose (UA) NEGATIVE, Urine Ketones NEGATIVE, Urine Nitrite NEGATIVE, Urine Bilirubin NEGATIVE, Urine Urobilinogen NORMAL, Urine Leukocyte Esterase NEGATIVE, Urine RBC (Auto) 2+H, Urine RBC 2-5H, Urine WBC NONE, Urine Squamous Epithelial Cells 0-2, Urine Crystals NONE, Urine Bacteria NEGATIVE, Urine Casts NONE, Urine Mucus NEGATIVE, Urine Culture Indicated NO Assessment/Plan Assessment/Plan Assessment/Plan fall sternal fracturer nondisplaced left 8 th rib fracture nondisplaced htn pain control incentive spirometry/MAT protocol consult hospitalist for medical management consider IPR patient is wanting to get stronger before going back home. monitor blood pressure Clinical Quality Measures DVT/VTE Risk/Contraindication: Risk Factor Score Per Nursin RFS Level Per Nursing on Admit: 4+=Very High SOCO DUQUE DO December 17, 2018 13:42
--- NOTE | 2018-12-17 14:32 | Occ Therapy Progress Note ---
Therapy Progress Note OT orders were acknowledged at 1425. NSG stated to hold therapy this date secondary to pt being nauseous and vomiting. Her BP is 216/106. OT will attempt to assess next day of services (12/18/18). JOSÉ MANUEL RIVAS OT December 17, 2018 14:32
[2018-12-17] MEDS ORDERED: cloNIDine 0.3 MG PATCH (CATAPRES TTS) TDSY TD ONE (16:00)
[2018-12-17] MEDS ORDERED: cloNIDine 0.2 MG (CATAPRES) TAB PO ONE (17:30)
--- NOTE | 2018-12-17 18:07 | NUR ---
Patient reports at 1010 feeling "woozy". BP 218/[address] Calderon notified. Medication given as ordered. 1050 Patient starts to feel shaky and reports increased saliva in mouth. Patient BP continues to be elevated, Meds given as ordered. 1140 patient starts vomiting. notified, Meds given as ordered. 1247 continues vomiting, Meds given as ordered. BP continues to run high through out this shift. Dr. Calderon notified after each BP reading, medications administered per orders. Will continue to monitor.
--- NOTE | 2018-12-17 18:55 | Consultation-Cardiology ---
HPI-Cardiology Cardiology Consultation Date of Consultation 12/17/18 Date of Admission Time Seen by Provider: 18:49 Indication: malignant hypertension HPI 83 years old lady with history of resistant hypertension, patient sustained a fall at home from tripping resulted in rib fracture and sternum fracture. She had some chest pain and bruising on her chest, during her hospital stay she was noted to be severely hypertensive, difficult to control, her home medication were resumed and she continued to be hypertensive. This afternoon she was given enalapril IV and then she started to have some tremor and nausea and vomiting. Was unable to tolerate the medication well. Not sure if she vomited the clonidine pills. Given another dose of oral clonidine. Currently sitting in bed comfortable, her blood pressure was 198/100. Denied any chest pain, no other symptoms Home Medications & Allergies Allergies: Coded Allergies: Sulfa (Sulfonamide Antibiotics) (Verified Allergy, Intermediate, RASH, 06/28/17) Penicillins (Verified Allergy, Mild, ITCHING, 06/28/17) Home Medication List Reviewed: Yes [facility] Hx Patient Social History Marital Status: Employed/Student: retired Alcohol Use: Denies Use Recreational Drug Use: No Smoking Status: Never a Smoker Type Used: Cigarettes Recent Foreign Travel: No Recent Infectious Disease Expo: No Recent Hopitalizations: No Immunizations Up To Date Tetanus Booster (TDap): Unknown Date of Pneumonia Vaccine: May 06, 2012 Date of Influenza Vaccine: May 23, 2018 Past Medical History discussed below Family Medical History Significant Family History: No Pertinent Family Hx Family History: Alzheimer's disease 19 MOTHER Cardiovascular disease G8 SISTER FH: breast cancer 19 MOTHER Respiratory disorder 19 FATHER (tb) Review of Systems-General Review of Systems Constitutional: no symptoms reported, see HPI, malaise, weakness EENTM: see HPI, no symptoms reported Respiratory: see HPI; No cough, No dyspnea on exertion, No hemoptysis, No orthopnea, No phlegm, No short of breath, No stridor, No wheezing, No other Cardiovascular: no symptoms reported, chest pain; No edema, No Hx of Intervention, No palpitations, No syncope, No vascular heart diseas, No other Gastrointestinal: no symptoms reported, nausea, vomiting Genitourinary: no symptoms reported, see HPI : No Musculoskeletal: see HPI, back pain, joint pain (left hip), muscle pain, muscle stiffness (low back) Skin: change in color Psychiatric/Neurological: No Symptoms Reported All Other Systems Reviewed Negative Unless Noted: Yes Reviewed Test Results Reviewed Test Results Lab Laboratory Tests Test 12/17/18 04:42 12/17/18 11:00 12/17/18 11:20 Range/Units White Blood Count 7.4 4.3-11.0 10^3/uL Red Blood Count 3.50 L 4.35-5.85 10^6/uL Hemoglobin 10.8 L 11.5-16.0 G/DL Hematocrit 33 L 35-52 % Mean Corpuscular Volume 94 80-99 FL Mean Corpuscular Hemoglobin 31 25-34 PG Mean Corpuscular Hemoglobin Concent 33 32-36 G/DL Red Cell Distribution Width 14.9 H 10.0-14.5 % Platelet Count 255 130-400 10^3/uL Mean Platelet Volume 9.8 7.4-10.4 FL Neutrophils (%) (Auto) 81 H 42-75 % Lymphocytes (%) (Auto) 9 L 12-44 % Monocytes (%) (Auto) 10 0-12 % Eosinophils (%) (Auto) 0 0-10 % Basophils (%) (Auto) 0 0-10 % Neutrophils # (Auto) 6.0 1.8-7.8 X 10^3 Lymphocytes # (Auto) 0.7 L 1.0-4.0 X 10^3 Monocytes # (Auto) 0.7 0.0-1.0 X 10^3 Eosinophils # (Auto) 0.0 0.0-0.3 10^3/uL Basophils # (Auto) 0.0 0.0-0.1 10^3/uL Sodium Level 143 135-145 MMOL/L Potassium Level 4.1 3.6-5.0 MMOL/L Chloride Level 108 H 98-107 MMOL/L Carbon Dioxide Level 23 21-32 MMOL/L Anion Gap 12 5-14 MMOL/L Blood Urea Nitrogen 22 H 7-18 MG/DL Creatinine 1.19 0.60-1.30 MG/DL Estimat Glomerular Filtration Rate 43 BUN/Creatinine Ratio 18 Glucose Level 155 H 70-105 MG/DL Calcium Level 9.5 8.5-10.1 MG/DL Glucometer 147 H 70-110 MG/DL Urine Color YELLOW Urine Clarity CLEAR Urine pH 6 5-9 Urine Specific [place] 1.010 L 1.016-1.022 Urine Protein 3+ H NEGATIVE Urine Glucose (UA) NEGATIVE NEGATIVE Urine Ketones NEGATIVE NEGATIVE Urine Nitrite NEGATIVE NEGATIVE Urine Bilirubin NEGATIVE NEGATIVE Urine Urobilinogen NORMAL NORMAL MG/DL Urine Leukocyte Esterase NEGATIVE NEGATIVE Urine RBC (Auto) 2+ H NEGATIVE Urine RBC 2-5 H /HPF Urine WBC NONE /HPF Urine Squamous Epithelial Cells 0-2 /HPF Urine Crystals NONE /LPF Urine Bacteria NEGATIVE /HPF Urine Casts NONE /LPF Urine Mucus NEGATIVE /LPF Urine Culture Indicated NO Physical Exam Physical Exam Vital Signs Vital Signs - First Documented 12/16/18 12/16/18 12/16/18 12/16/18 12:00 15:16 15:30 16:28 Temp 97.6 Pulse 77 Resp 16 B/P (MAP) 171/88 (115) Pulse Ox 97 O2 Delivery Room Air FiO2 21 Capillary Refill : Less Than 3 Seconds Height, Weight, BMI Height: 5'8.00" Weight: 135lbs. 7.0oz. [id number]; 19.8 BMI Method:Stated General Appearance: No Apparent Distress, Mild Distress HEENT: PERRL/EOMI, Normal ENT Inspection Neck: Normal Inspection, Non Tender, Supple Respiratory: No Accessory Muscle Use, No Respiratory Distress, Other (tender at sternum where echymosis is present and left lateral chest wall) Cardiovascular: No Edema, No Gallop, No JVD, Normal Peripheral Pulses, Systolic Murmur, Gallop/S3, Irregularly Irregular Gastrointestinal: No Organomegaly, Non Tender, Soft Rectal: Deferred Back: Other (minimal lower back pain) Extremity: Normal Inspection, Normal Range of Motion, Non Tender, No Calf Tenderness Neurologic/Psychiatric: Alert, Oriented x3, No Motor/Sensory Deficits, Normal Mood/Affect, dramatic agent II-XII Norm as Tested Skin: Warm/Dry (echymosis sternal region) Lymphatic: No Adenopathy A/P-Cardiology Admission Diagnosis Resistant hypertension Fracture of the sternum and eighth rib Coronary artery disease Chronic atrial fibrillation Assessment/Plan Resistant hypertension on multiple medication, had renal arterial duplex in July 2017 showing no evidence of stenosis, we discussed limiting salt intake in addition I will add hydralazine to her medication and monitor tolerance and response. Status post fall resulted in sternum fracture and rib fracture. No syncope was reported. Coronary artery disease-cardiac catheterization done March 07, 2016 revealed heavily calcified coronary system with mild to moderate disease involving the mid LAD and mid diagonal artery, up to 50 percent stenosis. Circumflex artery had 50 percent stenosis at the midportion. First obtuse marginal branch had 50 percent stenosis. RCA is large dominant artery of 40 percent stenosis proximal and midportion. Torturous artery, stress test was repeated in July 2018 showing no significant ischemia or infarction, normal left ventricular size and function, echocardiogram showed ejection fraction 55-65 percent, left atrial dilatation, PFO, moderate MR, moderate severe TR, PA 45 mmHg. Continue on current medication. Chronic atrial fibrillation-intolerance to oral anticoagulation secondary to history of hemorrhagic stroke. Patient maintained on diltiazem. Rate controlled, continue to monitor. Hyperlipidemia, lipid profile done in July 2018 showed total cholesterol 132, triglyceride 60, HDL 53, LDL 60. Continue current medications and monitor PAD with history of total occlusion of the right SFA. Patient underwent peripheral angiogram done March 07, 2016 demonstrating diffuse atherosclerotic disease in the abdominal aorta. The right lower extremity showed mild to moderate disease, nonobstructive disease. Left lower extremity showed 70 percent stenosis at the mid SFA, calcified artery, with good flow down to the trifurcation. She continues to deny claudication pain, rest pain, ulceration, or gangrene at this time. Carotid stenosis, status post left carotid endarterectomy done in April 2017. Monitored by Dr. Phillips, patient is requesting to transfer her checkup for our practice for convenience purposes. I will evaluate her carotid ultrasound Status post knee replacement surgery, still having pain in her knee, scheduled to see Dr. Lucas History of spinal stenosis. History of CVA, intracranial bleed Clinical Quality Measures DVT/VTE Risk/Contraindication: Risk Factor Score Per Nursin RFS Level Per Nursing on Admit: 4+=Very High ADAM LAUGHLIN MD December 17, 2018 18:54
[2018-12-17] MEDS ORDERED: meTOprolol 5 MG/5 ML (LOPRESSOR) VIAL IV ONE (19:00)
[2018-12-18] VITALS (7 sets, daily range): BP systolic 130–224; BP diastolic 64–107
[2018-12-18 05:36] LABS: BASOPHILS % (AUTO) 0 % (0-10); EOSINOPHILS % (AUTO) 0 % (0-10); HEMATOCRIT 38 % (35-52); HEMOGLOBIN 12.8 G/DL (11.5-16.0); LYMPHOCYTES # (AUTO) 0.7 X 10^3 (1.0-4.0); LYMPHOCYTES % (AUTO) 4 % (12-44); MEAN CORPUSCULAR HEMOGLOBIN 31 PG (25-34); MEAN CORPUSCULAR HGB CONC 34 G/DL (32-36); MEAN CORPUSCULAR VOLUME 92 FL (80-99); MONOCYTES # (AUTO) 1.6 X 10^3 (0.0-1.0); MONOCYTES % (AUTO) 10 % (0-12); NEUTROPHILS # (AUTO) 13.5 X 10^3 (1.8-7.8); NEUTROPHILS % (AUTO) 86 % (42-75); PLATELET COUNT 310 10^3/uL (130-400); RED CELL DISTRIBUTION WIDTH 14.9 % (10.0-14.5); WHITE BLOOD COUNT 15.8 10^3/uL (4.3-11.0)
[2018-12-18 06:03] LABS: ALANINE AMINOTRANSFERASE 23 U/L (0-55); ALKALINE PHOSPHATASE 72 U/L (40-136); BILIRUBIN,TOTAL 0.7 MG/DL (0.1-1.0); BUN/CREATININE RATIO 22; CALCIUM 9.8 MG/DL (8.5-10.1); CARBON DIOXIDE 24 MMOL/L (21-32); CHLORIDE 103 MMOL/L (98-107); CREATININE SERUM 0.87 MG/DL (0.60-1.30); GFR ESTIMATED > 60; GLUCOSE 148 MG/DL (70-105); POTASSIUM 3.5 MMOL/L (3.6-5.0); SODIUM 140 MMOL/L (135-145); TOTAL PROTEIN 7.3 GM/DL (6.4-8.2)
[2018-12-18 06:53] LABS: LYMPHOCYTES % (MANUAL) 6 %; MONOCYTES % (MANUAL) 6 %; NEUTROPHILS % (MANUAL) 88 %
--- NOTE | 2018-12-18 08:00 | NUR ---
DR LAUGHLIN ON THE FLOOR. NOTIFIED OF PATIENT'S BLOOD PRESSURE. GIVE SCHEDULED MORNING MEDICATIONS AND THEM RECHECK IT.
[2018-12-18] MEDS ORDERED: POLYETHYLENE GLYCOL 17 GM (MIRALAX) PACK ONE (08:05)
[2018-12-18] MEDS ORDERED: POLYETHYLENE GLYCOL 17 GM (MIRALAX) PACK PO NR ×2 (08:09→14:45)
--- NOTE | 2018-12-18 08:10 | Cardiology Progress Note ---
Subjective Date Seen by Provider: December 18, 2018 Time Seen by Provider: 08:08 Subjective/Events-last exam patient is laying down in bed, complaining of abdominal pain, constipation nausea. Review of Systems General: No Chills, No Night Sweats, No Fatigue, No Malaise, No Appetite, No Other HEENT: No Head Aches, No Visual Changes, No Eye Pain, No Ear Pain, No Dysphasia, No Sinus Congestion, No Post Nasal Drip, No Sore Throat, No Other Pulmonary: No Dyspnea, No Cough, No Pleuritic Chest Pain, No Other Cardiovascular: No: Chest Pain, Palpitations, Orthopnea, Paroxysmal Noc. Dyspnea, Edema, Lt Headedness, Other Objective-Cardiology Exam Last Set of Vital Signs Vital Signs 12/16/18 12/18/18 12/18/18 16:28 04:26 07:00 Temp 98.1 Pulse 111 Resp 18 B/P (MAP) 141/64 (89) Pulse Ox 96 O2 Delivery Room Air FiO2 21 Capillary Refill : Less Than 3 Seconds I&O Intake and Output 12/18/18 00:00 Intake Total 1130 ml Output Total 650 ml Balance 480 ml Intake Oral 1130 ml Output Urine Total 400 ml Emesis 250 ml # Voids 1 # Emeses 1 General: Alert, Oriented X3, Cooperative HEENT: Atraumatic, PERRLA Neck: Supple, No JVD, No Thyromegaly Lungs: Clear to Auscultation, Normal Air Movement Heart: Regular Rate, Normal S1, Normal S2, No Murmurs Abdomen: Normal Bowel Sounds, Soft, No Tenderness, No Hepatosplenomegaly, No Masses Extremities: No Clubbing, No Cyanosis, No Edema, Normal Pulses, No Te nderness/Swelling Skin: No Rashes, No Breakdown, No Significant Lesion Neuro: Normal Gait, Normal Speech, Strength at 5/5 X4 Ext, Normal Tone, Sensation Intact Psych/Mental Status: Mental Status NL, Mood NL Results Lab Laboratory Tests 12/18/18 05:11 A/P-Cardiology Admission Diagnosis Resistant hypertension Fracture of the sternum and eighth rib Coronary artery disease Chronic atrial fibrillation Assessment/Plan Resistant hypertension on multiple medication, had renal arterial duplex in July 2017 showing no evidence of stenosis, blood pressure is better after just above the medication. Continue to monitor Status post fall resulted in sternum fracture and rib fracture. No syncope was reported. Nausea, abdominal pain and constipation. Given Anju asked, I'll start her on Colace and monitor tolerance and response Leukocytosis, not having fever or chills. Managed by primary care physician, planning to repeat chest x-ray Coronary artery disease-cardiac catheterization done March 07, 2016 revealed he avily calcified coronary system with mild to moderate disease involving the mid LAD and mid diagonal artery, up to 50 percent stenosis. Circumflex artery had 50 percent stenosis at the midportion. First obtuse marginal branch had 50 percent stenosis. RCA is large dominant artery of 40 percent stenosis proximal and midportion. Torturous artery, stress test was repeated in July 2018 showing no significant ischemia or infarction, normal left ventricular size and function, echocardiogram showed ejection fraction 55-65 percent, left atrial dilatation, PFO, moderate MR, moderate severe TR, PA 45 mmHg. Continue on current medication. Chronic atrial fibrillation-intolerance to oral anticoagulation secondary to history of hemorrhagic stroke. Patient maintained on diltiazem. Rate controlled, continue to monitor. Hyperlipidemia, lipid profile done in July 2018 showed total cholesterol 132, triglyceride 60, HDL 53, LDL 60. Continue current medications and monitor PAD with history of total occlusion of the right SFA. Patient underwent peripheral angiogram done March 07, 2016 demonstrating diffuse atherosclerotic disease in the abdominal aorta. The right lower extremity showed mild to moderate disease, nonobstructive disease. Left lower extremity showed 70 pe rcent stenosis at the mid SFA, calcified artery, with good flow down to the trifurcation. She continues to deny claudication pain, rest pain, ulceration, or gangrene at this time. Carotid stenosis, status post left carotid endarterectomy done in April 2017. Monitored by Dr. Phillips, patient is requesting to transfer her checkup for our practice for convenience purposes. I will evaluate her carotid ultrasound Status post knee replacement surgery, still having pain in her knee, scheduled t o see Dr. Lucas History of spinal stenosis. History of CVA, intracranial bleed Clinical Quality Measures DVT/VTE Risk/Contraindication: Risk Factor Score Per Nursin RFS Level Per Nursing on Admit: 4+=Very High ADAM LAUGHLIN MD December 18, 2018 08:10
[2018-12-18] MEDS: PROCHLORPERAZINE 10 MG/2ML INJ (COMPAZINE) IV PRN (08:12)
[2018-12-18] MEDS: cloNIDine 0.1 MG (CATAPRES) TAB PO SCH ×2 (08:13→11:55)
[2018-12-18] MEDS: meTOprolol TARTRATE 50 MG (LOPRESSOR) TAB PO SCH ×2 (08:13→22:57)
[2018-12-18] MEDS: LOSARTAN 100 MG (COZAAR) TABLET PO SCH (08:13)
[2018-12-18] MEDS: DILTIAZEM 120 MG (CARDIZEM CD) CAP PO SCH (08:13)
[2018-12-18] MEDS: DOCUSATE SODIUM 100 MG (COLACE) CAP PO SCH ×2 (08:18→23:02)
[2018-12-18] MEDS: RT-ALBUTEROL SULF 2.5 MG/3 ML PRE-MIX VIAL INH SCH ×2 (08:36→18:43)
--- NOTE | 2018-12-18 09:36 | Occ Therapy Progress Note ---
Therapy Progress Note Attempted treatment with pt. Checked with nursing first. Okay to attempt treatment if pt. will allow. Pt. holding emesis bag when OT enters room, and states that she feels very nauseated. OT explains therapy, and pt. states, "I just can't talk right now." Pt. states that she feels like she might need to have a BM. OT encouraged pt. to transfer to [facility]. Pt. states no. Continues to decline all attempts at treatment. Will check back on pt. at later time today. 1, visit [id number] MINA GOLDEN OT December 18, 2018 09:36
[2018-12-18] MEDS ORDERED: CLON0.3T PO (09:41)
--- NOTE | 2018-12-18 09:46 | Physical Therapy Progress Note ---
Therapy Progress Note Patient in bed with bag ready to vomit into. She refuses therapy this morning due to nausea. Will check back later today. NICCI MALONE PT December 18, 2018 09:46
--- NOTE | 2018-12-18 09:53 | NUR ---
WENT OVER THE EXT MED HX WITH THE PATIENT AND SHE VERIFIED HOW SHE TAKES EACH MEDICATION. SHE ALSO HAD A LIST WITH HER WE WENT OVER. SHE IS NO LONGER TAKING THE LAXATIVE, PERCOCET, OR LISINOPRIL THAT IS ON HER LIST. SHE TAKES 2 TYLENOL BID, MTV DAILY, CALCIUM DAILY AND ASPIRIN 81MG HS OTC. HER CLONIDINE DOSE WAS INCREASED FROM 0.2MG TO 0.3MG.
[2018-12-18] MEDS: morphine INJ 4 MG/ML 1 ML (VIAL/SYRINGE) IV PRN ×2 (10:16→13:51)
--- NOTE | 2018-12-18 10:18 | Progress Note-Hospitalist ---
Subjective HPI/CC On Admission Date Seen by Provider: December 18, 2018 Time Seen by Provider: 10:12 Mrs. Hensley is a typically spry 83-year-old white female living independently by herself at home who while wearing slippers think she caught her toe on the rug she fell hitting an armchair in the left chest wall and left side of her elise rnum 2 days prior to presenting to the emergency room. She reported some right knee pain over previously replaced right knee in April of last year and had to crawl which she stated took her 3 hours to get the back door where she was able to pull herself up and finally then call for help. Her knee pain improved but she continued to have chest and rib pain significant enough that she wasn't able to care for herself she initially refused to come into the emergency room but family finally convinced her. There she was noted to have left eighth rib as well as sternal fracture nondisplaced. She has a history of acquired spinal stenosis was complaining about some low back pain but was not nearly as severe as her chest pain. CT of the lumbar spine revealed findings compatible with significant acquired spinal stenosis involving the majority of the lumbar spine with some deformities but the patient denies radicular pain or weakness. She denied syncope presyncope dizziness or vertiginous type symptoms feeling that she just essentially stubbed her toe. Because of advanced age and ability to care for herself she was admitted for pain control and further investigation. The morning of my arrival the patient was doing relatively well other than left chest pain and other than some bruising over the sternum with splinting on respiration she had no other concerning findings. She received all of her usual home blood pressure medication but an hour later I was contacted by the nurse that her blood pressure was in the 240/110 range and she was feeling anxious. She denied chest discomfort shortness of breath or headache and did not appear to be confused. She had received her Catapres as well likely only missed 1 dose her evening dose as long she has been compliant at home. I did give her 0.625 mg of Vasotec IV and within several minutes she reported salivation and began shaking. She felt quite anxious without any other new symptoms. I returned to evaluate the patient after being contacted by the nurse and she appeared anxious with mild tremor denied feeling like she was freezing she did not appear to be spitting or swallowing excessive saliva had no evidence for skin swelling in her chest was clear. She again denied headache she was alert and oriented heart rate was 110 and irregularly irregular. She has a history of chronic atrial fibrillation. Her blood pressure was 220/100. Subjective/Events-last exam Assessment intermittent nausea with vomiting with no hematemesis. It is been 48 hours since her last bowel movement but she has had minimal by mouth intake here in the hospital. This morning she was reports predominantly a bilateral lower quadrant abdominal pain. She reports that it is a constant unwavering discomfort and did not describe an overt colicky quality. It is nonradiating and associated with nausea. She states that for right upper quadrant pain in the past she had recent gallbladder sonography that was unremarkable and denies any upper quadrant abdominal pain. Blood pressures when she is having more discomfort are up earlier when she was more comfortable blood pressures were down in the 150/80 range. She has received a dose of hydralazine after evaluation per Dr. Kelsey in addition to multiple other medications that she is on with the initiation of clonidine 0.3 mg patch yesterday. She was mildly somnolent during the interview appearing to be significantly uncomfortable secondary to abdominal pain she denied chills fever with mild left-sided chest pain when she moves she's had no shortness of breath and denied any significant coughing today. She did exhibit a dry cough yesterday. Objective Exam Vital Signs Vital Signs Date Time Temp Pulse Resp B/P (MAP) Pulse Ox O2 Delivery O2 Flow Rate FiO2 12/18/18 08:00 98.5 105 55 224/104 (144) 92 Room Air 12/16/18 16:28 21 Capillary Refill : Less Than 3 Seconds General Appearance: Moderate Distress HEENT: PERRL/EOMI, Normal ENT Inspection Neck: Normal Inspection, Non Tender, Supple Respiratory: No Accessory Muscle Use, No Respiratory Distress, Other (Decreased breath sounds in the left base without wheezes rales or rhonchi.) Cardiovascular: No Edema, No Gallop, No JVD, Normal Peripheral Pulses, Systolic Murmur, Irregularly Irregular Gastrointestinal: No Organomegaly, Non Tender (Patient complains of lower quadrant abdominal pain but was not significantly tender to palpation there or anywhere else in the abdomen. Bowel sounds are positive mild distention is noted. The abdomen is soft as well), Soft Rectal: Deferred Back: Other (minimal lower back pain) Extremity: Normal Inspection, Normal Range of Motion, Non Tender, No Calf Tenderness Neurologic/Psychiatric: Alert, Oriented x3, No Motor/Sensory Deficits Skin: Warm/Dry (echymosis sternal region) Lymphatic: No Adenopathy Results/Procedures Lab Laboratory Tests 12/18/18 05:11 Patient resulted labs reviewed. Assessment/Plan Assessment and Plan Assess & Plan/Chief Complaint 1. Sternal and left eighth rib nondisplaced fracture with secondary chest pain and debility. Still plan on acute rehabilitation evaluation but due to ongoing medical problems she will not be able to perform physical therapy today and will hold transfer to acute rehabilitation. 2. Increasing abdominal pain with white count and low-grade fever yesterday is concerning for an underlying infection considering that she does have evidence for left pleural effusion which I suspect is small hemothorax from her fracture will be obtaining a CT of the chest as well as abdomen and pelvis now. She does recall the distant past about of diverticulitis that she's had no recent infectious problems. 3. Severe blood pressure elevation without evidence for end organ damage being aggravated by whatever is causing her abdominal pain Dr. Kelsey's help appreciated. 4. Chronic atrial fibrillation not currently on anticoagulant therapy I believe due to past history for hemorrhagic stroke. Clinical Quality Measures DVT/VTE Risk/Contraindication: Risk Factor Score Per Nursin RFS Level Per Nursing on Admit: 4+=Very High POLINA SANTIAGO MD December 18, 2018 10:18
--- NOTE | 2018-12-18 10:30 | NUR ---
PATIENT COMPLAINING OF STOMACH PAIN, DR SANTIAGO ON THE FLOOR. GIVE ONE TIME DOSE OF 4 MG IV MORPHINE NOW AND CHANGE PRN ORDER TO 4 MG IV MORPHINE Q4H PRN FOR PAIN.
[2018-12-18] MEDS ORDERED: morphine INJ 10 MG/ML 1ML (SYR OR VIAL) IVP STA (10:33)
[2018-12-18] MEDS ORDERED: morphine INJ 4 MG/ML 1 ML (VIAL/SYRINGE) IV NR (10:45)
[2018-12-18] MEDS ORDERED: morphine INJ 4 MG/ML 1 ML (VIAL/SYRINGE) IV PRN (10:45)
[2018-12-18] MEDS: LABETALOL HCL 20 MG/4 ML VIAL IV PRN ×2 (11:47→19:48)
--- NOTE | 2018-12-18 12:45 | Diagnostic Imaging Report ---
PROCEDURE: CT chest, abdomen, and pelvis without contrast. TECHNIQUE: Multiple contiguous axial images were obtained through the chest, abdomen, and pelvis without the use of intravenous contrast. Auto Exposure Controls were utilized during the CT exam to meet ALARA standards for radiation dose reduction. INDICATION: Mid abdominal pain. Patient sustained a fall on 12/13/2018, injury to the left ribs and sternum. COMPARISON: Comparison is made with prior CT chest from 12/16/2018. FINDINGS: CT CHEST: No mediastinal hematoma is seen. There are coronary arterial calcifications. No pericardial fluid is detected. Small left pleural effusion noted previously has improved and nearly completely resolved. No parenchymal contusion or pneumothorax is identified. Bony structures appear intact. Previously noted questionable fracture of the left lateral eighth rib is not well seen on today's study. Tiny buckle of the ventral cortex of the sternal body is unchanged. No displaced rib fracture is seen. CT ABDOMEN AND PELVIS: Evaluation of abdominal viscera is somewhat limited without intravenous contrast. No definite perihepatic or perisplenic fluid collection is seen. There is no adrenal hematoma. No perinephric hematoma is seen. Aorta is calcified but nonaneurysmal. No free fluid is seen to suggest hemoperitoneum. There is diverticulosis of the sigmoid but no evidence of acute diverticulitis. Moderate stool in the right colon is seen. Bladder is unremarkable. IMPRESSION: 1. Decrease in size of small left pleural effusion since prior CT two days earlier. No parenchymal contusion or pneumothorax is seen. No displaced rib fracture is seen. Questionable nondisplaced fracture of the sternum is unchanged. 2. No definite evidence of abdominal or pelvic visceral injury. There is no hemoperitoneum. Note is made of sigmoid diverticulosis. Dictated by: Dictated on workstation # [id number]
--- NOTE | 2018-12-18 13:36 | NUR ---
CALLED DR SANTIAGO. PATIENT IS COMPLAINING OF BAD STOMACH PAIN. NEW ORDER TO CHANGE MORPHINE 4MG IV TO Q2H PRN FOR PAIN.
--- NOTE | 2018-12-18 13:39 | NUR ---
DR SANTIAGO INQUIRED ABOUT PT'S BLOOD PRESSURE. HE WAS ALSO INFORMED OF MEDICATIONS GIVEN TO TREAT IT. HE WANTS THE PO CATAPRES STOPPED SINCE THE PATIENT HAS THE CATAPRES PATCH ON.
--- NOTE | 2018-12-18 13:42 | Physical Therapy Progress Note ---
Therapy Progress Note Bashir PT today per Dr. Calderon note. Will check back tomorrow. NICCI MALONE PT December 18, 2018 13:42
[2018-12-18] MEDS ORDERED: POLYETHYLENE GLYCOL 17 GM (MIRALAX) PACK PO PRN (14:45)
--- NOTE | 2018-12-18 15:15 | NUR ---
CALLED DR DUQUE WITH BLADDER SCAN RESULT. PUT CALHOUN IN TO HELP PATIENT FEEL MORE COMFORTABLE.
--- NOTE | 2018-12-18 15:30 | NUR ---
PATIENT DOES NOT WANT CALHOUN CATHETER IN. SHE HATES THEM. WE WILL CONTINUE TO MONITOR AND BLADDER SCAN AND SHE AGREED TO POSSIBLY ALLOWING US TO INSERT A CATHETER IF SHE CONTINUES TO HAVE POST VOID RESIDUAL.
--- NOTE | 2018-12-18 19:44 | Progress Note ---
Subjective Date Seen by a Provider: December 18, 2018 Time Seen by a Provider: 11:52 Subjective/Events-last exam Patient with complaint of lower abdominal pain. Moderate to severe. Patient with ct chest abd pelvis with no new acute findings except more stool load around right colon and bladder appears slightly enlarged. She states that she been having some difficulty with urination and not had a bm for couple days. Her wbc incnreased today to 15K. Had some nausea and emesis. Denies fever sweats chills shortness of breath or chest pain. Still with chest wall pain left side/sternum Objective Exam Vital Signs Date Time Temp Pulse Resp B/P (MAP) Pulse Ox O2 Delivery O2 Flow Rate FiO2 12/18/18 18:46 90 Room Air 12/18/18 15:35 97.7 103 18 130/98 (109) 92 Room Air 12/18/18 12:49 107 12/18/18 12:00 99.0 126 16 210/105 (140) 94 Room Air 12/18/18 08:00 98.5 105 18 224/104 (144) 92 Room Air 12/18/18 08:00 Room Air 12/18/18 07:00 111 12/18/18 04:26 98.1 87 18 141/64 (89) 96 Room Air 12/18/18 01:00 83 12/17/18 23:54 98.6 86 20 180/90 (120) 98 Room Air 12/17/18 22:44 87 Room Air 12/17/18 20:00 Room Air I & O 12/18/18 07:00 Intake Total 1230 ml Output Total 550 ml Balance 680 ml Capillary Refill : Less Than 3 Seconds General Appearance: Mild Distress HEENT: PERRL/EOMI, Normal ENT Inspection Neck: Normal Inspection, Non Tender, Supple Respiratory: No Accessory Muscle Use, No Respiratory Distress, Other (Decreased breath sounds in the left base without wheezes rales or rhonchi.) Cardiovascular: No Edema, No Gallop, No JVD, Normal Peripheral Pulses, Systolic Murmur, Irregularly Irregular Gastrointestinal: soft, distended, tenderness (lower abdomen) Extremity: Normal Inspection, Normal Range of Motion, Non Tender, No Calf Tenderness Neurologic/Psychiatric: Alert, Oriented x3, No Motor/Sensory Deficits Skin: Warm/Dry (echymosis sternal region) Lymphatic: No Adenopathy Results Lab Laboratory Tests 5/28/19 05:11: White Blood Count 15.8H, Red Blood Count 4.14L, Hemoglobin 12.8, Hematocrit 38, Mean Corpuscular Volume 92, Mean Corpuscular Hemoglobin 31, Mean Corpuscular Hemoglobin Concent 34, Red Cell Distribution Width 14.9H, Platelet Count 310, Mean Platelet Volume 10.0, Neutrophils (%) (Auto) 86H, Lymphocytes (%) (Auto) 4L , Monocytes (%) (Auto) 10, Eosinophils (%) (Auto) 0, Basophils (%) (Auto) 0, Neutrophils # (Auto) 13.5H, Lymphocytes # (Auto) 0.7L, Monocytes # (Auto) 1.6H, Eosinophils # (Auto) 0.0, Basophils # (Auto) 0.0, Neutrophils % (Manual) 88, Lymphocytes % (Manual) 6, Monocytes % (Manual) 6, Sodium Level 140, Potassium Level 3.5L, Chloride Level 103, Carbon Dioxide Level 24, Anion Gap 13, Blood Ure a Nitrogen 19H, Creatinine 0.87, Estimat Glomerular Filtration Rate > 60, BUN/Creatinine Ratio 22, Glucose Level 148H, Calcium Level 9.8, Corrected Calcium 9.8, Total Bilirubin 0.7, Aspartate Amino Transf (AST/SGOT) 23, Alanine Aminotransferase (ALT/SGPT) 23, Alkaline Phosphatase 72, Total Protein 7.3, Albumin 4.0 Assessment/Plan Assessment/Plan Assessment/Plan fall sternal fracturer nondisplaced left 8 th rib fracture nondisplaced htn nausea/emesis ct scan with no acute findings. feel she may have right sided constipation or some urinary retention. will give Miralax and bladder scan and possibly sidhu I do not believe there is a surgical issues yet. The elevated wbc may be from t he vomiting. will continue to follow abdominal pain closely. pain control incentive spirometry/MAT protocol consider IPR patient is wanting to get stronger before going back home. monitor blood pressure Clinical Quality Measures DVT/VTE Risk/Contraindication: Risk Factor Score Per Nursin RFS Level Per Nursing on Admit: 4+=Very High SOCO DUQUE DO December 18, 2018 19:44
[2018-12-19] VITALS (12 sets, daily range): BP systolic 64–168; BP diastolic 43–90
[2018-12-19] MEDS: morphine INJ 4 MG/ML 1 ML (VIAL/SYRINGE) IV PRN (00:31)
[2018-12-19 05:56] LABS: BASOPHILS % (AUTO) 0 % (0-10); EOSINOPHILS # (AUTO) 0.1 10^3/uL (0.0-0.3); EOSINOPHILS % (AUTO) 0 % (0-10); HEMATOCRIT 42 % (35-52); LYMPHOCYTES # (AUTO) 0.9 X 10^3 (1.0-4.0); LYMPHOCYTES % (AUTO) 4 % (12-44); MEAN CORPUSCULAR HEMOGLOBIN 30 PG (25-34); MEAN CORPUSCULAR HGB CONC 33 G/DL (32-36); MEAN CORPUSCULAR VOLUME 91 FL (80-99); MEAN PLATELET VOLUME 9.9 FL (7.4-10.4); MONOCYTES # (AUTO) 2.2 X 10^3 (0.0-1.0); MONOCYTES % (AUTO) 10 % (0-12); NEUTROPHILS # (AUTO) 18.2 X 10^3 (1.8-7.8); NEUTROPHILS % (AUTO) 85 % (42-75); PLATELET COUNT 315 10^3/uL (130-400); RED CELL DISTRIBUTION WIDTH 14.9 % (10.0-14.5); WHITE BLOOD COUNT 21.3 10^3/uL (4.3-11.0)
[2018-12-19 06:22] LABS: ALBUMIN 3.6 GM/DL (3.2-4.5); BILIRUBIN,TOTAL 1.4 MG/DL (0.1-1.0); CREATININE SERUM 0.99 MG/DL (0.60-1.30); POTASSIUM 3.4 MMOL/L (3.6-5.0); TOTAL PROTEIN 6.9 GM/DL (6.4-8.2)
[2018-12-19 06:36] LABS: BAND NEUTROPHILS 14 %; LYMPHOCYTES % (MANUAL) 7 %; MONOCYTES % (MANUAL) 12 %; NEUTROPHILS % (MANUAL) 67 %
--- NOTE | 2018-12-19 06:40 | NUR ---
CALLED DR CRAWFORD ABOUT PT OUT PUT OF 150, DARK YELLOW URINE. NOTIFIED ABOUT PT BEEN SOMNOLENT AND UNCLEAR AND SLURRED SPEECH. NEW ORDERS RECEIVED TO GIVE 250ML BOLUS AND FLUIDS 150ML/HR
[2018-12-19] MEDS: NS IV 1000 ML 1,000 ML IV SCH ×2 (06:56→14:11)
[2018-12-19] MEDS ORDERED: metroNIDAZOLE 500MG/100ML IVPB IV NR (08:30)
[2018-12-19] MEDS ORDERED: ceFAZolin INJECTION 1,000 MG in WATER (STERILE) FOR INJECTION 10 ML IV NR (08:30)
--- NOTE | 2018-12-19 08:31 | Progress Note ---
Subjective Date Seen by a Provider: December 19, 2018 Time Seen by a Provider: 08:28 Subjective/Events-last exam Patient with severe abdominal pain. lower abdomen. more distended. wbc up to 21K No family at bedside. Objective Exam Vital Signs Date Time Temp Pulse Resp B/P (MAP) Pulse Ox O2 Delivery O2 Flow Rate FiO2 12/19/18 07:24 97 94 21 12/19/18 07:00 102 12/19/18 06:02 140/85 (103) 12/19/18 04:30 98.2 97 18 148/85 (106) 94 Room Air 12/19/18 01:00 115 12/18/18 23:29 97.6 121 20 169/99 (122) 94 Room Air 12/18/18 21:40 139/96 (110) 12/18/18 20:00 Room Air 12/18/18 19:30 98.1 117 20 223/107 (145) 91 Room Air 12/18/18 19:00 114 12/18/18 18:46 90 Room Air 12/18/18 15:35 97.7 103 18 130/98 (109) 92 Room Air 12/18/18 12:49 107 12/18/18 12:00 99.0 126 16 210/105 (140) 94 Room Air I & O 12/19/18 07:00 Intake Total 1180 ml Output Total 875 ml Balance 305 ml Capillary Refill : Less Than 3 Seconds General Appearance: Moderate Distress HEENT: PERRL/EOMI, Normal ENT Inspection Neck: Normal Inspection, Non Tender, Supple Respiratory: No Accessory Muscle Use, No Respiratory Distress, Other (Decreased breath sounds in the left base without wheezes rales or rhonchi.) Cardiovascular: No Edema, No Gallop, No JVD, Normal Peripheral Pulses, Systolic Murmur, Irregularly Irregular Gastrointestinal: soft, distended, tenderness (diffuse abdomen, pain out of proportion with rebound tenderness) Extremity: Normal Inspection, Normal Range of Motion, Non Tender, No Calf Tenderness Neurologic/Psychiatric: Alert, Oriented x3, No Motor/Sensory Deficits Skin: Warm/Dry (echymosis sternal region) Lymphatic: No Adenopathy Results Lab Laboratory Tests 12/19/18 05:10: White Blood Count 21.3H, Red Blood Count 4.67, Hemoglobin 14.0, Hematocrit 42, Mean Corpuscular Volume 91, Mean Corpuscular Hemoglobin 30, Mean Corpuscular Hemoglobin Concent 33, Red Cell Distribution Width 14.9H, Platelet Count 315, Mean Platelet Volume 9.9, Neutrophils (%) (Auto) 85H, Lymphocytes (%) (Auto) 4L, Monocytes (%) (Auto) 10, Eosinophils (%) (Auto) 0, Basophils (%) (Auto) 0, Neutrophils # (Auto) 18.2H, Lymphocytes # (Auto) 0.9L, Monocytes # (Auto) 2.2H, Eosinophils # (Auto) 0.1, Basophils # (Auto) 0.0, Neutrophils % (Manual) 67, Lymphocytes % (Manual) 7, Monocytes % (Manual) 12, Band Neutrophils 14, Sodium Level 140, Potassium Level 3.4L, Chloride Level 102, Carbon Dioxide Level 20L, Anion Gap 18H, Blood Urea Nitrogen 30H, Creatinine 0.99, Estimat Glomerular Filtration Rate 53, BUN/Creatinine Ratio 30, Glucose Level 148H, Calcium Level 10.0, Corrected Calcium 10.3H, Total Bilirubin 1.4H, Aspartate Amino Transf (AST/SGOT) 37H, Alanine Aminotransferase (ALT/SGPT) 22, Alkaline Phosphatase 91, Total Protein 6.9, Albumin 3.6, Lipase 23 Assessment/Plan Assessment/Plan Assessment/Plan fall sternal fracturer nondisplaced left 8 th rib fracture nondisplaced htn nausea/emesis ischemic bowel patient with severe abdominal pain and exam consistent with ischemic bowel discussed risks and benefits of exploratory laparotomy and all other indicated procedures. patient to or pain control incentive spirometry/MAT protocol consider IPR patient is wanting to get stronger before going back home. monitor blood pressure Clinical Quality Measures DVT/VTE Risk/Contraindication: Risk Factor Score Per Nursin RFS Level Per Nursing on Admit: 4+=Very High SOCO DUQUE DO December 19, 2018 08:31
--- NOTE | 2018-12-19 08:40 | NUR ---
VERBAL CONSENT FOR EXPLORATORY LAPAROTOMY RECEIVED ON THE PHONE WITH DAUGHTER VERIFIED BY THIS NFL PLAYER AND KASSI OBRIEN.
--- NOTE | 2018-12-19 08:46 | Progress Note-Hospitalist ---
Subjective HPI/CC On Admission Time Seen by Provider: 08:00 Mrs. Hensley is a typically spry 83-year-old white female living independently by herself at home who while wearing slippers think she caught her toe on the rug she fell hitting an armchair in the left chest wall and left side of her sternum 2 days prior to presenting to the emergency room. She reported some right knee pain over previously replaced right knee in April of last year and had to crawl which she stated took her 3 hours to get the back door where she was able to pull herself up and finally then call for help. Her knee pain improved but she continued to have chest and rib pain significant enough that she wasn't able to care for herself she initially refused to come into the emergency room but family finally convinced her. There she was noted to have left eighth rib as well as sternal fracture nondisplaced. She has a history of acquired spinal stenosis was complaining about some low back pain but was not nearly as severe as her chest pain. CT of the lumbar spine revealed findings compatible with significant acquired spinal stenosis involving the majority of the lumbar spine with some deformities but the patient denies radicular pain or weakness. She denied syncope presyncope dizziness or vertiginous type symptoms feeling that she just essentially stubbed her toe. Because of advanced age and ability to care for herself she was admitted for pain control and further investigation. The morning of my arrival the patient was doing relatively well other than left chest pain and other than some bruising over the sternum with splinting on respiration she had no other concerning findings. She received all of her usual home blood pressure medication but an hour later I was contacted by the nurse that her blood pressure was in the 240/110 range and she was feeling anxious. She denied chest discomfort shortness of breath or headache and did not appear to be confused. She had received her Catapres as well likely only missed 1 dose her evening dose as long she has been compliant at home. I did give her 0.625 mg of Vasotec IV and within several minutes she reported salivation and began shaking. She felt quite anxious without any other new symptoms. I returned to evaluate the patient after being contacted by the nurse and she appeared anxious with mild tremor denied feeling like she was freezing she did not appear to be spitting or swallowing excessive saliva had no evidence for skin swelling in her chest was clear. She again denied headache she was alert and oriented heart rate was 110 and irregularly irregular. She has a hist ory of chronic atrial fibrillation. Her blood pressure was 220/100. Subjective/Events-last exam Upon my arrival the patient was confused and unable to respond she was not writhing in bed but did appear to be uncomfortable with pallor. Her abdomen was distended and unlike yesterday there was significant reaction of pain to palpation of the lower abdomen. Bowel sounds are absent. Objective Exam Vital Signs Vital Signs Date Time Temp Pulse Resp B/P (MAP) Pulse Ox O2 Delivery O2 Flow Rate FiO2 12/19/18 13:11 120 14 91 90 12/19/18 12:00 124/83 (97) Nasal Cannula 1.00 12/19/18 11:20 98.4 Capillary Refill : Less Than 3 Seconds General Appearance: Moderate Distress Respiratory: Lungs Clear, No Accessory Muscle Use, No Respiratory Distress, Oth er (Decreased breath sounds in the left base without wheezes rales or rhonchi.) Cardiovascular: No Edema, No Gallop, No JVD, Normal Peripheral Pulses, Systolic Murmur, Irregularly Irregular Gastrointestinal: No Organomegaly, Distended (L sounds absent significant pain to palpation noted significant change compared to yesterday.) Rectal: Deferred Back: Other (minimal lower back pain) Extremity: No Pedal Edema Skin: Warm/Dry (echymosis sternal region) Lymphatic: No Adenopathy Results/Procedures Lab Patient resulted labs reviewed. Assessment/Plan Assessment and Plan Assess & Plan/Chief Complaint 1. Sternal and left eighth rib nondisplaced fracture with secondary chest pain and debility. 2. Progressive abdominal distention yesterday the patient complained of nausea and had no pain to palpation. There is been an acute change with tenderness declining mental status and white count is up to 21,000. Findings are compatible with ischemic bowel. Dr. Hill was contacted case was discussed and the patient was scheduled for emergency exploratory laparotomy. Unfortunately suspicions were confirmed with dusky small intestine and colon compatible with severe ischemic bowel inoperable. The patient was closed mechanical ventilation was continued. Terminal prognosis was discussed with family members present. They wish to keep the patient intubated until one more family member could arrive in an hour or 2. I return to see the patient at 1130 spinning another half an hour discussing her diagnosis and discussing palliative care issues with expectations we would not have difficulty keeping her comfortable. Morphine drip was initiated and 1 last family member arrived the patient was extubated. She later in the afternoon as I recall around 3 o'clock with family members present. Critical Care Critically Ill Patient Clinical Quality Measures DVT/VTE Risk/Contraindication: Risk Factor Score Per Nursin RFS Level Per Nursing on Admit: 4+=Very High POLINA SANTIAGO MD December 19, 2018 08:46
[2018-12-19] MEDS: DOCUSATE SODIUM 100 MG (COLACE) CAP PO SCH (08:56)
[2018-12-19] MEDS: DILTIAZEM 120 MG (CARDIZEM CD) CAP PO SCH (08:56)
[2018-12-19] MEDS: LOSARTAN 100 MG (COZAAR) TABLET PO SCH (08:56)
[2018-12-19] MEDS: meTOprolol TARTRATE 50 MG (LOPRESSOR) TAB PO SCH (08:56)
--- NOTE | 2018-12-19 09:04 | NUR ---
[facility] HERE TO TRANSPORT PATIENT VIA HOSPITAL BED FOR PROCEDURE.
[2018-12-19] MEDS: LACTATED RINGERS 1,000 ML IV PRN ×2 (09:12→10:00)
[2018-12-19] MEDS ORDERED: proPOfol 200 MG/20 ML (DIPRIVAN) VIAL IV ONE (09:26)
[2018-12-19] MEDS ORDERED: ROCURONIUM 10 MG/ML 5 ML SYRINGE IV ONE (09:26)
[2018-12-19] MEDS ORDERED: LIDOCAINE PF 2% 5 ML (XYLOCAINE) VIAL ONE (09:26)
[2018-12-19] MEDS ORDERED: fentaNYL INJECTION 100 MCG/2 ML AMP ONE (09:27)
[2018-12-19] MEDS ORDERED: BUP/EPI 0.5% 1:200,000 (SENSORCAINE) 30 ML VIAL ONE (09:28)
[2018-12-19] MEDS ORDERED: LIDOCAINE 1% INJ 20 ML 20 ML VIAL ONE (09:28)
[2018-12-19] MEDS ORDERED: SEVOFLURANE (ULTANE) 15 ML INHAL SOLN ONE (09:31)
--- NOTE | 2018-12-19 09:42 | Physical Therapy Progress Note ---
Therapy Progress Note Patient is scheduled to have surgery today. Will await new orders to eval. NICCI MALONE PT December 19, 2018 09:42
[2018-12-19] MEDS ORDERED: CLINDAMYCIN 600 MG/50 ML IVPB 50 ML IV ONE ×2 (09:45→13:00)
[2018-12-19] MEDS ORDERED: metroNIDAZOLE 500MG/100ML IVPB 100 ML ONE (09:59)
[2018-12-19] MEDS ORDERED: CLINDAMYCIN 600 MG/4ML (CLEOCIN) VIAL ONE (09:59)
[2018-12-19] MEDS ORDERED: SUCCINYLCHOLINE INJ 100 MG/5 ML SYR ONE (10:01)
--- NOTE | 2018-12-19 10:03 | NUR ---
REPORT CALLED TO KASSI DRISCOLL IN ICU. PATIENT WILL BE GOING TO ICU 9 AFTER RECOVERY. PATIENT'S BELONGINGS GATHERED AND TAKEN TO ROOM IN ICU.
--- NOTE | 2018-12-19 10:27 | Progress Note-Post Operative ---
Post-Operative Progess Note Surgeon (s)/Mail Examiner (s) Surgeon SOCO DUQUE DO Mail Examiner: Dr. Potter Pre-Operative Diagnosis ischemic bowel Post-Operative Diagnosis ischemic small bowel and colon Procedure & Operative Findings Date of Procedure 12/19/18 Procedure Performed/Findings exploratory laparotomy Anesthesia Type gen Estimated Blood Loss Estimated blood loss (mL): min Specimens/Packing Specimens Removed na SOCO DUQUE DO December 19, 2018 10:27
--- NOTE | 2018-12-19 10:37 | NUR ---
Pt arrived to ICU room CU9. Pt recovered by this RN during that time. Pt arrived with BP 60s/30s. Levophed gtt started at this time per Dr. Hill orders. Will continue to monitor. See Recovery charting for assessments.
[2018-12-19] MEDS ORDERED: NS (IVPB) 250 ML ONE (10:40)
[2018-12-19] MEDS ORDERED: NOREPINEPHRINE 4 MG/4 ML (LEVOPHED) AMP IV ONE (10:40)
[2018-12-19] MEDS ORDERED: PROPOFOL DRIP (ICU) 100 ML IV ONE (11:06)
--- NOTE | 2018-12-19 11:38 | Occ Therapy Progress Note ---
Therapy Progress Note Pt. to have surgery today. Will continue to monitor and re-assess. 1137 MINA GOLDEN OT December 19, 2018 11:38
[2018-12-19] MEDS ORDERED: morphine PCA 100 MG/100 ML BAG IV SCH (12:00)
--- NOTE | 2018-12-19 12:47 | NUR ---
Environmental Engineer support requested by family for end of life support. Pt is Church and family requested a tub chucker. Family states pt has not been connected with a Parish in recent years, however believe her [place] is still important her and they wish to honor that. Family present at bedside. Some emotional tensions observed between pt's children, however family demonstrated desire to focus on needs of the pt. This surgical supplies sterilizer led the family in prayer and contacted [facility] per family's request.
[2018-12-19] MEDS ORDERED: NS IV 1000 ML 1,000 ML IV PRN (13:13)
[2018-12-19] MEDS ORDERED: ARTIFICAL TEARS 0.4 ML UNIT DOSE (REFRESH PLUS) OU PRN (13:15)
[2018-12-19] MEDS ORDERED: RT-ALBUTEROL/IPRATROPIUM 3 ML (DUONEB) VIAL INH PRN (13:15)
[2018-12-19] MEDS ORDERED: ACETAMINOPHEN 650 MG SUPP (TYLENOL) PR PRN (13:15)
[2018-12-19] MEDS ORDERED: SALIVA STIMULANT MOUTH SPRAY (BIOTENE) 1.5 OZ MM PRN (13:15)
[2018-12-19] MEDS ORDERED: BISACODYL 10 MG SUPP (DULCOLAX) PR PRN (13:15)
[2018-12-19] MEDS ORDERED: LORazepam INJ 2 MG/ML (ATIVAN) VIAL IVP PRN (13:15)
[2018-12-19] MEDS ORDERED: ONDANSETRON 4 MG/2 ML (SDV) Z0FRAN IVP PRN (13:15)
[2018-12-19] MEDS ORDERED: PROMETHAZINE INJ 25 MG/ML (PHENERGAN) AMP IVP PRN (13:15)
[2018-12-19] MEDS ORDERED: GLYCOPYRROLATE 0.2 MG/ML (ROBINUL) 2 ML VIAL IV PRN (13:15)
[2018-12-19] MEDS ORDERED: PROPOFOL DRIP (ICU) 100 ML IV SCH (13:15)
--- NOTE | 2018-12-19 13:28 | Occ Therapy Progress Note ---
Therapy Progress Note Pt. transferred to ICU after procedure. Will need new OT orders to resume therapy as needed. 1330 MINA GOLDEN OT December 19, 2018 13:28
--- NOTE | 2018-12-19 13:53 | NUR ---
Follow up visit: approx 10 family members present. Still awaiting family from [place]. A financial service professional from [facility] visited and offered Sacrament of the Sick. Assisted in ordering a comfort cart when family said that nothing had arrived. When the cart arrived, the family expressed appreciation for the hospitality as they had not eaten lunch and have been grieving the sudden changes in pt's condition. Pt's daughter shared that in surgery today the doctor discovered the pt's bowel had .
--- NOTE | 2018-12-19 14:13 | NUR ---
[facility] notified. Referral number [id number]. Pt was declined for organ donation due to age at this time. Will notify [facility] with cardiac time of .
--- NOTE | 2018-12-19 14:32 | NUR ---
Pt extubated at this time per comfort care orders. IV morphine infusing per orders. Family remains at bedside at this time. Will continue to monitor and provide support to family at bedside. [place] notified at this time.
--- NOTE | 2018-12-19 15:11 | OPERATIVE REPORT ---
DATE OF SERVICE: 12/19/2018 PREOPERATIVE DIAGNOSIS: Ischemic bowel. POSTOPERATIVE DIAGNOSES: Ischemic small bowel and colon. PROCEDURE: Exploratory laparotomy. SURGEON: Soco Hill DO CONCRETE PAVEMENT INSTALLER: Dr. Potter, assisted in retraction, dissection and closure. ANESTHESIA: General. ESTIMATED BLOOD LOSS: Minimal. COMPLICATIONS: None. INDICATIONS: The patient is an 83-year-old female, who presented to the hospital with sternal fracture and left rib fracture. The patient had severe abdominal pain consistent with ischemic bowel this morning. She was advised she had an increasing white blood cell count of 21,000. The patient was discussed risks and benefits of procedure and wished to proceed with procedure. Consent was signed in the chart and this was also discussed with the patient's daughter. PROCEDURE IN DETAIL: The patient was taken to the operating suite. She was prepped and draped in sterile fashion. Surgical pause was performed. A midline incision was made and cautery was used to dissect down to the fascia, which was then opened and the abdomen was then entered. A putrid smell of the abdominal cavity was present. The small bowel was ischemic appearing and the colon had ischemic appearance as well. The small bowel was ran from the cecum all the way to the ligament of Treitz, it was completely ischemic with no improvement able to be made. With the amount of ischemia present, this was deemed to be noncompatible with life. The abdomen was then closed using 1-0 looped PDS and socorro. The patient was left on the ventilator and taken to the ICU. It was discussed with family, who wish to make her comfort care once some other family members were able to be here with her. Job ID: [id number] DocumentID: [id number] Dictated Date: 12/19/2018 12:33:53 Front Tender Date: 12/19/2018 15:10:56 Dictated By: SOC[facility] HILL DO [facility]
--- NOTE | 2018-12-19 16:13 | NUR ---
This RN called to pts room at this time for cessation of respirations. Kayleigh RN also at bedside at this time. Two RN's noted no respirations and no perceptible heart beat at this time. Family at bedside. 1622 Dr. Calderon notified of pt's . 1616 Dr. Hill notified of pt's . 1628 [facility] notified.
--- NOTE | 2018-12-19 16:47 | NUR ---
Jefferson Ndiaye at bedside with family at this time. Will await Mortuary release.
--- NOTE | 2018-12-19 16:53 | NUR ---
[facility] contacted at this time per family request. Will await Mortuary arrival for pt discharge.
--- NOTE | 2018-12-24 14:38 | Physician Query Clarification ---
PQ-Further Specificity Admission/Discharge Admission Date: December 16, 2018 at 14:05 Discharge Date: December 19, 2018 at 18:15 The medical record reflects the following clinical scenario: History/Risk Factors: Nausea Abdominal pain/constipation Resistant hypertension Clinical Findings: WBC 15.8 to 21.3 on 12/19. Declining mental status Treatment: Exploratory Laparotomy, IV Morphine Sulfate, IV Flagyl 500mg, IV Clindamycin. Question: Can you further specify Ischemic bowel (small and large intestine) per the clinical indicators above? Please document a response in the Progress Notes or Discharge Summary. 1. Acute ischemic of small and large intestine. 2. 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 Other, with explanation of the clinical findings. 4. Clinically undetermined, no explanation for the clinical findings. PHYSICIAN RESPONSE Can you specify per above: 1 Please remember a lack of response to the above will prompt a phone page by CDI/Coding staff. In responding to this query, please exercise your independent professional judgment. The purpose of this communication is to more accurately reflect the complexity of your patients condition. The fact that a question is asked does not imply that any particular answer is desired or expected. Thank you for your timely response to this clarification. Requestors name: Ilene Tidwell [facility] Phone # ext [phone] or [phone] THIS PHYSICIAN QUERY FORM IS A PERMANENT PART OF THE MEDICAL RECORD ILENE TIDWELL Dec 24, 2018 14:38 SOCO DUQUE DO Jan 03, 2019 16:41
--- NOTE | 2018-12-24 14:47 | Physician Query Clarification ---
PQ-Present on Admission Admission/Discharge Admission Date: December 16, 2018 at 14:05 Discharge Date: December 19, 2018 at 18:15 Question: Severe ischemic bowel was documented in your 12/19 Operative report. Can you specify if this condition was present on admission? Please document a response in Progress Note or Discharge Summary. 1. Yes - Condition was present at the time of inpatient admission. 2. No - Condition was not present at the time of inpatient admission and it developed during the inpatient stay. 3. W - Provider is unable to clinically determine whether condition was present on admission or not. 4. Other [please specify] PHYSICIAN RESPONSE Condition was Present on Admit: No Please remember a lack of response to the above will prompt a phone page by CDI/Coding staff. In responding to this query, please exercise your independent professional judgment. The purpose of this communication is to more accurately reflect the complexity of your patients condition. The fact that a question is asked does not imply that any particular answer is desired or expected. Thank you for your timely response to this clarification. Requestors name: Ilene Tidwell [facility] Phone # ext [phone] or [phone] THIS PHYSICIAN QUERY FORM IS A PERMANENT PART OF THE MEDICAL RECORD ILENE TIDWELL Dec 24, 2018 14:47 SOCO DUQUE DO Jan 02, 2019 22:36
--- NOTE | 2019-01-04 06:52 | DISCHARGE SUMMARY ---
DATE OF SERVICE: DATE OF ADMISSION: 12/16/2018. DATE OF EXPIRATION: 12/19/2018. ADMITTING PHYSICIAN: Valentin Hill DO. CONSULTANTS: Dr. Marie and Dr. Calderon. HOSPITAL COURSE: The patient is an 83-year-old female who had a fall 2 to 3 days prior to admission. The patient fell on a chair and was found to have a nondisplaced sternal fracture and left eighth nondisplaced rib fracture. The patient was admitted for pain control and was continued to do better with pain control, but she did have a significant elevation of her blood pressure and with chronic atrial fibrillation; however, cannot be on anticoagulation due to history of ischemic stroke. The patient's pain continued to improve. She was using incentive spirometer and was tolerating diet. The patient was continued to improve on the and on , she was having some slight abdominal discomfort. She has slight increase in white blood cell count and she had a CT scan of the chest, abdomen and pelvis performed. She had a decrease in size of a small left pleural effusion since the prior CT scan 2 days earlier. No parenchymal contusion or pneumothorax. No displaced rib fracture seen. Questionable nondisplaced fracture of the sternum unchanged. No evidence of any abdominal or pelvic visceral injury, no hemoperitoneum and the sigmoid colon did have diverticulosis, but no evidence of diverticulitis. The patient had a Patel placed later that day because she was having some difficulty with urination which the Patel did seem to alleviate her pain. The patient on the had severe abdominal pain in the lower abdomen. She was more distended. Her white blood cell count increased to 21,000. There was a concern of ischemic bowel. Her exam was consistent with ischemic bowel. The patient was discussed need for exploration which the patient understood and was also discussed with the family who wished to proceed. The patient on 12/19/2018 went for exploratory laparotomy. She was found to have acute ischemia of the small and large colon, which was not sustainable of life. The patient was left intubated, taken to the Intensive Care Unit, family wished to make comfort care, wants some other family members presented to the hospital. The patient later on 12/19/2018. ADMITTING DIAGNOSES: Fall, nondisplaced sternal fracture, nondisplaced left 8th rib fracture, severe blood pressure elevation, chronic atrial fibrillation, history of refractory hypertension, coronary artery disease/peripheral arterial disease, hyperlipidemia. DISCHARGE DIAGNOSES: Fall, nondisplaced sternal fracture, nondisplaced left 8th rib fracture, severe blood pressure elevation, chronic atrial fibrillation, history of refractory hypertension, coronary artery disease/peripheral arterial disease, hyperlipidemia along with acute ischemic small bowel and colon, s/p exploratory laparotomy, Job ID: [id number] DocumentID: [id number] Dictated Date: 01/03/2019 16:30:51 [employer] Date: 01/04/2019 06:51:05 Dictated By: DO BRISEYDA GAMBLE
== END 2018-12-19 18:15 | disposition expired | DRG 981 ==
LOC: EDUNIT# 11:59 → ER 12:00 → 4TH 14:05 → ICU 12-19 10:15
PROVIDERS: ADMIT Surgery; ATTEND Surgery
PROC: 0DJD0ZZ Inspection of Lower Intestinal Tract, Open Approach (ICD-10-PCS; 2018-12-19)
PROC: 0DJ00ZZ Inspection of Upper Intestinal Tract, Open Approach (ICD-10-PCS; principal; 2018-12-19 09:55)
DX: S22.22XA Fracture of body of sternum, initial encounter for closed fracture (principal); S22.32XA Fracture of one rib, left side, initial encounter for closed fracture; K55.012 Diffuse acute (reversible) ischemia of small intestine; K55.039 Acute (reversible) ischemia of large intestine, extent unspecified; I42.9 Cardiomyopathy, unspecified; J90 Pleural effusion, not elsewhere classified; I10 Essential (primary) hypertension; Z66 Do not resuscitate; Z51.5 Encounter for palliative care; I48.2 Chronic atrial fibrillation; I25.10 Atherosclerotic heart disease of native coronary artery without angina pectoris; I70.203 Unspecified atherosclerosis of native arteries of extremities, bilateral legs; I70.0 Atherosclerosis of aorta; J45.909 Unspecified asthma, uncomplicated; E78.00 Pure hypercholesterolemia, unspecified; R25.1 Tremor, unspecified; I69.21 Cognitive deficits following other nontraumatic intracranial hemorrhage; M48.061 Spinal stenosis, lumbar region without neurogenic claudication; M25.552 Pain in left hip; M19.91 Primary osteoarthritis, unspecified site; F41.9 Anxiety disorder, unspecified; F32.9 Major depressive disorder, single episode, unspecified; K59.09 Other constipation; T46.4X5A Adverse effect of angiotensin-converting-enzyme inhibitors, initial encounter; W01.190A Fall on same level from slipping, tripping and stumbling with subsequent striking against furniture, initial encounter; Y92.009 Unspecified place in unspecified non-institutional (private) residence as the place of occurrence of the external cause; Z98.1 Arthrodesis status; Z86.718 Personal history of other venous thrombosis and embolism; Z96.651 Presence of right artificial knee joint
CPT/HCPCS: 36415; 36600; 71250; 72131; 74176; 80048; 80053; 81000; 82962; 83690; 84484; 85007; 85025; 85027; 87081; 93005; 94002; 94640; 94664; 94760; 96374; 96375